=== PATIENT | female | born 1960 | race American Indian/Alaskan Native ===

== ENCOUNTER 2017-01-01 11:15 | Inpatient (IN) | payer MEDICAID ==
--- NOTE | 2017-01-01 12:08 | ED PDOC ---
Arrival/HPI - General Chief Complaint: Weakness/Neurological Deficit Time Seen by Provider: 01/01/17 11:48 Historian: Patient - History of Present Illness Narrative History of Present Illness (Text): 01/01/17 12:05 56 year old female whose past medical history includes anemia, colitis, partial small bowel obstruction, and breast CA presents to the emergency department with shortness of breath for the past few weeks. She states it is worse with exertion. She also reports one episode of black diarrhea and nausea. Denies vaginal bleeding. Patient reports she has had transfusions in the past and was told to come to the ER by her oncologist. Oncologist: Dr. Aceves ([phone]) Time/Duration: > week Symptom Onset: Gradual Symptom Course: Unchanged Modifying Factors (Text): None Past Medical History - Infectious Disease Hx of Infectious Diseases: None - Cardiac Hx Cardiac Disorders: No - Pulmonary Hx Respiratory Disorders: No - Neurological Hx Neurological Disorder: No - HEENT Hx HEENT Disorder: Yes Other/Comment: glasses - Renal Hx Renal Disorder: No - Endocrine/Metabolic Hx Endocrine Disorders: No - Hematological/Oncological Hx Blood Disorders: Yes Hx Anemia: Yes Hx Blood Transfusions: Yes Hx Blood Transfusion Reaction: No Hx Cancer: Yes (breast cancer R side) Other/Comment: low iron count - Integumentary Hx Dermatological Disorder: No - Musculoskeletal/Rheumatological Hx Musculoskeletal Disorders: No Hx Falls: No - Gastrointestinal Hx Gastrointestinal Disorders: No - Genitourinary/Gynecological Hx Genitourinary Disorders: No - Psychiatric Hx Psychophysiologic Disorder: No Hx Substance Use: No - Surgical History Other/Comment: gallstones removed. - Anesthesia Hx Anesthesia: Yes Hx Anesthesia Reactions: No Hx Malignant Hyperthermia: No Family/Social History Family/Social History: No Known Family HX Smoking Status: Never Smoked Hx Alcohol Use: Yes (social) Hx Substance Use: No Allergies/Home Meds Allergies/Adverse Reactions: Allergies No Known Allergies Allergy (Verified 01/01/17 11:36) Home Medications: Home Meds Medication Instructions Recorded Confirmed Calcium Carbonate [Calcium] 600 mg PO BID 01/01/17 01/01/17 Ferrous Sulfate [Feosol] 324 mg PO DAILY 01/01/17 01/01/17 Letrozole [Femara] 2.5 mg PO DAILY 01/01/17 01/01/17 Palbociclib [Ibrance] 125 mg PO DAILY 01/01/17 01/01/17 Review of Systems - Physician Review All systems were reviewed & negative as marked: Yes - Review of Systems Respiratory: SOB Gastrointestinal: Diarrhea, Nausea Genitourinary Female: absent: Vaginal Bleeding Physical Exam Vital Signs Reviewed: Yes Vital Signs Temp Pulse Resp BP Pulse Ox 01/01/17 11:41 97.7 F 104 H 20 104/73 99 Temperature: Afebrile Blood Pressure: Normal Pulse: Tachycardic Respiratory Rate: Normal Appearance: Positive for: Well-Appearing, Non-Toxic, Comfortable Pain Distress: None Mental Status: Positive for: Alert and Oriented X 3 - Systems Exam Head: Present: Atraumatic, Normocephalic Pupils: Present: PERRL Extroacular Muscles: Present: EOMI Conjunctiva: Present: Other (Pale) Mouth: Present: Moist Mucous Membranes Neck: Present: Normal Range of Motion Respiratory/Chest: Present: Clear to Auscultation, Good Air Exchange. No: Respiratory Distress, Accessory Muscle Use Cardiovascular: Present: Regular Rate and Rhythm, Normal S1, S2. No: Murmurs Abdomen: Present: Tenderness (Mild epigastric ), Normal Bowel Sounds. No: Distention, Peritoneal Signs Rectal: Present: Other (Brown stool. Applications Processor: Dimpal, ED Scribe). No: Rectal Tenderness, Hemorrhoids, Fissures Back: Present: Normal Inspection Upper Extremity: Present: Normal Inspection. No: Cyanosis, Edema Lower Extremity: Present: Normal Inspection. No: Edema Neurological: Present: GCS=15, CN II-XII Intact, Speech Normal Skin: Present: Warm, Dry, Normal Color. No: Rashes Psychiatric: Present: Alert, Oriented x 3, Normal Insight, Normal Concentration Medical Decision Making ED Course and Treatment: Impression: 56 year old female whose past medical history includes anemia, colitis, partial small bowel obstruction, and breast CA presents to the emergency department with shortness of breath for the past few weeks. Differential Diagnosis included but are not limited to: Symptomatic anemia vs pneumonia vs pulmonary embolism. Low risk for PE. Plan: -- EKG, Chest X-ray -- Labs -- Reassess and disposition Prior Visits: Notes and results from previous visits were reviewed. Patient last seen in the ED on 12/12/15 for abdominal pain, vomiting, diarrhea, and admitted for colitis , SBO. Progress Notes: Net Software Engineer : Jean-Pierre Denson MD Approver2 : Report Date : 01/01/2017 15:37:40 My Comment : PROCEDURE: CT Chest with contrast (Pulmonary Angiogram) IMPRESSION: Unremarkable CT pulmonary angiogram. No pulmonary embolus. PROCEDURE: CT Abdomen and Pelvis with contrast IMPRESSION: Moderate ascites. The etiology uncertain Case discussed with Dr. Matamoros who will place this patient on observation for shortness of breathe and abdominal pain. - Lab Interpretations Lab Results: 01/01/17 12:49 01/01/17 12:49 Lab Results 01/01/17 12:49: Blood Type O POSITIVE, Antibody Screen Negative, BBK History Checked Patient has bt 01/01/17 12:49: Sodium 136, Chloride 104, Potassium 4.6, Carbon Dioxide 26, Anion Gap 11, BUN 14, Creatinine 1.2, Est GFR ( Amer) 57, Est GFR (Non- Af Amer) 47, Random Glucose 111 H, Calcium 9.1, Total Bilirubin 2.7 H, AST 472 H , ALT 160 H, Alkaline Phosphatase 367 H, Lactate Dehydrogenase 2043 H, Total Creatine Kinase 210, Troponin I < 0.01, NT-Pro-B Natriuret Pep 177, Total Protein 7.5, Albumin 3.2, Globulin 4.3, Albumin/Globulin Ratio 0.8 L, Lipase 220 01/01/17 12:49: pO2 40, VBG pH 7.36, VBG pCO2 46.0, VBG HCO3 26.0, VBG Total CO2 27.4, VBG O2 Sat (Calc) 77.2 H, VBG Base Excess 0.1, VBG Potassium 4.7, Sodium 137.0, Chloride 105.0, Glucose 113 H, Lactate 2.7 H, FiO2 21.0, Venous Blood Potassium 4.7 01/01/17 12:49: PT 15.0 H, INR 1.39 H, APTT 38.4 H, D-Dimer, Quantitative 24.32 H 01/01/17 12:49: WBC 4.8, RBC 2.61 L, Hgb 9.4 L, Hct 28.0 L, MCV 107.3 H, MCH 36.0 H, MCHC 33.6, RDW 18.8 H, Plt Count 104 L, MPV 10.3, Gran % 54.1, Lymph % ( Auto) 39.1 H, [place] % (Auto) 6.0, Eos % (Auto) 0.2 L, Baso % (Auto) 0.6, Gran # 2.60, Lymph # 1.9, [place] # 0.3, Eos # 0.0, Baso # 0.03 - RAD Interpretation Radiology Orders: 01/01/17 12:09 CHEST PORTABLE [RAD] Stat 01/01/17 13:42 ANGIO CHEST PE PROTOCOL [CT] Stat 01/01/17 13:45 ABD & PELVIS IV CONTRAST ONLY [CT] Stat - EKG Interpretation Interpreted by ED Physician: Yes (EKG shows NSR at 93 BPM, otherwise normal) Type: 12 lead EKG - Medication Orders Current Medication Orders: Discontinued Medications Iodixanol (Visipaque 320 Mg/Ml 100 Ml) Confirm Administered Dose 100 ml IV .Zmanda- Dormify ONE Stop: 01/01/17 13:47 - Scribe Statement The provider has reviewed the documentation as recorded by the Armida Hull Provider Scribe Attestation: All medical record entries made by the Carlibshabana were at my direction and personally dictated by me. I have reviewed the chart and agree that the record accurately reflects my personal performance of the history, physical exam, medical decision making, and the department course for this patient. I have also personally directed, reviewed, and agree with the discharge instructions and disposition. Disposition/Present on Arrival - Present on Arrival Any Indicators Present on Arrival: No History of DVT/PE: No History of Uncontrolled Diabetes: No Urinary Catheter: No History of Decub. Ulcer: No History Surgical Site Infection Following: None - Disposition Have Diagnosis and Disposition been Completed?: Yes Diagnosis: Abdominal pain, Ascites, Shortness of breath Disposition Time: 16:03 Patient Plan: Observation Condition: FAIR Referrals: Tong Arias MD [Primary Care Provider] - Follow up with primary
[2017-01-01 13:14] LABS: ADD MANUAL DIFF? NO
[2017-01-01 13:18] LABS: BASO # 0.03 K/mm3 (0.0-2.0); BASO % 0.6 % (0.0-3.0); EOS % 0.2 % (1.5-5.0); GRAN % 54.1 % (50.0-68.0); LYMPH # 1.9 (1.2-3.4); LYMPH % 39.1 % (22.0-35.0); MEAN CELL VOLUME 107.3 fL (80.0-105.0); MEAN CORPUSCULAR HGB CONC 33.6 g/dl (31.0-37.0); MEAN PLATELET VOLUME 10.3 fl (7.0-11.0); MONO # 0.3 (0.1-0.6); PLATELET COUNT 104 10^3/uL (120.0-450.0); RED CELL DISTRIBUTION WIDTH 18.8 % (11.5-14.5); WHITE BLOOD COUNT 4.8 10^3/ul (4.5-11.0)
[2017-01-01 13:20] LABS: VENOUS BLOOD GAS BASE EXCESS 0.1 mmol/L (0.0-2.0); VENOUS BLOOD PH 7.36 (7.32-7.43)
[2017-01-01 13:33] LABS: ALB/GLOB RATIO 0.8 (1.1-1.8); ALKALINE PHOSPHATASE 367 U/L (38-133); ALT/SGPT 160 U/L (7-56); AST/SGOT 472 U/L (15-39); BILIRUBIN,TOTAL 2.7 mg/dL (0.2-1.3); BLOOD UREA NITROGEN 14 mg/dL (7-21); CALCIUM 9.1 mg/dL (8.4-10.5); CARBON DIOXIDE 26 mmol/L (21-33); CHLORIDE 104 mmol/L (95-110); GFR AFRICAN-AMERICAN 57; GLUCOSE,RANDOM 111 mg/dL (70-110); LIPASE 220 U/L (23-300); POTASSIUM 4.6 mmol/L (3.6-5.0); SODIUM 136 mmol/L (132-148); TOTAL PROTEIN 7.5 g/dL (5.8-8.3)
[2017-01-01 13:39] LABS: INR 1.39 (0.93-1.08); PARTIAL THROMBOPLASTIN TIME 38.4 Seconds (23.7-30.8)
[2017-01-01 13:41] LABS: D DIMER 24.32 mg/L FEU (0-0.50)
[2017-01-01] MEDS ORDERED: Iodixanol 320 MG/ML 100 ML BOTTLE IV ONE (13:46)
[2017-01-01 14:07] LABS: TROPONIN I < 0.01 ng/mL
--- NOTE | 2017-01-01 15:39 | CT ---
PROCEDURE: CT Chest with contrast (Pulmonary Angiogram) HISTORY: SOB r/o PE COMPARISON: None available. TECHNIQUE: Axial computed tomography images were obtained of the chest in the pulmonary arterial phase of enhancement. Coronal and sagittal reformatted images were created and reviewed. Intravenous contrast dose: 100 cc of Visipaque Radiation dose: Total exam DLP = 2538 mGy-cm. This CT exam was performed using one or more of the following dose reduction techniques: Automated exposure control, adjustment of the mA and/or kV according to patient size, and/or use of iterative reconstruction technique. FINDINGS: PULMONARY ARTERIES: Unremarkable. No pulmonary embolism. AORTA: No acute findings. No thoracic aortic aneurysm. LUNGS: Unremarkable. No nodule, mass or pulmonary consolidation. PLEURAL SPACES: Unremarkable. No effusion or pneuomothorax. HEART: Unremarkable. No cardiomegaly. No significant pericardial effusion. LYMPH NODES: No lymphadenopathy. BONES, CHEST WALL: Unremarkable. No fracture or destructive lesion OTHER FINDINGS: Unremarkable. IMPRESSION: Unremarkable CT pulmonary angiogram. No pulmonary embolus. PROCEDURE: CT Abdomen and Pelvis with contrast HISTORY: Abdominal pain COMPARISON: None. . The study was performed in combination with the contrast-enhanced chest study FINDINGS: LOWER THORAX: Unremarkable. LIVER: Unremarkable. No gross lesion or ductal dilatation. 3.5 cm simple cyst in the liver GALLBLADDER AND BILE DUCTS: Gallbladder removed PANCREAS: Unremarkable. No gross lesion or ductal dilatation. SPLEEN: Unremarkable. ADRENALS: Unremarkable. No mass. KIDNEYS AND URETERS: Unremarkable. No hydronephrosis. No solid mass. VASCULATURE: Unremarkable. No aortic aneurysm. BOWEL: Unremarkable. No obstruction. No gross mural thickening. APPENDIX: Normal appendix. PERITONEUM: There is moderate ascites. There is some mesenteric and omental stranding without evidence of a discrete mass. LYMPH NODES: Unremarkable. No enlarged lymph nodes. BLADDER: Unremarkable. REPRODUCTIVE: Unremarkable. BONES: No acute fracture. OTHER FINDINGS: None. IMPRESSION: Moderate ascites. The etiology uncertain
--- NOTE | 2017-01-01 15:43 | RAD ---
HISTORY: sob COMPARISON: No prior. FINDINGS: LUNGS: No active pulmonary disease. PLEURA: No significant pleural effusion identified, no pneumothorax apparent. CARDIOVASCULAR: Normal. OSSEOUS STRUCTURES: No significant abnormalities. VISUALIZED UPPER ABDOMEN: Normal. OTHER FINDINGS: None. IMPRESSION: No active disease.
[2017-01-01] MEDS ORDERED: Morphine 2 mg/ml ISec IVP PRN (16:35)
[2017-01-01] MEDS ORDERED: Albuterol-Ipratrop 3 mg / 0.5 (3 ml) UD IH PRN ×2 (16:35→16:40)
--- NOTE | 2017-01-01 16:41 | CP.PCM.HP ---
<Alfonso Taylor - Last Filed: 01/01/17 16:37> History of Present Illness - History of Present Illness History of Present Illness: This is a 56 yo female with past medical hx of breast cancer and anemia presenting with abdominal pain x 1 1/2 weeks. Pt complains of epigastric and RUQ pain for about a week and half. Pain is pressure sensation, not getting better or worse. Says she had similar pain when she was diagnosed with breast cancer in 2016 She did not have surgery for her breast cancer. Last chemo in May 2016. Sees [address] Aceves. Recently had PET scan which suggests osseous mets and liver mets. No fevers, chills, cp, but does report sob. Also several episodes of non bloody diarrhea past few days. PMH: Breast cancer, anemia PSH: cholecystectomy Allergies: nkda FH: Heart dx in family Current meds: ibrance, letrozole, calcium, iron pills Social hx: denies smoking, drinking, drugs. Lives alone but sister is on first floor of building Present on Admission - Present on Admission Any Indicators Present on Admission: No History of DVT/PE: No History of Uncontrolled Diabetes: No Urinary Catheter: No Decubitus Ulcer Present: No Review of Systems - Review of Systems All systems: reviewed and no additional remarkable complaints except Review of Systems: neg except per hpi. Past Patient History - Infectious Disease Hx of Infectious Diseases: None - Tetanus Immunizations Tetanus Immunization: Unknown - Past Medical History & Family History Past Medical History?: Yes - Past Social History Smoking Status: Never Smoked Chewing Tobacco Use: No Cigar Use: No Alcohol: None Drugs: Denies Home Situation {Lives}: Alone Domestic Violence: Negative - CARDIAC Hx Cardiac Disorders: No - PULMONARY Hx Respiratory Disorders: No - NEUROLOGICAL Hx Neurological Disorder: No - HEENT Hx HEENT Problems: Yes Other/Comment: glasses - RENAL Hx Chronic Kidney Disease: No - ENDOCRINE/METABOLIC Hx Endocrine Disorders: No - HEMATOLOGICAL/ONCOLOGICAL Hx Blood Disorders: Yes Hx Anemia: Yes Hx Blood Transfusions: Yes Hx Blood Transfusion Reaction: No Hx Cancer: Yes (breast cancer R side) Other/Comment: low iron count - INTEGUMENTARY Hx Dermatological Problems: No - MUSCULOSKELETAL/RHEUMATOLOGICAL Hx Musculoskeletal Disorders: No Hx Falls: No - GASTROINTESTINAL Hx Gastrointestinal Disorders: No - GENITOURINARY/GYNECOLOGICAL Hx Genitourinary Disorders: No - PSYCHIATRIC Hx Psychophysiologic Disorder: No Hx Substance Use: No - SURGICAL HISTORY Other/Comment: gallstones removed. - ANESTHESIA Hx Anesthesia: Yes Hx Anesthesia Reactions: No Hx Malignant Hyperthermia: No Meds Allergies/Adverse Reactions: Allergies Allergy/AdvReac Type Severity Reaction Status Date / Time No Known Allergies Allergy Verified 01/01/17 11:36 Physical Exam - Constitutional Appears: Non-toxic, No Acute Distress - Head Exam Head Exam: ATRAUMATIC, NORMAL INSPECTION, NORMOCEPHALIC - Eye Exam Eye Exam: EOMI - ENT Exam ENT Exam: Mucous Membranes Moist - Neck Exam Neck exam: Positive for: Full Rom, Normal Inspection - Respiratory Exam Respiratory Exam: NORMAL BREATHING PATTERN. absent: Respiratory Distress - Cardiovascular Exam Cardiovascular Exam: +S1, +S2 - GI/Abdominal Exam GI & Abdominal Exam: Distended, Normal Bowel Sounds, Tenderness Additional comments: Evidence of ascites and mild epigastric tenderness - Extremities Exam Extremities exam: Positive for: full ROM, normal inspection - Neurological Exam Neurological exam: Alert, CN II-XII Intact, Oriented x3 - Psychiatric Exam Psychiatric exam: Normal Affect, Normal Mood - Skin Skin Exam: Dry, Intact, Normal Color, Warm Results - Vital Signs Recent Vital Signs: Last Vital Signs Temp 97.7 F 01/01/17 11:41 Pulse 104 H 01/01/17 11:41 Resp 20 01/01/17 11:41 BP 104/73 01/01/17 11:41 Pulse Ox 99 01/01/17 11:41 - Labs Result Diagrams: 01/01/17 12:49 01/01/17 12:49 Labs: Laboratory Results - last 24 hr 01/01/17 01/01/17 01/01/17 12:49 12:49 12:49 WBC 4.8 RBC 2.61 L Hgb 9.4 L Hct 28.0 L MCV 107.3 H MCH 36.0 H MCHC 33.6 RDW 18.8 H Plt Count 104 L MPV 10.3 Gran % 54.1 Lymph % (Auto) 39.1 H [place] % (Auto) 6.0 Eos % (Auto) 0.2 L Baso % (Auto) 0.6 Gran # 2.60 Lymph # 1.9 [place] # 0.3 Eos # 0.0 Baso # 0.03 PT 15.0 H INR 1.39 H APTT 38.4 H D-Dimer, Quantitative 24.32 H pO2 40 VBG pH 7.36 VBG pCO2 46.0 VBG HCO3 26.0 VBG Total CO2 27.4 VBG O2 Sat (Calc) 77.2 H VBG Base Excess 0.1 VBG Potassium 4.7 Sodium 137.0 Chloride 105.0 Glucose 113 H Lactate 2.7 H FiO2 21.0 Potassium Carbon Dioxide Anion Gap BUN Creatinine Est GFR ( Amer) Est GFR (Non-Af Amer) Random Glucose Calcium Total Bilirubin AST ALT Alkaline Phosphatase Lactate Dehydrogenase Total Creatine Kinase Troponin I NT-Pro-B Natriuret Pep Total Protein Albumin Globulin Albumin/Globulin Ratio Lipase Venous Blood Potassium 4.7 Blood Type Antibody Screen BBK History Checked 01/01/17 01/01/17 12:49 12:49 WBC RBC Hgb Hct MCV MCH MCHC RDW Plt Count MPV Gran % Lymph % (Auto) [place] % (Auto) Eos % (Auto) Baso % (Auto) Gran # Lymph # [place] # Eos # Baso # PT INR APTT D-Dimer, Quantitative pO2 VBG pH VBG pCO2 VBG HCO3 VBG Total CO2 VBG O2 Sat (Calc) VBG Base Excess VBG Potassium Sodium 136 Chloride 104 Glucose Lactate FiO2 Potassium 4.6 Carbon Dioxide 26 Anion Gap 11 BUN 14 Creatinine 1.2 Est GFR ( Amer) 57 Est GFR (Non-Af Amer) 47 Random Glucose 111 H Calcium 9.1 Total Bilirubin 2.7 H AST 472 H ALT 160 H Alkaline Phosphatase 367 H Lactate Dehydrogenase 2043 H Total Creatine Kinase 210 Troponin I < 0.01 NT-Pro-B Natriuret Pep 177 Total Protein 7.5 Albumin 3.2 Globulin 4.3 Albumin/Globulin Ratio 0.8 L Lipase 220 Venous Blood Potassium Blood Type O POSITIVE Antibody Screen Negative BBK History Checked Patient has bt Assessment & Plan - Assessment and Plan (Free Text) Assessment: This is a 56 yo female with pmh of breast cancer and anemia presenting with abdominal pain x 1 1/2 weeks 1. Abdominal pain -likely 2/2 metastatic disease -pet scan shows evidence of osseous mets and liver mets -lfs elevated -morphine for pain -zofran for nausea -duonebs for sob prn -protonix daily -lovenox daily -heme onc consult. Yola. recs appreciated -clear liquid diet 2. hx of breast cancer -hold home meds for now 3. hx of anemia -will discuss poss of blood transfusion with Dr. Aceves 4. GI/DVT ppx -lovenox -protonix dw Dr. Matamoros <Deyanira Matamoros - Last Filed: 01/02/17 13:43> Results - Vital Signs Recent Vital Signs: Last Vital Signs Temp 99 F 01/02/17 09:29 Pulse 70 01/02/17 09:29 Resp 19 01/02/17 09:29 BP 121/71 01/02/17 09:29 Pulse Ox 97 01/02/17 09:29 - Labs Result Diagrams: 01/02/17 08:00 01/02/17 08:00 Labs: Laboratory Results - last 24 hr 01/01/17 01/01/17 01/02/17 18:55 22:38 08:00 WBC 7.7 D RBC 2.88 L Hgb 10.2 L Hct 29.3 L MCV 101.7 MCH 35.4 H MCHC 34.8 RDW 21.6 H Plt Count 87 L MPV 8.3 Gran % 38.5 L Lymph % (Auto) 57.9 H [place] % (Auto) 3.1 Eos % (Auto) 0.1 L Baso % (Auto) 0.4 Gran # 2.97 Lymph # 4.5 H [place] # 0.2 Eos # 0.0 Baso # 0.03 pO2 50 43 VBG pH 7.47 H 7.47 H VBG pCO2 32.0 L 35.0 L VBG HCO3 23.3 25.5 VBG Total CO2 24.3 26.6 VBG O2 Sat (Calc) 90.1 H 83.6 H VBG Base Excess 0.0 1.9 VBG Potassium 4.5 4.3 Sodium 137.0 137.0 Chloride 108.0 H 107.0 Glucose 126 H 111 H Lactate 2.4 H 1.9 FiO2 21.0 21.0 Potassium Carbon Dioxide Anion Gap BUN Creatinine Est GFR ( Amer) Est GFR (Non-Af Amer) Random Glucose Calcium Magnesium Total Bilirubin AST ALT Alkaline Phosphatase Total Protein Albumin Globulin Albumin/Globulin Ratio Venous Blood Potassium 4.5 4.3 01/02/17 08:00 WBC RBC Hgb Hct MCV MCH MCHC RDW Plt Count MPV Gran % Lymph % (Auto) [place] % (Auto) Eos % (Auto) Baso % (Auto) Gran # Lymph # [place] # Eos # Baso # pO2 VBG pH VBG pCO2 VBG HCO3 VBG Total CO2 VBG O2 Sat (Calc) VBG Base Excess VBG Potassium Sodium 138 Chloride 107 Glucose Lactate FiO2 Potassium 4.3 Carbon Dioxide 22 Anion Gap 13 BUN 14 Creatinine 1.2 Est GFR ( Amer) 57 Est GFR (Non-Af Amer) 47 Random Glucose 86 Calcium 8.5 Magnesium 2.4 H Total Bilirubin 3.2 H AST 479 H ALT 160 H Alkaline Phosphatase 364 H Total Protein 7.4 Albumin 3.2 Globulin 4.3 Albumin/Globulin Ratio 0.7 L Venous Blood Potassium Attending/Attestation - Attestation I have personally seen and examined this patient.: Yes I have fully participated in the care of the patient.: Yes I have reviewed all pertinent clinical information: Yes Notes (Text): 01/02/17 13:40 attending note; patient seen and examined with resident in ER. Patient is a 56-year-old female with a history of breast cancer is admitted with exertional shortness of breath and abdominal discomfort. D-dimer was elevated secondary to malignancy. CT angios is negative And venous Doppler is negative for DVT. Anemia; Hb is 9.4. 1 unit PRBC transfusion ordered. Elevated LFT; Ibrance and femara on hold. abdominal ultrasound ordered. breast cancer; recent PET scan showed osseous metastasis and increased liver uptake. Case discussed with oncology in detail. Upon discharge the patient will follow-up with . Follow-up with PMD Dr. Arias.
--- NOTE | 2017-01-01 16:43 | CARD ---
APPROVED REPORT EKG Measurement Heart [id number] <Conclusion> Normal sinus rhythm Normal ECG
[2017-01-01 19:08] LABS: VENOUS BLOOD PH 7.47 (7.32-7.43)
--- NOTE | 2017-01-01 21:00 | US ---
HISTORY: Arm pain and swelling. Evaluate for deep venous thrombosis. PHYSICIAN(S): Sarthak Hernandez MD. FINDINGS: The visualized internal jugular veins are sonographically normal and compressible. No evidence of obstruction or thrombus this is seen. The visualized segments of the subclavian veins are patent with normal waveforms. No sonographic evidence of obstruction or thrombosis is seen. The visualized deep venous systems of both upper extremities proximally are sonographically normal and compressible. IMPRESSION: 1. No sonographic evidence for deep venous thrombosis in the visualized segments of both upper strategies.
[2017-01-01 22:45] LABS: VENOUS BLOOD GAS BASE EXCESS 1.9 mmol/L (0.0-2.0); VENOUS BLOOD PH 7.47 (7.32-7.43)
[2017-01-02 00:56] VITALS: BMI 36.5
[2017-01-02 08:24] LABS: ADD MANUAL DIFF? NO
[2017-01-02 08:26] LABS: BASO # 0.03 K/mm3 (0.0-2.0); BASO % 0.4 % (0.0-3.0); EOS % 0.1 % (1.5-5.0); GRAN # 2.97 (1.4-6.5); GRAN % 38.5 % (50.0-68.0); HEMATOCRIT 29.3 % (36.0-48.0); LYMPH # 4.5 (1.2-3.4); LYMPH % 57.9 % (22.0-35.0); MEAN CELL VOLUME 101.7 fL (80.0-105.0); MEAN CORPUSCULAR HEMOGLOBIN 35.4 pg (25.0-35.0); MEAN CORPUSCULAR HGB CONC 34.8 g/dl (31.0-37.0); MEAN PLATELET VOLUME 8.3 fl (7.0-11.0); MONO # 0.2 (0.1-0.6); MONO % 3.1 % (1.0-6.0); PLATELET COUNT 87 10^3/uL (120.0-450.0); RED CELL DISTRIBUTION WIDTH 21.6 % (11.5-14.5); WHITE BLOOD COUNT 7.7 10^3/ul (4.5-11.0)
[2017-01-02 08:40] LABS: ALB/GLOB RATIO 0.7 (1.1-1.8); BILIRUBIN,TOTAL 3.2 mg/dL (0.2-1.3); CALCIUM 8.5 mg/dL (8.4-10.5); MAGNESIUM 2.4 mg/dL (1.7-2.2); POTASSIUM 4.3 mmol/L (3.6-5.0); TOTAL PROTEIN 7.4 g/dL (5.8-8.3)
--- NOTE | 2017-01-02 09:33 | US ---
HISTORY: liver mass COMPARISON: CT scan of the abdomen and pelvis from 03/23/2016 TECHNIQUE: Sonographic evaluation of the abdomen. FINDINGS: LIVER: Measures 17.5 cm. Normal echogenicity of the liver parenchyma. There is a 3.8 x 2.6 x 3.6 cm hypoechoic mass with internal echoes unchanged since the prior CT examination. No intrahepatic bile duct dilatation. GALLBLADDER: Surgically absent. COMMON BILE DUCT: Measures 3.7 mm. No stones. No dilatation. PANCREAS: Obscured by bowel gas. RIGHT KIDNEY: Measures 9.7cm. Normal echogenicity. No calculus, mass, or hydronephrosis. LEFT KIDNEY: Measures 9.9cm. Normal echogenicity. No calculus, mass, or hydronephrosis. SPLEEN: Normal in size and contour. No mass. AORTA: No aneurysmal dilatation. IVC: Unremarkable. OTHER FINDINGS: There is mild perihepatic and perisplenic ascites. IMPRESSION: 1. 3.8 cm simple cyst in the right hepatic lobe. 2. Mild perihepatic and perisplenic ascites.
[2017-01-02] MEDS: Enoxaparin 40 mg Syringe SC SCH (09:47)
--- NOTE | 2017-01-02 10:25 | CP.PCM.PN ---
<Johanna Judd - Last Filed: 01/02/17 10:38> Subjective - Date & Time of Evaluation Date of Evaluation: 01/02/17 Time of Evaluation: 07:15 - Subjective Subjective: Pt was seen and examined at bedside. Pt tolerated pRBC transfusion overnight. No acute complaints at this time. No acute or adverse events overnight as per nursing staff. Pt has mild complaints of abdominal tenderness. Pt denied fever, chills, sob, chest pains, n/v/d/c or urinary symptoms. Objective - Vital Signs/Intake and Output Vital Signs (last 24 hours): Temp Pulse Resp BP Pulse Ox 99 F 70 19 121/71 97 01/02/17 09:29 01/02/17 09:29 01/02/17 09:29 01/02/17 09:29 01/02/17 09:29 Intake and Output: 01/02/17 01/02/17 06:59 18:59 Intake Total 737 120 Balance 737 120 - Medications Medications: Current Medications Albuterol/Ipratropium (Duoneb 3 Mg/0.5 Mg (3 Ml) Ud) 3 ml IH [id number] PRN PRN Reason: Shortness of Breath Enoxaparin Sodium (Lovenox) 40 mg SC DAILY [facility] PRN Reason: Protocol Last Admin: 01/02/17 09:47 Dose: 40 mg Morphine Sulfate (Morphine) 2 mg IVP Q4 PRN PRN Reason: Pain, moderate (4-7) Ondansetron HCl (Zofran Inj) 4 mg IVP Q6 PRN PRN Reason: Nausea/Vomiting Pantoprazole Sodium (Protonix Inj) 40 mg IVP DAILY [facility] Last Admin: 01/02/17 09:48 Dose: 40 mg - Labs Labs: 01/02/17 08:00 01/02/17 08:00 PT 15.0 Seconds (9.9-11.8) H 01/01/17 12:49 INR 1.39 (0.93-1.08) H 01/01/17 12:49 APTT 38.4 Seconds (23.7-30.8) H 01/01/17 12:49 - Constitutional Appears: No Acute Distress - Head Exam Head Exam: ATRAUMATIC, NORMAL INSPECTION, NORMOCEPHALIC - Eye Exam Eye Exam: EOMI, Normal appearance, PERRL Pupil Exam: NORMAL ACCOMODATION, PERRL - ENT Exam ENT Exam: Mucous Membranes Moist, Normal Exam - Neck Exam Neck Exam: Full ROM, Normal Inspection. absent: Lymphadenopathy - Respiratory Exam Respiratory Exam: Clear to Ausculation Bilateral, NORMAL BREATHING PATTERN - Cardiovascular Exam Cardiovascular Exam: REGULAR RHYTHM, +S1, +S2. absent: Murmur - GI/Abdominal Exam GI & Abdominal Exam: Soft, Tenderness (diffuse), Normal Bowel Sounds - Extremities Exam Extremities Exam: Full ROM, Normal Capillary Refill, Normal Inspection. absent : Joint Swelling, Pedal Edema - Back Exam Back Exam: NORMAL INSPECTION - Neurological Exam Neurological Exam: Alert, Awake, CN II-XII Intact, Normal Gait, Oriented x3 - Psychiatric Exam Psychiatric exam: Normal Affect, Normal Mood - Skin Skin Exam: Dry, Intact, Normal Color, Warm Assessment and Plan - Assessment and Plan (Free Text) Assessment: This is a 56 yo female with pmh of breast cancer and anemia presenting with abdominal pain x 1 1/2 weeks admitted for symptomatic anemia vs PE r/o. Abdominal pain -likely 2/2 metastatic disease -pet scan shows evidence of osseous mets and liver mets - ABD US demonstarted ascites and rt hepatic lobe cyst -lfs elevated will continue to trend -morphine for pain -zofran for nausea -heme onc consult. Yola. recs appreciated SOB - D-dimer elevated - PE workup negative - FU Echo - duonebs prn - 2. Hx breast cancer -hold home meds for now 3. hx of anemia - s/p 1 pRBC transfusion, Hgb: 9.4 -> 10.2 - Heme onc consulted, Dr. Aceves 4. GI/DVT ppx Seen reviewed and discussed with Dr. Matamoros <Deyanira Matamoros - Last Filed: 01/02/17 13:39> Objective - Vital Signs/Intake and Output Vital Signs (last 24 hours): Temp Pulse Resp BP Pulse Ox 99 F 70 19 121/71 97 01/02/17 09:29 01/02/17 09:29 01/02/17 09:29 01/02/17 09:29 01/02/17 09:29 Intake and Output: 01/02/17 01/02/17 06:59 18:59 Intake Total 737 120 Balance 737 120 - Medications Medications: Current Medications Albuterol/Ipratropium (Duoneb 3 Mg/0.5 Mg (3 Ml) Ud) 3 ml IH [id number] PRN PRN Reason: Shortness of Breath Enoxaparin Sodium (Lovenox) 40 mg SC DAILY [facility] PRN Reason: Protocol Last Admin: 01/02/17 09:47 Dose: 40 mg Morphine Sulfate (Morphine) 2 mg IVP Q4 PRN PRN Reason: Pain, moderate (4-7) Ondansetron HCl (Zofran Inj) 4 mg IVP Q6 PRN PRN Reason: Nausea/Vomiting Pantoprazole Sodium (Protonix Inj) 40 mg IVP DAILY [facility] Last Admin: 01/02/17 09:48 Dose: 40 mg - Labs Labs: 01/02/17 08:00 01/02/17 08:00 PT 15.0 Seconds (9.9-11.8) H 01/01/17 12:49 INR 1.39 (0.93-1.08) H 01/01/17 12:49 APTT 38.4 Seconds (23.7-30.8) H 01/01/17 12:49 Attending/Attestation - Attestation I have personally seen and examined this patient.: Yes I have fully participated in the care of the patient.: Yes I have reviewed all pertinent clinical information, including history, physical exam and plan: Yes Notes (Text): 01/02/17 13:35 attending note; patient seen and examined with resident. Patient is a 56-year-old female with a history of breast cancer is admitted with exertional shortness of breath and abdominal discomfort. D-dimer was elevated secondary to malignancy. CT angios is negative And venous Doppler is negative for DVT. Anemia; status post 1 unit PRBC transfusion. Hemoglobin is 10.2. Elevated LFT; ultrasound showed simple cyst. Ibrance and femara on hold. breast cancer; recent PET scan showed osseous metastasis and increased liver uptake. Case discussed with oncology in detail. GI evaluation requested. Upon discharge the patient will follow-up with . Follow-up with PMD Dr. Arias.
--- NOTE | 2017-01-02 13:12 | CP.PCM.CON ---
<Tiffani Lugo - Last Filed: 01/02/17 14:24> History of Present Illness - History of Present Illness History of Present Illness: GI consult note 56 year old female with past medical history of breast cancer diagnosed in 2015 with metastasis to stomach and bone and history of anemia presents to hospital for shortness of breath. GI is consulted for elevated LFTs. 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 Patient is followed by heme/onc Dr. Aceves. She was started on chemotherapy. She received IV chemo infusions from 02/2016-05/2016. After that, she was started on PO chemotherapy with letrozole 2.5 mg po and Ibrance 125 mg po weekly. Recent PET scan on 12/29/2016 showed worsening mets to bones and increased uptake in liver without definite evidence of mass lesions , and increased uptake in lesser curvature of stomach. On hospital admission this time, patient was c/o shortness of breath and abdominal pressure. D dimer was elevated but PE was ruled out with CT chest. She was found to have elevated LFTs. CT of abd/pelvis showed moderate ascites and 3.5 cm simple liver cyst. This was followed up with abd US which also showed ascites and simple liver cyst measuring 3.8 cm. Today, patient continues to c/o of abd pressure intermittently. She denies having any abd pain, n/V/D/C. Her shortness of breath has improved. 12 point ROS are negative except for the above mentioned. PMHx: stated above sx: cholecystectomy NKDA Meds: see SEP. Letrozole 2.5 mg po monthly cycle for three weeks. Ibrance 125 mg po weekly FH: Heart dx in family, no history of colon ca. Social hx: denies smoking, drinking, drugs. Lives alone but sister is on first floor of building Past Patient History - Infectious Disease Hx of Infectious Diseases: None - Tetanus Immunizations Tetanus Immunization: Unknown - Past Medical History & Family History Past Medical History?: Yes - Past Social History Smoking Status: Never Smoked Chewing Tobacco Use: No Cigar Use: No Alcohol: None Drugs: Denies - CARDIAC Hx Cardiac Disorders: No - PULMONARY Hx Respiratory Disorders: No - NEUROLOGICAL Hx Neurological Disorder: No - HEENT Hx HEENT Problems: Yes Other/Comment: wears glasses - RENAL Hx Chronic Kidney Disease: No - ENDOCRINE/METABOLIC Hx Endocrine Disorders: No - HEMATOLOGICAL/ONCOLOGICAL Hx Anemia: Yes Hx Cancer: Yes (Rt Breast cancer) - INTEGUMENTARY Hx Dermatological Problems: No - MUSCULOSKELETAL/RHEUMATOLOGICAL Hx Musculoskeletal Disorders: No Hx Falls: No - GASTROINTESTINAL Hx Gastrointestinal Disorders: No - GENITOURINARY/GYNECOLOGICAL Hx Genitourinary Disorders: No - PSYCHIATRIC Hx Psychophysiologic Disorder: No - SURGICAL HISTORY Hx Cholecystectomy: Yes - ANESTHESIA Hx Anesthesia: Yes Hx Anesthesia Reactions: No Hx Malignant Hyperthermia: No Meds Allergies/Adverse Reactions: Allergies Allergy/AdvReac Type Severity Reaction Status Date / Time No Known Allergies Allergy Verified 01/01/17 11:36 - Medications Medications: Current Medications Albuterol/Ipratropium (Duoneb 3 Mg/0.5 Mg (3 Ml) Ud) 3 ml IH [id number] PRN PRN Reason: Shortness of Breath Enoxaparin Sodium (Lovenox) 40 mg SC DAILY [facility] PRN Reason: Protocol Last Admin: 01/02/17 09:47 Dose: 40 mg Morphine Sulfate (Morphine) 2 mg IVP Q4 PRN PRN Reason: Pain, moderate (4-7) Ondansetron HCl (Zofran Inj) 4 mg IVP Q6 PRN PRN Reason: Nausea/Vomiting Pantoprazole Sodium (Protonix Inj) 40 mg IVP DAILY [facility] Last Admin: 01/02/17 09:48 Dose: 40 mg Physical Exam - Constitutional Appears: Non-toxic, No Acute Distress - Head Exam Head Exam: ATRAUMATIC - Eye Exam Eye Exam: EOMI - ENT Exam ENT Exam: Mucous Membranes Moist - Respiratory Exam Respiratory Exam: Clear to Auscultation Bilateral. absent: Accessory Muscle Use , Rales, Rhonchi, Wheezes, Respiratory Distress - Cardiovascular Exam Cardiovascular Exam: REGULAR RHYTHM, +S1, +S2. absent: Diastolic murmur, Gallop , Rubs, Systolic Murmur - GI/Abdominal Exam GI & Abdominal Exam: Normal Bowel Sounds, Soft. absent: Diminished Bowel Sounds , Distended, Firm, Guarding, Organomegaly, Rigid - Extremities Exam Extremities exam: Negative for: pedal edema, tenderness - Neurological Exam Neurological exam: Alert, Oriented x3 - Psychiatric Exam Psychiatric exam: Normal Affect, Normal Mood - Skin Skin Exam: Dry, Intact, Normal Color, Warm Results - Vital Signs Recent Vital Signs: Last Vital Signs Temp 99 F 01/02/17 09:29 Pulse 70 01/02/17 09:29 Resp 19 01/02/17 09:29 BP 121/71 01/02/17 09:29 Pulse Ox 97 01/02/17 09:29 - Labs Result Diagrams: 01/02/17 08:00 01/02/17 08:00 Labs: Laboratory Results - last 24 hr 01/01/17 01/01/17 01/02/17 18:55 22:38 08:00 WBC 7.7 D RBC 2.88 L Hgb 10.2 L Hct 29.3 L MCV 101.7 MCH 35.4 H MCHC 34.8 RDW 21.6 H Plt Count 87 L MPV 8.3 Gran % 38.5 L Lymph % (Auto) 57.9 H Stanton % (Auto) 3.1 Eos % (Auto) 0.1 L Baso % (Auto) 0.4 Gran # 2.97 Lymph # 4.5 H Stanton # 0.2 Eos # 0.0 Baso # 0.03 pO2 50 43 VBG pH 7.47 H 7.47 H VBG pCO2 32.0 L 35.0 L VBG HCO3 23.3 25.5 VBG Total CO2 24.3 26.6 VBG O2 Sat (Calc) 90.1 H 83.6 H VBG Base Excess 0.0 1.9 VBG Potassium 4.5 4.3 Sodium 137.0 137.0 Chloride 108.0 H 107.0 Glucose 126 H 111 H Lactate 2.4 H 1.9 FiO2 21.0 21.0 Potassium Carbon Dioxide Anion Gap BUN Creatinine Est GFR ( Amer) Est GFR (Non-Af Amer) Random Glucose Calcium Magnesium Total Bilirubin AST ALT Alkaline Phosphatase Total Protein Albumin Globulin Albumin/Globulin Ratio Venous Blood Potassium 4.5 4.3 01/02/17 08:00 WBC RBC Hgb Hct MCV MCH MCHC RDW Plt Count MPV Gran % Lymph % (Auto) Stanton % (Auto) Eos % (Auto) Baso % (Auto) Gran # Lymph # Stanton # Eos # Baso # pO2 VBG pH VBG pCO2 VBG HCO3 VBG Total CO2 VBG O2 Sat (Calc) VBG Base Excess VBG Potassium Sodium 138 Chloride 107 Glucose Lactate FiO2 Potassium 4.3 Carbon Dioxide 22 Anion Gap 13 BUN 14 Creatinine 1.2 Est GFR ( Amer) 57 Est GFR (Non-Af Amer) 47 Random Glucose 86 Calcium 8.5 Magnesium 2.4 H Total Bilirubin 3.2 H AST 479 H ALT 160 H Alkaline Phosphatase 364 H Total Protein 7.4 Albumin 3.2 Globulin 4.3 Albumin/Globulin Ratio 0.7 L Venous Blood Potassium Assessment & Plan - Assessment and Plan (Free Text) Assessment: 56 year old female with past medical history of metastatic breast cancer and anemia is being seen for transaminits. On admission, AST was 472, ALT 160, T bili 3.2, Alk phos 364. CT of abd/pelvis with IV contrasts on admission showed moderate ascites and 3.5 cm simple cysts on liver. Abd US also showed simple cyst and mild ascites. Hepatitis panel is negative. Transaminits - According to Liver Toxicity Database, Letrozole only mildly increases LFTs. Ibrance is noted to cause elevated LFTs - MRCP and abdomen with and without contrast is ordered to rule out obstructive pathology and for the characterization of liver lesion - Will check for autoimmune hepatitis: FLACO, antismooth muscle ab, liver kidney microsome Ab, IgG, IgM, IgA - Will check for primary biliary sclerosis: antimitochondrial ab - Will check hepatitis B core and surface Ab to rule out underlying chornic hep B with risk of reactivation with chemo therapy and immunosuppression. - Alk phos likely elevated due to bone mets, but will check Alk phos isoenzymes - Will check GGT and direct bilirubin - Will consider paracentesis after discussing with radiologist. - Recommend elective colonoscopy breast cancer with mets to bone and stomach - Dr. Aceves is consulted and managing patient Macrocytic anemia - will check iron studies Case discussed with attending, Dr. Lucero - Date & Time Date: 01/02/17 Time: 13:27 <Nehemiah Lucero - Last Filed: 01/02/17 14:57> Meds - Medications Medications: Current Medications Albuterol/Ipratropium (Duoneb 3 Mg/0.5 Mg (3 Ml) Ud) 3 ml IH [id number] PRN PRN Reason: Shortness of Breath Enoxaparin Sodium (Lovenox) 40 mg SC DAILY [facility] PRN Reason: Protocol Last Admin: 01/02/17 09:47 Dose: 40 mg Morphine Sulfate (Morphine) 2 mg IVP Q4 PRN PRN Reason: Pain, moderate (4-7) Ondansetron HCl (Zofran Inj) 4 mg IVP Q6 PRN PRN Reason: Nausea/Vomiting Pantoprazole Sodium (Protonix Inj) 40 mg IVP DAILY [facility] Last Admin: 01/02/17 09:48 Dose: 40 mg Results - Vital Signs Recent Vital Signs: Last Vital Signs Temp 99 F 01/02/17 09:29 Pulse 70 01/02/17 09:29 Resp 19 01/02/17 09:29 BP 121/71 01/02/17 09:29 Pulse Ox 97 01/02/17 09:29 - Labs Result Diagrams: 01/02/17 08:00 01/02/17 08:00 Labs: Laboratory Results - last 24 hr 01/01/17 01/01/17 01/02/17 18:55 22:38 07:00 WBC RBC Hgb Hct MCV MCH MCHC RDW Plt Count MPV Gran % Lymph % (Auto) Stanton % (Auto) Eos % (Auto) Baso % (Auto) Gran # Lymph # Stanton # Eos # Baso # pO2 50 43 VBG pH 7.47 H 7.47 H VBG pCO2 32.0 L 35.0 L VBG HCO3 23.3 25.5 VBG Total CO2 24.3 26.6 VBG O2 Sat (Calc) 90.1 H 83.6 H VBG Base Excess 0.0 1.9 VBG Potassium 4.5 4.3 Sodium 137.0 137.0 Chloride 108.0 H 107.0 Glucose 126 H 111 H Lactate 2.4 H 1.9 FiO2 21.0 21.0 Potassium Carbon Dioxide Anion Gap BUN Creatinine Est GFR ( Amer) Est GFR (Non-Af Amer) Random Glucose Calcium Magnesium Iron TIBC % Saturation Total Bilirubin Direct Bilirubin 1.7 H GGT 299 H AST ALT Alkaline Phosphatase Total Protein Albumin Globulin Albumin/Globulin Ratio Venous Blood Potassium 4.5 4.3 01/02/17 01/02/17 01/02/17 07:00 08:00 08:00 WBC 7.7 D RBC 2.88 L Hgb 10.2 L Hct 29.3 L MCV 101.7 MCH 35.4 H MCHC 34.8 RDW 21.6 H Plt Count 87 L MPV 8.3 Gran % 38.5 L Lymph % (Auto) 57.9 H Stanton % (Auto) 3.1 Eos % (Auto) 0.1 L Baso % (Auto) 0.4 Gran # 2.97 Lymph # 4.5 H Stanton # 0.2 Eos # 0.0 Baso # 0.03 pO2 VBG pH VBG pCO2 VBG HCO3 VBG Total CO2 VBG O2 Sat (Calc) VBG Base Excess VBG Potassium Sodium 138 Chloride 107 Glucose Lactate FiO2 Potassium 4.3 Carbon Dioxide 22 Anion Gap 13 BUN 14 Creatinine 1.2 Est GFR ( Amer) 57 Est GFR (Non-Af Amer) 47 Random Glucose 86 Calcium 8.5 Magnesium 2.4 H Iron 148 TIBC 272 % Saturation 54 Total Bilirubin 3.2 H Direct Bilirubin GGT AST 479 H ALT 160 H Alkaline Phosphatase 364 H Total Protein 7.4 Albumin 3.2 Globulin 4.3 Albumin/Globulin Ratio 0.7 L Venous Blood Potassium Attending/Attestation - Attestation I have personally seen and examined this patient.: Yes I have fully participated in the care of the patient.: Yes I have reviewed all pertinent clinical information: Yes Notes (Text): 01/02/17 14:55 56 year old female with h/o metastatic breast cancer to bone and stomach being evaluated for elevated LFTs and ascites. 1. Elevated LFTs 2. Ascites Plan: -cholestatic pattern of elevated lfts -check MRCP r/o biliary obstruction or stone, eval liver lesion, PSC -check serologies for AIH/PBC as above -check iron studies to screen for hemochromatosis -consider US paracentesis to evaluate for malignant ascites, diagnostic and therapeutic if possible, send fluid for cell count, diff, tp/albumin, cytology -ddx also includes drug induced hepatotoxicity
[2017-01-02 13:40] LABS: BILIRUBIN,DIRECT 1.7 mg/dL (0.0-0.4)
[2017-01-02 14:09] LABS: IRON 148 ug/dL (45-180)
--- NOTE | 2017-01-02 20:35 | CP.PCM.CON ---
History of Present Illness - History of Present Illness History of Present Illness: Oncology Consult Referred by Dr. Campbell for h/o breast cancer. Lea is known to me from outpatient. She is 56 y/o F with h/o cholecystectomy who was initially admitted to [facility] on 11/07/15 with lower abdominal pain, nausea, vomiting and diarrhea for 5-[address] A/P showed colitis, gastric wall enhancement suggestive of gastritis and possible early SBO. She was treated with antibiotics and discharged on 11/08. However, got readmitted on 12/[address] A/P showed non specific gastritis, colitis with focal thickening in small bowel of LLQ and enterocolic fistula. A transvaginal USG on 12/12 showed multiple uterine masses, ranging from 0.8- 2.2 cm, likely uterine fibroids. Abdominal MRI on 12/13 showed diffuse mural thickening of stomach, enhancing irregular soft tissue infiltration of omentum, suspicious for metastases, thickening of small bowel and proximal colon, suspicious for serosal metastatic disease. EGD on 12/14 showed multiple 8-20 mm pedunculated and sessile polyps which were positive for metastatic adenocarcinoma showing ductal and predominantly lobular differentiation consistent with metastatic breast. CK7+, Mammoglobulin +, GCDFP- 15+, ER + (90%), WI focal (1-4%), Her-2 negative (IHC 1+). She also noticed right breast mass around October 2015 that had been slowly increasing in size. US breasts showed suspicious masses in right breast at 11 'o clock and 1 o'clock positions. US guided biopsy of right breast mass on 12/16 showed invasive lobular carcinoma. Staging PET/CT on 01/07/16 showed metastases to stomach, mesentery, omentum, bone mets with expansile lesion involving spinous process of T11. She started on palliative chemotherapy with Abraxane on 01/27/16. Repeat CT after 2 cycles was unchanged, though she had remarkable improvement clinically and decrease in tumor markers. However, at the end of 4 cycles, her tumor markers started to increase and her treatment was switched to Letrozole and Ibrance on 05/18/16. Last PET scan in December however, showed worsening bone mets. She was admitted now with shortness of breath with exertion and epigastric/ RUQ pain. CT angio chest and US doppler were negative for VTE. Ct A/P showed liver cyst with moderate ascites. Her LFT's are elevated though with elevated bilirubin. She was evaluated by GI and planned for MRCP. Review of Systems - Constitutional Constitutional: Fatigue. absent: Chills, Fever, Frequent Falls, Night Sweats, Weight Loss - EENT Eyes: absent: Blind Spots, Blurred Vision, Change in Vision Ears: absent: Decreased Hearing, Ear Discharge, Ear Pain Nose/Mouth/Throat: absent: Epistaxis, Nasal Congestion, Nasal Discharge - Cardiovascular Cardiovascular: Dyspnea on Exertion. absent: Chest Pain, Pedal Edema - Respiratory Respiratory: absent: Cough, Dyspnea, Hemoptysis - Gastrointestinal Gastrointestinal: Abdominal Pain. absent: Bloating, Coffee Ground Emesis, Constipation, Dysphagia - Genitourinary Genitourinary: absent: Change in Urinary Stream, Difficulty Urinating - Neurological Neurological: absent: Abnormal Gait, Abnormal Hearing, Confusion, Memory Loss, Sensory Deficit, Vertigo Past Patient History - Infectious Disease Hx of Infectious Diseases: None - Tetanus Immunizations Tetanus Immunization: Unknown - Past Medical History & Family History Past Medical History?: Yes - Past Social History Smoking Status: Never Smoked Chewing Tobacco Use: No Cigar Use: No Alcohol: None Drugs: Denies - CARDIAC Hx Cardiac Disorders: No - PULMONARY Hx Respiratory Disorders: No - NEUROLOGICAL Hx Neurological Disorder: No - HEENT Hx HEENT Problems: Yes Other/Comment: wears glasses - RENAL Hx Chronic Kidney Disease: No - ENDOCRINE/METABOLIC Hx Endocrine Disorders: No - HEMATOLOGICAL/ONCOLOGICAL Hx Anemia: Yes Hx Cancer: Yes (Rt Breast cancer) - INTEGUMENTARY Hx Dermatological Problems: No - MUSCULOSKELETAL/RHEUMATOLOGICAL Hx Musculoskeletal Disorders: No Hx Falls: No - GASTROINTESTINAL Hx Gastrointestinal Disorders: No - GENITOURINARY/GYNECOLOGICAL Hx Genitourinary Disorders: No - PSYCHIATRIC Hx Psychophysiologic Disorder: No - SURGICAL HISTORY Hx Cholecystectomy: Yes - ANESTHESIA Hx Anesthesia: Yes Hx Anesthesia Reactions: No Hx Malignant Hyperthermia: No Meds Allergies/Adverse Reactions: Allergies Allergy/AdvReac Type Severity Reaction Status Date / Time No Known Allergies Allergy Verified 01/01/17 11:36 - Medications Medications: Current Medications Albuterol/Ipratropium (Duoneb 3 Mg/0.5 Mg (3 Ml) Ud) 3 ml IH [id number] PRN PRN Reason: Shortness of Breath Enoxaparin Sodium (Lovenox) 40 mg SC DAILY [facility] PRN Reason: Protocol Last Admin: 01/02/17 09:47 Dose: 40 mg Morphine Sulfate (Morphine) 2 mg IVP Q4 PRN PRN Reason: Pain, moderate (4-7) Ondansetron HCl (Zofran Inj) 4 mg IVP Q6 PRN PRN Reason: Nausea/Vomiting Pantoprazole Sodium (Protonix Inj) 40 mg IVP DAILY REPLACED BY [facility] Last Admin: 01/02/17 09:48 Dose: 40 mg Physical Exam - Head Exam Head Exam: ATRAUMATIC, NORMAL INSPECTION - Eye Exam Eye Exam: EOMI, PERRL - ENT Exam ENT Exam: Mucous Membranes Moist - Neck Exam Neck exam: Negative for: Lymphadenopathy - Respiratory Exam Respiratory Exam: Clear to Auscultation Bilateral - Cardiovascular Exam Cardiovascular Exam: REGULAR RHYTHM - GI/Abdominal Exam GI & Abdominal Exam: Normal Bowel Sounds, Soft. absent: Organomegaly, Tenderness - Extremities Exam Extremities exam: Negative for: pedal edema - Neurological Exam Neurological exam: Alert, Oriented x3 Results - Vital Signs Recent Vital Signs: Last Vital Signs Temp 99 F 01/02/17 09:29 Pulse 70 01/02/17 09:29 Resp 19 01/02/17 09:29 BP 121/71 01/02/17 09:29 Pulse Ox 97 01/02/17 09:29 - Labs Result Diagrams: 01/02/17 08:00 01/02/17 08:00 Labs: Laboratory Results - last 24 hr 01/01/17 01/02/17 01/02/17 22:38 07:00 07:00 WBC RBC Hgb Hct MCV MCH MCHC RDW Plt Count MPV Gran % Lymph % (Auto) [place] % (Auto) Eos % (Auto) Baso % (Auto) Gran # Lymph # [place] # Eos # Baso # pO2 43 VBG pH 7.47 H VBG pCO2 35.0 L VBG HCO3 25.5 VBG Total CO2 26.6 VBG O2 Sat (Calc) 83.6 H VBG Base Excess 1.9 VBG Potassium 4.3 Sodium 137.0 Chloride 107.0 Glucose 111 H Lactate 1.9 FiO2 21.0 Potassium Carbon Dioxide Anion Gap BUN Creatinine Est GFR ( Amer) Est GFR (Non-Af Amer) Random Glucose Calcium Magnesium Iron 148 TIBC 272 % Saturation 54 Total Bilirubin Direct Bilirubin 1.7 H GGT 299 H AST ALT Alkaline Phosphatase Total Protein Albumin Globulin Albumin/Globulin Ratio Venous Blood Potassium 4.3 01/02/17 01/02/17 08:00 08:00 WBC 7.7 D RBC 2.88 L Hgb 10.2 L Hct 29.3 L MCV 101.7 MCH 35.4 H MCHC 34.8 RDW 21.6 H Plt Count 87 L MPV 8.3 Gran % 38.5 L Lymph % (Auto) 57.9 H [place] % (Auto) 3.1 Eos % (Auto) 0.1 L Baso % (Auto) 0.4 Gran # 2.97 Lymph # 4.5 H [place] # 0.2 Eos # 0.0 Baso # 0.03 pO2 VBG pH VBG pCO2 VBG HCO3 VBG Total CO2 VBG O2 Sat (Calc) VBG Base Excess VBG Potassium Sodium 138 Chloride 107 Glucose Lactate FiO2 Potassium 4.3 Carbon Dioxide 22 Anion Gap 13 BUN 14 Creatinine 1.2 Est GFR ( Amer) 57 Est GFR (Non-Af Amer) 47 Random Glucose 86 Calcium 8.5 Magnesium 2.4 H Iron TIBC % Saturation Total Bilirubin 3.2 H Direct Bilirubin GGT AST 479 H ALT 160 H Alkaline Phosphatase 364 H Total Protein 7.4 Albumin 3.2 Globulin 4.3 Albumin/Globulin Ratio 0.7 L Venous Blood Potassium Assessment & Plan - Assessment and Plan (Free Text) Assessment: h/o stage IV breast cancer, currently on Letrozole with Ibrance Her tumor markers have recently been climbing up and last imaging shows progression. Her liver functions are however markedly elevated with no obvious liver mass or biliary dilatation. Appreciate GI input. Will f/u MRCP and other blood work. Continue to monitor liver functions. No clear cause of LOWERY, though ascites can contribute. Her O2 sats are normal. Can consider therapeutic paracentesis and send ascitic fluid for cytology. Hb better after 1 unit PRBC. Will monitor for now. Hold off on Letrozole or Ibrance for now. Will discuss switching therapy once she is clinically stable. Thank you for the consult Tushar Aceves - Date & Time Date: 01/02/17 Time: 18:34
[2017-01-02 20:58] LABS: IMMUNOGLOBULIN G 1654.4 mg/dL (700.0-1600.0)
[2017-01-02 20:59] LABS: IMMUNOGLOBULIN A 730.7 mg/dL (70.0-400.0); IMMUNOGLOBULIN M 304.9 mg/dL (40.0-230.0)
--- NOTE | 2017-01-03 06:40 | CP.PCM.PN ---
<Tiffani Lugo - Last Filed: 01/03/17 07:43> Subjective - Date & Time of Evaluation Date of Evaluation: 01/03/17 Time of Evaluation: 06:24 - Subjective Subjective: GI progress note Pt is seen and examined at bedside. No acute events overnight. Patient states abdominal pressure has improved from yesterday. Patient denie shaving any abd pain, N/V/D/c. She is having regular bowel movements. 12 point ROS are negative except for the above mentioned. Objective - Vital Signs/Intake and Output Vital Signs (last 24 hours): Temp Pulse Resp BP Pulse Ox 98.7 F 72 18 113/75 100 01/02/17 16:00 01/02/17 16:00 01/02/17 16:00 01/02/17 16:00 01/02/17 16:00 Intake and Output: 01/02/17 01/03/17 18:59 06:59 Intake Total 920 500 Balance 920 500 - Medications Medications: Current Medications Albuterol/Ipratropium (Duoneb 3 Mg/0.5 Mg (3 Ml) Ud) 3 ml IH [id number] PRN PRN Reason: Shortness of Breath Enoxaparin Sodium (Lovenox) 40 mg SC DAILY [facility] PRN Reason: Protocol Last Admin: 01/02/17 09:47 Dose: 40 mg Morphine Sulfate (Morphine) 2 mg IVP Q4 PRN PRN Reason: Pain, moderate (4-7) Ondansetron HCl (Zofran Inj) 4 mg IVP Q6 PRN PRN Reason: Nausea/Vomiting Pantoprazole Sodium (Protonix Inj) 40 mg IVP DAILY [facility] Last Admin: 01/02/17 09:48 Dose: 40 mg - Labs Labs: 01/02/17 08:00 01/02/17 08:00 PT 15.0 Seconds (9.9-11.8) H 01/01/17 12:49 INR 1.39 (0.93-1.08) H 01/01/17 12:49 APTT 38.4 Seconds (23.7-30.8) H 01/01/17 12:49 - Constitutional Appears: Non-toxic, No Acute Distress - Head Exam Head Exam: ATRAUMATIC - Eye Exam Eye Exam: EOMI - ENT Exam ENT Exam: Mucous Membranes Moist - Respiratory Exam Respiratory Exam: Clear to Ausculation Bilateral, NORMAL BREATHING PATTERN. absent: Accessory Muscle Use, Rales, Rhonchi, Wheezes, Respiratory Distress - Cardiovascular Exam Cardiovascular Exam: REGULAR RHYTHM, +S1, +S2. absent: Gallop, Rubs, Murmur - GI/Abdominal Exam GI & Abdominal Exam: Soft, Normal Bowel Sounds. absent: Distended, Firm, Guarding, Rigid, Tenderness, Organomegaly - Extremities Exam Extremities Exam: absent: Pedal Edema, Tenderness - Neurological Exam Neurological Exam: Alert, Awake, Oriented x3 - Psychiatric Exam Psychiatric exam: Normal Affect, Normal Mood - Skin Skin Exam: Dry, Intact, Normal Color, Warm Assessment and Plan - Assessment and Plan (Free Text) Assessment: 56 year old female with past medical history of metastatic breast cancer and anemia is being seen for transaminits. On admission, AST was 472, ALT 160, T bili 3.2, Alk phos 364. CT of abd/pelvis with IV contrasts on admission showed moderate ascites and 3.5 cm simple cysts on liver. Abd US also showed simple cyst and mild ascites. Hepatitis panel is negative. Transaminits - According to Liver Toxicity Database, Letrozole only mildly increases LFTs. Ibrance is noted to cause elevated LFTs - MRCP and abdomen with and without contrast is ordered to rule out obstructive pathology and for the characterization of liver lesion - Pending results for FLACO, antismooth muscle ab, liver kidney microsome Ab, - Polyclonal elevation of IgG, IgA, IgM likely indicates autoimmune etiology. Will await results of other tests - Will check for primary biliary sclerosis: antimitochondrial ab - Will check hepatitis B core and surface Ab to rule out underlying chronic hep B with risk of reactivation with chemo therapy and immunosuppression. - Alk phos likely elevated due to bone mets, but will check Alk phos isoenzymes - Will check GGT and direct bilirubin Ascites -After discussing the radiologist, Dr. Burger, not enough fluid for therapeutic paracentesis - Will consider diagnostic paracentesis to rule out malignant ascitic fluid breast cancer with mets to bone and stomach - Dr. Aceves is consulted and managing patient - Letrozole and Ibrance placed on hold Macrocytic anemia -iron studies pending -Recommend elective colonoscopy Case discussed with attending, Dr. Lucero <Nehemiah Lucero - Last Filed: 01/03/17 07:58> Objective - Vital Signs/Intake and Output Vital Signs (last 24 hours): Temp Pulse Resp BP Pulse Ox 98.7 F 72 18 113/75 100 01/02/17 16:00 01/02/17 16:00 01/02/17 16:00 01/02/17 16:00 01/02/17 16:00 Intake and Output: 01/03/17 01/03/17 06:59 18:59 Intake Total 500 Balance 500 - Medications Medications: Current Medications Albuterol/Ipratropium (Duoneb 3 Mg/0.5 Mg (3 Ml) Ud) 3 ml IH [id number] PRN PRN Reason: Shortness of Breath Enoxaparin Sodium (Lovenox) 40 mg SC DAILY [facility] PRN Reason: Protocol Last Admin: 01/02/17 09:47 Dose: 40 mg Morphine Sulfate (Morphine) 2 mg IVP Q4 PRN PRN Reason: Pain, moderate (4-7) Ondansetron HCl (Zofran Inj) 4 mg IVP Q6 PRN PRN Reason: Nausea/Vomiting Pantoprazole Sodium (Protonix Inj) 40 mg IVP DAILY [facility] Last Admin: 01/02/17 09:48 Dose: 40 mg - Labs Labs: 01/02/17 08:00 01/02/17 08:00 PT 15.0 Seconds (9.9-11.8) H 01/01/17 12:49 INR 1.39 (0.93-1.08) H 01/01/17 12:49 APTT 38.4 Seconds (23.7-30.8) H 01/01/17 12:49 Attending/Attestation - Attestation I have personally seen and examined this patient.: Yes I have fully participated in the care of the patient.: Yes I have reviewed all pertinent clinical information, including history, physical exam and plan: Yes Notes (Text): 01/03/17 07:57 56 year old female with h/o metastatic breast cancer to bone and stomach being evaluated for elevated LFTs and ascites. 1. Elevated LFTs 2. Ascites Plan: -cholestatic pattern of elevated lfts -awaiting MRI -await autoimmune serologies -small amount of ascites, defer paracentesis for now -chemo on hold during workup
[2017-01-03 08:21] LABS: ADD MANUAL DIFF? NO
[2017-01-03 08:25] LABS: BASO # 0.03 K/mm3 (0.0-2.0); BASO % 0.6 % (0.0-3.0); EOS % 0.2 % (1.5-5.0); GRAN % 59.7 % (50.0-68.0); HEMATOCRIT 28.7 % (36.0-48.0); LYMPH # 1.7 (1.2-3.4); LYMPH % 35.4 % (22.0-35.0); MEAN CELL VOLUME 102.5 fL (80.0-105.0); MEAN CORPUSCULAR HEMOGLOBIN 34.3 pg (25.0-35.0); MEAN CORPUSCULAR HGB CONC 33.4 g/dl (31.0-37.0); MEAN PLATELET VOLUME 8.6 fl (7.0-11.0); MONO # 0.2 (0.1-0.6); MONO % 4.1 % (1.0-6.0); PLATELET COUNT 91 10^3/uL (120.0-450.0); RED CELL DISTRIBUTION WIDTH 21.5 % (11.5-14.5); WHITE BLOOD COUNT 4.7 10^3/ul (4.5-11.0)
[2017-01-03 08:33] LABS: INR 1.4 (0.93-1.08); PARTIAL THROMBOPLASTIN TIME 42.5 Seconds (23.7-30.8)
[2017-01-03 08:37] LABS: ALB/GLOB RATIO 0.7 (1.1-1.8); ALKALINE PHOSPHATASE 337 U/L (38-133); ALT/SGPT 163 U/L (7-56); AST/SGOT 514 U/L (15-39); BILIRUBIN,TOTAL 3.7 mg/dL (0.2-1.3); BLOOD UREA NITROGEN 12 mg/dL (7-21); CALCIUM 7.7 mg/dL (8.4-10.5); CARBON DIOXIDE 24 mmol/L (21-33); CHLORIDE 107 mmol/L (98-107); GFR AFRICAN-AMERICAN > 60; GLUCOSE,RANDOM 80 mg/dL (70-110); POTASSIUM 4.5 mmol/L (3.6-5.0); SODIUM 138 mmol/L (132-148); TOTAL PROTEIN 7.1 g/dL (5.8-8.3)
--- NOTE | 2017-01-03 08:51 | CARD ---
APPROVED REPORT EXAM: Two-dimensional and M-mode echocardiogram with Doppler and color Doppler. INDICATION LVFX 2D DIMENSIONS Left Atrium (2D)5.2 (1.6-4.0cm)IVSd1.3 (0.7-1.1cm) LVDd4.9 (3.9-5.9cm)PWd1.3 (0.7-1.1cm) LVDs3.1 (2.5-4.0cm)FS (%) 36.2 % LVEF (%)65.7 (>50%) M-Mode DIMENSIONS Aortic Root3.70 (2.2-3.7cm)Aortic Cusp Exc.1.70 (1.5-2.0cm) Aortic Valve AoV Peak Rtdlfczx981.0cm/Adria Peak GR.9mmHg Mitral Valve MV E Vbnrgbpu06.6cm/sMV A Zzvtyqdo18.4cm/sE/A ratio0.9 TDI Lateral E' Peak V7.21cm/sMedial E' Peak V5.65cm/sE/Lateral E'9.8 E/Medial E'12.5 Pulmonary Valve PV Peak Xmppiqik27.1cm/sPV Peak Grad.2mmHg Tricuspid Valve TR Peak Odcrxqzs520zg/sRAP LVYFICCN18jzZgSG Peak Gr.29mmHg [id number] LEFT VENTRICLE The left ventricle is normal size. There is mild concentric left ventricular hypertrophy. Proximal septal thickening is noted, with IHSS physiology but no significant resting gradient noted. The left ventricular function is normal.EF-65% There is normal LV segmental wall motion. Transmitral Doppler flow pattern is Grade III-reversible restrictive diastolic dysfunction. No left ventricle thrombus noted on this study. There is no ventricular septal defect visualized. There is no left ventricular aneurysm. There is no mass noted in the left ventricle. RIGHT VENTRICLE The right ventricle is mildly dilated. There is normal right ventricular wall thickness. The right ventricular systolic function is normal. ATRIA The left atrium is mildly dilated. The right atrium size is normal. The interatrial septum is intact with no evidence for an atrial septal defect. AORTIC VALVE The aortic valve is thickened but opens well. There is trace aortic regurgitation. There is no aortic valvular stenosis. There is no aortic valvular vegetation. MITRAL VALVE The mitral valve is thickened but opens well. Mitral annular calcification is mild. Mitral regurgitation is mild. There is no mitral valve stenosis. There is no evidence of mitral valve prolapse. TRICUSPID VALVE The tricuspid valve leaflets are thickened , but open well. There is mild tricuspid regurgitation.RVSP-39 mmof Hg. There is no tricuspid valve stenosis. There is no tricuspid valve prolapse or vegetation. PULMONIC VALVE The pulmonary valve is normal in structure. GREAT VESSELS The aortic root is normal in size. The ascending aorta is normal in size. The pulmonary artery is normal. The IVC is normal in size and collapses >50% with inspiration. PERICARDIAL EFFUSION There is no pleural effusion. There is a trace pericardial effusion. <Conclusion> The left ventricle is normal size. There is mild concentric left ventricular hypertrophy. Proximal septal thickening is noted, with IHSS physiology but no significant resting gradient noted. The left ventricular function is normal.EF-65% The right ventricle is mildly dilated. The right ventricular systolic function is normal. There is trace aortic regurgitation. Mitral regurgitation is mild. There is mild tricuspid regurgitation.RVSP-39 mmof Hg. The IVC is normal in size and collapses >50% with inspiration. There is a trace pericardial effusion. No Vegetation or thrombus noted.
[2017-01-03] MEDS: Enoxaparin 40 mg Syringe SC SCH (10:51)
--- NOTE | 2017-01-03 15:31 | CP.PCM.PN ---
<Johanna Judd - Last Filed: 01/03/17 16:13> Subjective - Date & Time of Evaluation Date of Evaluation: 01/03/17 Time of Evaluation: 09:30 - Subjective Subjective: Pt was seen and examined at bedside. Pt tolerated pRBC transfusion overnight. No acute complaints at this time. No acute or adverse events overnight as per nursing staff. Pt has mild complaints of abdominal tenderness however she states it is less in intensity than yesterday. Pt denied fever, chills, sob, chest pains, n/v/d/c or urinary symptoms. Objective - Vital Signs/Intake and Output Vital Signs (last 24 hours): Temp Pulse Resp BP Pulse Ox 97.8 F 86 20 102/63 100 01/03/17 08:35 01/03/17 08:35 01/03/17 08:35 01/03/17 08:35 01/03/17 08:35 Intake and Output: 01/03/17 01/03/17 06:59 18:59 Intake Total 500 Balance 500 - Medications Medications: Current Medications Albuterol/Ipratropium (Duoneb 3 Mg/0.5 Mg (3 Ml) Ud) 3 ml IH [id number] PRN PRN Reason: Shortness of Breath Enoxaparin Sodium (Lovenox) 40 mg SC DAILY [facility] PRN Reason: Protocol Last Admin: 01/02/17 09:47 Dose: 40 mg Morphine Sulfate (Morphine) 2 mg IVP Q4 PRN PRN Reason: Pain, moderate (4-7) Ondansetron HCl (Zofran Inj) 4 mg IVP Q6 PRN PRN Reason: Nausea/Vomiting Pantoprazole Sodium (Protonix Inj) 40 mg IVP DAILY [facility] Last Admin: 01/03/17 11:38 Dose: 40 mg - Labs Labs: 01/03/17 08:00 01/03/17 08:00 PT 15.1 Seconds (9.9-11.8) H 01/03/17 08:00 INR 1.40 (0.93-1.08) H 01/03/17 08:00 APTT 42.5 Seconds (23.7-30.8) H 01/03/17 08:00 - Constitutional Appears: No Acute Distress - Head Exam Head Exam: ATRAUMATIC, NORMAL INSPECTION, NORMOCEPHALIC - Eye Exam Eye Exam: EOMI, Normal appearance, PERRL Pupil Exam: NORMAL ACCOMODATION, PERRL - ENT Exam ENT Exam: Mucous Membranes Moist - Neck Exam Neck Exam: Full ROM, Normal Inspection. absent: Lymphadenopathy - Respiratory Exam Respiratory Exam: Clear to Ausculation Bilateral, NORMAL BREATHING PATTERN - Cardiovascular Exam Cardiovascular Exam: REGULAR RHYTHM, +S1, +S2. absent: Murmur - GI/Abdominal Exam GI & Abdominal Exam: Soft, Normal Bowel Sounds. absent: Tenderness - Extremities Exam Extremities Exam: Full ROM, Normal Capillary Refill, Normal Inspection. absent : Joint Swelling, Pedal Edema - Back Exam Back Exam: NORMAL INSPECTION - Neurological Exam Neurological Exam: Alert, Awake, CN II-XII Intact, Normal Gait, Oriented x3 - Psychiatric Exam Psychiatric exam: Normal Affect, Normal Mood - Skin Skin Exam: Dry, Intact, Normal Color, Warm Assessment and Plan - Assessment and Plan (Free Text) Assessment: This is a 56 yo female with pmh of breast cancer and anemia presenting with abdominal pain x 1 1/2 weeks admitted for symptomatic anemia vs PE r/o. Abdominal pain -likely 2/2 metastatic disease -pet scan shows evidence of osseous mets and liver mets - ABD US demonstarted ascites and rt hepatic lobe cyst, not enough fluid for paracentesis -lfs uptrending , continue to trend -morphine for pain -zofran for nausea -heme onc consult. Yola, Marcel MRCP for today SOB - Resolved - D-dimer elevated - PE workup negative - Echo 65% - duonebs prn - 2. Hx breast cancer -hold home meds for now 3. hx of anemia - s/p 1 pRBC transfusion, Hgb stable - Heme onc consulted, Dr. Aceves, recommend to have letrozole and ibrance on hold 4. GI/DVT ppx Seen reviewed and discussed with Dr. Matamoros <Herb Woodall - Last Filed: 01/03/17 16:57> Objective - Vital Signs/Intake and Output Vital Signs (last 24 hours): Temp Pulse Resp BP Pulse Ox 98 F 85 20 130/84 98 01/03/17 16:00 01/03/17 16:00 01/03/17 16:00 01/03/17 16:00 01/03/17 16:00 Intake and Output: 01/03/17 01/03/17 06:59 18:59 Intake Total 500 Balance 500 - Medications Medications: Current Medications Albuterol/Ipratropium (Duoneb 3 Mg/0.5 Mg (3 Ml) Ud) 3 ml IH [id number] PRN PRN Reason: Shortness of Breath Enoxaparin Sodium (Lovenox) 40 mg SC DAILY [facility] PRN Reason: Protocol Last Admin: 01/02/17 09:47 Dose: 40 mg Morphine Sulfate (Morphine) 2 mg IVP Q4 PRN PRN Reason: Pain, moderate (4-7) Ondansetron HCl (Zofran Inj) 4 mg IVP Q6 PRN PRN Reason: Nausea/Vomiting Pantoprazole Sodium (Protonix Inj) 40 mg IVP DAILY [facility] Last Admin: 01/03/17 11:38 Dose: 40 mg - Labs Labs: 01/03/17 08:00 01/03/17 08:00 PT 15.1 Seconds (9.9-11.8) H 01/03/17 08:00 INR 1.40 (0.93-1.08) H 01/03/17 08:00 APTT 42.5 Seconds (23.7-30.8) H 01/03/17 08:00 Attending/Attestation - Attestation I have personally seen and examined this patient.: Yes I have fully participated in the care of the patient.: Yes I have reviewed all pertinent clinical information, including history, physical exam and plan: Yes Notes (Text): 01/03/17 16:53 56 year old female with past medical history of breast cancer who presented with complaint of abdominal pain and shortness of breath. D-dimer was elevated however CT angio was negative for PE and LE doppler was negative for DVT. She was found to have elevated LFTs for which GI is following. MRCP was ordered and pending. US abdomen was reviewed which shows some ascites, however not significant enough for paracentesis as per radiology. Recent PET scan showed osseous metastasis and increased liver uptake. Hematology / oncology is also following. Her Ibrance and femara are on hold. Herb Woodall MD Hospitalist.
[2017-01-03] MEDS ORDERED: Gadodiamide 287 MG/ML VIAL (20ML) IV ONE (16:20)
--- NOTE | 2017-01-04 07:52 | CP.PCM.PN ---
<Tiffani Lugo - Last Filed: 01/04/17 09:22> Subjective - Date & Time of Evaluation Date of Evaluation: 01/04/17 Time of Evaluation: 07:47 - Subjective Subjective: GI progress note Pt is seen and examined at bedside. No acute events overnight. Yesterday afternoon, patient had MRI for abdomen. Results pending. Patient states abdominal pressure has improved and shortness of breath has also improved. Patient is ambulating without difficulty. She denies having any N/V/D/C. She is having regular BMs. Patient is tolerating low fat diet. 12 point ROS are negative except for the above mentioned. Objective - Vital Signs/Intake and Output Vital Signs (last 24 hours): Temp Pulse Resp BP Pulse Ox 98 F 85 20 130/84 98 01/03/17 16:00 01/03/17 16:00 01/03/17 16:00 01/03/17 16:00 01/03/17 16:00 Intake and Output: 01/04/17 01/04/17 06:59 18:59 Intake Total 1080 Output Total 0 Balance 1080 - Medications Medications: Current Medications Albuterol/Ipratropium (Duoneb 3 Mg/0.5 Mg (3 Ml) Ud) 3 ml IH [id number] PRN PRN Reason: Shortness of Breath Enoxaparin Sodium (Lovenox) 40 mg SC DAILY [facility] PRN Reason: Protocol Last Admin: 01/03/17 10:51 Dose: Not Given Morphine Sulfate (Morphine) 2 mg IVP Q4 PRN PRN Reason: Pain, moderate (4-7) Ondansetron HCl (Zofran Inj) 4 mg IVP Q6 PRN PRN Reason: Nausea/Vomiting Pantoprazole Sodium (Protonix Inj) 40 mg IVP DAILY [facility] Last Admin: 01/03/17 11:38 Dose: 40 mg - Labs Labs: PT 15.1 Seconds (9.9-11.8) H 01/03/17 08:00 INR 1.40 (0.93-1.08) H 01/03/17 08:00 APTT 42.5 Seconds (23.7-30.8) H 01/03/17 08:00 - Constitutional Appears: Non-toxic, No Acute Distress - Head Exam Head Exam: ATRAUMATIC - Eye Exam Eye Exam: EOMI - ENT Exam ENT Exam: Mucous Membranes Moist - Respiratory Exam Respiratory Exam: Clear to Ausculation Bilateral. absent: Accessory Muscle Use , Rales, Rhonchi, Wheezes, Respiratory Distress - Cardiovascular Exam Cardiovascular Exam: REGULAR RHYTHM, +S1, +S2. absent: Diastolic murmur, Gallop , Rubs, Murmur - GI/Abdominal Exam GI & Abdominal Exam: Soft, Normal Bowel Sounds. absent: Distended, Firm, Guarding, Rigid, Tenderness, Organomegaly, Rebound - Extremities Exam Extremities Exam: absent: Pedal Edema, Tenderness - Neurological Exam Neurological Exam: Alert, Awake, Oriented x3 - Psychiatric Exam Psychiatric exam: Normal Affect, Normal Mood - Skin Skin Exam: Dry, Intact, Normal Color, Warm Assessment and Plan - Assessment and Plan (Free Text) Assessment: 56 year old female with past medical history of metastatic breast cancer and anemia is being seen for transaminits. On admission, AST was 472, ALT 160, T bili 3.2, Alk phos 364. CT of abd/pelvis with IV contrasts on admission showed moderate ascites and 3.5 cm simple cysts on liver. Abd US also showed simple cyst and mild ascites. Hepatitis panel is negative. Transaminits - MRI of abdomen done for better analysis of liver. Results pending. - Pending results for FLACO, antismooth muscle ab, liver kidney microsome Ab, - Polyclonal elevation of IgG, IgA, IgM likely indicates autoimmune etiology. Will await results of other tests - Will check for primary biliary sclerosis: antimitochondrial ab - Will check hepatitis B core and surface Ab to rule out underlying chronic hep B with risk of reactivation with chemo therapy and immunosuppression. - Alk phos likely elevated due to bone mets, but will check Alk phos isoenzymes - Will check GGT and direct bilirubin Ascites - Not enough fluid for therapeutic paracentesis breast cancer with mets to bone and stomach - Dr. Aceves is consulted and managing patient - Letrozole and Ibrance placed on hold Macrocytic anemia -Recommend elective colonoscopy Case discussed with attending, Dr. Lucero <Nehemiah Lucero - Last Filed: 01/04/17 16:38> Objective - Vital Signs/Intake and Output Vital Signs (last 24 hours): Temp Pulse Resp BP Pulse Ox 99.1 F 80 19 98/63 L 100 01/04/17 08:16 01/04/17 08:16 01/04/17 08:16 01/04/17 08:16 01/04/17 08:16 Intake and Output: 01/04/17 01/04/17 06:59 18:59 Intake Total 1080 300 Output Total 0 1 Balance 1080 299 - Medications Medications: Current Medications Albuterol/Ipratropium (Duoneb 3 Mg/0.5 Mg (3 Ml) Ud) 3 ml IH [id number] PRN PRN Reason: Shortness of Breath Enoxaparin Sodium (Lovenox) 40 mg SC DAILY [facility] PRN Reason: Protocol Last Admin: 01/04/17 09:36 Dose: 40 mg Morphine Sulfate (Morphine) 2 mg IVP Q4 PRN PRN Reason: Pain, moderate (4-7) Ondansetron HCl (Zofran Inj) 4 mg IVP Q6 PRN PRN Reason: Nausea/Vomiting Pantoprazole Sodium (Protonix Inj) 40 mg IVP DAILY [facility] Last Admin: 01/04/17 09:36 Dose: 40 mg - Labs Labs: 01/04/17 08:00 01/04/17 08:00 PT 15.1 Seconds (9.9-11.8) H 01/03/17 08:00 INR 1.40 (0.93-1.08) H 01/03/17 08:00 APTT 42.5 Seconds (23.7-30.8) H 01/03/17 08:00 Attending/Attestation - Attestation I have personally seen and examined this patient.: Yes I have fully participated in the care of the patient.: Yes I have reviewed all pertinent clinical information, including history, physical exam and plan: Yes Notes (Text): 01/04/17 16:37 56 year old female with h/o metastatic breast cancer to bone and stomach being evaluated for elevated LFTs and ascites. 1. Elevated LFTs 2. Ascites 3. Peritoneal carcinomatosis Plan: -cholestatic pattern of elevated lfts -MRI reviewed, evidence of parenchymal liver disease, no metastatic lesions identified, no biliary obstruction -ascites is presumably 2/2 peritoneal carcinomatosis and malignant -consider liver biopsy to assess etiology of elevated LFTs -avoid hepatotoxic medications
[2017-01-04 08:07] LABS: ADD MANUAL DIFF? NO
[2017-01-04 08:10] LABS: BASO # 0.03 K/mm3 (0.0-2.0); BASO % 0.5 % (0.0-3.0); EOS % 0.2 % (1.5-5.0); GRAN # 3.32 (1.4-6.5); GRAN % 51.7 % (50.0-68.0); HEMATOCRIT 29.1 % (36.0-48.0); LYMPH # 2.8 (1.2-3.4); LYMPH % 44.2 % (22.0-35.0); MEAN CELL VOLUME 102.8 fL (80.0-105.0); MEAN CORPUSCULAR HEMOGLOBIN 35.3 pg (25.0-35.0); MEAN CORPUSCULAR HGB CONC 34.4 g/dl (31.0-37.0); MEAN PLATELET VOLUME 8.4 fl (7.0-11.0); MONO # 0.2 (0.1-0.6); MONO % 3.4 % (1.0-6.0); PLATELET COUNT 83 10^3/uL (120.0-450.0); RED CELL DISTRIBUTION WIDTH 21.2 % (11.5-14.5); WHITE BLOOD COUNT 6.4 10^3/ul (4.5-11.0)
[2017-01-04 08:17] VITALS: BP 98/63; PULSE 80; RESP 19; TEMP 99.1; O2SAT 100
[2017-01-04 08:19] LABS: ALB/GLOB RATIO 0.7 (1.1-1.8); ALKALINE PHOSPHATASE 358 U/L (38-133); ALT/SGPT 180 U/L (7-56); AST/SGOT 561 U/L (15-39); BILIRUBIN,TOTAL 3.9 mg/dL (0.2-1.3); BLOOD UREA NITROGEN 11 mg/dL (7-21); CALCIUM 7.5 mg/dL (8.4-10.5); CARBON DIOXIDE 23 mmol/L (21-33); CHLORIDE 108 mmol/L (98-107); GFR AFRICAN-AMERICAN > 60; GLUCOSE,RANDOM 89 mg/dL (70-110); POTASSIUM 4.6 mmol/L (3.6-5.0); SODIUM 137 mmol/L (132-148); TOTAL PROTEIN 7.4 g/dL (5.8-8.3)
[2017-01-04] MEDS: Enoxaparin 40 mg Syringe SC SCH (09:36)
[2017-01-04 10:47] LABS: ALKALINE PHOSPHATASE 304 U/L (33-130)
--- NOTE | 2017-01-04 11:27 | MRI ---
PROCEDURE: MRI Abdomen with and without contrast HISTORY: Elevated liver function studies COMPARISON: 12/14/2015 TECHNIQUE: Multisequence, multiplanar MR images of the abdomen with and without gadolinium contrast enhancement. FINDINGS: LIVER: There is a stable cyst in the right hepatic lobe measuring roughly 3.2 centimeters. There is minimal heterogeneity of the enhancement pattern throughout the hepatic parenchyma which could indicate underlying hepatocellular disease,, no luis enhancing soft tissue mass is identified to suggest metastatic disease.. GALLBLADDER: Unremarkable. SPLEEN: Unremarkable. PANCREAS: Unremarkable. ADRENALS: Unremarkable. KIDNEYS: Unremarkable. AORTA: No aneurysm. ASCITES: Re-demonstration of diffuse abdominal ascites with greater omental thickening compatible with peritoneal carcinomatosis.. PERITONEUM: Unremarkable. LYMPH NODES: Unremarkable. OTHER FINDINGS: None. IMPRESSION: Re-demonstration of diffuse abdominal ascites with greater omental thickening compatible with peritoneal carcinomatosis. Heterogeneous enhancement pattern of the hepatic parenchyma suspicious for underlying hepatocellular disease but without luis evidence of discrete hepatic metastases..
--- NOTE | 2017-01-04 13:50 | CP.PCM.DIS ---
<Johanna Judd - Last Filed: 01/21/17 12:12> Provider - Provider Date of Admission: 01/03/17 15:29 Attending physician: Deyanira Matamoros MD Primary care physician: Tong Arias MD Consults: Heme/onc- Dr. Yola BARBOUR - Dr. Lucero Time Spent in preparation of Discharge (in minutes): 45 Hospital Course - Lab Results Lab Results: Most Recent Lab Values WBC 6.4 10^3/ul (4.5-11.0) D 01/04/17 08:00 RBC 2.83 10^6/uL (3.5-6.1) L 01/04/17 08:00 Hgb 10.0 gm/dL (12.0-16.0) L 01/04/17 08:00 Hct 29.1 % (36.0-48.0) L 01/04/17 08:00 MCV 102.8 fL (80.0-105.0) 01/04/17 08:00 MCH 35.3 pg (25.0-35.0) H 01/04/17 08:00 MCHC 34.4 g/dl (31.0-37.0) 01/04/17 08:00 RDW 21.2 % (11.5-14.5) H 01/04/17 08:00 Plt Count 83 10^3/uL (120.0-450.0) L 01/04/17 08:00 MPV 8.4 fl (7.0-11.0) 01/04/17 08:00 Gran % 51.7 % (50.0-68.0) 01/04/17 08:00 Lymph % (Auto) 44.2 % (22.0-35.0) H 01/04/17 08:00 [place] % (Auto) 3.4 % (1.0-6.0) 01/04/17 08:00 Eos % (Auto) 0.2 % (1.5-5.0) L 01/04/17 08:00 Baso % (Auto) 0.5 % (0.0-3.0) 01/04/17 08:00 Gran # 3.32 (1.4-6.5) 01/04/17 08:00 Lymph # 2.8 (1.2-3.4) 01/04/17 08:00 [place] # 0.2 (0.1-0.6) 01/04/17 08:00 Eos # 0.0 (0.0-0.7) 01/04/17 08:00 Baso # 0.03 K/mm3 (0.0-2.0) 01/04/17 08:00 PT 15.1 Seconds (9.9-11.8) H 01/03/17 08:00 INR 1.40 (0.93-1.08) H 01/03/17 08:00 APTT 42.5 Seconds (23.7-30.8) H 01/03/17 08:00 D-Dimer, Quantitative 24.32 mg/L FEU (0-0.50) H 01/01/17 12:49 pO2 43 mm/Hg (30-55) 01/01/17 22:38 VBG pH 7.47 (7.32-7.43) H 01/01/17 22:38 VBG pCO2 35.0 (40-60) L 01/01/17 22:38 VBG HCO3 25.5 mmol/l (21-28) 01/01/17 22:38 VBG Total CO2 26.6 mmol.L (22-28) 01/01/17 22:38 VBG O2 Sat (Calc) 83.6 % (40-65) H 01/01/17 22:38 VBG Base Excess 1.9 mmol/L (0.0-2.0) 01/01/17 22:38 VBG Potassium 4.3 mmol/L (3.6-5.2) 01/01/17 22:38 Sodium 137.0 mmol/L (132-148) 01/01/17 22:38 Chloride 107.0 mmol/L (98-107) 01/01/17 22:38 Glucose 111 mg/dl (65-105) H 01/01/17 22:38 Lactate 1.9 mmol/L (0.7-2.1) 01/01/17 22:38 FiO2 21.0 % 01/01/17 22:38 Sodium 137 mmol/L (132-148) 01/04/17 08:00 Potassium 4.6 mmol/L (3.6-5.0) 01/04/17 08:00 Chloride 108 mmol/L (98-107) H 01/04/17 08:00 Carbon Dioxide 23 mmol/L (21-33) 01/04/17 08:00 Anion Gap 11 (10-20) 01/04/17 08:00 BUN 11 mg/dL (7-21) 01/04/17 08:00 Creatinine 1.1 mg/dL (0.5-1.4) 01/04/17 08:00 Est GFR ( Amer) > 60 01/04/17 08:00 Est GFR (Non-Af Amer) 52 01/04/17 08:00 Random Glucose 89 mg/dL (70-110) 01/04/17 08:00 Calcium 7.5 mg/dL (8.4-10.5) L 01/04/17 08:00 Phosphorus 2.6 mg/dL (2.5-4.5) 01/01/17 12:49 Magnesium 2.4 mg/dL (1.7-2.2) H 01/02/17 08:00 Iron 148 ug/dL (45-180) 01/02/17 07:00 TIBC 272 ug/dL (265-497) 01/02/17 07:00 % Saturation 54 % (20-55) 01/02/17 07:00 Ferritin 501.0 ng/mL 01/02/17 07:00 Total Bilirubin 3.9 mg/dL (0.2-1.3) H 01/04/17 08:00 Direct Bilirubin 1.7 mg/dL (0.0-0.4) H 01/02/17 07:00 GGT 299 U/L (8-78) H 01/02/17 07:00 AST 561 U/L (15-39) H 01/04/17 08:00 ALT 180 U/L (7-56) H 01/04/17 08:00 Alkaline Phosphatase 358 U/L (38-133) H 01/04/17 08:00 Lactate Dehydrogenase 2043 U/L (333-699) H 01/01/17 12:49 Total Creatine Kinase 210 U/L (35-230) 01/01/17 12:49 Troponin I < 0.01 ng/mL 01/01/17 12:49 NT-Pro-B Natriuret Pep 177 pg/mL (0-450) 01/01/17 12:49 Total Protein 7.4 g/dL (5.8-8.3) 01/04/17 08:00 Albumin 3.0 g/dL (3.0-4.8) 01/04/17 08:00 Globulin 4.4 gm/dL 01/04/17 08:00 Albumin/Globulin Ratio 0.7 (1.1-1.8) L 01/04/17 08:00 Lipase 220 U/L (23-300) 01/01/17 12:49 Mitochondrial AB Titer 1:80 Titer (< 1:20) H 01/02/17 14:00 Vitamin B12 978 pg/mL (239-931) H 01/03/17 08:00 Folate 16.0 ng/mL 01/03/17 08:00 Venous Blood Potassium 4.3 mmol/L (3.6-5.2) 01/01/17 22:38 IgG 1654.4 mg/dL (700.0-1600.0) H 01/02/17 14:00 IgA 730.7 mg/dL (70.0-400.0) H 01/02/17 14:00 IgM 304.9 mg/dL (40.0-230.0) H 01/02/17 14:00 FLACO Screen Negative (Negative) 01/02/17 14:00 Anti-Mitochondrial Ab Positive (Negative) H 01/02/17 14:00 Smooth Muscle Ab Titer TEST NOT PERFORMED 01/02/17 14:00 Anti-Smooth Muscle Ab Negative (Negative) 01/02/17 14:00 Hepatitis A IgM Ab Negative (NEGATIVE) 01/01/17 12:49 Hep Bs Antigen Negative (NEGATIVE) 01/01/17 12:49 Hep Bs Antibody Negative (NEGATIVE) 01/02/17 14:00 Hep B Core Total Ab Non reactive (Non Reactive) 01/03/17 08:00 Hep B Core IgM Ab Negative (NEGATIVE) 01/02/17 07:00 Hepatitis C Antibody Negative (NEGATIVE) 01/01/17 12:49 Blood Type O POSITIVE 01/01/17 12:49 Antibody Screen Negative 01/01/17 12:49 Crossmatch See Detail 01/01/17 12:49 BBK History Checked Patient has bt 01/01/17 12:49 - Hospital Course Hospital Course: 56 yo female with past medical hx of breast cancer and anemia presenting with abdominal pain x 1 1/2 weeks. Pt complains of epigastric and RUQ pain for about a week and half. Pain is pressure sensation, not getting better or worse. Says she had similar pain when she was diagnosed with breast cancer in 2016 She did not have surgery for her breast cancer. Last chemo in May 2016. Sees Dr[address] Aceves. Recently had PET scan which suggests osseous mets and liver mets. Pt was admitted with symptomatic anemia exertional shortness of breath, r/o PE and abdominal discomfort. D-dimer was elevated secondary to malignancy. CT angio resulted negative And venous Doppler is negative for DVT. Pt was anemic and was transfused 1 unit PRBC transfusion. Hemoglobin appropriately responded and bumped to 10.2. GI was consulted, Dr. Lucero and Heme onc Dr. Aceves was consulted. Pt had Elevated LFT; ultrasound showed simple cyst. Ibrance and femara on hold as per Heme oncs recommendation. MRCP was recommended by GI which resulted peritoneal carcinomatosis Upon DC pt is to fu with PMD Dr. Arias and heme onc Dr. Aceves and GI Dr. Lucero Discharge Exam - Head Exam Head Exam: ATRAUMATIC - Eye Exam Eye Exam: EOMI, Normal appearance, PERRL Pupil Exam: NORMAL ACCOMODATION, PERRL - ENT Exam ENT Exam: Mucous Membranes Moist - Respiratory Exam Respiratory Exam: Clear to PA & Lateral, NORMAL BREATHING PATTERN, UNREMARKABLE - Cardiovascular Exam Cardiovascular Exam: RRR, +S1, +S2 - GI/Abdominal Exam GI & Abdominal Exam: Normal Bowel Sounds, Soft, Tenderness - Extremities Exam Extremities exam: normal inspection - Back Exam Back exam: NORMAL INSPECTION - Neurological Exam Neurological exam: Alert, CN II-XII Intact, Normal Gait, Oriented x3, Reflexes Normal - Psychiatric Exam Psychiatric exam: Normal Affect, Normal Mood - Skin Skin Exam: Dry, Intact, Normal Color, Warm Discharge Plan - Follow Up Plan Condition: FAIR Disposition: HOME/ ROUTINE Instructions: Acute Abdominal Pain (DC), Acute Abdominal Pain (GEN) Additional Instructions: 1. Pt is to FU with PMD Dr. Arias within 3-5 days 2. Pt is to FU with Heme/onc Dr. Aceves within 3-5 days 3. Pt is to FU with GI Dr. Lucero within 3-5 days 4. Pt is to keep holding her Letrozole and Ibrance until evaluated by Dr. Aceves 5. Pt is welcomed to return [place] [facility] if symptoms change or worsen Referrals: Tong Arias MD [Primary Care Provider] - Nehemiah Lucero MD [Staff Provider] - Yola COLLINS,MD Tushar [Staff Provider] - <Deyanira Matamoros - Last Filed: 01/22/17 12:46> Provider - Provider Date of Admission: 01/03/17 15:29 Attending physician: Deyanira Matamoros MD Primary care physician: Tong Arias MD Hospital Course - Lab Results Lab Results: Most Recent Lab Values WBC 6.4 10^3/ul (4.5-11.0) D 01/04/17 08:00 RBC 2.83 10^6/uL (3.5-6.1) L 01/04/17 08:00 Hgb 10.0 gm/dL (12.0-16.0) L 01/04/17 08:00 Hct 29.1 % (36.0-48.0) L 01/04/17 08:00 MCV 102.8 fL (80.0-105.0) 01/04/17 08:00 MCH 35.3 pg (25.0-35.0) H 01/04/17 08:00 MCHC 34.4 g/dl (31.0-37.0) 01/04/17 08:00 RDW 21.2 % (11.5-14.5) H 01/04/17 08:00 Plt Count 83 10^3/uL (120.0-450.0) L 01/04/17 08:00 MPV 8.4 fl (7.0-11.0) 01/04/17 08:00 Gran % 51.7 % (50.0-68.0) 01/04/17 08:00 Lymph % (Auto) 44.2 % (22.0-35.0) H 01/04/17 08:00 [place] % (Auto) 3.4 % (1.0-6.0) 01/04/17 08:00 Eos % (Auto) 0.2 % (1.5-5.0) L 01/04/17 08:00 Baso % (Auto) 0.5 % (0.0-3.0) 01/04/17 08:00 Gran # 3.32 (1.4-6.5) 01/04/17 08:00 Lymph # 2.8 (1.2-3.4) 01/04/17 08:00 [place] # 0.2 (0.1-0.6) 01/04/17 08:00 Eos # 0.0 (0.0-0.7) 01/04/17 08:00 Baso # 0.03 K/mm3 (0.0-2.0) 01/04/17 08:00 PT 15.1 Seconds (9.9-11.8) H 01/03/17 08:00 INR 1.40 (0.93-1.08) H 01/03/17 08:00 APTT 42.5 Seconds (23.7-30.8) H 01/03/17 08:00 D-Dimer, Quantitative 24.32 mg/L FEU (0-0.50) H 01/01/17 12:49 pO2 43 mm/Hg (30-55) 01/01/17 22:38 VBG pH 7.47 (7.32-7.43) H 01/01/17 22:38 VBG pCO2 35.0 (40-60) L 01/01/17 22:38 VBG HCO3 25.5 mmol/l (21-28) 01/01/17 22:38 VBG Total CO2 26.6 mmol.L (22-28) 01/01/17 22:38 VBG O2 Sat (Calc) 83.6 % (40-65) H 01/01/17 22:38 VBG Base Excess 1.9 mmol/L (0.0-2.0) 01/01/17 22:38 VBG Potassium 4.3 mmol/L (3.6-5.2) 01/01/17 22:38 Sodium 137.0 mmol/L (132-148) 01/01/17 22:38 Chloride 107.0 mmol/L (98-107) 01/01/17 22:38 Glucose 111 mg/dl (65-105) H 01/01/17 22:38 Lactate 1.9 mmol/L (0.7-2.1) 01/01/17 22:38 FiO2 21.0 % 01/01/17 22:38 Sodium 137 mmol/L (132-148) 01/04/17 08:00 Potassium 4.6 mmol/L (3.6-5.0) 01/04/17 08:00 Chloride 108 mmol/L (98-107) H 01/04/17 08:00 Carbon Dioxide 23 mmol/L (21-33) 01/04/17 08:00 Anion Gap 11 (10-20) 01/04/17 08:00 BUN 11 mg/dL (7-21) 01/04/17 08:00 Creatinine 1.1 mg/dL (0.5-1.4) 01/04/17 08:00 Est GFR ( Amer) > 60 01/04/17 08:00 Est GFR (Non-Af Amer) 52 01/04/17 08:00 Random Glucose 89 mg/dL (70-110) 01/04/17 08:00 Calcium 7.5 mg/dL (8.4-10.5) L 01/04/17 08:00 Phosphorus 2.6 mg/dL (2.5-4.5) 01/01/17 12:49 Magnesium 2.4 mg/dL (1.7-2.2) H 01/02/17 08:00 Iron 148 ug/dL (45-180) 01/02/17 07:00 TIBC 272 ug/dL (265-497) 01/02/17 07:00 % Saturation 54 % (20-55) 01/02/17 07:00 Ferritin 501.0 ng/mL 01/02/17 07:00 Total Bilirubin 3.9 mg/dL (0.2-1.3) H 01/04/17 08:00 Direct Bilirubin 1.7 mg/dL (0.0-0.4) H 01/02/17 07:00 GGT 299 U/L (8-78) H 01/02/17 07:00 AST 561 U/L (15-39) H 01/04/17 08:00 ALT 180 U/L (7-56) H 01/04/17 08:00 Alkaline Phosphatase 358 U/L (38-133) H 01/04/17 08:00 Alk Phos Iso-Intestine 7 % (1-24) 01/02/17 14:00 Alk Phos Iso-Bone 45 % (28-66) 01/02/17 14:00 Alk Phos Iso-Liver 48 % (25-69) 01/02/17 14:00 Alk Phos Iso-Placenta 0 % (<=0) 01/02/17 14:00 Alk Phos Iso-Renal 0 % (<=0) 01/02/17 14:00 Lactate Dehydrogenase 2043 U/L (333-699) H 01/01/17 12:49 Total Creatine Kinase 210 U/L (35-230) 01/01/17 12:49 Troponin I < 0.01 ng/mL 01/01/17 12:49 NT-Pro-B Natriuret Pep 177 pg/mL (0-450) 01/01/17 12:49 Total Protein 7.4 g/dL (5.8-8.3) 01/04/17 08:00 Albumin 3.0 g/dL (3.0-4.8) 01/04/17 08:00 Globulin 4.4 gm/dL 01/04/17 08:00 Albumin/Globulin Ratio 0.7 (1.1-1.8) L 01/04/17 08:00 Lipase 220 U/L (23-300) 01/01/17 12:49 Mitochondrial AB Titer 1:80 Titer (< 1:20) H 01/02/17 14:00 Vitamin B12 978 pg/mL (239-931) H 01/03/17 08:00 Folate 16.0 ng/mL 01/03/17 08:00 Venous Blood Potassium 4.3 mmol/L (3.6-5.2) 01/01/17 22:38 IgG 1654.4 mg/dL (700.0-1600.0) H 01/02/17 14:00 IgA 730.7 mg/dL (70.0-400.0) H 01/02/17 14:00 IgM 304.9 mg/dL (40.0-230.0) H 01/02/17 14:00 FLACO Screen Negative (Negative) 01/02/17 14:00 Anti-Mitochondrial Ab Positive (Negative) H 01/02/17 14:00 Smooth Muscle Ab Titer TEST NOT PERFORMED 01/02/17 14:00 Anti-Smooth Muscle Ab Negative (Negative) 01/02/17 14:00 Liver/Kid Microsomes Ab <=20.0 U (<=20.0) 01/02/17 14:00 Hepatitis A IgM Ab Negative (NEGATIVE) 01/01/17 12:49 Hep Bs Antigen Negative (NEGATIVE) 01/01/17 12:49 Hep Bs Antibody Negative (NEGATIVE) 01/02/17 14:00 Hep B Core Total Ab Non reactive (Non Reactive) 01/03/17 08:00 Hep B Core IgM Ab Negative (NEGATIVE) 01/02/17 07:00 Hepatitis C Antibody Negative (NEGATIVE) 01/01/17 12:49 Blood Type O POSITIVE 01/01/17 12:49 Antibody Screen Negative 01/01/17 12:49 Crossmatch See Detail 01/01/17 12:49 BBK History Checked Patient has bt 01/01/17 12:49 Attending/Attestation - Attestation I have personally seen and examined this patient.: Yes I have fully participated in the care of the patient.: Yes I have reviewed all pertinent clinical information, including history, physical exam and plan: Yes Notes (Text): 01/22/17 12:45 attending note; patient seen and examined with resident. Patient is a 56-year-old female with a history of breast cancer is admitted with exertional shortness of breath and abdominal discomfort. D-dimer was elevated secondary to malignancy. CT angios is negative And venous Doppler is negative for DVT. Anemia; status post 1 unit PRBC transfusion. Hemoglobin is 10.2. Elevated LFT; ultrasound showed simple cyst. Ibrance and femara on hold. breast cancer; recent PET scan showed osseous metastasis and increased liver uptake. Case discussed with oncology in detail. GI evaluation appreciated. Follow up LFT closely. Upon discharge the patient will follow-up with . Follow-up with PMD Dr. Arias. diagnosis; Breast cancer Elevated LFTs Bone metastasis Anemia
[2017-01-04 23:17] LABS: BONE ISOENZYME 45 % (28-66); INTESTINAL ISOENZYME 7 % (1-24); LIVER ISOENZYME 48 % (25-69); MACROHEPATIC ISOENZYME 0 % (<=0); PLACENTAL ISOENZYME 0 % (<=0)
[2017-01-05 21:52] LABS: LKM-1 Ab (IgG) <=20.0 U (<=20.0)
== END 2017-01-04 18:20 | disposition home or self-care (01) | DRG 172 ==
LOC: ED 11:15 → ERH 15:59 → 3RNO 18:08 → OBSVTOIN 01-03 15:29
PROVIDERS: ADMIT Internal Medicine; ATTEND Internal Medicine
PROC: 30233N1 Transfusion of Nonautologous Red Blood Cells into Peripheral Vein, Percutaneous Approach (ICD-10-PCS; principal; 2017-01-01)
DX: C78.6 Secondary malignant neoplasm of retroperitoneum and peritoneum (principal); C79.51 Secondary malignant neoplasm of bone; C50.919 Malignant neoplasm of unspecified site of unspecified female breast; R18.8 Other ascites; D53.9 Nutritional anemia, unspecified; K29.70 Gastritis, unspecified, without bleeding; C78.89 Secondary malignant neoplasm of other digestive organs

== ENCOUNTER 2017-01-11 11:14 | Inpatient (IN) | payer MEDICAID ==
[2017-01-11 11:15] VITALS: BMI 36.5
--- NOTE | 2017-01-11 11:49 | ED PDOC ---
Arrival/HPI - General Chief Complaint: Shortness Of Breath Time Seen by Provider: 01/11/17 11:16 Historian: Patient - History of Present Illness Narrative History of Present Illness (Text): 01/11/17 11:49 A 56 year old female, whose past medical history includes anemia, colitis, partial small bowel obstruction, and breast cancer, presents to the emergency department complaining of worsening shortness of breath over the past 3-4 weeks. Patient recently hospitalized for similar symptoms but states symptoms currently more severe than previous. She has history of metastatic CA reportedly although reports oncologist recently decreased chemo as her liver function tests were elevated. She reports RUQ abdominal pain but states this has been chronic. Denies calf pain. Denies fever. Denies pleuritic pain. Denies headache. Denies dark or bloody urine or stool. PMD: Non-[facility] provider Time/Duration: Other (3-4 weeks) Symptom Course: Worsening Quality: Other Context: Other Past Medical History - Provider Review Nursing Documentation Reviewed: Yes - Infectious Disease Hx of Infectious Diseases: None - Tetanus Immunization Tetanus Immunization: Unknown - Cardiac Hx Cardiac Disorders: No - Pulmonary Hx Respiratory Disorders: No - Neurological Hx Neurological Disorder: No - HEENT Hx HEENT Disorder: Yes Other/Comment: wears glasses - Renal Hx Renal Disorder: No Other/Comment: Fluid on liver - Endocrine/Metabolic Hx Endocrine Disorders: No - Hematological/Oncological Hx Anemia: Yes Hx Cancer: Yes (Rt Breast cancer) - Integumentary Hx Dermatological Disorder: No - Musculoskeletal/Rheumatological Hx Musculoskeletal Disorders: No Hx Falls: No - Gastrointestinal Hx Gastrointestinal Disorders: No - Genitourinary/Gynecological Hx Genitourinary Disorders: No - Psychiatric Hx Psychophysiologic Disorder: No Hx Substance Use: No - Surgical History Hx Cholecystectomy: Yes - Anesthesia Hx Anesthesia: Yes Hx Anesthesia Reactions: No Hx Malignant Hyperthermia: No Family/Social History - Physician Review Nursing Documentation Reviewed: Yes Family/Social History: No Known Family HX Smoking Status: Never Smoked Hx Alcohol Use: Yes (social) Hx Substance Use: No Allergies/Home Meds Allergies/Adverse Reactions: Allergies No Known Allergies Allergy (Verified 01/11/17 11:35) Home Medications: Home Meds Medication Instructions Recorded Confirmed Calcium Carbonate [Calcium] 600 mg PO BID 01/01/17 01/11/17 Letrozole 2.5 mg PO DAILY 01/11/17 01/11/17 Loperamide HCl [Imodium A-D] 2 mg PO QID PRN 01/11/17 01/11/17 Palbociclib [Ibrance] 125 mg PO DAILY 01/11/17 01/11/17 Review of Systems - Review of Systems Constitutional: Fatigue, Weight Change. absent: Fevers, Night Sweats Respiratory: SOB, Cough, Sputum Cardiovascular: LOWERY. absent: Chest Pain, Palpitations, Calf Pain, Syncope Gastrointestinal: Abdominal Pain. absent: Constipation, Diarrhea, Nausea, Vomiting Genitourinary Female: absent: Urine Output Changes Musculoskeletal: absent: Back Pain Skin: absent: Rash Neurological: absent: Headache, Dizziness Endocrine: absent: Polyuria Hemo/Lymphatic: absent: Easy Bleeding Psychiatric: absent: Depression Physical Exam - Physical Exam Narrative Physical Exam (Text): Head: Atraumatic. Normocephalic. Eyes: PERRL. EOMI. Conjunctivae are not pale. ENT: Mucous membranes are moist and intact. Oropharynx is clear and symmetric. Sclera icteric. Neck: Supple. Full ROM. No JVD. No lymphadenopathy. Cardiovascular: Tachycardic. Systolic murmur. Pulmonary/Chest: Tachypneic. No evidence of respiratory distress. Clear to auscultation bilaterally. No accessory muscle use. No wheezing, rales or rhonchi. Abdominal: Soft. Mild distension. Mild RUQ tenderness. No rebound, guarding , or rigidity. No organomegaly. Good bowel sounds. Back: No CVA tenderness. Rectal: no gross bleeding Extremities: No edema. No cyanosis. No clubbing. Full range of motion in all extremities. No calf tenderness. Skin: Skin is warm and dry. No petechiae. No purpura. Neurological: Alert, awake, and oriented to person, place, time, and situation. Normal speech. No meningeal signs. Motor and sensory exam intact. Psychiatric: Good eye contact. Normal interaction, affect, and behavior. 01/11/17 19:26 01/11/17 19:32 Vital Signs Reviewed: Yes Vital Signs Temp Pulse Pulse Resp BP Pulse Ox 01/11/17 16:24 87 16 106/71 100 01/11/17 16:00 98.3 F 86 20 114/78 95 01/11/17 15:27 98.2 F 90 90 17 126/79 01/11/17 14:08 98.2 F 90 17 126/79 98 01/11/17 11:31 97.4 F L 95 H 18 135/90 100 Temperature: Afebrile Blood Pressure: Normal Pulse: Tachycardic Respiratory Rate: Tachypneic Appearance: Positive for: Well-Appearing, Non-Toxic, Uncomfortable Pain Distress: Mild Mental Status: Positive for: Alert and Oriented X 3 Medical Decision Making ED Course and Treatment: 01/11/17 11:49 Impression: A 56 year old female with worsening shortness of breath Differential Diagnosis included but are not limited to: CAD vs. Anemia vs. Pulmonary fibrosis vs. Heart failsure vs. PNA vs ascites Plan: -- Chest xray -- EKG -- Labs -- Urinalysis -- Reassess and disposition Prior Visits: Notes and results from previous visits were reviewed. Patient last seen in the ED on 01/01/17 for similar complaints. Patient was placed on observation under Dr. Amador for Abdominal pain, Ascites and Shortness of breath. Patient had an Abdominal/Pelvis and Chest CT on 01/01/17, which both showed: IMPRESSION: Moderate ascites. The etiology uncertain. Patient had an Upper extremity duplex ultrasound on 01/01/17, which was negative for DVT. Patient had an echocardiogram on 01/02/17, which showed normal left ventricular function and an ejection fraction of 65%. Progress Notes: Patient is tachypneic on exam, although oxygen saturations 100% and lungs are clear. Patient with unremarkable chest xray. She has had RECENT ct angio of chest which was negative for PE. She denies chest pain or calf pain. Report Date : 01/11/2017 13:23:25 Procedure: Chest xray Dictator : Jean-Pierre Denson MD IMPRESSION: No active disease. At rest, respiratory rate is 14, she is breathing comfortably. Abdomen is distended and tender to RUQ, although patient reports this is not noticeably worse from her chronic states "maybe a little more swollen". No active bleeding noted. Anemia noted to be chronic. Not hypotensive. Recent echo from previous admission reviewed. I communicated with GI Dr. Lucero, based on acutely elevated bilirubin, ct ordered to reassess ascites. Suspect possible progression of underlying disease, mets. CT reviewed by GI, patient will be admitted to hospitalist service for further treatment. I suspect etiology of sob possibly from worsening ascites. Will admit for monitoring, serial exams. 01/11/17 19:28 - Lab Interpretations Lab Results: 01/11/17 12:00 01/11/17 12:00 Lab Results 01/11/17 12:30: Direct Bilirubin 5.7 H 01/11/17 12:00: Sodium 132, Potassium 4.7, Chloride 101, Carbon Dioxide 21, Anion Gap 15, BUN 19, Creatinine 1.4, Est GFR ( Amer) 47, Est GFR (Non- Af Amer) 39, Random Glucose 121 H, Calcium 7.9 L, Total Bilirubin 8.4 H, AST 569 H, ALT 152 H, Alkaline Phosphatase 495 H, Lactate Dehydrogenase 2427 H, Total Creatine Kinase 328 H, CK-MB (CK-2) 0.7, CK-MB (CK-2) % Cancelled, Troponin I < 0.01, NT-Pro-B Natriuret Pep 294, Total Protein 7.5, Albumin 2.7 L , Globulin 4.8, Albumin/Globulin Ratio 0.6 L 01/11/17 12:00: PT 19.9 H, INR 1.84 H, APTT 65.2 H 01/11/17 12:00: WBC 8.4 D, RBC 2.84 L, Hgb 10.1 L, Hct 29.7 L, MCV 104.6, MCH 35.6 H, MCHC 34.0, RDW 22.1 H, Plt Count 53 L, MPV 8.8, Gran % 50.1, Lymph % ( Auto) 36.2 H, [place] % (Auto) 12.8 H, Eos % (Auto) 0.1 L, Baso % (Auto) 0.8, Gran # 4.21, Lymph # 3.1, [place] # 1.1 H, Eos # 0.0, Baso # 0.07 I have reviewed the lab results: Yes - RAD Interpretation Radiology Orders: 01/11/17 11:49 CHEST PORTABLE [RAD] Stat - EKG Interpretation EKG Interpretation (Text): EKG at 11:30 normal sinus rhythm with premature atrial complexes and prolonged qt Interpreted by ED Physician: Yes Type: 12 lead EKG - Medication Orders Current Medication Orders: Famotidine (Pepcid) 20 mg PO HS JEREMIE Morphine Sulfate (Morphine) 1 mg IVP Q6H PRN PRN Reason: Pain, moderate (4-7) Ondansetron HCl (Zofran Inj) 4 mg IVP Q6H PRN PRN Reason: Nausea/Vomiting Discontinued Medications Iohexol (Omnipaque 350 100 Ml) Confirm Administered Dose 350 mg .ROUTE .STK-MED ONE Stop: 01/11/17 13:55 Pneumococcal Polyvalent Vaccine (Pneumovax 23 Vaccine) 0.5 ml IM .ONCE ONE Stop: 01/11/17 15:58 - Scribe Statement The provider has reviewed the documentation as recorded by the Carlibshabana Tracey Provider Scribe Attestation: All medical record entries made by the Scribe were at my direction and personally dictated by me. I have reviewed the chart and agree that the record accurately reflects my personal performance of the history, physical exam, medical decision making, and the department course for this patient. I have also personally directed, reviewed, and agree with the discharge instructions and disposition. Disposition/Present on Arrival - Present on Arrival Any Indicators Present on Arrival: No History of DVT/PE: No History of Uncontrolled Diabetes: No Urinary Catheter: No History of Decub. Ulcer: No History Surgical Site Infection Following: None - Disposition Have Diagnosis and Disposition been Completed?: Yes Diagnosis: Abdominal pain, Ascites, Shortness of breath, Jaundice, Metastatic cancer Disposition: HOSPITALIZED Disposition Time: 12:50 Patient Plan: Admission, Telemetry Condition: SERIOUS
[2017-01-11 12:10] LABS: BASO # 0.07 K/mm3 (0.0-2.0); BASO % 0.8 % (0.0-3.0); EOS % 0.1 % (1.5-5.0); GRAN # 4.21 (1.4-6.5); GRAN % 50.1 % (50.0-68.0); HEMOGLOBIN 10.1 gm/dL (12.0-16.0); LYMPH # 3.1 (1.2-3.4); LYMPH % 36.2 % (22.0-35.0); MEAN CELL VOLUME 104.6 fL (80.0-105.0); MEAN CORPUSCULAR HEMOGLOBIN 35.6 pg (25.0-35.0); MEAN PLATELET VOLUME 8.8 fl (7.0-11.0); MONO # 1.1 (0.1-0.6); MONO % 12.8 % (1.0-6.0); PLATELET COUNT 53 10^3/uL (120.0-450.0); RBC 2.84 10^6/uL (3.5-6.1); RED CELL DISTRIBUTION WIDTH 22.1 % (11.5-14.5); WHITE BLOOD COUNT 8.4 10^3/ul (4.5-11.0)
[2017-01-11 12:22] LABS: INR 1.84 (0.93-1.08); PARTIAL THROMBOPLASTIN TIME 65.2 Seconds (23.7-30.8); PROTHROMBIN TIME 19.9 Seconds (9.9-11.8)
[2017-01-11 12:24] LABS: ALB/GLOB RATIO 0.6 (1.1-1.8); ALBUMIN 2.7 g/dL (3.0-4.8); ALT/SGPT 152 U/L (7-56); AST/SGOT 569 U/L (15-39); BLOOD UREA NITROGEN 19 mg/dL (7-21); CALCIUM 7.9 mg/dL (8.4-10.5); GFR AFRICAN-AMERICAN 47; GFR NON-AFRICAN AMERICAN 39
[2017-01-11 12:35] LABS: B-TYPE NATRIURETIC PEPTIDE 294 pg/mL (0-450)
[2017-01-11 12:42] LABS: TROPONIN I < 0.01 ng/mL
[2017-01-11 12:58] LABS: CK-MB 0.7 ng/mL (0.0-3.6)
--- NOTE | 2017-01-11 13:25 | RAD ---
HISTORY: sob COMPARISON: 01/01/2017 FINDINGS: LUNGS: No active pulmonary disease. PLEURA: No significant pleural effusion identified, no pneumothorax apparent. CARDIOVASCULAR: Normal. OSSEOUS STRUCTURES: No significant abnormalities. VISUALIZED UPPER ABDOMEN: Normal. OTHER FINDINGS: None. IMPRESSION: No active disease.
[2017-01-11] MEDS ORDERED: Iohexol 350 MG/100 ML VIAL ONE (13:54)
[2017-01-11 15:26] LABS: URINE BILIRUBIN MODERATE (NEGATIVE); URINE BLOOD NEGATIVE (NEGATIVE); URINE GLUCOSE (UA) NEGATIVE (NEGATIVE); URINE LEUKOCYTE ESTERASE SMALL Leu/uL (NEGATIVE); URINE NITRATE NEGATIVE (NEGATIVE); URINE PROTEIN 30 mg/dL (<30 mg/dL)
[2017-01-11 15:27] LABS: URINE APPEARANCE SL CLOUDY (CLEAR); URINE COLOR DARK YELLOW (YELLOW)
[2017-01-11 15:54] LABS: URINE RBC 0 - 2 /hpf (0-2)
[2017-01-11 15:55] LABS: URINE BACTERIA FEW (NEG)
[2017-01-11] MEDS ORDERED: Pneumococcal 23-Valent Vaccine IM ONE (15:57)
--- NOTE | 2017-01-11 16:20 | CT ---
PROCEDURE: CT Abdomen and Pelvis with contrast HISTORY: assess for progressive ascites COMPARISON: PET-CT dated 12/29/2016 TECHNIQUE: Contrast dose: 100 cc of Omni 350 Radiation dose: Total exam DLP = 1257 mGy-cm. This CT exam was performed using one or more of the following dose reduction techniques: Automated exposure control, adjustment of the mA and/or kV according to patient size, and/or use of iterative reconstruction technique. FINDINGS: LOWER THORAX: Unremarkable. LIVER: Poorly defined areas of hypodensity are seen in the liver which could represent metastatic disease. The previous PET-CT showed some increased activity in this region. GALLBLADDER AND BILE DUCTS: Gallbladder removed PANCREAS: Unremarkable. No gross lesion or ductal dilatation. SPLEEN: Unremarkable. ADRENALS: Unremarkable. No mass. KIDNEYS AND URETERS: Unremarkable. No hydronephrosis. No solid mass. VASCULATURE: Unremarkable. No aortic aneurysm. BOWEL: Unremarkable. No obstruction. No gross mural thickening. APPENDIX: Normal appendix. PERITONEUM: There is now a moderate amount of ascites which is a new finding. There is also some increased density in the omental fat. Findings could represent peritoneal metastases. LYMPH NODES: Unremarkable. No enlarged lymph nodes. BLADDER: Unremarkable. REPRODUCTIVE: Unremarkable. BONES: Sclerotic lesions are seen throughout the spine. OTHER FINDINGS: None. IMPRESSION: Moderate ascites which is a new finding. There is also increased density in the omental fat suspicious for peritoneal metastases. Sclerotic bony metastatic disease. Probable liver metastases
--- NOTE | 2017-01-11 20:15 | CP.PCM.CON ---
History of Present Illness - History of Present Illness History of Present Illness: CC: SOB HPI: 56 year old female with h/o metastatic breast cancer diagnosed in 12/2015 with metastasis to stomach, peritoneum and bone and history of anemia presents to hospital for shortness of breath. She presented to our office today for follow up regarindg her jaundice. She reports SOB which has been progressively worse since discharge. She says since she got home it has been getting worse. She reports some increased abdominal girth as well. She denies fever. She does note darker urine and increasingly yellow eyes. Denies pruritis. She is out of breath at rest and gets worse with exertion. Denies chest pain. Was in hospital a week ago with jaundice and SOB. Had CT chest which was unremarkable. PMHx: Metastatic breast cancer Pshx: cholecystectomy FHx: Heart dx in family, no history of colon ca. Social hx: denies smoking, drinking, drugs. Past Patient History - Infectious Disease Hx of Infectious Diseases: None - Tetanus Immunizations Tetanus Immunization: Unknown - Past Medical History & Family History Past Medical History?: Yes - Past Social History Smoking Status: Never Smoked - CARDIAC Hx Cardiac Disorders: No - PULMONARY Hx Respiratory Disorders: No - NEUROLOGICAL Hx Neurological Disorder: No - HEENT Hx HEENT Problems: Yes Other/Comment: wears glasses - RENAL Hx Chronic Kidney Disease: No Other/Comment: Fluid on liver - ENDOCRINE/METABOLIC Hx Endocrine Disorders: No - HEMATOLOGICAL/ONCOLOGICAL Hx Anemia: Yes Hx Cancer: Yes (Rt Breast cancer) - INTEGUMENTARY Hx Dermatological Problems: No - MUSCULOSKELETAL/RHEUMATOLOGICAL Hx Musculoskeletal Disorders: No Hx Falls: No - GASTROINTESTINAL Hx Gastrointestinal Disorders: No - GENITOURINARY/GYNECOLOGICAL Hx Genitourinary Disorders: No - PSYCHIATRIC Hx Psychophysiologic Disorder: No Hx Substance Use: No - SURGICAL HISTORY Hx Cholecystectomy: Yes - ANESTHESIA Hx Anesthesia: Yes Hx Anesthesia Reactions: No Hx Malignant Hyperthermia: No Meds Allergies/Adverse Reactions: Allergies Allergy/AdvReac Type Severity Reaction Status Date / Time No Known Allergies Allergy Verified 01/11/17 11:35 - Medications Medications: Current Medications Famotidine (Pepcid) 20 mg PO HS JEREMIE Morphine Sulfate (Morphine) 1 mg IVP Q6H PRN PRN Reason: Pain, moderate (4-7) Ondansetron HCl (Zofran Inj) 4 mg IVP Q6H PRN PRN Reason: Nausea/Vomiting Physical Exam - Constitutional Appears: No Acute Distress, Chronically Ill - Head Exam Head Exam: ATRAUMATIC, NORMOCEPHALIC - Eye Exam Eye Exam: Scleral icterus Pupil Exam: PERRL - ENT Exam ENT Exam: Mucous Membranes Moist, Normal Oropharynx - Respiratory Exam Respiratory Exam: Clear to Auscultation Bilateral, Respiratory Distress - Cardiovascular Exam Cardiovascular Exam: Tachycardia, +S1, +S2 - GI/Abdominal Exam GI & Abdominal Exam: Distended, Soft - Extremities Exam Extremities exam: Positive for: normal capillary refill - Neurological Exam Neurological exam: Alert, Oriented x3 - Psychiatric Exam Psychiatric exam: Normal Affect, Normal Mood - Skin Skin Exam: Dry, Normal Color, Warm Results - Vital Signs Recent Vital Signs: Last Vital Signs Temp 98.3 F 01/11/17 16:00 Pulse 87 01/11/17 16:24 Resp 16 01/11/17 16:24 BP 106/71 01/11/17 16:24 Pulse Ox 100 01/11/17 16:24 - Labs Result Diagrams: 01/11/17 12:00 01/11/17 12:00 Labs: Laboratory Results - last 24 hr 01/11/17 15:00 Urine Color Dark yellow Urine Appearance Sl cloudy Urine pH 6.0 Ur Specific [place] 1.015 Urine Protein 30 H Urine Glucose (UA) Negative Urine Ketones Trace H Urine Blood Negative Urine Nitrate Negative Urine Bilirubin Moderate H Urine Urobilinogen 1.0 H Ur Leukocyte Esterase Small H Urine RBC 0 - 2 Urine WBC 1 - 3 Ur Epithelial Cells 4 - 5 Urine Bacteria Few Assessment & Plan - Assessment and Plan (Free Text) Assessment: 56 year old female with h/o metastatic breast cancer with gastric, peritoneal, and bone metastases admitted with progressively worsening sob, also worsening jaundice and ascites. 1. Jaundice 2. Liver metastases 3. Ascites Plan: -CT performed in ER. reviewed. Demonstrates worsening ascites and hepatic metastases -jaundice likely related to malignancy -positive AMA noted, but unlikely to be PBC considering the context -overall prognosis is poor -palliative care should be considered -consult Dr. Aceves -if aggressive care is being pursued, could consider ursodiol, though unlikely to yield any benefit -recommend therapeutic paracentesis, as etiology of SOB is unclear, and progressively worsening ascites may be contributing to her symptoms -send fluid for cell count, albumin, tp, cytology, and culture - Date & Time Date: 01/11/17 Time: 20:15
--- NOTE | 2017-01-11 20:33 | CP.PCM.HP ---
Addendum entered and electronically signed by Lawrence Thomas DO 01/11/17 23:26: Patient seen, reviewed, and discussed with Dr. Wilburn. Agree and concur with exam and plan. Briefly, this is a 56 yo AA F with PMH of anemia, colitis, prior SBO, and breast cancer discovered 1 yr prior recently on HER2 chemo regimen presenting with recurrence of worsening exertional dyspnea. As per patient, symptoms initially improved after discharge 1 week prior, but have recurred and worsened in the last 4-[address] findings and acutely elevated LFTs/Bilirubin, concern for possible hepatic/pancreatic mets, worsening ascites. GI consulted ( Dr. Lucero), this patient known to them, appreciate all recs. CT abd pending, will consult IR for possible paracentesis based on results. Original Note: <GISEL WILBURN - Last Filed: 01/11/17 20:28> History of Present Illness - History of Present Illness History of Present Illness: 56 yo F, PMH anemai, colitis, partial SBO, breast cancer presented today with complaints of 4 week hx of exertional dyspnea. The pt was seen 1 week ago for the same complaint. She had a workup significant only for mild ascites and elevated LFTs at that time. Today she states that dyspnea has worsened with activity, but denies dyspnea/SOB at rest. Pt follwed up with gastroenterology and primary care, in which both of her doctors noted marked scleral icterus. She complains of some associated abdominal pressure, which is worse when she urinates and described as being similar to in quality. She also notes dark urine today that she has not noticed in the past. She does appreciate a mild increase in her abdominal girth, but feels that it has not changed significantly in the last 2 weeks. She denies any fever, chills, nausea, abdominal pain, diarrhea, or headaches. She has no hx of periodic jaundice, blood clots, or miscarriage. She currently only takes calcium supplements. She was DC from her chemotherapeutic regimen (palbociclib 125 mg, letrozole 2.5 mg) on 01/03 at last hospital admission secondary to concerns about her rising LFTs. She only takes calcium carbonate currently and denies use of other OTC meds or supplements. PMHx: anemia, colitis, partial SBO, breast cancer FHx: mother cardiac. Father unknown/natural causes. Surgical hx: cholecystectomy Social: never smoker, no illicit drug use, used to drink alcohol but not anymore All: NKDA Present on Admission - Present on Admission Any Indicators Present on Admission: No Review of Systems - Constitutional Constitutional: absent: Anorexia, Chills, Fatigue, Fever, Sleep Apnea - EENT Eyes: absent: Blurred Vision, Change in Vision, Itchy Eyes, Photophobia Ears: absent: Decreased Hearing, Ear Discharge, Ear Pain Nose/Mouth/Throat: absent: Nasal Congestion, Nasal Discharge, Nasal Obstruction - Breasts Breasts: As Per HPI - Cardiovascular Cardiovascular: absent: Chest Pain, Diaphoresis, Edema, Irregular Heart Rhythm, Lightheadedness, Orthopnea - Respiratory Respiratory: Cough, Dyspnea, Dyspnea on Exertion. absent: Hemoptysis, Wheezing , Snoring, Stridor - Gastrointestinal Gastrointestinal: Abdominal Pain, Bloating. absent: Constipation, Diarrhea, Vomiting - Genitourinary Genitourinary: absent: Difficulty Urinating, Dysuria, Flank Pain, Hematuria - Musculoskeletal Musculoskeletal: absent: Back Pain, Limited Range of Motion, Neck Pain - Integumentary Integumentary: absent: Pruritus, Rash, Skin Pain - Neurological Neurological: absent: Abnormal Gait, Abnormal Hearing, Abnormal Movements, Dizziness, Numbness, Tingling, Tremor - Endocrine Endocrine: absent: Cold Intolorance, Heat Intolorance, Polydipsia, Polyphagia, Polyuria Past Patient History - Infectious Disease Hx of Infectious Diseases: None - Tetanus Immunizations Tetanus Immunization: Unknown - Past Medical History & Family History Past Medical History?: Yes - Past Social History Smoking Status: Never Smoked - CARDIAC Hx Cardiac Disorders: No - PULMONARY Hx Respiratory Disorders: No - NEUROLOGICAL Hx Neurological Disorder: No - HEENT Hx HEENT Problems: Yes Other/Comment: wears glasses - RENAL Hx Chronic Kidney Disease: No Other/Comment: Fluid on liver - ENDOCRINE/METABOLIC Hx Endocrine Disorders: No - HEMATOLOGICAL/ONCOLOGICAL Hx Anemia: Yes Hx Cancer: Yes (Rt Breast cancer) - INTEGUMENTARY Hx Dermatological Problems: No - MUSCULOSKELETAL/RHEUMATOLOGICAL Hx Musculoskeletal Disorders: No Hx Falls: No - GASTROINTESTINAL Hx Gastrointestinal Disorders: No - GENITOURINARY/GYNECOLOGICAL Hx Genitourinary Disorders: No - PSYCHIATRIC Hx Psychophysiologic Disorder: No Hx Substance Use: No - SURGICAL HISTORY Hx Cholecystectomy: Yes - ANESTHESIA Hx Anesthesia: Yes Hx Anesthesia Reactions: No Hx Malignant Hyperthermia: No Meds Allergies/Adverse Reactions: Allergies Allergy/AdvReac Type Severity Reaction Status Date / Time No Known Allergies Allergy Verified 01/11/17 11:35 Physical Exam - Head Exam Head Exam: ATRAUMATIC, NORMOCEPHALIC - Eye Exam Eye Exam: EOMI, PERRL, Scleral icterus - ENT Exam ENT Exam: Mucous Membranes Moist - Neck Exam Neck exam: Positive for: Full Rom - Respiratory Exam Respiratory Exam: Clear to Auscultation Bilateral. absent: Rales, Rhonchi, Wheezes - Cardiovascular Exam Cardiovascular Exam: RRR, +S1, +S2. absent: Gallop, Rubs, Systolic Murmur - GI/Abdominal Exam GI & Abdominal Exam: Hypoactive Bowel Sounds, Soft, Tenderness (RUQ). absent: Guarding, Rebound - Extremities Exam Extremities exam: Positive for: full ROM - Skin Skin Exam: Dry, Intact, Warm Additional comments: Jaundice Results - Vital Signs Recent Vital Signs: Last Vital Signs Temp 98.3 F 01/11/17 16:00 Pulse 87 01/11/17 16:24 Resp 16 01/11/17 16:24 BP 106/71 01/11/17 16:24 Pulse Ox 100 01/11/17 16:24 - Labs Result Diagrams: 01/11/17 12:00 01/11/17 12:00 Labs: Laboratory Results - last 24 hr 01/11/17 15:00 Urine Color Dark yellow Urine Appearance Sl cloudy Urine pH 6.0 Ur Specific Brandon 1.015 Urine Protein 30 H Urine Glucose (UA) Negative Urine Ketones Trace H Urine Blood Negative Urine Nitrate Negative Urine Bilirubin Moderate H Urine Urobilinogen 1.0 H Ur Leukocyte Esterase Small H Urine RBC 0 - 2 Urine WBC 1 - 3 Ur Epithelial Cells 4 - 5 Urine Bacteria Few Assessment & Plan - Assessment and Plan (Free Text) Assessment: 56 year old female with h/o metastatic breast cancer with gastric, peritoneal, and bone metastases admitted with progressively worsening sob, also worsening jaundice and ascites. 1. Ascites/Jaundice -GI consulted: jaundice likely due to malignancy -Possible IR consult for paracentesis -CT showed worsening ascites and hepatic metastases -Trend LFT's -Lipase ordered -Morphine 1mg q6h prn for pain 2. Breast Cancer -Was on HER2 chemo regimen, stopped during most recent admission -Will continue to hold for now, pending assessment by GI -If regimen needs to be restarted will consult heme-onc 3. Anemia -Hemoglobin 10.1, baseline as per prior charting -Continue to monitor 4. GI/DVT PPx -Pepcid <Herb Woodall - Last Filed: 01/12/17 06:57> Results - Vital Signs Recent Vital Signs: Last Vital Signs Temp 98.3 F 01/11/17 16:00 Pulse 81 01/12/17 04:56 Resp 16 01/11/17 16:24 BP 106/71 01/11/17 16:24 Pulse Ox 100 01/11/17 16:24 - Labs Result Diagrams: 01/11/17 12:00 01/11/17 12:00 Labs: Laboratory Results - last 24 hr 01/11/17 15:00 Urine Color Dark yellow Urine Appearance Sl cloudy Urine pH 6.0 Ur Specific Brandon 1.015 Urine Protein 30 H Urine Glucose (UA) Negative Urine Ketones Trace H Urine Blood Negative Urine Nitrate Negative Urine Bilirubin Moderate H Urine Urobilinogen 1.0 H Ur Leukocyte Esterase Small H Urine RBC 0 - 2 Urine WBC 1 - 3 Ur Epithelial Cells 4 - 5 Urine Bacteria Few Attending/Attestation - Attestation I have personally seen and examined this patient.: Yes I have fully participated in the care of the patient.: Yes I have reviewed all pertinent clinical information: Yes Notes (Text): 01/11/17 56 year old female with past medical history of metastatic breast cancer who presents with complaint of shortness of breath, abdominal discomfort and increased jaundice. CT abd/pelvis showed worsening ascites and metastatic disease. GI evaluation was appreciated. Will request IR evaluation as well for diagnostic/therapeutic paracentesis. LFTs are elevated, stable from prior recent admission. Will continue to monitor. She follows up with Dr. Aceves for metastatic breast cancer whom we will request to follow up. Her recent chemo regimen is on hold. Anemia/thrombocytopenia noted; likely secondary to above. Will monitor. Herb Woodall MD Hospitalist.
[2017-01-12 08:14] LABS: HEMOGLOBIN 9.8 gm/dL (12.0-16.0); MEAN CELL VOLUME 104.3 fL (80.0-105.0); MEAN CORPUSCULAR HEMOGLOBIN 35.5 pg (25.0-35.0); MEAN PLATELET VOLUME 8.5 fl (7.0-11.0); RBC 2.76 10^6/uL (3.5-6.1); RED CELL DISTRIBUTION WIDTH 22.3 % (11.5-14.5)
[2017-01-12 08:19] LABS: INR 1.87 (0.93-1.08); PROTHROMBIN TIME 20.2 Seconds (9.9-11.8)
[2017-01-12 08:28] LABS: ALB/GLOB RATIO 0.6 (1.1-1.8); ALBUMIN 2.6 g/dL (3.0-4.8); CALCIUM 7.4 mg/dL (8.4-10.5)
--- NOTE | 2017-01-12 09:15 | CP.PCM.PN ---
<Craroll Herman - Last Filed: 01/12/17 09:22> Subjective - Date & Time of Evaluation Date of Evaluation: 01/12/17 Time of Evaluation: 09:00 - Subjective Subjective: PGY-4 GI Follow-up Pt seen and examined bedside. Pt states that her SOB has improved. but she's still has some scant sputum production. Pt states that she is able to do only minimal exertion without become SOB. She is able to lay flat without difficulty. Able to tolerate clears. Has not has a BM since admission. Denies any fever, chills or diaphoresis. No other complaints. Has some abd discomfort in the RUQ, but not sig. Only exacerbated upon palpation. ROS: 12-point ROS was conducted, neg other than what was stated above. Objective - Vital Signs/Intake and Output Vital Signs (last 24 hours): Temp Pulse Resp BP Pulse Ox 98.4 F 83 18 116/71 100 01/12/17 08:22 01/12/17 08:22 01/12/17 08:22 01/12/17 08:22 01/12/17 08:22 Intake and Output: 01/12/17 01/12/17 06:59 18:59 Intake Total 240 Balance 240 - Medications Medications: Current Medications Famotidine (Pepcid) 20 mg PO HS JEREMIE Last Admin: 01/11/17 21:16 Dose: 20 mg Morphine Sulfate (Morphine) 1 mg IVP Q6H PRN PRN Reason: Pain, moderate (4-7) Ondansetron HCl (Zofran Inj) 4 mg IVP Q6H PRN PRN Reason: Nausea/Vomiting Last Admin: 01/11/17 23:45 Dose: 4 mg - Labs Labs: 01/12/17 07:30 01/12/17 07:30 PT 20.2 Seconds (9.9-11.8) H 01/12/17 07:30 INR 1.87 (0.93-1.08) H 01/12/17 07:30 APTT 65.2 Seconds (23.7-30.8) H 01/11/17 12:00 - Constitutional Appears: Well, No Acute Distress - Head Exam Head Exam: ATRAUMATIC, NORMAL INSPECTION - Eye Exam Eye Exam: EOMI, Normal appearance, Scleral icterus - ENT Exam ENT Exam: Mucous Membranes Moist, Normal Exam - Neck Exam Neck Exam: Full ROM, Normal Inspection - Respiratory Exam Respiratory Exam: NORMAL BREATHING PATTERN. absent: Wheezes, Respiratory Distress Additional comments: slight crackles at the lung bases - Cardiovascular Exam Cardiovascular Exam: REGULAR RHYTHM - GI/Abdominal Exam Additional comments: Distended though not tense, slight shifting, neg fluid wave, could not assess organomegaly. Hypoactive BS - Extremities Exam Extremities Exam: Full ROM, Normal Capillary Refill, Normal Inspection - Back Exam Back Exam: NORMAL INSPECTION - Neurological Exam Neurological Exam: Alert, Awake, Oriented x3 - Psychiatric Exam Psychiatric exam: Normal Affect, Normal Mood - Skin Skin Exam: Dry, Intact, Warm Assessment and Plan - Assessment and Plan (Free Text) Assessment: Lea Arreaga is a 56F with hx of metastatic breast ca to the stomach, bones and now the Liver who presented to the ER with complaints of SOB. Pt has presnted with increasing LFTs with a cholestatic pattern. CT of the abd/pelv revealed new hypodensities in the liver likley metastatic in etiology. There was moderate ascites present on CT Scan of the Abd/Pelvis this admission, though she does not have a tense abdomen. Her etiology of SOB is likley 2/2 primary pulmonary vs cardiac vs deconditioning Liver metastases likely 2/2 breast ca -CT reviewed. + ascites and hepatic metastases -positive AMA noted, likely 2/2 met burden but cannot r/o PBC -recommended therapeutic paracentesis, as etiology of SOB is unclear, and progressively worsening ascites may be contributing to her symptoms -Please send fluid for cell count, albumin, tp, cytology, and culture -Recommend U/S Liver with doppler for f/u imaging -Spoke to Hem/onc, plan is to restart chemo next week if pt is stable Ascites likley 2/2 to mets see above Transaminemia -likley cholestatic pattern and 2/2 to met burden, if worsens may need to consider obstruction -continue to monitor LFTs SOB - etiology seems unlikely that it is 2/2 ascities or abdominal pressure - recommend additional pulm and cardiac w/u including r/o PE, infection, cardiac Case d/w Dr. Archibald - <Joey Archibald - Last Filed: 01/12/17 13:52> Objective - Vital Signs/Intake and Output Vital Signs (last 24 hours): Temp Pulse Resp BP Pulse Ox 98.4 F 83 18 116/71 100 01/12/17 08:22 01/12/17 08:22 01/12/17 08:22 01/12/17 08:22 01/12/17 08:22 Intake and Output: 01/12/17 01/12/17 06:59 18:59 Intake Total 240 Balance 240 - Medications Medications: Current Medications Famotidine (Pepcid) 20 mg PO HS JEREMIE Last Admin: 01/11/17 21:16 Dose: 20 mg Morphine Sulfate (Morphine) 1 mg IVP Q6H PRN PRN Reason: Pain, moderate (4-7) Ondansetron HCl (Zofran Inj) 4 mg IVP Q6H PRN PRN Reason: Nausea/Vomiting Last Admin: 01/11/17 23:45 Dose: 4 mg - Labs Labs: 01/12/17 07:30 01/12/17 07:30 PT 20.2 Seconds (9.9-11.8) H 01/12/17 07:30 INR 1.87 (0.93-1.08) H 01/12/17 07:30 APTT 65.2 Seconds (23.7-30.8) H 01/11/17 12:00 Attending/Attestation - Attestation I have personally seen and examined this patient.: Yes I have fully participated in the care of the patient.: Yes I have reviewed all pertinent clinical information, including history, physical exam and plan: Yes Notes (Text): 01/12/17 13:45 I have seen and examined patient with GI fellow. No acute events overnight, her breathing has improved with the use of supplemental oxygen. She also continues to endorse generalized abdominal discomfort but denies nausea, vomiting, diarrhea, fever/chills. Tolerating PO liquids without difficulty. Review of vitals from today are normal. Breast cancer, metastatic Liver lesions, elevated LFTs, +AMA Hyperbilirubinemia, mainly direct component Ascites Dyspnea on exertion - Liquid diet as tolerated - Continue to monitor LFTs, there is likely no additional benefit to beginning therapy with ursodiol for suspected PBC given current metastatic tumor burden - Obtain abdominal US/doppler for further characterization of hepatic vasculature and biliary tree - Obtain diagnostic/therapeutic paracentesis - Would suggest investigation for alternate causes of dyspnea including pulmonary infectious vs cardiac - Case discussed with Dr. Aceves, plan for outpatient chemotherapy pending patient clinical progress
--- NOTE | 2017-01-12 10:12 | CARD ---
APPROVED REPORT EKG Measurement Heart [id number] <Conclusion> Sinus rhythm with premature atrial complexes PRWPV 1 - 5 Q in 3 Prolonged QT
--- NOTE | 2017-01-12 11:19 | CP.PCM.CON ---
History of Present Illness - History of Present Illness History of Present Illness: Palliative consult requested by Dr Yesenia Woodall Reason: Goals of care/ advance care planning 56 year old female with history of metastatic breast cancer who presented with shortness of breath and abdominal pain. She has been receiving chemotherapy under Dr. Aceves's services. CT of abdomen showed moderate ascites, density in omental fat suspicious for peritoneal metastases, sclerotic bony metastases, probable liver metastases. Admitted last week with shortness of breath, jaundice , ascites noted but not enough to drain at that time PMHx: right breast cancer metastasized to bone, liver, omentum, malignant ascites,jaundice, cholesytectomy. Social History: Non smoker, occasional alcohol, no illicit drug use.Single, lives with sister Kenzie Sutherland, who is very supportive. Family History: Non contributory. Advance Care Planning: The patient does not have an Advanced Directive. Review of Systems - Constitutional Constitutional: Fatigue - EENT Additional comments: negative - Cardiovascular Additional comments: negative - Respiratory Respiratory: Cough, Dyspnea - Gastrointestinal Additional comments: RUQ tenderness, mild distention - Genitourinary Additional comments: negative - Reproductive: Female Additional comments: negative - Musculoskeletal Additional comments: negative - Neurological Additional comments: negative Past Patient History - Infectious Disease Hx of Infectious Diseases: None - Tetanus Immunizations Tetanus Immunization: Unknown - Past Medical History & Family History Past Medical History?: Yes - Past Social History Smoking Status: Never Smoked - CARDIAC Hx Cardiac Disorders: No - PULMONARY Hx Respiratory Disorders: No - NEUROLOGICAL Hx Neurological Disorder: No - HEENT Hx HEENT Problems: Yes Other/Comment: wears glasses - RENAL Hx Chronic Kidney Disease: No Other/Comment: Fluid on liver - ENDOCRINE/METABOLIC Hx Endocrine Disorders: No - HEMATOLOGICAL/ONCOLOGICAL Hx Anemia: Yes Hx Cancer: Yes (Rt Breast cancer) - INTEGUMENTARY Hx Dermatological Problems: No - MUSCULOSKELETAL/RHEUMATOLOGICAL Hx Musculoskeletal Disorders: No Hx Falls: No - GASTROINTESTINAL Hx Gastrointestinal Disorders: No - GENITOURINARY/GYNECOLOGICAL Hx Genitourinary Disorders: No - PSYCHIATRIC Hx Psychophysiologic Disorder: No Hx Substance Use: No - SURGICAL HISTORY Hx Cholecystectomy: Yes - ANESTHESIA Hx Anesthesia: Yes Hx Anesthesia Reactions: No Hx Malignant Hyperthermia: No Meds Allergies/Adverse Reactions: Allergies Allergy/AdvReac Type Severity Reaction Status Date / Time No Known Allergies Allergy Verified 01/11/17 11:35 - Medications Medications: Current Medications Famotidine (Pepcid) 20 mg PO HS JEREMIE Last Admin: 01/11/17 21:16 Dose: 20 mg Morphine Sulfate (Morphine) 1 mg IVP Q6H PRN PRN Reason: Pain, moderate (4-7) Ondansetron HCl (Zofran Inj) 4 mg IVP Q6H PRN PRN Reason: Nausea/Vomiting Last Admin: 01/11/17 23:45 Dose: 4 mg Physical Exam - Constitutional Appears: Chronically Ill Additional comments: obese - Head Exam Head Exam: NORMAL INSPECTION - Eye Exam Eye Exam: PERRL, Scleral icterus - ENT Exam ENT Exam: Mucous Membranes Moist, Normal Oropharynx - Neck Exam Neck exam: Positive for: Normal Inspection - Respiratory Exam Respiratory Exam: Clear to Auscultation Bilateral, NORMAL BREATHING PATTERN - Cardiovascular Exam Cardiovascular Exam: REGULAR RHYTHM, +S1, +S2 - GI/Abdominal Exam GI & Abdominal Exam: Normal Bowel Sounds, Soft Additional comments: RUQ tenderness - Extremities Exam Extremities exam: Positive for: pedal edema, pedal pulses present - Back Exam Back exam: NORMAL INSPECTION - Neurological Exam Neurological exam: Alert, Oriented x3 - Skin Skin Exam: Dry Results - Vital Signs Recent Vital Signs: Last Vital Signs Temp 98.4 F 01/12/17 08:22 Pulse 83 01/12/17 08:22 Resp 18 01/12/17 08:22 BP 116/71 01/12/17 08:22 Pulse Ox 100 01/12/17 08:22 - Labs Result Diagrams: 01/12/17 07:30 01/12/17 07:30 Labs: Laboratory Results - last 24 hr 01/11/17 01/12/17 01/12/17 15:00 07:30 07:30 WBC 9.0 RBC 2.76 L Hgb 9.8 L Hct 28.8 L MCV 104.3 MCH 35.5 H MCHC 34.0 RDW 22.3 H Plt Count 51 L MPV 8.5 PT INR Sodium 133 Potassium 5.2 H Chloride 103 Carbon Dioxide 22 Anion Gap 13 BUN 20 Creatinine 1.3 Est GFR ( Amer) 52 Est GFR (Non-Af Amer) 43 Random Glucose 76 Calcium 7.4 L Total Bilirubin 8.9 H AST 562 H ALT 135 H Alkaline Phosphatase 479 H Total Protein 6.9 Albumin 2.6 L Globulin 4.3 Albumin/Globulin Ratio 0.6 L Lipase 151 Urine Color Dark yellow Urine Appearance Sl cloudy Urine pH 6.0 Ur Specific Doyle 1.015 Urine Protein 30 H Urine Glucose (UA) Negative Urine Ketones Trace H Urine Blood Negative Urine Nitrate Negative Urine Bilirubin Moderate H Urine Urobilinogen 1.0 H Ur Leukocyte Esterase Small H Urine RBC 0 - 2 Urine WBC 1 - 3 Ur Epithelial Cells 4 - 5 Urine Bacteria Few 01/12/17 07:30 WBC RBC Hgb Hct MCV MCH MCHC RDW Plt Count MPV PT 20.2 H INR 1.87 H Sodium Potassium Chloride Carbon Dioxide Anion Gap BUN Creatinine Est GFR ( Amer) Est GFR (Non-Af Amer) Random Glucose Calcium Total Bilirubin AST ALT Alkaline Phosphatase Total Protein Albumin Globulin Albumin/Globulin Ratio Lipase Urine Color Urine Appearance Urine pH Ur Specific Doyle Urine Protein Urine Glucose (UA) Urine Ketones Urine Blood Urine Nitrate Urine Bilirubin Urine Urobilinogen Ur Leukocyte Esterase Urine RBC Urine WBC Ur Epithelial Cells Urine Bacteria Assessment & Plan - Assessment and Plan (Free Text) Assessment: 56 year old female with history of metastatic breast cancer who is admitted with shortness of breath, abdominal tenderness RUQ, ascites and jaundice. Patient is alert, pleasant. Her sister Kenzie is at bedside. Palliative services explained. Patient is very concerned, states that she was asked if she wanted to be "just kept comfortable". I explained that her disease has progressed and that it is not curable. The patient understands, as does her sister who is a nurse at [employer] [facility] [employer]. Patient willing/wants to continue treatment until she is unable to do so. Patient understands that as her disease progresses she will become more symptomatic and will likely have frequent hospitalizations. It is at that point that she will consider comfort care. She states her quality of life is fairly good. She is waiting to speak with her oncologist for further recommendations regarding her cancer. We also spoke about resuscitation status. Benefits and burdens of resuscitation with CPR/ intubation explained. The patient is considering DNR/DNI. POLST explained, questions answered. patient and sister will consider initiating POLST. Time spent with patient and sister discussing goals of care and advance care planning, 30 minutes Plan: Will assist with advance care planning. Continue current medical management - Date & Time Date: 01/12/17 Time: 10:00
--- NOTE | 2017-01-12 13:23 | CP.PCM.PN ---
<Grayson Barakat - Last Filed: 01/12/17 13:12> Subjective - Date & Time of Evaluation Date of Evaluation: 01/12/17 Time of Evaluation: 07:10 - Subjective Subjective: Medicine progress note: Pt seen and examined at bedside. No acute events overnight. Pt still c/o shortness of breath. Denies any chest pain. Denies gamez, dizziness, f/c, abd pain , n/v/d. Objective - Vital Signs/Intake and Output Vital Signs (last 24 hours): Temp Pulse Resp BP Pulse Ox 98.4 F 83 18 116/71 100 01/12/17 08:22 01/12/17 08:22 01/12/17 08:22 01/12/17 08:22 01/12/17 08:22 Intake and Output: 01/12/17 01/12/17 06:59 18:59 Intake Total 240 Balance 240 - Medications Medications: Current Medications Famotidine (Pepcid) 20 mg PO HS [facility] Last Admin: 01/11/17 21:16 Dose: 20 mg Morphine Sulfate (Morphine) 1 mg IVP Q6H PRN PRN Reason: Pain, moderate (4-7) Ondansetron HCl (Zofran Inj) 4 mg IVP Q6H PRN PRN Reason: Nausea/Vomiting Last Admin: 01/11/17 23:45 Dose: 4 mg - Labs Labs: 01/12/17 07:30 01/12/17 07:30 PT 20.2 Seconds (9.9-11.8) H 01/12/17 07:30 INR 1.87 (0.93-1.08) H 01/12/17 07:30 APTT 65.2 Seconds (23.7-30.8) H 01/11/17 12:00 - Constitutional Appears: No Acute Distress - Head Exam Head Exam: ATRAUMATIC, NORMAL INSPECTION, NORMOCEPHALIC - Eye Exam Eye Exam: EOMI, Normal appearance, PERRL Pupil Exam: NORMAL ACCOMODATION, PERRL - ENT Exam ENT Exam: Mucous Membranes Moist, Normal Exam - Neck Exam Neck Exam: Full ROM, Normal Inspection. absent: Lymphadenopathy - Respiratory Exam Respiratory Exam: Clear to Ausculation Bilateral, NORMAL BREATHING PATTERN. absent: Wheezes - Cardiovascular Exam Cardiovascular Exam: REGULAR RHYTHM, RRR, +S1, +S2. absent: Murmur - GI/Abdominal Exam GI & Abdominal Exam: Soft, Normal Bowel Sounds. absent: Distended, Tenderness - Extremities Exam Extremities Exam: Full ROM, Normal Capillary Refill, Normal Inspection. absent : Joint Swelling, Pedal Edema - Back Exam Back Exam: NORMAL INSPECTION - Neurological Exam Neurological Exam: Alert, Awake, CN II-XII Intact, Oriented x3 - Psychiatric Exam Psychiatric exam: Normal Affect, Normal Mood - Skin Skin Exam: Dry, Intact, Normal Color, Warm Assessment and Plan - Assessment and Plan (Free Text) Assessment: 56 year old female with h/o metastatic breast cancer with gastric, peritoneal, and bone metastases admitted with progressively worsening sob, jaundice, and ascites. 1. SOB - etiology unclear - pulm vs, cardiac vs ascities vs abdominal pressure - O2 supplementation as needed 2. Ascites/Jaundice -GI consulted: jaundice likely due to malignancy - recommended therapeutic paracentesis, - IR consult for therapeutic paracentesis -CT showed Moderate ascites, increase density in the omental fat suspicious of peritonal mets, Schlerotic bony mets, probable liver mets. - LFT's elevated - INR 1.87, T bili 8.9 -Morphine 1mg q6h prn for pain 3. Breast Cancer - Palliative consulted for recs - Onc consulted for recs -Was on HER2 chemo regimen, stopped during most recent admission -Will continue to hold for now, pending assessment by GI -If regimen needs to be restarted will consult heme-onc 4. Anemia - stable -Hemoglobin 9.8 -Continue to monitor 5. GI/DVT PPx -Pepcid Case and plan was seen, reviewed and discussed in detail with Dr Woodall. <Hreb Woodall - Last Filed: 01/12/17 14:57> Objective - Vital Signs/Intake and Output Vital Signs (last 24 hours): Temp Pulse Resp BP Pulse Ox 98.4 F 83 18 116/71 100 01/12/17 08:22 01/12/17 08:22 01/12/17 08:22 01/12/17 08:22 01/12/17 08:22 Intake and Output: 01/12/17 01/12/17 06:59 18:59 Intake Total 240 Balance 240 - Medications Medications: Current Medications Famotidine (Pepcid) 20 mg PO HS [facility] Last Admin: 01/11/17 21:16 Dose: 20 mg Morphine Sulfate (Morphine) 1 mg IVP Q6H PRN PRN Reason: Pain, moderate (4-7) Ondansetron HCl (Zofran Inj) 4 mg IVP Q6H PRN PRN Reason: Nausea/Vomiting Last Admin: 01/11/17 23:45 Dose: 4 mg - Labs Labs: 01/12/17 07:30 01/12/17 07:30 PT 20.2 Seconds (9.9-11.8) H 01/12/17 07:30 INR 1.87 (0.93-1.08) H 01/12/17 07:30 APTT 65.2 Seconds (23.7-30.8) H 01/11/17 12:00 Attending/Attestation - Attestation I have personally seen and examined this patient.: Yes I have fully participated in the care of the patient.: Yes I have reviewed all pertinent clinical information, including history, physical exam and plan: Yes Notes (Text): 01/12/17 14:45 56 year old female with past medical history of metastatic breast cancer who presented with complaint of shortness of breath, abdominal discomfort and increased jaundice. CT abd/pelvis showed worsening ascites and metastatic disease. GI evaluation was appreciated. Plan is for possible diagnostic/ therapeutic paracentesis today. LFTs are elevated and anemia/thrombocytopenia is noted; likely secondary to above. Will continue to monitor. Her recent chemo regimen is on hold. Palliative and oncology consults were requested. Sister is also at bedside and questions were answered. Herb Woodall MD Hospitalist.
[2017-01-12 16:23] LABS: BODY FLUID TYPE PERITONEAL
--- NOTE | 2017-01-12 17:13 | US ---
PROCEDURE: Ultrasound guided paracentesis. HISTORY: Metastatic breast CA. Hepatic metastasis. Increasing ascites with shortness of breath PHYSICIAN(S): Sarthak Hernandez MD. TECHNIQUE: The relative risks and indications for the procedure were explained to the patient and informed written consent obtained. Sonography of the abdomen was performed in a supine position. This revealed a small to moderate amount of non-loculated ascites, greatest in the right lower quadrant. A puncture site was selected and the area was prepped and draped in the usual sterile fashion. 1% Xylocaine was used to anesthetize the skin and soft tissues. A 7 Telugu paracentesis catheter was trocared into the right lower quadrantand 2000 cc of eh fluid aspirated. The appropriate labs were sent. IMPRESSION: Ultrasound-guided paracentesis in the right lower quadrant. 2000 cc of fluid were aspirated. Labs were sent
[2017-01-12] MEDS: Morphine 2 mg/ml ISec IVP PRN (17:25)
--- NOTE | 2017-01-12 18:22 | CP.PCM.CON ---
History of Present Illness - History of Present Illness History of Present Illness: Oncology Consult Referred by Dr. Woodall for h/o breast cancer. Lea is 56 y/o F with h/o metastatic breast cancer who follows with me in office. She was initially diagnosed around November 2015 with metastatic right breast cancer with mets to stomach, omentum and bones. She started on palliative chemotherapy with Abraxane on 01/27/16. Repeat CT after 2 cycles was unchanged, though she had remarkable improvement clinically and decrease in tumor markers. However, at the end of 4 cycles, her tumor markers started to increase and her treatment was switched to Letrozole and Ibrance on 05/18/16. Last PET scan in December however, showed worsening bone mets and tumor markers trended up again. She was admitted now with shortness of breath. In her last admission, she was found to have abnormal liver functions. CT A/P showed poorly defined hypodensities in liver, likely mets, no evidence of biliary dilatation. Her bilirubin has increased now to 8.9. She underwent paracentesis today with 2 L of ascitic fluid. Review of Systems - Constitutional Constitutional: Fatigue, Weight Loss. absent: Chills, Fever - EENT Eyes: absent: Blind Spots, Blurred Vision, Change in Vision Ears: absent: Decreased Hearing, Ear Discharge, Ear Pain Nose/Mouth/Throat: absent: Epistaxis, Nasal Congestion, Nasal Discharge - Cardiovascular Cardiovascular: Dyspnea on Exertion. absent: Chest Pain, Edema - Respiratory Respiratory: absent: Cough, Hemoptysis - Gastrointestinal Gastrointestinal: absent: Abdominal Pain, Bloating, Change in Bowel Habits, Nausea, Vomiting - Genitourinary Genitourinary: absent: Change in Urinary Stream, Difficulty Urinating Past Patient History - Infectious Disease Hx of Infectious Diseases: None - Tetanus Immunizations Tetanus Immunization: Unknown - Past Medical History & Family History Past Medical History?: Yes - Past Social History Smoking Status: Never Smoked - CARDIAC Hx Cardiac Disorders: No - PULMONARY Hx Respiratory Disorders: No - NEUROLOGICAL Hx Neurological Disorder: No - HEENT Hx HEENT Problems: Yes Other/Comment: wears glasses - RENAL Hx Chronic Kidney Disease: No Other/Comment: Fluid on liver - ENDOCRINE/METABOLIC Hx Endocrine Disorders: No - HEMATOLOGICAL/ONCOLOGICAL Hx Anemia: Yes Hx Cancer: Yes (Rt Breast cancer) - INTEGUMENTARY Hx Dermatological Problems: No - MUSCULOSKELETAL/RHEUMATOLOGICAL Hx Musculoskeletal Disorders: No Hx Falls: No - GASTROINTESTINAL Hx Gastrointestinal Disorders: No - GENITOURINARY/GYNECOLOGICAL Hx Genitourinary Disorders: No - PSYCHIATRIC Hx Psychophysiologic Disorder: No Hx Substance Use: No - SURGICAL HISTORY Hx Cholecystectomy: Yes - ANESTHESIA Hx Anesthesia: Yes Hx Anesthesia Reactions: No Hx Malignant Hyperthermia: No Meds Allergies/Adverse Reactions: Allergies Allergy/AdvReac Type Severity Reaction Status Date / Time No Known Allergies Allergy Verified 01/11/17 11:35 - Medications Medications: Current Medications Famotidine (Pepcid) 20 mg PO HS [facility] Last Admin: 01/11/17 21:16 Dose: 20 mg Morphine Sulfate (Morphine) 1 mg IVP Q6H PRN PRN Reason: Pain, moderate (4-7) Last Admin: 01/12/17 17:25 Dose: 1 mg Ondansetron HCl (Zofran Inj) 4 mg IVP Q6H PRN PRN Reason: Nausea/Vomiting Last Admin: 01/11/17 23:45 Dose: 4 mg Physical Exam - Head Exam Head Exam: ATRAUMATIC, NORMAL INSPECTION - Eye Exam Eye Exam: EOMI, PERRL, Scleral icterus - Neck Exam Neck exam: Negative for: Lymphadenopathy - Respiratory Exam Respiratory Exam: Clear to Auscultation Bilateral - Cardiovascular Exam Cardiovascular Exam: REGULAR RHYTHM - GI/Abdominal Exam GI & Abdominal Exam: Distended, Normal Bowel Sounds, Soft. absent: Tenderness - Extremities Exam Extremities exam: Negative for: pedal edema - Neurological Exam Neurological exam: Alert, Oriented x3 Results - Vital Signs Recent Vital Signs: Last Vital Signs Temp 98.4 F 01/12/17 08:22 Pulse 83 01/12/17 08:22 Resp 18 01/12/17 08:22 BP 116/71 01/12/17 08:22 Pulse Ox 100 01/12/17 08:22 - Labs Result Diagrams: 01/12/17 07:30 01/12/17 07:30 Labs: Laboratory Results - last 24 hr 01/12/17 01/12/17 01/12/17 07:30 07:30 07:30 WBC 9.0 RBC 2.76 L Hgb 9.8 L Hct 28.8 L MCV 104.3 MCH 35.5 H MCHC 34.0 RDW 22.3 H Plt Count 51 L MPV 8.5 PT 20.2 H INR 1.87 H Sodium 133 Potassium 5.2 H Chloride 103 Carbon Dioxide 22 Anion Gap 13 BUN 20 Creatinine 1.3 Est GFR ( Amer) 52 Est GFR (Non-Af Amer) 43 Random Glucose 76 Calcium 7.4 L Total Bilirubin 8.9 H AST 562 H ALT 135 H Alkaline Phosphatase 479 H Total Protein 6.9 Albumin 2.6 L Globulin 4.3 Albumin/Globulin Ratio 0.6 L Lipase 151 Fluid Source 01/12/17 16:00 WBC RBC Hgb Hct MCV MCH MCHC RDW Plt Count MPV PT INR Sodium Potassium Chloride Carbon Dioxide Anion Gap BUN Creatinine Est GFR ( Amer) Est GFR (Non-Af Amer) Random Glucose Calcium Total Bilirubin AST ALT Alkaline Phosphatase Total Protein Albumin Globulin Albumin/Globulin Ratio Lipase Fluid Source Peritoneal Assessment & Plan - Assessment and Plan (Free Text) Assessment: Metastatic breast cancer Progressing now on second line treatment. We discussed the current imaging findings. Will need to switch treatment. I recommended a course of chemotherapy, though with her current liver functions, the options are very limited. Discussed the case with Dr. Archibald. Will f/u US abdomen and if there is an option for percutaneous biliary drainage. Last Echo on 01/02/17 showed normal EF of 65%. F/u ascitic fluid studies including cytology. Continue supportive care. Chemotherapy will be planned as outpatient when clinically stable. Thank you for the consult Tushar Aceves - Date & Time Date: 01/12/17 Time: 18:22
--- NOTE | 2017-01-12 18:33 | US ---
HISTORY: elevated LFTs COMPARISON: None. TECHNIQUE: Sonographic evaluation of the abdomen. FINDINGS: LIVER: Measures 16.0 cm. Heterogeneous diffusely increased echogenicity of the liver parenchyma. Consistent with fatty infiltration. This may also be seen in association with hepatic cellular disease. Simple cyst in right lobe of liver, 6.0 x 3.6 x 5.6 cm. No other hepatic mass identified. Hepatofugal portal venous flow is demonstrated. This is reversal of the normal flow and is indicative of portal hypertension. GALLBLADDER: Status post cholecystectomy COMMON BILE DUCT: Measures 4 mm. No stones. No dilatation. PANCREAS: Unremarkable as visualized. No mass. No ductal dilatation. RIGHT KIDNEY: Measures 10.7cm. Normal echogenicity. No calculus, mass, or hydronephrosis. LEFT KIDNEY: Measures 10.0cm. Normal echogenicity. No calculus, mass, or hydronephrosis. SPLEEN: Normal in size and contour. No mass. AORTA: Could not be visualized IVC: Could not be visualized OTHER FINDINGS: None. IMPRESSION: Hepatic fatty infiltration versus hepatocellular disease. . Simple cyst in inferior right hepatic lobe, 6.0 cm. This corresponds to a low-density mass identified on CT examination of 01/11/2017. Status post cholecystectomy. Reversal of normal portal venous flow consistent with portal hypertension.
[2017-01-12 19:38] LABS: BF GROSS APPEARANCE SL CLOUDY (CLEAR)
[2017-01-12 19:39] LABS: BODY FLUID TOTAL COUNT 100 (0-0)
[2017-01-13] MEDS: Morphine 2 mg/ml ISec IVP PRN (00:05)
[2017-01-13 07:38] LABS: MEAN CELL VOLUME 104.3 fL (80.0-105.0); MEAN CORPUSCULAR HEMOGLOBIN 34.9 pg (25.0-35.0); MEAN CORPUSCULAR HGB CONC 33.5 g/dl (31.0-37.0); MEAN PLATELET VOLUME 9.1 fl (7.0-11.0); RBC 2.58 10^6/uL (3.5-6.1); RED CELL DISTRIBUTION WIDTH 22.6 % (11.5-14.5)
[2017-01-13 07:58] LABS: ALB/GLOB RATIO 0.6 (1.1-1.8); ALBUMIN 2.4 g/dL (3.0-4.8)
[2017-01-13 08:10] LABS: CALCIUM 6.9 mg/dL (8.4-10.5)
--- NOTE | 2017-01-13 11:12 | CP.PCM.PN ---
Subjective - Date & Time of Evaluation Date of Evaluation: 01/13/17 Time of Evaluation: 11:08 - Subjective Subjective: RFV: Jaundice/Ascites S: No acute events. 2 liters of ascitic fluid removed. She feels a bit better. No fever. Tolerating diet. Objective - Vital Signs/Intake and Output Vital Signs (last 24 hours): Temp Pulse Resp BP Pulse Ox 98.0 F 85 19 116/76 98 01/13/17 06:00 01/13/17 06:00 01/13/17 06:00 01/13/17 06:00 01/13/17 06:00 Intake and Output: 01/13/17 01/13/17 06:59 18:59 Intake Total 240 240 Output Total 0 Balance 240 240 - Medications Medications: Current Medications Famotidine (Pepcid) 20 mg PO HS [facility] Last Admin: 01/12/17 21:26 Dose: 20 mg Morphine Sulfate (Morphine) 1 mg IVP Q6H PRN PRN Reason: Pain, moderate (4-7) Last Admin: 01/13/17 00:05 Dose: 1 mg Ondansetron HCl (Zofran Inj) 4 mg IVP Q6H PRN PRN Reason: Nausea/Vomiting Last Admin: 01/13/17 08:14 Dose: 4 mg - Labs Labs: 01/13/17 07:00 01/13/17 07:00 PT 20.2 Seconds (9.9-11.8) H 01/12/17 07:30 INR 1.87 (0.93-1.08) H 01/12/17 07:30 APTT 65.2 Seconds (23.7-30.8) H 01/11/17 12:00 - Constitutional Appears: No Acute Distress, Chronically Ill - Head Exam Head Exam: ATRAUMATIC, NORMOCEPHALIC - Eye Exam Eye Exam: Scleral icterus Pupil Exam: PERRL - Respiratory Exam Respiratory Exam: NORMAL BREATHING PATTERN - Cardiovascular Exam Cardiovascular Exam: +S1, +S2 - GI/Abdominal Exam GI & Abdominal Exam: Distended, Soft - Extremities Exam Extremities Exam: Normal Capillary Refill - Neurological Exam Neurological Exam: Alert, Oriented x3 - Psychiatric Exam Psychiatric exam: Normal Affect - Skin Skin Exam: Dry, Normal Color, Warm Assessment and Plan - Assessment and Plan (Free Text) Assessment: 56 year old female with h/o metastatic breast cancer with gastric, peritoneal, and bone metastases admitted with progressively worsening sob, also worsening jaundice and ascites. 1. Jaundice 2. Liver metastases 3. Ascites Plan: -CT performed in ER. reviewed. Demonstrates worsening ascites and hepatic metastases -jaundice likely related to malignancy -positive AMA noted, but unlikely to be PBC considering the context -overall prognosis is poor -palliative care consulted, Dr. Aceves following -s/p paracentesis, no SBP, likely malignant, some symptomatic relief -bilirubin is 9 today, will likely worsen over time -diet as tolerated -supportive care -will sign off at this time, no further GI eval/rx needed, further management per oncology
[2017-01-13] MEDS ORDERED: Sod Polystyrene Sulf 15 gm/60 ml Oral Susp PO ONE (11:27)
[2017-01-13] MEDS: Furosemide 40 mg/5 mL Oral Soln UD PO SCH (11:50)
--- NOTE | 2017-01-13 13:36 | CP.PCM.PN ---
<Grayson Barakat - Last Filed: 01/13/17 13:28> Subjective - Date & Time of Evaluation Date of Evaluation: 01/13/17 Time of Evaluation: 08:45 - Subjective Subjective: Medicine progress note: Pt seen and examined at bedside. No acute events overnight. Pt c/o of intermittent shortness of breath. Sitting oob to chair. Denies any chest pain. Denies gamez, dizziness, f/c, abd pain, n/v/d. Objective - Vital Signs/Intake and Output Vital Signs (last 24 hours): Temp Pulse Resp BP Pulse Ox 98.0 F 85 19 116/76 98 01/13/17 06:00 01/13/17 06:00 01/13/17 06:00 01/13/17 11:50 01/13/17 06:00 Intake and Output: 01/13/17 01/13/17 06:59 18:59 Intake Total 240 600 Output Total 0 Balance 240 600 - Medications Medications: Current Medications Famotidine (Pepcid) 20 mg PO HS [facility] Last Admin: 01/12/17 21:26 Dose: 20 mg Furosemide (Lasix) 20 mg PO DAILY [facility] Last Admin: 01/13/17 11:50 Dose: 20 mg Morphine Sulfate (Morphine) 1 mg IVP Q6H PRN PRN Reason: Pain, moderate (4-7) Last Admin: 01/13/17 00:05 Dose: 1 mg Ondansetron HCl (Zofran Inj) 4 mg IVP Q6H PRN PRN Reason: Nausea/Vomiting Last Admin: 01/13/17 08:14 Dose: 4 mg - Labs Labs: 01/13/17 07:00 01/13/17 07:00 PT 20.2 Seconds (9.9-11.8) H 01/12/17 07:30 INR 1.87 (0.93-1.08) H 01/12/17 07:30 APTT 65.2 Seconds (23.7-30.8) H 01/11/17 12:00 - Constitutional Appears: No Acute Distress - Head Exam Head Exam: ATRAUMATIC, NORMAL INSPECTION, NORMOCEPHALIC - Eye Exam Eye Exam: EOMI, Normal appearance, PERRL Pupil Exam: NORMAL ACCOMODATION, PERRL - ENT Exam ENT Exam: Mucous Membranes Moist, Normal Exam - Neck Exam Neck Exam: Full ROM, Normal Inspection. absent: Lymphadenopathy - Respiratory Exam Respiratory Exam: Clear to Ausculation Bilateral, NORMAL BREATHING PATTERN. absent: Wheezes - Cardiovascular Exam Cardiovascular Exam: REGULAR RHYTHM, RRR, +S1, +S2. absent: Murmur - GI/Abdominal Exam GI & Abdominal Exam: Soft, Normal Bowel Sounds. absent: Distended, Tenderness - Extremities Exam Extremities Exam: Full ROM, Normal Capillary Refill, Normal Inspection. absent : Joint Swelling, Pedal Edema - Back Exam Back Exam: NORMAL INSPECTION - Neurological Exam Neurological Exam: Alert, Awake, CN II-XII Intact, Oriented x3 - Psychiatric Exam Psychiatric exam: Normal Affect, Normal Mood - Skin Skin Exam: Dry, Intact, Normal Color, Warm Assessment and Plan - Assessment and Plan (Free Text) Assessment: 56 year old female with h/o metastatic breast cancer with gastric, peritoneal, and bone metastases admitted with progressively worsening sob, jaundice, and ascites. 1. SOB - etiology unclear - pulm vs, cardiac vs ascities vs abdominal pressure - O2 supplementation as needed - Lasix 40mg IVP x 1 - IR consult for therapeutic paracentesis - removed 2 L - with some relief 2. Ascites/Jaundice - Abd US: hepatic fatty infiltration vs hepatocellular dx, simple cyst in inf R hepatic lobe 6cm, portal hyperTN - GI consulted appreciate recs - IR consult for therapeutic paracentesis -CT showed Moderate ascites, increase density in the omental fat suspicious of peritonal mets, Schlerotic bony mets, probable liver mets. - LFT's elevated - INR 1.87, T bili 8.9 -Morphine 1mg q6h prn for pain 3. Breast Cancer - Palliative consult recs appreciated - Onc consulted for recs - out pt chemotherapy -Was on HER2 chemo regimen, stopped during most recent admission -Will continue to hold for now, pending assessment by GI -If regimen needs to be restarted will consult heme-onc 4. Hyperkalemia - K of 5.5 - Kayex 30mg x 1 - lasix 20mg PO daily 5. Anemia - stable -Hemoglobin 9.0 -Continue to monitor 6. GI/DVT PPx -Pepcid & SCDs Case and plan was seen, reviewed and discussed in detail with Dr Woodall. <Herb Woodall - Last Filed: 01/13/17 14:39> Objective - Vital Signs/Intake and Output Vital Signs (last 24 hours): Temp Pulse Resp BP Pulse Ox 98.0 F 93 H 19 116/76 98 01/13/17 06:00 01/13/17 14:00 01/13/17 06:00 01/13/17 11:50 01/13/17 06:00 Intake and Output: 01/13/17 01/13/17 06:59 18:59 Intake Total 240 600 Output Total 0 Balance 240 600 - Medications Medications: Current Medications Famotidine (Pepcid) 20 mg PO HS [facility] Last Admin: 01/12/17 21:26 Dose: 20 mg Furosemide (Lasix) 20 mg PO DAILY [facility] Last Admin: 01/13/17 11:50 Dose: 20 mg Furosemide (Lasix) 20 mg IVP ONCE ONE Stop: 01/13/17 16:01 Morphine Sulfate (Morphine) 1 mg IVP Q6H PRN PRN Reason: Pain, moderate (4-7) Last Admin: 01/13/17 00:05 Dose: 1 mg Ondansetron HCl (Zofran Inj) 4 mg IVP Q6H PRN PRN Reason: Nausea/Vomiting Last Admin: 01/13/17 13:43 Dose: 4 mg - Labs Labs: 01/13/17 07:00 01/13/17 07:00 PT 20.2 Seconds (9.9-11.8) H 01/12/17 07:30 INR 1.87 (0.93-1.08) H 01/12/17 07:30 APTT 65.2 Seconds (23.7-30.8) H 01/11/17 12:00 Attending/Attestation - Attestation I have personally seen and examined this patient.: Yes I have fully participated in the care of the patient.: Yes I have reviewed all pertinent clinical information, including history, physical exam and plan: Yes Notes (Text): 01/13/17 14:35 56 year old female with past medical history of metastatic breast cancer who presented with complaint of shortness of breath, abdominal discomfort and increased jaundice. CT abd/pelvis showed worsening ascites and metastatic disease. She is s/p paracentesis with 2 L removed. Will follow up on studies. She reports some improvement of symptoms but still short of breath at times. CXR was negative. Recent CT angio was negative for PE and echocardiogram showed preserved EF with diastolic dysfunction. Can start trial of iv lasix. Out of bed to chair is ordered. GI, Oncology and Palliative are following. Continue to monitor anemia, thrombocytopenia and elevated LFTs. Will give kayexalate for hyperkalemia. Herb Woodall MD Hospitalist.
[2017-01-14 07:53] LABS: ALB/GLOB RATIO 0.6 (1.1-1.8); ALBUMIN 2.4 g/dL (3.0-4.8)
[2017-01-14 07:59] LABS: CALCIUM 6.6 mg/dL (8.4-10.5)
[2017-01-14 08:02] LABS: HEMOGLOBIN 8.9 gm/dL (12.0-16.0); MEAN CELL VOLUME 103.5 fL (80.0-105.0); MEAN CORPUSCULAR HEMOGLOBIN 34.5 pg (25.0-35.0); MEAN CORPUSCULAR HGB CONC 33.3 g/dl (31.0-37.0); MEAN PLATELET VOLUME 9.6 fl (7.0-11.0); RBC 2.58 10^6/uL (3.5-6.1); RED CELL DISTRIBUTION WIDTH 22.7 % (11.5-14.5)
[2017-01-14] MEDS: Furosemide 40 mg/5 mL Oral Soln UD PO SCH (09:05)
--- NOTE | 2017-01-14 11:52 | RAD ---
HISTORY: SOB COMPARISON: 01/11/2017 FINDINGS: LUNGS: No active pulmonary disease. PLEURA: No significant pleural effusion identified, no pneumothorax apparent. CARDIOVASCULAR: Normal. OSSEOUS STRUCTURES: No significant abnormalities. VISUALIZED UPPER ABDOMEN: Normal. OTHER FINDINGS: None. IMPRESSION: No active disease.
--- NOTE | 2017-01-14 12:16 | CP.PCM.PN ---
<Patricio Herman - Last Filed: 01/14/17 12:12> Subjective - Date & Time of Evaluation Date of Evaluation: 01/14/17 Time of Evaluation: 10:15 - Subjective Subjective: Patient seen and examined. Resting comfortably in bed. States that she experienced one bout of nonbloody emesis yesterday. Continues to experience SOB on exertion. Admits that SOB minimally improved after receiving lasix yesterday. Denies fever, chills, dizziness, chest pain, abdominal pain. Objective - Vital Signs/Intake and Output Vital Signs (last 24 hours): Temp Pulse Resp BP Pulse Ox 98.2 F 86 20 103/61 99 01/14/17 06:00 01/14/17 06:00 01/14/17 06:00 01/14/17 09:05 01/14/17 06:00 Intake and Output: 01/14/17 01/14/17 06:59 18:59 Intake Total 300 Output Total 3 Balance 297 - Medications Medications: Current Medications Famotidine (Pepcid) 20 mg PO HS [facility] Last Admin: 01/13/17 21:32 Dose: 20 mg Furosemide (Lasix) 20 mg PO DAILY [facility] Last Admin: 01/14/17 09:05 Dose: 20 mg Morphine Sulfate (Morphine) 1 mg IVP Q6H PRN PRN Reason: Pain, moderate (4-7) Last Admin: 01/13/17 00:05 Dose: 1 mg Ondansetron HCl (Zofran Inj) 4 mg IVP Q6H PRN PRN Reason: Nausea/Vomiting Last Admin: 01/13/17 13:43 Dose: 4 mg - Labs Labs: 01/14/17 07:00 01/14/17 07:00 PT 20.2 Seconds (9.9-11.8) H 01/12/17 07:30 INR 1.87 (0.93-1.08) H 01/12/17 07:30 APTT 65.2 Seconds (23.7-30.8) H 01/11/17 12:00 - Additional Findings Additional findings: - Constitutional Appears: No Acute Distress - Head Exam Head Exam: ATRAUMATIC, NORMAL INSPECTION, NORMOCEPHALIC - Eye Exam Eye Exam: EOMI, Normal appearance, PERRL Pupil Exam: NORMAL ACCOMODATION, PERRL - ENT Exam ENT Exam: Mucous Membranes Moist, Normal Exam - Neck Exam Neck Exam: Full ROM, Normal Inspection. absent: Lymphadenopathy - Respiratory Exam Respiratory Exam: Crackles basilar lobes - Cardiovascular Exam Cardiovascular Exam: REGULAR RHYTHM, RRR, +S1, +S2. absent: Murmur - GI/Abdominal Exam GI & Abdominal Exam: Soft, Normal Bowel Sounds. absent: Distended, Tenderness - Extremities Exam Extremities Exam: Full ROM, Normal Capillary Refill, Normal Inspection. absent : Joint Swelling, Pedal Edema - Back Exam Back Exam: NORMAL INSPECTION - Neurological Exam Neurological Exam: Alert, Awake, CN II-XII Intact, Oriented x3, responds to verbal stimuli, and follows commands - Psychiatric Exam Psychiatric exam: Normal Affect, Normal Mood - Skin Skin Exam: Dry, Intact, Normal Color, Warm Assessment and Plan - Assessment and Plan (Free Text) Assessment: Mina is a 56 year old female with h/o metastatic breast cancer with gastric, peritoneal, and bone metastases was admitted for evaluation and treatment of progressively worsening sob, jaundice, and ascites. Plan: 1. SOB - etiology unclear - pulm vs, cardiac vs ascities vs abdominal pressure - CXR today, lasix depending on results - O2 supplementation as needed - IR consult for therapeutic paracentesis - removed 2 L - with some relief 2. Ascites/Jaundice - Abd US: hepatic fatty infiltration vs hepatocellular dx, simple cyst in inf R hepatic lobe 6cm, portal hyperTN - GI consulted appreciate recs - IR consult for therapeutic paracentesis -CT showed Moderate ascites, increase density in the omental fat suspicious of peritonal mets, Schlerotic bony mets, probable liver mets. - LFT's elevated today 554 and 126 -Morphine 1mg q6h prn for pain 3. Breast Cancer - Palliative consult recs appreciated - Onc consulted for recs - out pt chemotherapy -Was on HER2 chemo regimen, stopped during most recent admission -Will continue to hold for now, pending assessment by GI -If regiment needs to be restarted will consult heme-onc 4. Hyperkalemia, details- resolved - corrected K 3.8 after being given kayexylate yesterday 5. Anemia - stable -Hemoglobin 8.9 -Continue to monitor 6. GI/DVT PPx -Pepcid & SCDs 7. Hypocalcemia - reported calcium is 6.6 - corrected calcium with regards to albumin is 7.88 mg/dL - replete and recheck Case and plan was seen, reviewed and discussed in detail with Dr Woodall. <Herb Woodall - Last Filed: 01/14/17 13:42> Objective - Vital Signs/Intake and Output Vital Signs (last 24 hours): Temp Pulse Resp BP Pulse Ox 98.2 F 86 20 103/61 99 01/14/17 06:00 01/14/17 06:00 01/14/17 06:00 01/14/17 09:05 01/14/17 06:00 Intake and Output: 01/14/17 01/14/17 06:59 18:59 Intake Total 300 Output Total 3 Balance 297 - Medications Medications: Current Medications Calcium Carbonate (Caltrate) 600 mg PO ONCE ONE Stop: 01/15/17 13:22 Famotidine (Pepcid) 20 mg PO HS [facility] Last Admin: 01/13/17 21:32 Dose: 20 mg Furosemide (Lasix) 20 mg IVP DAILY [facility] Morphine Sulfate (Morphine) 1 mg IVP Q6H PRN PRN Reason: Pain, moderate (4-7) Last Admin: 01/13/17 00:05 Dose: 1 mg Ondansetron HCl (Zofran Inj) 4 mg IVP Q6H PRN PRN Reason: Nausea/Vomiting Last Admin: 01/13/17 13:43 Dose: 4 mg - Labs Labs: 01/14/17 07:00 01/14/17 07:00 PT 20.2 Seconds (9.9-11.8) H 01/12/17 07:30 INR 1.87 (0.93-1.08) H 01/12/17 07:30 APTT 65.2 Seconds (23.7-30.8) H 01/11/17 12:00 Attending/Attestation - Attestation I have personally seen and examined this patient.: Yes I have fully participated in the care of the patient.: Yes I have reviewed all pertinent clinical information, including history, physical exam and plan: Yes Notes (Text): 01/14/17 13:35 56 year old female with past medical history of metastatic breast cancer who presented with complaint of shortness of breath, abdominal discomfort and increased jaundice. CT abd/pelvis showed worsening ascites and metastatic disease. She is s/p paracentesis with 2 L removed. Etiology of her dyspnea is still unclear; consider multifactorial secondary to ascites and diastolic CHF. Her CXR was negative. She had a recent CT angio which was negative for PE and echocardiogram which showed preserved EF with diastolic dysfunction. She was started on lasix. Still reports dyspnea on slight exertion. Will switch lasix to iv and repeat CXR today. Continue with out of bed to chair. Continue to monitor anemia, thrombocytopenia and elevated LFTs. GI, hematology/oncology and palliative evaluations were appreciated. Herb Woodall MD Hospitalist.
[2017-01-14] MEDS ORDERED: Alum-Mag Hydrox-Simethicone Susp (30 mL) PO ONE (23:49)
[2017-01-15 00:19] VITALS: RESP 20
[2017-01-15 07:23] LABS: HEMOGLOBIN 9.1 gm/dL (12.0-16.0); MEAN CELL VOLUME 103.1 fL (80.0-105.0); MEAN CORPUSCULAR HEMOGLOBIN 34.9 pg (25.0-35.0); MEAN CORPUSCULAR HGB CONC 33.8 g/dl (31.0-37.0); PLATELET COUNT 48 10^3/uL (120.0-450.0); RBC 2.61 10^6/uL (3.5-6.1); RED CELL DISTRIBUTION WIDTH 22.7 % (11.5-14.5); WHITE BLOOD COUNT 10.4 10^3/ul (4.5-11.0)
[2017-01-15 07:51] LABS: ALB/GLOB RATIO 0.6 (1.1-1.8); ALBUMIN 2.3 g/dL (3.0-4.8)
[2017-01-15 07:59] LABS: CALCIUM 6.7 mg/dL (8.4-10.5)
[2017-01-15 08:14] VITALS: O2SAT 98
[2017-01-15] MEDS: Morphine 2 mg/ml ISec IVP PRN (08:32)
--- NOTE | 2017-01-15 15:01 | CP.PCM.PN ---
Subjective - Date & Time of Evaluation Date of Evaluation: 01/15/17 Time of Evaluation: 13:00 - Subjective Subjective: Alert. Complaining of mild nausea, early satiety. Objective - Vital Signs/Intake and Output Vital Signs (last 24 hours): Temp Pulse Resp BP Pulse Ox 98.3 F 102 H 20 110/64 98 01/15/17 08:14 01/15/17 08:14 01/15/17 08:14 01/15/17 09:02 01/15/17 08:14 Intake and Output: 01/15/17 01/15/17 06:59 18:59 Intake Total 420 360 Balance 420 360 - Medications Medications: Current Medications Famotidine (Pepcid) 40 mg PO HS [facility] Furosemide (Lasix) 20 mg IVP DAILY [facility] Last Admin: 01/15/17 09:02 Dose: 20 mg Morphine Sulfate (Morphine) 1 mg IVP Q6H PRN PRN Reason: Pain, moderate (4-7) Last Admin: 01/15/17 08:32 Dose: 1 mg Ondansetron HCl (Zofran Inj) 4 mg IVP Q6H PRN PRN Reason: Nausea/Vomiting Last Admin: 01/13/17 13:43 Dose: 4 mg - Labs Labs: 01/15/17 06:40 01/15/17 06:40 PT 20.2 Seconds (9.9-11.8) H 01/12/17 07:30 INR 1.87 (0.93-1.08) H 01/12/17 07:30 APTT 65.2 Seconds (23.7-30.8) H 01/11/17 12:00 - Constitutional Appears: No Acute Distress, Chronically Ill - Head Exam Head Exam: NORMAL INSPECTION - Eye Exam Eye Exam: Normal appearance, Scleral icterus - ENT Exam ENT Exam: Mucous Membranes Moist - Respiratory Exam Respiratory Exam: Clear to Ausculation Bilateral, NORMAL BREATHING PATTERN - Cardiovascular Exam Cardiovascular Exam: REGULAR RHYTHM, +S1, +S2 - GI/Abdominal Exam GI & Abdominal Exam: Soft, Normal Bowel Sounds - Extremities Exam Extremities Exam: Pedal Edema - Skin Skin Exam: Dry, Warm Assessment and Plan - Assessment and Plan (Free Text) Assessment: 56 year old female with history of metastatic breast cancer admitted with ascites, jaundice,hyperkalemia, hypocalccemia. Patient had episode of nausea and vomiting yesterday. Feeling somewhat better today. Mild nausea, early satiety. Ambulating without assistance, mild dyspnea on exertion. Denies pain. Patient prefers to discuss advance care planning/ [facility] when her sister Kenzie is present. Plan: Advance care planning
--- NOTE | 2017-01-15 16:56 | CP.PCM.DIS ---
<GISEL WILBURN - Last Filed: 01/15/17 16:43> Provider - Provider Date of Admission: 01/11/17 13:23 Attending physician: Herb Woodall MD Consults: Gastroenterology, IR, Palliative, Oncology Time Spent in preparation of Discharge (in minutes): 45 Hospital Course - Lab Results Lab Results: Micro Results 01/12/17 16:00 Ascitic Fluid Gram Stain - Final 01/12/17 16:00 Ascitic Fluid Anaerobic Culture - Final NO ANAEROBES ISOLATED. 01/12/17 16:00 Ascitic Fluid Body Fluid Culture - Preliminary NO GROWTH AFTER 3 DAYS 01/12/17 16:00 Ascitic Fluid Fungal Culture - Preliminary 01/11/17 15:00 Urine,Clean Catch Urine Culture - Final 10-50,000 CFU/ML. MULTIPLE SPECIES. PROBABLE CONTAMINATION. Most Recent Lab Values WBC 10.4 10^3/ul (4.5-11.0) 01/15/17 06:40 RBC 2.61 10^6/uL (3.5-6.1) L 01/15/17 06:40 Hgb 9.1 gm/dL (12.0-16.0) L 01/15/17 06:40 Hct 26.9 % (36.0-48.0) L 01/15/17 06:40 MCV 103.1 fL (80.0-105.0) 01/15/17 06:40 MCH 34.9 pg (25.0-35.0) 01/15/17 06:40 MCHC 33.8 g/dl (31.0-37.0) 01/15/17 06:40 RDW 22.7 % (11.5-14.5) H 01/15/17 06:40 Plt Count 48 10^3/uL (120.0-450.0) L* 01/15/17 06:40 MPV 9.6 fl (7.0-11.0) 01/14/17 07:00 Gran % 50.1 % (50.0-68.0) 01/11/17 12:00 Lymph % (Auto) 36.2 % (22.0-35.0) H 01/11/17 12:00 [place] % (Auto) 12.8 % (1.0-6.0) H 01/11/17 12:00 Eos % (Auto) 0.1 % (1.5-5.0) L 01/11/17 12:00 Baso % (Auto) 0.8 % (0.0-3.0) 01/11/17 12:00 Gran # 4.21 (1.4-6.5) 01/11/17 12:00 Lymph # 3.1 (1.2-3.4) 01/11/17 12:00 [place] # 1.1 (0.1-0.6) H 01/11/17 12:00 Eos # 0.0 (0.0-0.7) 01/11/17 12:00 Baso # 0.07 K/mm3 (0.0-2.0) 01/11/17 12:00 PT 20.2 Seconds (9.9-11.8) H 01/12/17 07:30 INR 1.87 (0.93-1.08) H 01/12/17 07:30 APTT 65.2 Seconds (23.7-30.8) H 01/11/17 12:00 Sodium 132 mmol/L (132-148) 01/15/17 06:40 Potassium 4.4 mmol/L (3.6-5.0) 01/15/17 06:40 Chloride 99 mmol/L (98-107) 01/15/17 06:40 Carbon Dioxide 25 mmol/L (21-33) 01/15/17 06:40 Anion Gap 12 (10-20) 01/15/17 06:40 BUN 22 mg/dL (7-21) H 01/15/17 06:40 Creatinine 1.3 mg/dL (0.5-1.4) 01/15/17 06:40 Est GFR ( Amer) 52 01/15/17 06:40 Est GFR (Non-Af Amer) 43 01/15/17 06:40 Random Glucose 101 mg/dL (70-110) 01/15/17 06:40 Calcium 6.7 mg/dL (8.4-10.5) L* 01/15/17 06:40 Total Bilirubin 10.8 mg/dL (0.2-1.3) H 01/15/17 06:40 Direct Bilirubin 5.7 mg/dL (0.0-0.4) H 01/11/17 12:30 AST 564 U/L (15-39) H 01/15/17 06:40 ALT 122 U/L (7-56) H 01/15/17 06:40 Alkaline Phosphatase 462 U/L (38-133) H 01/15/17 06:40 Lactate Dehydrogenase 2427 U/L (333-699) H 01/11/17 12:00 Total Creatine Kinase 328 U/L (35-230) H 01/11/17 12:00 CK-MB (CK-2) 0.7 ng/mL (0.0-3.6) 01/11/17 12:00 CK-MB (CK-2) % Cancelled 01/11/17 12:00 Troponin I < 0.01 ng/mL 01/11/17 12:00 NT-Pro-B Natriuret Pep 294 pg/mL (0-450) 01/11/17 12:00 Total Protein 6.3 g/dL (5.8-8.3) 01/15/17 06:40 Albumin 2.3 g/dL (3.0-4.8) L 01/15/17 06:40 Globulin 4.1 gm/dL 01/15/17 06:40 Albumin/Globulin Ratio 0.6 (1.1-1.8) L 01/15/17 06:40 Lipase 151 U/L (23-300) 01/12/17 07:30 Urine Color Dark yellow (YELLOW) 01/11/17 15:00 Urine Appearance Sl cloudy (CLEAR) 01/11/17 15:00 Urine pH 6.0 (4.7-8.0) 01/11/17 15:00 Ur Specific [place] 1.015 (1.005-1.035) 01/11/17 15:00 Urine Protein 30 mg/dL (<30 mg/dL) H 01/11/17 15:00 Urine Glucose (UA) Negative mg/dL (NEGATIVE) 01/11/17 15:00 Urine Ketones Trace mg/dL (NEGATIVE) H 01/11/17 15:00 Urine Blood Negative (NEGATIVE) 01/11/17 15:00 Urine Nitrate Negative (NEGATIVE) 01/11/17 15:00 Urine Bilirubin Moderate (NEGATIVE) H 01/11/17 15:00 Urine Urobilinogen 1.0 E.U./dL (<1 E.U./dL) H 01/11/17 15:00 Ur Leukocyte Esterase Small [place]/uL (NEGATIVE) H 01/11/17 15:00 Urine RBC 0 - 2 /hpf (0-2) 01/11/17 15:00 Urine WBC 1 - 3 /hpf (0-6) 01/11/17 15:00 Ur Epithelial Cells 4 - 5 /hpf (0-5) 01/11/17 15:00 Urine Bacteria Few (NEG) 01/11/17 15:00 Fluid Source Peritoneal 01/12/17 16:00 Fluid Appearance Sl cloudy (CLEAR) 01/12/17 16:00 Fluid WBC 937.0 /uL (0.0-300.0) H 01/12/17 16:00 Fluid RBC 2341.0 /uL (0.0-0.0) H 01/12/17 16:00 Fluid Tot Cell Count 100 (0-0) H 01/12/17 16:00 Fluid Neutrophils 11.0 % (0-0) H 01/12/17 16:00 Fluid Lymphocytes 89.0 % (0-0) H 01/12/17 16:00 Fld Monocyte/Macrophag TEST NOT PERFORMED 01/12/17 16:00 Fluid Comment Yellow 01/12/17 16:00 Peritoneal Lipase 42.0 U/L (<10) H 01/12/17 16:00 - Hospital Course Hospital Course: 56 yo F, PMH anemia, colitis, partial SBO, breast cancer presented today with complaints of 4 week hx of exertional dyspnea. The pt was seen 1 week ago for the same complaint. She had a workup significant only for mild ascites and elevated LFTs at that time. Today she states that dyspnea has worsened with activity, but denies dyspnea/SOB at rest. Pt follwed up with gastroenterology and primary care, in which both of her doctors noted marked scleral icterus. She complains of some associated abdominal pressure, which is worse when she urinates and described as being similar to in quality. She also notes dark urine today that she has not noticed in the past. She does appreciate a mild increase in her abdominal girth, but feels that it has not changed significantly in the last 2 weeks. She denies any fever, chills, nausea, abdominal pain, diarrhea, or headaches on admission. She has no hx of periodic jaundice, blood clots, or miscarriage. She currently only takes calcium supplements. She was DC from her chemotherapeutic regimen (palbociclib 125 mg, letrozole 2.5 mg) on 01/03 at last hospital admission secondary to concerns about her rising LFTs. She only takes calcium carbonate currently and denies use of other OTC meds or supplements. In the ED, basic labs, CT abdomen/pelvis, and ekg were ordered. Labs showed elevated LFT's, bilirubin, low platelet count. Pt was also found to have a low hemoglobin in the 10's, but is likely to be her baseline. EKG was unremarkable. CT showed moderate ascites, increased density in omental fat suspicious for peritoneal disease, sclerotic bony metastatic disease, and probably liver metastases. GI was consulted and recommended abdominal US/doppler and therapeutic paracenteses and fluid analysis , in which 2L of ascitic fluid was drained. GI determined that jaundice is likely reated to malignancy. Positive AMA, but unlikely to be PBC. Oncology was consulted and recommended outpatient chemotherapy. Palliative care was consulted and recommendations appreciated. Today, the pt was seen and examined at bedside. Pt denied any acute overnight events. Pt reports improving dyspnea, especially after receiving lasix. Pt did c/o some abdominal pain and described it as "gassy". Pt ele diet well and is ambulating. Pt denies CP, SOB, n/v/f, and abdominal pain. Discharge Exam - Head Exam Head Exam: NORMAL INSPECTION - Eye Exam Eye Exam: EOMI, Normal appearance, PERRL - ENT Exam ENT Exam: Mucous Membranes Dry - Neck Exam Neck exam: Full Rom - Respiratory Exam Respiratory Exam: Clear to PA & Lateral. absent: Rales, Rhonchi, Wheezes - Cardiovascular Exam Cardiovascular Exam: REGULAR RHYTHM, RRR. absent: Diastolic murmur, Gallop, Rubs, Systolic Murmur - GI/Abdominal Exam GI & Abdominal Exam: Distended, Normal Bowel Sounds, Soft. absent: Guarding, Tenderness - Extremities Exam Extremities exam: full ROM - Neurological Exam Neurological exam: Alert, Oriented x3 - Skin Skin Exam: Dry, Intact, Warm Additional comments: Jaundice Discharge Plan - Discharge Medications Prescriptions: Furosemide [Lasix] 40 mg PO DAILY #30 tablet - Follow Up Plan Condition: SERIOUS Disposition: HOME/ ROUTINE Patient education suggested?: Yes Additional Instructions: Take medications as prescribed. If symptoms reoccur please return. F/u with PMD (2-3 days) and oncology (7-10 days) for out-patient treatment. F/u with GI as needed. <Herb Woodall - Last Filed: 01/15/17 17:27> Provider - Provider Date of Admission: 01/11/17 13:23 Attending physician: Herb Woodall MD Hospital Course - Lab Results Lab Results: Micro Results 01/12/17 16:00 Ascitic Fluid Gram Stain - Final 01/12/17 16:00 Ascitic Fluid Anaerobic Culture - Final NO ANAEROBES ISOLATED. 01/12/17 16:00 Ascitic Fluid Body Fluid Culture - Preliminary NO GROWTH AFTER 3 DAYS 01/12/17 16:00 Ascitic Fluid Fungal Culture - Preliminary 01/11/17 15:00 Urine,Clean Catch Urine Culture - Final 10-50,000 CFU/ML. MULTIPLE SPECIES. PROBABLE CONTAMINATION. Most Recent Lab Values WBC 10.4 10^3/ul (4.5-11.0) 01/15/17 06:40 RBC 2.61 10^6/uL (3.5-6.1) L 01/15/17 06:40 Hgb 9.1 gm/dL (12.0-16.0) L 01/15/17 06:40 Hct 26.9 % (36.0-48.0) L 01/15/17 06:40 MCV 103.1 fL (80.0-105.0) 01/15/17 06:40 MCH 34.9 pg (25.0-35.0) 01/15/17 06:40 MCHC 33.8 g/dl (31.0-37.0) 01/15/17 06:40 RDW 22.7 % (11.5-14.5) H 01/15/17 06:40 Plt Count 48 10^3/uL (120.0-450.0) L* 01/15/17 06:40 MPV 9.6 fl (7.0-11.0) 01/14/17 07:00 Gran % 50.1 % (50.0-68.0) 01/11/17 12:00 Lymph % (Auto) 36.2 % (22.0-35.0) H 01/11/17 12:00 [place] % (Auto) 12.8 % (1.0-6.0) H 01/11/17 12:00 Eos % (Auto) 0.1 % (1.5-5.0) L 01/11/17 12:00 Baso % (Auto) 0.8 % (0.0-3.0) 01/11/17 12:00 Gran # 4.21 (1.4-6.5) 01/11/17 12:00 Lymph # 3.1 (1.2-3.4) 01/11/17 12:00 [place] # 1.1 (0.1-0.6) H 01/11/17 12:00 Eos # 0.0 (0.0-0.7) 01/11/17 12:00 Baso # 0.07 K/mm3 (0.0-2.0) 01/11/17 12:00 PT 20.2 Seconds (9.9-11.8) H 01/12/17 07:30 INR 1.87 (0.93-1.08) H 01/12/17 07:30 APTT 65.2 Seconds (23.7-30.8) H 01/11/17 12:00 Sodium 132 mmol/L (132-148) 01/15/17 06:40 Potassium 4.4 mmol/L (3.6-5.0) 01/15/17 06:40 Chloride 99 mmol/L (98-107) 01/15/17 06:40 Carbon Dioxide 25 mmol/L (21-33) 01/15/17 06:40 Anion Gap 12 (10-20) 01/15/17 06:40 BUN 22 mg/dL (7-21) H 01/15/17 06:40 Creatinine 1.3 mg/dL (0.5-1.4) 01/15/17 06:40 Est GFR ( Amer) 52 01/15/17 06:40 Est GFR (Non-Af Amer) 43 01/15/17 06:40 Random Glucose 101 mg/dL (70-110) 01/15/17 06:40 Calcium 6.7 mg/dL (8.4-10.5) L* 01/15/17 06:40 Total Bilirubin 10.8 mg/dL (0.2-1.3) H 01/15/17 06:40 Direct Bilirubin 5.7 mg/dL (0.0-0.4) H 01/11/17 12:30 AST 564 U/L (15-39) H 01/15/17 06:40 ALT 122 U/L (7-56) H 01/15/17 06:40 Alkaline Phosphatase 462 U/L (38-133) H 01/15/17 06:40 Lactate Dehydrogenase 2427 U/L (333-699) H 01/11/17 12:00 Total Creatine Kinase 328 U/L (35-230) H 01/11/17 12:00 CK-MB (CK-2) 0.7 ng/mL (0.0-3.6) 01/11/17 12:00 CK-MB (CK-2) % Cancelled 01/11/17 12:00 Troponin I < 0.01 ng/mL 01/11/17 12:00 NT-Pro-B Natriuret Pep 294 pg/mL (0-450) 01/11/17 12:00 Total Protein 6.3 g/dL (5.8-8.3) 01/15/17 06:40 Albumin 2.3 g/dL (3.0-4.8) L 01/15/17 06:40 Globulin 4.1 gm/dL 01/15/17 06:40 Albumin/Globulin Ratio 0.6 (1.1-1.8) L 01/15/17 06:40 Lipase 151 U/L (23-300) 01/12/17 07:30 Urine Color Dark yellow (YELLOW) 01/11/17 15:00 Urine Appearance Sl cloudy (CLEAR) 01/11/17 15:00 Urine pH 6.0 (4.7-8.0) 01/11/17 15:00 Ur Specific [place] 1.015 (1.005-1.035) 01/11/17 15:00 Urine Protein 30 mg/dL (<30 mg/dL) H 01/11/17 15:00 Urine Glucose (UA) Negative mg/dL (NEGATIVE) 01/11/17 15:00 Urine Ketones Trace mg/dL (NEGATIVE) H 01/11/17 15:00 Urine Blood Negative (NEGATIVE) 01/11/17 15:00 Urine Nitrate Negative (NEGATIVE) 01/11/17 15:00 Urine Bilirubin Moderate (NEGATIVE) H 01/11/17 15:00 Urine Urobilinogen 1.0 E.U./dL (<1 E.U./dL) H 01/11/17 15:00 Ur Leukocyte Esterase Small [place]/uL (NEGATIVE) H 01/11/17 15:00 Urine RBC 0 - 2 /hpf (0-2) 01/11/17 15:00 Urine WBC 1 - 3 /hpf (0-6) 01/11/17 15:00 Ur Epithelial Cells 4 - 5 /hpf (0-5) 01/11/17 15:00 Urine Bacteria Few (NEG) 01/11/17 15:00 Fluid Source Peritoneal 01/12/17 16:00 Fluid Appearance Sl cloudy (CLEAR) 01/12/17 16:00 Fluid WBC 937.0 /uL (0.0-300.0) H 01/12/17 16:00 Fluid RBC 2341.0 /uL (0.0-0.0) H 01/12/17 16:00 Fluid Tot Cell Count 100 (0-0) H 01/12/17 16:00 Fluid Neutrophils 11.0 % (0-0) H 01/12/17 16:00 Fluid Lymphocytes 89.0 % (0-0) H 01/12/17 16:00 Fld Monocyte/Macrophag TEST NOT PERFORMED 01/12/17 16:00 Fluid Comment Yellow 01/12/17 16:00 Peritoneal Lipase 42.0 U/L (<10) H 01/12/17 16:00 Attending/Attestation - Attestation I have personally seen and examined this patient.: Yes I have fully participated in the care of the patient.: Yes I have reviewed all pertinent clinical information, including history, physical exam and plan: Yes Notes (Text): 01/15/17 17:21 56 year old female with past medical history of metastatic breast cancer who presented with complaint of shortness of breath, abdominal discomfort and increased jaundice. CT abd/pelvis showed worsening ascites and metastatic disease. She had paracentesis with 2 L removed and was started on lasix. Her CXR was negative. She had a recent CT angio which was negative for PE and echocardiogram which showed preserved EF with diastolic dysfunction. She has chronic anemia, thrombocytopenia and elevated LFTs likely secondary to above. She was seen by GI, oncology and palliative. Overall her symptoms improved. She is ambulating without complaints. She is tolerating diet. She will be discharged home today to follow up with pmd. Follow up with GI and oncologist. Herb Woodall MD Hospitalist.
[2017-01-15 18:02] VITALS: BP 152/88; PULSE 102; TEMP 97.8
--- NOTE | 2017-01-15 21:43 | CP.PCM.PN ---
Subjective - Date & Time of Evaluation Date of Evaluation: 01/15/17 Time of Evaluation: 16:41 - Subjective Subjective: She was seen earlier today. She feels better after paracentesis. Her SOB is better. Denies pain. Objective - Vital Signs/Intake and Output Vital Signs (last 24 hours): Temp Pulse Resp BP Pulse Ox 97.8 F 102 H 20 152/88 H 98 01/15/17 16:00 01/15/17 16:00 01/15/17 16:00 01/15/17 16:00 01/15/17 16:00 Intake and Output: 01/15/17 01/16/17 18:59 06:59 Intake Total 360 Balance 360 - Labs Labs: 01/15/17 06:40 01/15/17 06:40 PT 20.2 Seconds (9.9-11.8) H 01/12/17 07:30 INR 1.87 (0.93-1.08) H 01/12/17 07:30 APTT 65.2 Seconds (23.7-30.8) H 01/11/17 12:00 - Head Exam Head Exam: ATRAUMATIC, NORMAL INSPECTION - Eye Exam Eye Exam: EOMI, Scleral icterus - ENT Exam ENT Exam: Mucous Membranes Moist - Respiratory Exam Respiratory Exam: Clear to Ausculation Bilateral - Cardiovascular Exam Cardiovascular Exam: REGULAR RHYTHM - GI/Abdominal Exam GI & Abdominal Exam: Distended, Soft, Normal Bowel Sounds. absent: Organomegaly - Extremities Exam Extremities Exam: Pedal Edema - Neurological Exam Neurological Exam: Alert, Oriented x3 Assessment and Plan - Assessment and Plan (Free Text) Assessment: Metastatic breast cancer, ER/MA + Clinically better after paracentesis. Her liver functions are still elevated. US abdomen reviewed Will discuss with IR regarding percutaneous biliary drainage. Continue to monitor liver functions and monitor for bleeding. We discussed poor prognosis in view of liver dysfunction with very limited options in terms of treatment. Will follow up outpatient. Tushar Aceves
== END 2017-01-15 19:51 | disposition home or self-care (01) | DRG 172 ==
LOC: ED 11:14 → ERH 13:23 → 3RNO 17:00
PROVIDERS: ADMIT Internal Medicine; ATTEND Internal Medicine
PROC: 0W9G3ZZ Drainage of Peritoneal Cavity, Percutaneous Approach (ICD-10-PCS; principal; 2017-01-12 15:00)
DX: C78.6 Secondary malignant neoplasm of retroperitoneum and peritoneum (principal); R18.0 Malignant ascites; C79.51 Secondary malignant neoplasm of bone; D69.6 Thrombocytopenia, unspecified; C78.7 Secondary malignant neoplasm of liver and intrahepatic bile duct; C78.89 Secondary malignant neoplasm of other digestive organs; C50.911 Malignant neoplasm of unspecified site of right female breast; E83.51 Hypocalcemia; E87.5 Hyperkalemia; D64.9 Anemia, unspecified; Z17.0 Estrogen receptor positive status [ER+]

== ENCOUNTER 2017-01-16 08:45 | Inpatient (IN) | payer MEDICAID ==
--- NOTE | 2017-01-16 09:19 | ED PDOC ---
Arrival/HPI - General Chief Complaint: Shortness Of Breath Time Seen by Provider: 01/16/17 09:06 Historian: Patient - History of Present Illness Narrative History of Present Illness (Text): 01/16/17 09:11 56 y/o female, pmh including breast cancer with metastatic/ascites/small bowel obstruction/colitis/ascites/jaundice/enamia, post menopausal, nkda, paracentesis on 01/12/[address] Hernandez under ultrasound guided and drained about 2000cc, last echo 01/02/2017 with EF 65%, biba c/o shortness of breath started last night. Pt. recently discharge from the hospital for ascites, currently on the lasix 40mg. Pt. stated that she started to have shortness of breath last night, difficulty catching the breath when going up the stair, no fever or chills, no coughing, no palpitation, no numbness or tingling, no other medical or psychological complaints. Past Medical History - Provider Review Nursing Documentation Reviewed: Yes - Infectious Disease Hx of Infectious Diseases: None - Tetanus Immunization Tetanus Immunization: Unknown - Reproductive Menopause: Yes - Cardiac Hx Cardiac Disorders: No - Pulmonary Hx Respiratory Disorders: No - Neurological Hx Neurological Disorder: No - HEENT Hx HEENT Disorder: Yes Other/Comment: wears glasses - Renal Hx Renal Disorder: No Other/Comment: Fluid on liver - Endocrine/Metabolic Hx Endocrine Disorders: No - Hematological/Oncological Hx Anemia: Yes Hx Cancer: Yes (Rt Breast cancer) - Integumentary Hx Dermatological Disorder: No - Musculoskeletal/Rheumatological Hx Musculoskeletal Disorders: No Hx Falls: No - Gastrointestinal Hx Gastrointestinal Disorders: No - Genitourinary/Gynecological Hx Genitourinary Disorders: No - Psychiatric Hx Psychophysiologic Disorder: No Hx Substance Use: No - Surgical History Hx Cholecystectomy: Yes - Anesthesia Hx Anesthesia: Yes Hx Anesthesia Reactions: No Hx Malignant Hyperthermia: No Family/Social History - Physician Review Nursing Documentation Reviewed: Yes Family/Social History: Unknown Family HX Smoking Status: Never Smoked Hx Alcohol Use: Yes (social) Hx Substance Use: No Allergies/Home Meds Allergies/Adverse Reactions: Allergies No Known Allergies Allergy (Verified 01/11/17 11:35) Home Medications: Home Meds Medication Instructions Recorded Confirmed No Known Home Med 01/16/17 01/16/17 Review of Systems - Review of Systems Constitutional: Fatigue, Weight Change. absent: Fevers Eyes: absent: Vision Changes ENT: absent: Hearing Changes, Sore Throat Respiratory: SOB. absent: Cough, Sputum, Wheezing Cardiovascular: absent: Chest Pain, Palpitations, Orthopnea, Syncope Gastrointestinal: absent: Abdominal Pain, Diarrhea, Nausea, Vomiting Skin: absent: Pruritis Neurological: absent: Headache, Dizziness Physical Exam Vital Signs Reviewed: Yes Vital Signs Temp Pulse Resp BP Pulse Ox 01/16/17 15:46 117 H 19 97/64 L 100 01/16/17 14:43 98.2 F 110 H 21 109/76 100 01/16/17 12:44 103 H 20 92/60 L 100 01/16/17 11:04 24 01/16/17 10:31 98.2 F 105 H 20 106/57 L 100 01/16/17 09:06 97.7 F 111 H 22 127/68 99 Temperature: Afebrile Blood Pressure: Normal Pulse: Tachycardic Respiratory Rate: Tachypneic Appearance: Positive for: Well-Appearing, Non-Toxic, Ill-Appearing, Uncomfortable Pain Distress: None Mental Status: Positive for: Alert and Oriented X 3 - Systems Exam Head: Present: Atraumatic, Normocephalic Pupils: Present: PERRL Extroacular Muscles: Present: EOMI Conjunctiva: Present: Normal Mouth: Present: Moist Mucous Membranes Neck: Present: Normal Range of Motion Respiratory/Chest: Present: Clear to Auscultation, Good Air Exchange, Tachypneic. No: Respiratory Distress, Accessory Muscle Use, Wheezes, Decreased Breath Sounds, Rales, Retracting, Rhonchi Cardiovascular: Present: Normal S1, S2, Tachycardic, Other (no pedal edema). No : Murmurs Abdomen: Present: Normal Bowel Sounds. No: Tenderness, Distention, Peritoneal Signs, Rebound, Guarding Back: Present: Normal Inspection. No: CVA Tenderness Upper Extremity: Present: Normal Inspection. No: Cyanosis, Edema Lower Extremity: Present: Normal Inspection. No: Edema Neurological: Present: GCS=15, Speech Normal, Motor Func Grossly Intact, Gait Normal, Memory Normal Skin: Present: Warm, Dry, Rashes (jaunice noted), Normal Color Psychiatric: Present: Alert, Oriented x 3, Normal Insight, Normal Concentration Medical Decision Making ED Course and Treatment: 01/16/17 09:26 PE vs. pneumonia vs. CAD vs. chf vs. 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 -Chest xray officially stated: no active disease -Labs are non-significant except: wbc 13.3, hgb 9.8 from 9.1, platete 50 from 48 , d-dimer 35 from 24, bun 30 from 22, creatine 1.9 from 1.3, BNP 945 from 294, Urinalysis show +leukocyte, LFT relatively the same; IV rocephine/vq scan ordered, hold lasix since the bun/creatine is elevated. 01/16/17 14:03 -V/Q scan show low probability for the PE. -Pt. is hypocalcemia, acute renal injury vs. failure, +UTI, tachycardia, will need to be admitted for at least telemetry which the source of tachycardic and shortness of breath is unclear at this time. -Aspirin/IVF @ 100cc/hr with rocephine ordered. -Pt. feels anxious, IV ativan 1mg ordered. -I discussed the case with Dr. Calle and agreed that the patient should be observed overnight. -I spoke to Dr. Matamoros discussed in details about the labs/radiology result, agreed to observe the patient over night. -Dr. Calle will put in the order for observation. -I discussed all labs and radiology results with the patient and sisters/ daughter (with the patient's consent) on the bed side, all agreed to keep the patient over night observation. - Lab Interpretations Lab Results: 01/16/17 10:22 01/16/17 10:22 Lab Results 01/16/17 10:22: Sodium 131 L, Potassium 5.0, Chloride 95 L, Carbon Dioxide 14 L , Anion Gap 27 H, BUN 30 H, Creatinine 1.9 H, Est GFR ( Amer) 33, Est GFR (Non-Af Amer) 28, Random Glucose 75, Calcium 6.7 L*, Total Bilirubin 12.4 H , AST 580 H, ALT 112 H, Alkaline Phosphatase 479 H, Lactate Dehydrogenase 3654 H , Total Creatine Kinase 556 H, CK-MB (CK-2) 1.0, CK-MB (CK-2) % Cancelled, Troponin I 0.02 D, NT-Pro-B Natriuret Pep 945 H, Total Protein 6.8, Albumin 2.5 L, Globulin 4.3, Albumin/Globulin Ratio 0.6 L 01/16/17 10:22: D-Dimer, Quantitative 35.20 H 01/16/17 10:22: WBC 13.3 H D, RBC 2.83 L, Hgb 9.8 L, Hct 29.5 L, MCV 104.2, MCH 34.6, MCHC 33.2, RDW 23.3 H, Plt Count 50 L, Corrected WBC (Man) 10.1, Neutrophils % (Manual) 59, Band Neutrophils % 7 H, Lymphocytes % (Manual) 27, Monocytes % (Manual) 7 H, Nucleated RBC % 32, Platelet Evaluation Low 01/16/17 10:11: PT 29.3 H, INR 2.71 H, APTT 80.8 H* 01/16/17 10:00: Urine Color Yellow, Urine Appearance Sl cloudy, Urine pH 6.0, Ur Specific [place] >= 1.030, Urine Protein 100 H, Urine Glucose (UA) 100 H, Urine Ketones Trace H, Urine Blood Small H, Urine Nitrate Negative, Urine Bilirubin Large H, Urine Urobilinogen 2.0 H, Ur Leukocyte Esterase Small H, Urine RBC 0 - 2, Urine WBC 0 - 2, Ur Epithelial Cells 1 - 3, Urine Bacteria Small Interpretation: Abnormal lab values (wbc 13.3, hgb 9.8 from 9.1, platete 50 from 48, d-dimer 35 from 24, bun 30 from 22, creatine 1.9 from 1.3, BNP 945 from 294, Urinalysis show +leukocyte, LFT relatively the same,) - RAD Interpretation Radiology Orders: 01/16/17 09:19 CHEST PORTABLE [RAD] Stat 01/16/17 11:00 LUNG PERF & VENT SCAN [NM] Stat HISTORY: Shortness of breath COMPARISON: 01/14/2017. FINDINGS: LUNGS: The lungs are well inflated and clear. PLEURA: No significant pleural effusion identified, no pneumothorax apparent. CARDIOVASCULAR: Normal. OSSEOUS STRUCTURES: No significant abnormalities. VISUALIZED UPPER ABDOMEN: Normal. OTHER FINDINGS: None. IMPRESSION: No active pulmonary disease. 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 Type: 12 lead EKG Comparison: Com.w/previous EKG - Medication Orders Current Medication Orders: Famotidine (Pepcid) 40 mg PO HS JEREMIE Sodium Chloride (Sodium Chloride 0.9%) 1,000 mls @ 100 mls/hr IV .Q10H JEREMIE Last Admin: 01/16/17 13:51 Dose: 100 mls/hr Ceftriaxone Sodium (Rocephin 1 Gram Ivpb) 1 gm in 100 mls @ 100 mls/hr IVPB DAILY JEREMIE PRN Reason: Protocol Discontinued Medications Albumin Human (Albumin Human 25% (12.5 Gm/50 Ml)) 12.5 gm IV ONCE ONE Stop: 01/16/17 14:04 Last Admin: 01/16/17 14:25 Dose: 12.5 gm Aspirin (Aspirin) 325 mg PO STAT STA Stop: 01/16/17 13:45 Last Admin: 01/16/17 13:56 Dose: 325 mg Ceftriaxone Sodium (Rocephin 1 Gram Ivpb) 1 gm in 100 mls @ 200 mls/hr IVPB STAT STA PRN Reason: Protocol Stop: 01/16/17 14:32 Last Admin: 01/16/17 15:46 Dose: 200 mls/hr Lorazepam (Ativan) 1 mg IVP ONCE ONE PRN Reason: Protocol Stop: 01/16/17 13:45 Last Admin: 01/16/17 13:56 Dose: 1 mg Phytonadione (Vitamin K Tab) 10 mg PO ONCE ONE Stop: 01/16/17 15:48 - PA / GLUE SPREADER / Resident Statement /DO has reviewed & agrees with the documentation as recorded. Disposition/Present on Arrival - Present on Arrival Any Indicators Present on Arrival: No History of DVT/PE: No History of Uncontrolled Diabetes: No Urinary Catheter: No History of Decub. Ulcer: No History Surgical Site Infection Following: None - Disposition Have Diagnosis and Disposition been Completed?: Yes Diagnosis: Acute renal failure (ARF), Elevated brain natriuretic peptide (BNP) level, Shortness of breath, Hypocalcemia, UTI (urinary tract infection) Disposition: HOSPITALIZED Disposition Time: 11:22 Patient Plan: Observation, Telemetry Patient Problems: Current Active Problems Problem Status Onset Acute renal failure (ARF) Acute Elevated brain natriuretic peptide (BNP) level Acute Shortness of breath Acute Hypocalcemia Acute UTI (urinary tract infection) Acute Condition: STABLE
--- NOTE | 2017-01-16 10:06 | RAD ---
HISTORY: Shortness of breath COMPARISON: 01/14/2017. FINDINGS: LUNGS: The lungs are well inflated and clear. PLEURA: No significant pleural effusion identified, no pneumothorax apparent. CARDIOVASCULAR: Normal. OSSEOUS STRUCTURES: No significant abnormalities. VISUALIZED UPPER ABDOMEN: Normal. OTHER FINDINGS: None. IMPRESSION: No active pulmonary disease.
[2017-01-16 10:24] LABS: URINE BILIRUBIN LARGE (NEGATIVE); URINE BLOOD SMALL (NEGATIVE); URINE GLUCOSE (UA) 100 mg/dL (NEGATIVE); URINE LEUKOCYTE ESTERASE SMALL Leu/uL (NEGATIVE); URINE NITRATE NEGATIVE (NEGATIVE); URINE PROTEIN 100 mg/dL (<30 mg/dL)
[2017-01-16 10:25] LABS: URINE APPEARANCE SL CLOUDY (CLEAR); URINE COLOR YELLOW (YELLOW)
[2017-01-16 10:35] LABS: HEMOGLOBIN 9.8 gm/dL (12.0-16.0); MEAN CELL VOLUME 104.2 fL (80.0-105.0); MEAN CORPUSCULAR HEMOGLOBIN 34.6 pg (25.0-35.0); MEAN CORPUSCULAR HGB CONC 33.2 g/dl (31.0-37.0); PLATELET COUNT 50 10^3/uL (120.0-450.0); RBC 2.83 10^6/uL (3.5-6.1); RED CELL DISTRIBUTION WIDTH 23.3 % (11.5-14.5); WHITE BLOOD COUNT 13.3 10^3/ul (4.5-11.0)
[2017-01-16 10:36] LABS: URINE RBC 0 - 2 /hpf (0-2); URINE WBC 0 - 2 /hpf (0-6)
[2017-01-16 10:37] LABS: URINE BACTERIA SMALL (NEG)
[2017-01-16 10:41] LABS: ALB/GLOB RATIO 0.6 (1.1-1.8); ALBUMIN 2.5 g/dL (3.0-4.8)
[2017-01-16 10:52] LABS: CALCIUM 6.7 mg/dL (8.4-10.5)
[2017-01-16 10:53] LABS: TROPONIN I 0.02 ng/mL
[2017-01-16 11:01] LABS: BAND 7 % (0-2); CORRECTED WBC 10.1 K/mm3 (4.5-11.0); LYMPHOCYTE 27 % (22.0-35.0); MONOCYTE 7 % (1.0-6.0); NEUTROPHIL 59 % (50.0-70.0); NUCLEATED RED BLOOD CELL 32 %; PLATELET ESTIMATE LOW (NORMAL)
--- NOTE | 2017-01-16 12:29 | CARD ---
APPROVED REPORT EKG Measurement Heart [id number] <Conclusion> Sinus tachycardia Otherwise normal ECG
--- NOTE | 2017-01-16 13:32 | NM ---
COMPARISON: January 16, 2017. Single-view chest. TECHNIQUE: 30.0 mCi technetium 99-m DTPA aerosol. 3.4 mCI technetium 99-m MAA administered intravenously. FINDINGS: VENTILATION COMPONENT: Normal. PERFUSION COMPONENT: Heterogeneous distribution of radionuclide. No geographic, segmental, lobar abnormalities apparent on the present examination. IMPRESSION: Low probability ventilation perfusion scan for pulmonary embolism.
[2017-01-16] MEDS ORDERED: Sodium Chloride 0.9% 1,000 ML IV SCH (13:45)
[2017-01-16 13:49] LABS: INR 2.71 (0.93-1.08); PROTHROMBIN TIME 29.3 Seconds (9.9-11.8)
[2017-01-16 13:51] LABS: PARTIAL THROMBOPLASTIN TIME 80.8 Seconds (23.7-30.8)
[2017-01-16] MEDS ORDERED: Albumin Human 25% (12.5 gm/50 ml) IV ONE (14:03)
[2017-01-16] MEDS ORDERED: cefTRIAXone 1 gm 1 GM/100 ML BAG IVPB STA (14:03)
--- NOTE | 2017-01-16 15:33 | CP.PCM.HP ---
<GISEL WILBURN - Last Filed: 01/16/17 15:49> History of Present Illness - History of Present Illness History of Present Illness: 56 yo F with PMH of anemia, colitis, partial SBO, breast cancer presented today with complaints of SOB with exertion. She was discharged yesterday after being admitted for dyspnea, ascites and jaundice. On her last admission, GI, cardiology, oncology and palliative care were consulted and their recommendations were appreciated. Recent CT angio which was negative for PE and echocardiogram which showed preserved EF with diastolic dysfunction. She has chronic anemia, thrombocytopenia and elevated LFTs likely secondary to metastatic disease. She ahd a CT showing worsening ascites and metastatic disease. She received a therapeutic paracentesis of the ascitic fluid, which yielded 2L of fluid. She had improved dyspnea on discharge without abdominal pain or distension. She was given an Rx for Lasix 40 mg PO daily. But soon after arriving home, she had SOB when walking up the stairs to her home around 4pm. Pt states that she needed help ambulating as her SOB worsened with ambulation. Pt also states that she vomited once yesterday and has not had an appetite since. Pt states that her SOB has worsened over the last day and decided to come to the ED she has had SOB on exertion. PMHx: anemia, colitis, partial SBO, breast cancer FHx: mother cardiac. Father unknown/natural causes. Surgical hx: cholecystectomy Social: never smoker, no illicit drug use, used to drink alcohol but not anymore All: NKDA Medications: Lasix 40 mg PO daily Present on Admission - Present on Admission Any Indicators Present on Admission: No Review of Systems - Constitutional Constitutional: Fatigue. absent: Chills, Headache, Night Sweats - EENT Eyes: absent: Change in Vision, Pain Ears: absent: Tinnitus, Abnormal Hearing Nose/Mouth/Throat: absent: Nasal Congestion, Nasal Discharge - Cardiovascular Cardiovascular: Dyspnea. absent: Edema, Leg Edema, Palpitations - Respiratory Respiratory: Dyspnea, Dyspnea on Exertion. absent: Hemoptysis - Gastrointestinal Gastrointestinal: Bloating. absent: Abdominal Pain, Change in Bowel Habits, Constipation, Diarrhea - Genitourinary Genitourinary: absent: Dysuria, Flank Pain, Hematuria, Pyuria - Musculoskeletal Musculoskeletal: absent: Muscle Cramps, Muscle Weakness, Myalgias - Integumentary Integumentary: Jaundice - Neurological Neurological: absent: Abnormal Hearing, Abnormal Movements, Paresthesias, Syncope - Psychiatric Psychiatric: As Per HPI - Endocrine Endocrine: absent: Heat Intolorance, Polydipsia, Polyphagia, Polyuria Past Patient History - Infectious Disease Hx of Infectious Diseases: None - Tetanus Immunizations Tetanus Immunization: Unknown - Past Medical History & Family History Past Medical History?: Yes - Past Social History Smoking Status: Never Smoked - CARDIAC Hx Cardiac Disorders: No - PULMONARY Hx Respiratory Disorders: No - NEUROLOGICAL Hx Neurological Disorder: No - HEENT Hx HEENT Problems: Yes Other/Comment: wears glasses - RENAL Hx Chronic Kidney Disease: No Other/Comment: Fluid on liver - ENDOCRINE/METABOLIC Hx Endocrine Disorders: No - HEMATOLOGICAL/ONCOLOGICAL Hx Anemia: Yes Hx Cancer: Yes (Rt Breast cancer) - INTEGUMENTARY Hx Dermatological Problems: No - MUSCULOSKELETAL/RHEUMATOLOGICAL Hx Musculoskeletal Disorders: No Hx Falls: No - GASTROINTESTINAL Hx Gastrointestinal Disorders: No - GENITOURINARY/GYNECOLOGICAL Hx Genitourinary Disorders: No - PSYCHIATRIC Hx Psychophysiologic Disorder: No Hx Substance Use: No - SURGICAL HISTORY Hx Cholecystectomy: Yes - ANESTHESIA Hx Anesthesia: Yes Hx Anesthesia Reactions: No Hx Malignant Hyperthermia: No Meds Allergies/Adverse Reactions: Allergies Allergy/AdvReac Type Severity Reaction Status Date / Time No Known Allergies Allergy Verified 01/11/17 11:35 Physical Exam - Head Exam Head Exam: ATRAUMATIC, NORMOCEPHALIC - Eye Exam Eye Exam: EOMI, Normal appearance, PERRL - Neck Exam Neck exam: Positive for: Full Rom - Respiratory Exam Respiratory Exam: Clear to Auscultation Bilateral. absent: Rales, Rhonchi, Wheezes - Cardiovascular Exam Cardiovascular Exam: RRR, +S1, +S2. absent: Diastolic murmur, Gallop, Rubs, Systolic Murmur - GI/Abdominal Exam GI & Abdominal Exam: Soft. absent: Distended, Guarding, Tenderness - Neurological Exam Neurological exam: Alert, Oriented x3 - Skin Skin Exam: Dry, Intact, Warm (Jaundice) Results - Vital Signs Recent Vital Signs: Last Vital Signs Temp 98.2 F 01/16/17 14:43 Pulse 110 H 01/16/17 14:43 Resp 21 01/16/17 14:43 BP 109/76 01/16/17 14:43 Pulse Ox 100 01/16/17 14:43 - Labs Result Diagrams: 01/16/17 10:22 01/16/17 10:22 Assessment & Plan - Assessment and Plan (Free Text) Assessment: Patient is a 56 year old female with h/o metastatic breast cancer with gastric, peritoneal, and bone metastases was admitted for evaluation and treatment of progressively worsening sob, jaundice, and ascites. 1. SOB - etiology unclear - pulm vs, cardiac vs ascities vs abdominal pressure -CXR showed no active pulmonary disease -Lung perfusion and ventilation scan showed low probability ventiliation perfusion scan for PE -Ceftriaxone 1gm IVPB -F/u with VBG 2. Ascites/Jaundice - GI consulted -Past admission: Therapeutic Paracentesis 2L removed, Abd US: hepatic fatty infiltration vs hepatocellular dx, simple cyst in inf R hepatic lobe 6cm, portal HTN, CT showed Moderate ascites, increase density in the omental fat suspicious of peritonal mets, Schlerotic bony mets, probable liver mets. - LFT's elevated today 580 and 112 3. Acute Renal Failure -Creatinine 1.3 --> 1.9 -IVF NS@100 -Nephrology consulted 4. Breast Cancer -Onc recommended out pt chemotherapy -Was on HER2 chemo regimen, stopped during most recent admission -Will continue to hold for now, pending assessment by GI -If regiment needs to be restarted will consult heme-onc 5. Anemia - stable -Hemoglobin 9.8 -Continue to monitor 6. GI/DVT PPx -Pepcid & SCDs Case and plan was seen, reviewed and discussed in detail with Dr Matamoros. <Deyanira Matamoros - Last Filed: 01/17/17 16:31> Results - Vital Signs Recent Vital Signs: Last Vital Signs Temp 98.5 F 01/17/17 15:50 Pulse 97 H 01/17/17 15:50 Resp 20 01/17/17 15:50 BP 126/59 L 01/17/17 15:50 Pulse Ox 96 01/17/17 14:36 - Labs Result Diagrams: 01/17/17 05:30 01/17/17 05:30 Labs: Laboratory Results - last 24 hr 01/16/17 01/16/17 01/16/17 19:55 22:25 22:25 WBC RBC Hgb Hct MCV MCH MCHC RDW Plt Count PT INR pCO2 17 L* pO2 146.0 H HCO3 9.8 L* ABG pH 7.37 ABG Total CO2 10.3 L ABG O2 Saturation 100.7 H ABG O2 Content 11.6 L ABG Base Excess -13.8 L ABG Hemoglobin 8.2 L ABG Carboxyhemoglobin 1.7 H POC ABG HHb (Measured) -0.7 L ABG Methemoglobin 1.3 ABG O2 Capacity 11.5 L VBG pH VBG pCO2 VBG HCO3 VBG Total CO2 VBG O2 Sat (Calc) VBG Base Excess VBG Potassium Hgb O2 Saturation 97.7 Sodium 130 L Chloride 93 L Glucose Lactate FiO2 32.0 Potassium 5.1 H Carbon Dioxide 14 L Anion Gap 28 H BUN 36 H Creatinine 2.2 H Est GFR ( Amer) 28 Est GFR (Non-Af Amer) 23 Random Glucose 84 Lactic Acid 13.5 H* Uric Acid 12.5 H Calcium 6.1 L* Phosphorus 4.3 Total Bilirubin AST ALT Alkaline Phosphatase Ammonia Total Protein Albumin Globulin Albumin/Globulin Ratio Procalcitonin Venous Blood Potassium Blood Type Antibody Screen Crossmatch BBK History Checked 01/16/17 01/16/17 01/17/17 22:25 22:25 01:40 WBC RBC Hgb Hct MCV MCH MCHC RDW Plt Count PT INR pCO2 pO2 89 H 68 H HCO3 ABG pH ABG Total CO2 ABG O2 Saturation ABG O2 Content ABG Base Excess ABG Hemoglobin ABG Carboxyhemoglobin POC ABG HHb (Measured) ABG Methemoglobin ABG O2 Capacity VBG pH 7.34 7.38 VBG pCO2 23.0 L 24.0 L VBG HCO3 12.4 L 14.2 L VBG Total CO2 13.1 L 14.9 L VBG O2 Sat (Calc) 100.4 H 98.1 H VBG Base Excess -12.0 L -9.0 L VBG Potassium 5.3 H 5.2 Hgb O2 Saturation Sodium 129.0 L 128.0 L Chloride 97.0 L 98.0 Glucose 87 50 L Lactate 14.4 H* 11.8 H* FiO2 21.0 21.0 Potassium Carbon Dioxide Anion Gap BUN Creatinine Est GFR ( Amer) Est GFR (Non-Af Amer) Random Glucose Lactic Acid Uric Acid Calcium Phosphorus Total Bilirubin AST ALT Alkaline Phosphatase Ammonia Total Protein Albumin Globulin Albumin/Globulin Ratio Procalcitonin 6.22 H Venous Blood Potassium 5.3 H 5.2 Blood Type Antibody Screen Crossmatch BBK History Checked 01/17/17 01/17/17 01/17/17 05:30 05:30 06:00 WBC 15.9 H RBC 2.12 L Hgb 7.4 L D Hct 22.0 L MCV 103.8 MCH 34.9 MCHC 33.6 RDW 24.9 H Plt Count 62 L PT INR pCO2 pO2 HCO3 ABG pH ABG Total CO2 ABG O2 Saturation ABG O2 Content ABG Base Excess ABG Hemoglobin ABG Carboxyhemoglobin POC ABG HHb (Measured) ABG Methemoglobin ABG O2 Capacity VBG pH VBG pCO2 VBG HCO3 VBG Total CO2 VBG O2 Sat (Calc) VBG Base Excess VBG Potassium Hgb O2 Saturation Sodium 130 L Chloride 95 L Glucose Lactate FiO2 Potassium 5.1 H Carbon Dioxide 16 L Anion Gap 24 H BUN 41 H Creatinine 2.2 H Est GFR ( Amer) 28 Est GFR (Non-Af Amer) 23 Random Glucose 35 L* D Lactic Acid Uric Acid 13.3 H Calcium 6.1 L* Phosphorus Total Bilirubin 11.4 H AST 523 H ALT 113 H Alkaline Phosphatase 328 H Ammonia Total Protein 6.2 Albumin 2.9 L Globulin 3.2 Albumin/Globulin Ratio 0.9 L Procalcitonin Venous Blood Potassium Blood Type Antibody Screen Crossmatch BBK History Checked 01/17/17 01/17/17 01/17/17 10:01 13:07 13:07 WBC RBC Hgb Hct MCV MCH MCHC RDW Plt Count PT 42.5 H* INR 3.94 H* pCO2 pO2 HCO3 ABG pH ABG Total CO2 ABG O2 Saturation ABG O2 Content ABG Base Excess ABG Hemoglobin ABG Carboxyhemoglobin POC ABG HHb (Measured) ABG Methemoglobin ABG O2 Capacity VBG pH VBG pCO2 VBG HCO3 VBG Total CO2 VBG O2 Sat (Calc) VBG Base Excess VBG Potassium Hgb O2 Saturation Sodium Chloride Glucose Lactate FiO2 Potassium Carbon Dioxide Anion Gap BUN Creatinine Est GFR ( Amer) Est GFR (Non-Af Amer) Random Glucose Lactic Acid Uric Acid Calcium Phosphorus Total Bilirubin AST ALT Alkaline Phosphatase Ammonia 61 H Total Protein Albumin Globulin Albumin/Globulin Ratio Procalcitonin Venous Blood Potassium Blood Type O POSITIVE Antibody Screen Negative Crossmatch See Detail BBK History Checked Patient has bt Attending/Attestation - Attestation I have personally seen and examined this patient.: Yes I have fully participated in the care of the patient.: Yes I have reviewed all pertinent clinical information: Yes Notes (Text): 01/17/17 16:27 attending note; Patient seen and examined with resident. Patient is a 56-year-old female with a history of metastatic breast cancer to the liver and bones is admitted with abdominal discomfort And shortness of breath. Patient was discharged From the hospital after paracentesis yesterday. D-dimer is elevated secondary to malignancy. VQ scan is negative for PE. Lactic acidosis with acute renal failure; pre renal vs hepatorenal. Lasix stopped. started on IV fluid. Tachycardia; improving after IV hydration. Tachypnea; compensated secondary to severe acidosis.started on IV bicarbonate therapy. Case discussed with oncology Dr. Aceves in detail. case discussed with Dr. Sarthak Hernandez for possible biliary stent versus liver biopsy evaluate the cause of elevated LFTs. Case discussed with patient, patient's sister Kenzie and patient's daughter in detail. Poor prognosis explained. patient is full code.
[2017-01-16 15:59] LABS: VENOUS BLOOD GAS PO2 72 mm/Hg (30-55); VENOUS BLOOD PH 7.29 (7.32-7.43)
[2017-01-16 16:05] LABS: URINE BILIRUBIN LARGE (NEGATIVE); URINE BLOOD LARGE (NEGATIVE); URINE GLUCOSE (UA) NEGATIVE (NEGATIVE); URINE LEUKOCYTE ESTERASE SMALL Leu/uL (NEGATIVE); URINE NITRATE NEGATIVE (NEGATIVE); URINE PROTEIN 100 mg/dL (<30 mg/dL)
[2017-01-16 16:06] LABS: URINE APPEARANCE CLOUDY (CLEAR); URINE COLOR YELLOW (YELLOW)
[2017-01-16 16:17] LABS: URINE BACTERIA MANY (NEG)
[2017-01-16] MEDS ORDERED: oxyCODONE 5 mg Immediate Release Tab PO PRN (16:20)
[2017-01-16] MEDS ORDERED: Sodium Chloride 0.9% 500 ML IV STA (16:26)
--- NOTE | 2017-01-16 16:53 | CP.PCM.CON ---
<Carroll Herman - Last Filed: 01/16/17 17:43> History of Present Illness - History of Present Illness History of Present Illness: Lea Montanez is a 56F w/ hx of metastatic breast ca who present to the ER with complaints of SOB. Pt was recently discharged from [facility] for SOB due to unclear etiology. Pt was s/p 2L paracentesis. Her symptoms improved throughout her hospital course. Prior to discharge, she was no longer SOB at rest and only after prolonged exertion. Pt states she became increasing SOB with exertion upon reaching home and climbing her stairs. Prior to that, she started getting nausous and had a bout if emesis. She states that she did not notice any blood or mucus in her vomitus, but did not some partially digested food. Pt states she felt slight better after rest. Later that night, she became increasing SOB, which prompted her to come to the ED. Pt denies any abd pain, chest pain. Pt denies any hematachezia or hematemsis. Pt states that she is having normal BMs. Pt was seen by hem/onc on her last visit. She has a grave prognosis with decline in function. CT ango of chest ruled out PE during last admission. V/Q was performed this ER visit and was neg. ECHO which was also performed last visit showed normal EF w/ some diastolic dysfuntion. PMHx: anemia, colitis, partial SBO, breast cancer FHx: mother cardiac. Father unknown/natural causes. Surgical hx: cholecystectomy Social: never smoker, no illicit drug use, used to drink alcohol but not anymore All: NKDA Medications: Lasix 40 mg PO daily Past Patient History - Infectious Disease Hx of Infectious Diseases: None - Tetanus Immunizations Tetanus Immunization: Unknown - Past Medical History & Family History Past Medical History?: Yes - Past Social History Smoking Status: Never Smoked - CARDIAC Hx Cardiac Disorders: No - PULMONARY Hx Respiratory Disorders: No - NEUROLOGICAL Hx Neurological Disorder: No - HEENT Hx HEENT Problems: Yes Other/Comment: wears glasses - RENAL Hx Chronic Kidney Disease: No Other/Comment: Fluid on liver - ENDOCRINE/METABOLIC Hx Endocrine Disorders: No - HEMATOLOGICAL/ONCOLOGICAL Hx Anemia: Yes Hx Cancer: Yes (Rt Breast cancer) - INTEGUMENTARY Hx Dermatological Problems: No - MUSCULOSKELETAL/RHEUMATOLOGICAL Hx Musculoskeletal Disorders: No Hx Falls: No - GASTROINTESTINAL Hx Gastrointestinal Disorders: No - GENITOURINARY/GYNECOLOGICAL Hx Genitourinary Disorders: No - PSYCHIATRIC Hx Psychophysiologic Disorder: No Hx Substance Use: No - SURGICAL HISTORY Hx Cholecystectomy: Yes - ANESTHESIA Hx Anesthesia: Yes Hx Anesthesia Reactions: No Hx Malignant Hyperthermia: No Meds Allergies/Adverse Reactions: Allergies Allergy/AdvReac Type Severity Reaction Status Date / Time No Known Allergies Allergy Verified 01/11/17 11:35 - Medications Medications: Current Medications Famotidine (Pepcid) 40 mg PO HS [facility] Sodium Chloride (Sodium Chloride 0.9%) 1,000 mls @ 100 mls/hr IV .Q10H [facility] Last Admin: 01/16/17 13:51 Dose: 100 mls/hr Ceftriaxone Sodium (Rocephin 1 Gram Ivpb) 1 gm in 100 mls @ 100 mls/hr IVPB DAILY J[facility]EMIE PRN Reason: Protocol Sodium Chloride (Sodium Chloride 0.9%) 500 mls @ 999 mls/hr IV .Q31M STA Stop: 01/16/17 16:56 Albumin Human (Albumin Human 25%) 100 mls @ 1 mls/min IVPB Q8 [facility]IE Morphine Sulfate (Morphine) 1 mg IVP Q4H PRN PRN Reason: Pain, severe (8-10) Oxycodone HCl (Oxycodone Immediate Release Tab) 5 mg PO Q6H PRN PRN Reason: Pain, Mild (1-3) Physical Exam - Head Exam Head Exam: ATRAUMATIC, NORMAL INSPECTION, NORMOCEPHALIC - Eye Exam Eye Exam: EOMI, Scleral icterus Pupil Exam: NORMAL ACCOMODATION - ENT Exam ENT Exam: Mucous Membranes Dry - Neck Exam Neck exam: Positive for: Normal Inspection - Respiratory Exam Respiratory Exam: Clear to Auscultation Bilateral - Cardiovascular Exam Cardiovascular Exam: REGULAR RHYTHM - GI/Abdominal Exam GI & Abdominal Exam: Distended, Normal Bowel Sounds. absent: Firm, Guarding, Mass, Rigid, Tenderness - Rectal Exam Rectal Exam: Hemorrhoids. absent: Black Stool, Bloody Stool, Fecal Impaction - Extremities Exam Extremities exam: Positive for: pedal edema Additional comments: +asterixis - Neurological Exam Neurological exam: Alert, Oriented x3 - Skin Skin Exam: Dry, Intact, Warm Results - Vital Signs Recent Vital Signs: Last Vital Signs Temp 98.2 F 01/16/17 16:42 Pulse 110 H 01/16/17 16:42 Resp 22 01/16/17 16:42 BP 135/81 01/16/17 16:42 Pulse Ox 100 01/16/17 16:42 - Labs Result Diagrams: 01/16/17 10:22 01/16/17 10:22 Labs: Laboratory Results - last 24 hr 01/16/17 01/16/17 15:33 15:55 pO2 72 H VBG pH 7.29 L VBG pCO2 27.0 L VBG HCO3 13.0 L VBG Total CO2 13.8 L VBG O2 Sat (Calc) 96.8 H VBG Base Excess -12.0 L VBG Potassium 5.7 H Sodium 134.0 Chloride 93.0 L Glucose 60 L Lactate 14.1 H* FiO2 21.0 Venous Blood Potassium 5.7 H Urine Color Yellow Urine Appearance Cloudy Urine pH 7.0 Ur Specific [place] 1.020 Urine Protein 100 H Urine Glucose (UA) Negative Urine Ketones Negative Urine Blood Large H Urine Nitrate Negative Urine Bilirubin Large H Urine Urobilinogen 1.0 H Ur Leukocyte Esterase Small H Urine RBC 10 - 15 Urine WBC 5 - 10 Ur Epithelial Cells 4 - 5 Urine Bacteria Many Assessment & Plan - Assessment and Plan (Free Text) Assessment: Lea Arreaga is a 56F with hx of metastatic breast ca to the stomach, bones and Liver who presented to the ER with complaints of SOB. Pt has presented with increasing LFTs with a cholestatic pattern. She also has an increase in Cr, etiology prerenal versus ATN vs hepatorenal. Last admission (1 week prior), CT of the abd/pelv revealed new hypodensities in the liver likley metastatic in etiology. There was moderate ascites present on CT Scan of the Abd/Pelvis for which she had s.p 2L paracentesis. Her etiology of SOB may be multifactorial including deconditioning and tumor burden. LITO DDx: Prerenal (volume depletion vs ATN vs hepatorenal) - agree with albumin - pt is hemodynamically stable - agree with albumin, and fluid resusitation - hold diuretics - if Cr worsens despite these interventions, consider hepatorenal Liver metastases likely 2/2 breast ca -CT reviewed. + ascites and hepatic metastases -positive AMA noted, likely 2/2 met burden but cannot r/o PBC -grave prognosis -no acute tx from GI standpoint Ascites likely 2/2 to mets, abdominal wall carcinomatosis see above Transaminemia -likely cholestatic pattern and 2/2 to met burden -continue to monitor LFTs SOB - etiology seems unlikely that it is 2/2 ascities or abdominal pressure - recommend additional pulm and cardiac w/u including r/o PE, infection, cardiac D/W Dr. Lucero <Nehemiah Lucero - Last Filed: 01/17/17 09:14> Meds - Medications Medications: Current Medications Albumin Human (Albumin Human 25% (25 Gm/100 Ml)) 25 gm IV Q4H [facility] Last Admin: 01/17/17 05:56 Dose: 25 gm Alprazolam (Xanax) 0.25 mg PO Q6 PRN; Protocol PRN Reason: Anxiety Stop: 01/23/17 18:01 Famotidine (Pepcid) 40 mg PO HS [facility] Last Admin: 01/16/17 22:22 Dose: 40 mg Piperacillin Sod/Tazobactam Sod (Zosyn 2.25 Gm In 0.9% 100 Ml) 2.25 gm in 100 mls @ 100 mls/hr IVPB Q6 [facility] PRN Reason: Protocol Stop: 01/23/17 18:01 Last Admin: 01/17/17 05:58 Dose: 100 mls/hr Sodium Bicarbonate 150 meq/ (Dextrose) 1,150 mls @ 100 mls/hr IV .[id number] [facility] Last Admin: 01/17/17 08:21 Dose: 100 mls/hr Morphine Sulfate (Morphine) 1 mg IVP Q4H PRN PRN Reason: Pain, severe (8-10) Oxycodone HCl (Oxycodone Immediate Release Tab) 5 mg PO Q6H PRN PRN Reason: Pain, Mild (1-3) Results - Vital Signs Recent Vital Signs: Last Vital Signs Temp 98.1 F 01/17/17 08:00 Pulse 109 H 01/17/17 08:00 Resp 30 H 01/17/17 07:00 BP 109/70 01/17/17 08:00 Pulse Ox 98 01/17/17 08:00 - Labs Result Diagrams: 01/17/17 05:30 01/17/17 05:30 Labs: Laboratory Results - last 24 hr 01/16/17 01/16/17 01/16/17 19:55 22:25 22:25 WBC RBC Hgb Hct MCV MCH MCHC RDW Plt Count pCO2 17 L* pO2 146.0 H HCO3 9.8 L* ABG pH 7.37 ABG Total CO2 10.3 L ABG O2 Saturation 100.7 H ABG O2 Content 11.6 L ABG Base Excess -13.8 L ABG Hemoglobin 8.2 L ABG Carboxyhemoglobin 1.7 H POC ABG HHb (Measured) -0.7 L ABG Methemoglobin 1.3 ABG O2 Capacity 11.5 L VBG pH VBG pCO2 VBG HCO3 VBG Total CO2 VBG O2 Sat (Calc) VBG Base Excess VBG Potassium Hgb O2 Saturation 97.7 Sodium 130 L Chloride 93 L Glucose Lactate FiO2 32.0 Potassium 5.1 H Carbon Dioxide 14 L Anion Gap 28 H BUN 36 H Creatinine 2.2 H Est GFR ( Amer) 28 Est GFR (Non-Af Amer) 23 Random Glucose 84 Lactic Acid 13.5 H* Uric Acid 12.5 H Calcium 6.1 L* Phosphorus 4.3 Total Bilirubin AST ALT Alkaline Phosphatase Total Protein Albumin Globulin Albumin/Globulin Ratio Venous Blood Potassium 01/16/17 01/17/17 01/17/17 22:25 01:40 05:30 WBC 15.9 H RBC 2.12 L Hgb 7.4 L D Hct 22.0 L MCV 103.8 MCH 34.9 MCHC 33.6 RDW 24.9 H Plt Count 62 L pCO2 pO2 89 H 68 H HCO3 ABG pH ABG Total CO2 ABG O2 Saturation ABG O2 Content ABG Base Excess ABG Hemoglobin ABG Carboxyhemoglobin POC ABG HHb (Measured) ABG Methemoglobin ABG O2 Capacity VBG pH 7.34 7.38 VBG pCO2 23.0 L 24.0 L VBG HCO3 12.4 L 14.2 L VBG Total CO2 13.1 L 14.9 L VBG O2 Sat (Calc) 100.4 H 98.1 H VBG Base Excess -12.0 L -9.0 L VBG Potassium 5.3 H 5.2 Hgb O2 Saturation Sodium 129.0 L 128.0 L Chloride 97.0 L 98.0 Glucose 87 50 L Lactate 14.4 H* 11.8 H* FiO2 21.0 21.0 Potassium Carbon Dioxide Anion Gap BUN Creatinine Est GFR ( Amer) Est GFR (Non-Af Amer) Random Glucose Lactic Acid Uric Acid Calcium Phosphorus Total Bilirubin AST ALT Alkaline Phosphatase Total Protein Albumin Globulin Albumin/Globulin Ratio Venous Blood Potassium 5.3 H 5.2 01/17/17 05:30 WBC RBC Hgb Hct MCV MCH MCHC RDW Plt Count pCO2 pO2 HCO3 ABG pH ABG Total CO2 ABG O2 Saturation ABG O2 Content ABG Base Excess ABG Hemoglobin ABG Carboxyhemoglobin POC ABG HHb (Measured) ABG Methemoglobin ABG O2 Capacity VBG pH VBG pCO2 VBG HCO3 VBG Total CO2 VBG O2 Sat (Calc) VBG Base Excess VBG Potassium Hgb O2 Saturation Sodium 130 L Chloride 95 L Glucose Lactate FiO2 Potassium 5.1 H Carbon Dioxide 16 L Anion Gap 24 H BUN 41 H Creatinine 2.2 H Est GFR ( Amer) 28 Est GFR (Non-Af Amer) 23 Random Glucose 35 L* D Lactic Acid Uric Acid Calcium 6.1 L* Phosphorus Total Bilirubin 11.4 H AST 523 H ALT 113 H Alkaline Phosphatase 328 H Total Protein 6.2 Albumin 2.9 L Globulin 3.2 Albumin/Globulin Ratio 0.9 L Venous Blood Potassium Attending/Attestation - Attestation I have personally seen and examined this patient.: Yes I have fully participated in the care of the patient.: Yes I have reviewed all pertinent clinical information: Yes Notes (Text): 01/16/17 18:01 56 year old female with h/o metastatic breast ca to the stomach, bones and Liver readmitted with SOB and continued deterioration overall. She has had some intermittent vomiting, progressive jaundice, worsening renal function. 1. Liver metastases 2. Peritoneal carcinomatosis 3. Ascites Plan: -patient is now readmitted with progression of metastatic breast cancer -her liver function / jaundice is worsening -she has acute renal failure -she also had transient hypotension and tachycardia with some concern for sepsis -her jaundice is likely related to intrahepatic cholestasis from metastatic disease the liver -CT/MRI imaging reviewed, no evidence of biliary dilation to suggest there would be any rationale or benefit to biliary intervention (PTC/ERCP) -her jaundice is likely to get progressively worse and I'm not sure that she will be a candidate for chemotherapy -she has SAAG > 1.1 which is consistent with malignant ascites, although cytology was not sent which could have confirmed the diagnosis -would recommend palliative care / hospice consideration -supportive care per ICU -abnormal INR ddx includes vitamin k deficiency due to chronic cholestasis, DIC , hepatic failure
[2017-01-16 16:57] LABS: CREATININE,RANDOM URINE 162 mg/dL
[2017-01-16 17:03] LABS: OSMOLALITY,URINE 293 mosm/kg (50-645)
[2017-01-16] MEDS ORDERED: Albumin Human 25% (12.5 gm/50 ml) IV SCH ×2 (17:30→18:00)
[2017-01-16] MEDS ORDERED: Albumin Human 25% (25 gm/100 ml) IV SCH (17:30)
--- NOTE | 2017-01-16 17:47 | CP.PCM.CON ---
History of Present Illness - History of Present Illness History of Present Illness: 56 yo female with stage 4 metastatic breast cancer with mets to the bone and liver, who presented with 1 day duration of LOWERY and abdominal pain. Both symptoms progressed over 24 hour period which propmpted her to seek medical attention in [facility]. Abdo pain is diffuse but more in R. mesogastrium. Pain is achy in nature, not radiating, constant and without modifying factors. Had 1 BM , No N/V/D. No fever chills sweats. Review of Systems - Constitutional Constitutional: As Per HPI - EENT Eyes: As Per HPI - Breasts Breasts: As Per HPI - Cardiovascular Cardiovascular: As Per HPI - Respiratory Respiratory: As Per HPI - Gastrointestinal Gastrointestinal: As Per HPI - Genitourinary Genitourinary: As Per HPI - Reproductive: Female Reproductive:Female: As Per HPI - Musculoskeletal Musculoskeletal: As Per HPI - Neurological Neurological: As Per HPI - Psychiatric Psychiatric: As Per HPI Past Patient History - Infectious Disease Hx of Infectious Diseases: None - Tetanus Immunizations Tetanus Immunization: Unknown - Past Medical History & Family History Past Medical History?: Yes - Past Social History Smoking Status: Never Smoked - CARDIAC Hx Cardiac Disorders: No - PULMONARY Hx Respiratory Disorders: No - NEUROLOGICAL Hx Neurological Disorder: No - HEENT Hx HEENT Problems: Yes Other/Comment: wears glasses - RENAL Hx Chronic Kidney Disease: No Other/Comment: Fluid on liver - ENDOCRINE/METABOLIC Hx Endocrine Disorders: No - HEMATOLOGICAL/ONCOLOGICAL Hx Anemia: Yes Hx Cancer: Yes (Rt Breast cancer) - INTEGUMENTARY Hx Dermatological Problems: No - MUSCULOSKELETAL/RHEUMATOLOGICAL Hx Musculoskeletal Disorders: No Hx Falls: No - GASTROINTESTINAL Hx Gastrointestinal Disorders: Yes (metastatic vs hepatocellular disease) Hx Colitis: Yes - GENITOURINARY/GYNECOLOGICAL Hx Genitourinary Disorders: No - PSYCHIATRIC Hx Psychophysiologic Disorder: No Hx Substance Use: No - SURGICAL HISTORY Hx Cholecystectomy: Yes - ANESTHESIA Hx Anesthesia: Yes Hx Anesthesia Reactions: No Hx Malignant Hyperthermia: No Meds Allergies/Adverse Reactions: Allergies Allergy/AdvReac Type Severity Reaction Status Date / Time No Known Allergies Allergy Verified 01/11/17 11:35 - Medications Medications: Current Medications Albumin Human (Albumin Human 25% (25 Gm/100 Ml)) 25 gm IV Q4H [facility] Famotidine (Pepcid) 40 mg PO HS [facility] Piperacillin Sod/Tazobactam Sod (Zosyn 2.25 Gm In 0.9% 100 Ml) 2.25 gm in 100 mls @ 100 mls/hr IVPB Q6 [facility] PRN Reason: Protocol Stop: 01/17/17 00:59 Sodium Bicarbonate 150 meq/ (Dextrose) 1,150 mls @ 100 mls/hr IV .[id number] [facility] Morphine Sulfate (Morphine) 1 mg IVP Q4H PRN PRN Reason: Pain, severe (8-10) Oxycodone HCl (Oxycodone Immediate Release Tab) 5 mg PO Q6H PRN PRN Reason: Pain, Mild (1-3) Physical Exam - Constitutional Additional comments: in mild to moderate distress due to pain - Head Exam Head Exam: ATRAUMATIC, NORMAL INSPECTION, NORMOCEPHALIC - Respiratory Exam Respiratory Exam: Clear to Auscultation Bilateral, NORMAL BREATHING PATTERN - Cardiovascular Exam Cardiovascular Exam: Tachycardia, REGULAR RHYTHM, +S1, +S2 - GI/Abdominal Exam Additional comments: diffuse abdominal tenderness, R.mesogastrium appears more tender. No rebound tenderness, No voluntary or involuntary guarding - Neurological Exam Additional comments: moves all extremities spontaneously - Psychiatric Exam Additional comments: anxious - Skin Skin Exam: Warm Results - Vital Signs Recent Vital Signs: Last Vital Signs Temp 98.2 F 01/16/17 16:42 Pulse 110 H 01/16/17 16:42 Resp 22 01/16/17 16:42 BP 135/81 01/16/17 16:42 Pulse Ox 100 01/16/17 16:42 - Labs Result Diagrams: 01/16/17 10:22 01/16/17 10:22 Labs: Laboratory Results - last 24 hr 01/16/17 01/16/17 01/16/17 15:33 15:33 15:55 pO2 72 H VBG pH 7.29 L VBG pCO2 27.0 L VBG HCO3 13.0 L VBG Total CO2 13.8 L VBG O2 Sat (Calc) 96.8 H VBG Base Excess -12.0 L VBG Potassium 5.7 H Sodium 134.0 Chloride 93.0 L Glucose 60 L Lactate 14.1 H* FiO2 21.0 Venous Blood Potassium 5.7 H Urine Color Yellow Urine Appearance Cloudy Urine pH 7.0 Ur Specific [place] 1.020 Urine Protein 100 H Urine Glucose (UA) Negative Urine Ketones Negative Urine Blood Large H Urine Nitrate Negative Urine Bilirubin Large H Urine Urobilinogen 1.0 H Ur Leukocyte Esterase Small H Urine RBC 10 - 15 Urine WBC 5 - 10 Ur Epithelial Cells 4 - 5 Urine Bacteria Many Urine Osmolality 293 Ur Random Creatinine 162 Ur Random Sodium < 5 Ur Random Potassium 78.8 Assessment & Plan - Assessment and Plan (Free Text) Assessment: 56 yo lady with h/o metastatic liver disease vs hepatocellular disease, SBO and colitis, who presented with diffuse abdominal pain, metabolic/lactic acidosis ( likely combination of type A and type B). Possibility of distributive shock due to intra-abdominal sepsis, complicated by LITO cannot be ruled out. Will proceed with IVF resuscitation, septic workup, renally adjusted abx, CT abdo/pelvis, albumin supplementation, ID and GI consult. Will get lipase. Discussed recent MRCP with GI service (Dr. Cerna)--> no intrahepatic billiary dilatation, that would be amenable to the palliative instrumentation. LITO is due to sepsis related ATN vs hepatorenal syndrome. If persists despite albumin/IVF resuscitation, renal consult will be requested. I doubt utility of ROOF FITTER in this sad situation of extensive metastatic disease, but will defer this decision to nephrology service. NPO for now. coaguilopathy likely due to liver failure. ccm time 40 min
[2017-01-16] MEDS ORDERED: Sodium Chloride 0.9% 1,000 ML IV STA (17:50)
[2017-01-16] MEDS: Sodium Bicarbonate 8.4% 150 MEQ in Dextrose 5% In Water 1,000 ML IV SCH (18:27)
--- NOTE | 2017-01-16 19:58 | CT ---
EXAM: CT Abdomen and Pelvis Without Intravenous Contrast CLINICAL HISTORY: 56 years old, female; Pain; Abdominal pain; Acute; Additional info: Breast cancer TECHNIQUE: Axial computed tomography images of the abdomen and pelvis without intravenous contrast. This CT exam was performed using one or more of the following dose reduction techniques: automated exposure control, adjustment of the mA and/or kV according to patient size, and/or use of iterative reconstruction technique. Coronal and sagittal reformatted images were created and reviewed. EXAM DATE/TIME: 01/16/2017 5:25 PM COMPARISON: CT - ABD PELVIS IV CONTRAST ONLY 01/11/2017 3:48:40 PM FINDINGS: Artifacts: Motion artifact degrades image quality. Limitations: Evaluation of the abdomen and pelvis is limited by lack of oral and intravenous contrast. Lower thorax: Heart size is normal. There is a small pericardial effusion. There is atelectasis and scarring at the lung bases. ABDOMEN: Liver: There is a cyst in the liver. Gallbladder and bile ducts: Gallbladder is surgically absent. Common duct is not well visualized. Pancreas: unremarkable Spleen: unremarkable Adrenals: Right adrenal is unremarkable. There is left adrenal thickening. Kidneys and ureters: unremarkable Stomach and bowel: Stomach is incompletely distended which accentuates the gastric wall. Bowel rotation is normal. Small bowel is incompletely distended which limits evaluation. There is mild terminal ileal wall thickening. Appendix is unremarkable. There is colonic wall thickening. Appendix: See above. PELVIS: Bladder: Bladder is almost completely empty. Reproductive: Uterus and adnexal structures are unremarkable. ABDOMEN and PELVIS: Intraperitoneal space: There is ascites in the abdomen and pelvis. Bones/joints: There are sclerotic lesions throughout the entire skeleton. There are degenerative changes in the osseus structures. Soft tissues: There is a small fat containing umbilical hernia Vasculature: Aorta and inferior vena cava are normal in caliber. Lymph nodes: There are no pathologically enlarged retroperitoneal nodes. IMPRESSION: Persistent ascites; enterocolitis; gastric wall thickening, gastritis versus underdistention; hepatic cyst, unchanged but limited evaluation of hepatic parenchyma; bony metastatic disease Additional findings as described above.
[2017-01-16 20:00] LABS: ARTERIAL BLOOD GAS HEMOGLOBIN 8.2 g/dL (11.7-17.4); ARTERIAL BLOOD GAS O2 CAPACITY 11.5 mL/dl (16-24); ARTERIAL BLOOD GAS O2 CONTENT 11.6 ML/dl (15-23); ARTERIAL BLOOD GAS O2 SAT 100.7 % (95-98); ARTERIAL BLOOD GAS PCO2 17 mm/Hg (35-45); ARTERIAL BLOOD GAS TCO2 10.3 mmol.L (22-28)
[2017-01-16 20:01] LABS: ARTERIAL BLOOD GAS HCO3 9.8 mmol/L (21-28); ARTERIAL BLOOD GAS PH 7.37 (7.35-7.45)
--- NOTE | 2017-01-16 21:19 | CP.PCM.CON ---
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 and ascites, underwent paracentesis on 01/12 with 2L fluid drained; Current history taken from patient and her family at bedside; patient was reportedly breathing well yesterday evening; did not eat any meal last night or take any meds; this morning she again started having intermittent dyspnea; denies any cough but has been having persistent mucous production; denies any chills or subjective fever; Patient was able to walk with assistance in the ED today; denies any decreased urination but does mention it being darker in color; denies any dysuria; Review of Systems - Constitutional Constitutional: absent: Chills, Fever, Frequent Falls - EENT Eyes: absent: Change in Vision Nose/Mouth/Throat: absent: Sore Throat - Cardiovascular Cardiovascular: absent: Chest Pain, Palpitations - Respiratory Respiratory: Dyspnea, Dyspnea on Exertion. absent: Cough - Gastrointestinal Gastrointestinal: Abdominal Pain Additional comments: One episode of vomiting last night; - Genitourinary Genitourinary: absent: Difficulty Urinating, Dysuria - Musculoskeletal Musculoskeletal: absent: Back Pain - Integumentary Integumentary: absent: Pruritus, Rash - Neurological Neurological: Confusion. absent: Dizziness - Psychiatric Psychiatric: Anxiety - Hematologic/Lymphatic Hematologic: absent: Easy Bleeding Past Patient History - Infectious Disease Hx of Infectious Diseases: None - Tetanus Immunizations Tetanus Immunization: Unknown - Past Medical History & Family History Past Medical History?: Yes Pertinent Family History: Mother - heart disease; - Past Social History Smoking Status: Never Smoked - CARDIAC Hx Cardiac Disorders: No - PULMONARY Hx Respiratory Disorders: No - NEUROLOGICAL Hx Neurological Disorder: No - HEENT Hx HEENT Problems: Yes Other/Comment: wears glasses - RENAL Hx Chronic Kidney Disease: No Other/Comment: Fluid on liver - ENDOCRINE/METABOLIC Hx Endocrine Disorders: No - HEMATOLOGICAL/ONCOLOGICAL Hx Anemia: Yes Hx Cancer: Yes (Rt Breast cancer) - INTEGUMENTARY Hx Dermatological Problems: No - MUSCULOSKELETAL/RHEUMATOLOGICAL Hx Musculoskeletal Disorders: No Hx Falls: No - GASTROINTESTINAL Hx Gastrointestinal Disorders: No - GENITOURINARY/GYNECOLOGICAL Hx Genitourinary Disorders: No - PSYCHIATRIC Hx Psychophysiologic Disorder: No Hx Substance Use: No - SURGICAL HISTORY Hx Cholecystectomy: Yes - ANESTHESIA Hx Anesthesia: Yes Hx Anesthesia Reactions: No Hx Malignant Hyperthermia: No Meds Allergies/Adverse Reactions: Allergies Allergy/AdvReac Type Severity Reaction Status Date / Time No Known Allergies Allergy Verified 01/11/17 11:35 - Medications Medications: Current Medications Albumin Human (Albumin Human 25% (25 Gm/100 Ml)) 25 gm IV Q4H [facility] Alprazolam (Xanax) 0.25 mg PO Q6 PRN; Protocol PRN Reason: Anxiety Stop: 01/23/17 18:01 Famotidine (Pepcid) 40 mg PO HS J[facility]IE Piperacillin Sod/Tazobactam Sod (Zosyn 2.25 Gm In 0.9% 100 Ml) 2.25 gm in 100 mls @ 100 mls/hr IVPB Q6 [facility] PRN Reason: Protocol Stop: 01/23/17 18:01 Sodium Bicarbonate 150 meq/ (Dextrose) 1,150 mls @ 100 mls/hr IV .[id number] [facility] Last Admin: 01/16/17 18:27 Dose: 100 mls/hr Morphine Sulfate (Morphine) 1 mg IVP Q4H PRN PRN Reason: Pain, severe (8-10) Oxycodone HCl (Oxycodone Immediate Release Tab) 5 mg PO Q6H PRN PRN Reason: Pain, Mild (1-3) Physical Exam - Constitutional Appears: Non-toxic Additional comments: Mild resp distress on movement; - Head Exam Head Exam: NORMAL INSPECTION - Eye Exam Eye Exam: Scleral icterus - ENT Exam ENT Exam: Mucous Membranes Moist - Neck Exam Neck exam: Negative for: Lymphadenopathy, Thyromegaly - Respiratory Exam Respiratory Exam: Clear to Auscultation Bilateral. absent: Rales, Rhonchi, Wheezes - Cardiovascular Exam Cardiovascular Exam: Tachycardia, REGULAR RHYTHM. absent: Systolic Murmur Additional comments: soft S2; - GI/Abdominal Exam GI & Abdominal Exam: Soft Additional comments: Tenderness to soft palpation; - Exam Exam: absent: Bladder Distension - Extremities Exam Extremities exam: Positive for: normal capillary refill, pedal pulses present Additional comments: Mild lower leg edema; - Neurological Exam Neurological exam: Alert Additional comments: Asterixis present; - Psychiatric Exam Psychiatric exam: Normal Mood - Skin Skin Exam: Normal Color, Warm Results - Vital Signs Recent Vital Signs: Last Vital Signs Temp 98.8 F 01/16/17 20:25 Pulse 119 H 01/16/17 21:01 Resp 31 H 01/16/17 21:01 BP 117/80 01/16/17 21:01 Pulse Ox 100 01/16/17 21:01 - Labs Result Diagrams: 01/16/17 10:22 01/16/17 10:22 Labs: Laboratory Results - last 24 hr 01/16/17 19:55 pCO2 17 L* pO2 146.0 H HCO3 9.8 L* ABG pH 7.37 ABG Total CO2 10.3 L ABG O2 Saturation 100.7 H ABG O2 Content 11.6 L ABG Base Excess -13.8 L ABG Hemoglobin 8.2 L ABG Carboxyhemoglobin 1.7 H POC ABG HHb (Measured) -0.7 L ABG Methemoglobin 1.3 ABG O2 Capacity 11.5 L Hgb O2 Saturation 97.7 FiO2 32.0 - Imaging and Cardiology Chest x-ray Status: Image reviewed by me Additional comment: No pulm edema; Assessment & Plan (1) Acute renal failure (ARF) Assessment and Plan: LITO in in the setting of sepsis parameters (mild hypotension, tachycardia/ tachypnea, lactic acidosis), intravascular volume depletion needs to be ruled out with volume resuscitation (low FENA is highly suggestive); possibility of having progressed to ATN as well; however, patient already had mild degree increase in serum creatinine on previous admission in the setting of worsening liver dysfunction and may have underlying hepatorenal syndrome as well (in which case low Ur Na will persist despite volume resuscitation); Mild hyperkalemia, should improve somewhat with bicarb drip; giving kayexalate is also questionable given findings of enterocolitis on imaging; If renal function continues to worsen, initiation of LIGHTER is likely futile considering patient's overall poor prognosis; placing HD catheter will also be a challenge due to coagulopathy; will discuss further with family; -agree with IV albumin q4h (for total of 100g over 24hr) -if no response to volume resuscitation, start octreotide and midodrine for HRS; -agree with checking uric acid level (acute hyperuricemia induced LITO can rarely be seen with solid tumors); -if hyperkalemia worsens, would use lactulose to induce diarrhea; -avoid any nephrotoxic agents; Status: Acute (2) Lactic acidosis Assessment and Plan: Acute onset evidenced by normal anion gap on labs yesterday; etiology is likely due to underlying tumor with sepsis also being differential; as patient has worsening liver dysfunction, lactate will be difficult to clear unless underlying etiology is addressed (oncology has already mentioned that options are limited with regard to CA); -Agree with bicarb drip as a temporizing measure; -Monitor ionized Ca and replenish accordingly as Ca will drop further with bicarb drip; Status: Acute (3) Dyspnea Assessment and Plan: Now worsened by severe lactic acidosis and need for resp compensation; etiology of underlying dyspnea that has plagued patient on multiple admissions not completely clear (imaging unremarkable, no PE) but elevated A-a gradient is suggestive of hepatopulmonary syndrome; -if patient stabilizes, can do echo with bubble study to confirm (for diagnostic purposes as only treatment for this would be liver transplant for which patient is not a candidate); Status: Acute (4) SIRS (systemic inflammatory response syndrome) Assessment and Plan: Possible UTI sepsis; started on zosyn, may need to be dose adjusted further for worsening renal function; agree with volume resuscitation; Status: Acute (5) Hypocalcemia Assessment and Plan: In the setting of metastatic breast CA, worsening hypocalcemia (corrected for hypoalbuminemia) possibly due to osteoblastic metastasis; tumor lysis also in differential; -check PTH, phos and uric acid levels -supplement Ca as mentioned previously Status: Acute (6) Metastatic cancer Assessment and Plan: Metastatic breast CA with patient currently off chemo; per last oncology note, treatment options are limited; overall complications are increasing; will await patient decision on goals of care; Status: Acute
[2017-01-16] MEDS: Albumin Human 25% (25 gm/100 ml) IV SCH (22:23)
[2017-01-16 22:37] LABS: VENOUS BLOOD GAS PO2 89 mm/Hg (30-55); VENOUS BLOOD PH 7.34 (7.32-7.43)
[2017-01-16 22:43] VITALS: BMI 37.6
[2017-01-16] MEDS ORDERED: Pneumococcal 23-Valent Vaccine IM ONE (22:43)
[2017-01-16 22:51] LABS: URIC ACID 12.5 mg/dL (2.5-6.2)
[2017-01-16 22:58] LABS: CALCIUM 6.1 mg/dL (8.4-10.5)
[2017-01-17] MEDS: Piperacillin/Tazobact 2.25gm 2.25 GM/100 ML BAG IVPB SCH ×4 (01:20→18:31)
[2017-01-17 01:55] LABS: VENOUS BLOOD GAS PO2 68 mm/Hg (30-55); VENOUS BLOOD PH 7.38 (7.32-7.43)
[2017-01-17] MEDS: Albumin Human 25% (25 gm/100 ml) IV SCH ×6 (02:25→22:43)
[2017-01-17 06:33] LABS: MEAN CELL VOLUME 103.8 fL (80.0-105.0); MEAN CORPUSCULAR HEMOGLOBIN 34.9 pg (25.0-35.0); MEAN CORPUSCULAR HGB CONC 33.6 g/dl (31.0-37.0); PLATELET COUNT 62 10^3/uL (120.0-450.0); RBC 2.12 10^6/uL (3.5-6.1); RED CELL DISTRIBUTION WIDTH 24.9 % (11.5-14.5); WHITE BLOOD COUNT 15.9 10^3/ul (4.5-11.0)
[2017-01-17 06:47] LABS: ALB/GLOB RATIO 0.9 (1.1-1.8); ALBUMIN 2.9 g/dL (3.0-4.8)
[2017-01-17 06:48] LABS: HEMOGLOBIN 7.4 gm/dL (12.0-16.0)
[2017-01-17 06:59] LABS: CALCIUM 6.1 mg/dL (8.4-10.5)
[2017-01-17] MEDS ORDERED: Dextrose 50% SYRINGE Inj (50 ml) ONE (06:59)
[2017-01-17] MEDS: Sodium Bicarbonate 8.4% 150 MEQ in Dextrose 5% In Water 1,000 ML IV SCH (08:21)
--- NOTE | 2017-01-17 09:59 | CP.PCM.CON ---
History of Present Illness - History of Present Illness History of Present Illness: 56 year old female with PMH of breast cancer, history of partial small bowel obstruction, chronic anemia, obesity with BMI 38 was recently in [facility] because of abdominal distention and the patient was noted to have ascites. She underwent paracentesis and the patient got better (she initially presented with SOB and her dyspnea improved after paracentesis). This happened last week and the patient was discharged home. About 2-3 days ago, the patient started having dyspnea on exertion which slowly worsened over the next few days. She is also having anorexia and occasional agitation. There is no note of fever, no dysuria or hematuria, no diarrhea, no vomiting, no loss of consciousness, no convulsions. Patient is not as cooperative and therefore full review of systems is difficult to obtain. In the ED, she was noted to have leukocytosis as well. Infectious diseases consult is requested to further evaluate and manage. Review of Systems - Review of Systems All systems: reviewed and no additional remarkable complaints except (as per HPI ) Past Patient History - Infectious Disease Hx of Infectious Diseases: None - Tetanus Immunizations Tetanus Immunization: Unknown - Past Medical History & Family History Past Medical History?: Yes - Past Social History Smoking Status: Never Smoked - CARDIAC Hx Cardiac Disorders: No - PULMONARY Hx Respiratory Disorders: No - NEUROLOGICAL Hx Neurological Disorder: No - HEENT Hx HEENT Problems: Yes Other/Comment: wears glasses - RENAL Hx Chronic Kidney Disease: No Other/Comment: Fluid on liver - ENDOCRINE/METABOLIC Hx Endocrine Disorders: No - HEMATOLOGICAL/ONCOLOGICAL Hx Anemia: Yes Hx Cancer: Yes (Rt Breast cancer) - INTEGUMENTARY Hx Dermatological Problems: No - MUSCULOSKELETAL/RHEUMATOLOGICAL Hx Musculoskeletal Disorders: No Hx Falls: No - GASTROINTESTINAL Hx Gastrointestinal Disorders: No - GENITOURINARY/GYNECOLOGICAL Hx Genitourinary Disorders: No - PSYCHIATRIC Hx Psychophysiologic Disorder: No Hx Substance Use: No - SURGICAL HISTORY Hx Cholecystectomy: Yes - ANESTHESIA Hx Anesthesia: Yes Hx Anesthesia Reactions: No Hx Malignant Hyperthermia: No Meds Allergies/Adverse Reactions: Allergies Allergy/AdvReac Type Severity Reaction Status Date / Time No Known Allergies Allergy Verified 01/11/17 11:35 - Medications Medications: Current Medications Albumin Human (Albumin Human 25% (25 Gm/100 Ml)) 25 gm IV Q4H JEREMIE Alprazolam (Xanax) 0.25 mg PO Q6 PRN; Protocol PRN Reason: Anxiety Stop: 01/23/17 18:01 Famotidine (Pepcid) 40 mg PO HS JEREMIE Piperacillin Sod/Tazobactam Sod (Zosyn 2.25 Gm In 0.9% 100 Ml) 2.25 gm in 100 mls @ 100 mls/hr IVPB Q6 J[facility]IE PRN Reason: Protocol Stop: 01/23/17 18:01 Sodium Bicarbonate 150 meq/ (Dextrose) 1,150 mls @ 100 mls/hr IV .[id number] [facility] Last Admin: 01/16/17 18:27 Dose: 100 mls/hr Morphine Sulfate (Morphine) 1 mg IVP Q4H PRN PRN Reason: Pain, severe (8-10) Oxycodone HCl (Oxycodone Immediate Release Tab) 5 mg PO Q6H PRN PRN Reason: Pain, Mild (1-3) Physical Exam - Constitutional Appears: Chronically Ill - Head Exam Head Exam: NORMAL INSPECTION - Neck Exam Neck exam: Negative for: Meningismus - Respiratory Exam Respiratory Exam: Decreased Breath Sounds - Cardiovascular Exam Cardiovascular Exam: +S1, +S2 - GI/Abdominal Exam GI & Abdominal Exam: Distended, Soft. absent: Guarding, Rebound, Rigid, Tenderness Results - Vital Signs Recent Vital Signs: Last Vital Signs Temp 98.0 F 01/16/17 19:21 Pulse 112 H 01/16/17 19:21 Resp 22 01/16/17 19:21 BP 130/72 01/16/17 19:21 Pulse Ox 100 01/16/17 19:21 - Labs Result Diagrams: 01/17/17 05:30 01/17/17 05:30 Assessment & Plan - Assessment and Plan (Free Text) Plan: Assessment Systemic Inflammatory Response Syndrome, R/O severe sepsis with acute on chronic renal failure from spontaneous bacterial peritonitis in a patient with probable hepatic metastases from breast cancer and ascites breast cancer history of partial small bowel obstruction chronic anemia obesity with BMI 38 Plan Started patient on a dose of IV Vancomycin and Zosyn pending blood cx; awaiting plan for possible repeat paracentesis will monitor clinically overall prognosis is poor
[2017-01-17] MEDS ORDERED: cefTRIAXone 1 gm 1 GM/100 ML BAG IVPB SCH (10:00)
[2017-01-17] MEDS ORDERED: Vancomycin 1gm in NS 250ml 1 GM/250 ML BAG IVPB STA (10:00)
[2017-01-17 10:29] LABS: PROTHROMBIN TIME 42.5 Seconds (9.9-11.8)
[2017-01-17 10:31] LABS: INR 3.94 (0.93-1.08)
--- NOTE | 2017-01-17 11:08 | CP.PCM.PN ---
<GISEL WILBURN - Last Filed: 01/17/17 11:05> Subjective - Date & Time of Evaluation Date of Evaluation: 01/17/17 Time of Evaluation: 09:00 - Subjective Subjective: Medicine Progress Note: Pt seen and examined at bedside. Pt states that SOB was worse overnight and was unable to speak in full sentences. Daughter was at bedside and stated pt was restless overnight due to dyspnea. Pt denies n/v/f, chills, CP, and abdominal pain. Objective - Vital Signs/Intake and Output Vital Signs (last 24 hours): Temp Pulse Resp BP Pulse Ox 98.1 F 111 H 30 H 109/70 98 01/17/17 08:00 01/17/17 08:37 01/17/17 07:00 01/17/17 08:00 01/17/17 08:00 Intake and Output: 01/17/17 01/17/17 06:59 18:59 Intake Total 2200 Output Total 400 Balance 1800 - Medications Medications: Current Medications Albumin Human (Albumin Human 25% (25 Gm/100 Ml)) 25 gm IV Q4H [facility] Last Admin: 01/17/17 05:56 Dose: 25 gm Alprazolam (Xanax) 0.25 mg PO Q6 PRN; Protocol PRN Reason: Anxiety Stop: 01/23/17 18:01 Famotidine (Pepcid) 40 mg PO HS [facility] Last Admin: 01/16/17 22:22 Dose: 40 mg Piperacillin Sod/Tazobactam Sod (Zosyn 2.25 Gm In 0.9% 100 Ml) 2.25 gm in 100 mls @ 100 mls/hr IVPB Q6 JEREMIE PRN Reason: Protocol Stop: 01/23/17 18:01 Last Admin: 01/17/17 05:58 Dose: 100 mls/hr Sodium Bicarbonate 150 meq/ (Dextrose) 1,150 mls @ 100 mls/hr IV .[id number] JEREM[facility] Last Admin: 01/17/17 08:21 Dose: 100 mls/hr Vancomycin HCl (Vancomycin 1gm) 1 gm in 250 mls @ 167 mls/hr IVPB STAT STA PRN Reason: Protocol Stop: 01/17/17 11:29 Last Admin: 01/17/17 10:16 Dose: 167 mls/hr Morphine Sulfate (Morphine) 1 mg IVP Q4H PRN PRN Reason: Pain, severe (8-10) Oxycodone HCl (Oxycodone Immediate Release Tab) 5 mg PO Q6H PRN PRN Reason: Pain, Mild (1-3) - Labs Labs: 01/17/17 05:30 01/17/17 05:30 PT 42.5 Seconds (9.9-11.8) H* 01/17/17 10:01 INR 3.94 (0.93-1.08) H* 01/17/17 10:01 APTT 80.8 Seconds (23.7-30.8) H* 01/16/17 10:11 - Head Exam Head Exam: ATRAUMATIC, NORMOCEPHALIC - Eye Exam Eye Exam: EOMI - Neck Exam Neck Exam: Full ROM - Respiratory Exam Respiratory Exam: Accessory Muscle Use, Clear to Ausculation Bilateral. absent : Rales, Rhonchi, Wheezes - Cardiovascular Exam Cardiovascular Exam: RRR, +S1, +S2. absent: Gallop, Rubs, Murmur - GI/Abdominal Exam GI & Abdominal Exam: Distended, Soft. absent: Guarding, Tenderness - Extremities Exam Extremities Exam: Full ROM. absent: Calf Tenderness, Joint Swelling - Neurological Exam Neurological Exam: Awake. absent: Alert, Oriented x3 (Oriented person and place , but not time.) - Skin Skin Exam: Dry, Intact, Normal Color, Warm Assessment and Plan - Assessment and Plan (Free Text) Assessment: 56 yo F with h/o metastatic breast cancer with gastric, peritoneal, and bone metastases was admitted for evaluation and treatment of progressively worsening sob, jaundice, and ascites. 1. Dyspnea - etiology unclear - pulm vs, cardiac vs ascities vs abdominal pressure -Lactic acidosis with respiratory compensation -CXR showed no active pulmonary disease -Lung perfusion and ventilation scan showed low probability ventiliation perfusion scan for PE -Ativan for acute anxiety 2. Liver metastasis -Platelet count low likely due to liver etiology, monitor INR -GI consulted, likely 2/2 to abdominal wall carcinomatosis, SAAG > 1.1, recommends palliative care/hospice consideration -CT abdomen and pelvis shows persistent ascites, enterocolitis, gastric wall thickening and bone metastasis -LFT's remain consistently elevated -Morphine and oxycodone for pain control -Past admission: Therapeutic Paracentesis 2L removed, Abd US: hepatic fatty infiltration vs hepatocellular dx, simple cyst in inf R hepatic lobe 6cm, portal HTN, CT showed Moderate ascites, increase density in the omental fat suspicious of peritonal mets, Schlerotic bony mets, probable liver mets. 3. Acute Renal Failure -Fluid resuscitation -Albumin 2.9, currently on Albumin drip -Nephrology consulted -Mild hyperkalemia should correct with bicarb, kayexalate questionable due to enterocolitis on imaging, use lactulose to induce diarrhea -Hold diuretics -Creatinine 1.9 --> 2.2, if Cr continues to worsen consider hepatorenal syndrome -[employer] not likely an option due to poor prognosis 4. Lactic Acidosis -Lactic acidosis with respiratory compensation -Per nephrology, likely due to tumor and sepsis -Lactate 14 --> 11.8 -Anion gap 19 -Bicarb drip 5. SIRS -Possible UTI etiology -ID consulted, IV vancomycin and zosyn -Blood cultures pending 6. Breast Cancer/Metastatic -Onc recommended out pt chemotherapy -Was on HER2 chemo regimen, stopped during most recent admission -Will continue to hold for now, pending assessment by GI -If regiment needs to be restarted will consult heme-onc 7. Anemia -Hemoglobin 7.4 -Continue to monitor 8. GI/DVT PPx -Pepcid & SCDs Case and plan was seen, reviewed and discussed in detail with Dr Matamoros. <Deyanira Matamoros - Last Filed: 01/17/17 16:38> Objective - Vital Signs/Intake and Output Vital Signs (last 24 hours): Temp Pulse Resp BP Pulse Ox 98.5 F 97 H 20 126/59 L 96 01/17/17 15:50 01/17/17 15:50 01/17/17 15:50 01/17/17 15:50 01/17/17 14:36 Intake and Output: 01/17/17 01/17/17 06:59 18:59 Intake Total 2200 5 Output Total 400 Balance 1800 5 - Medications Medications: Current Medications Albumin Human (Albumin Human 25% (25 Gm/100 Ml)) 25 gm IV Q4H [facility] Last Admin: 01/17/17 15:06 Dose: 25 gm Alprazolam (Xanax) 0.25 mg PO Q6 PRN; Protocol PRN Reason: Anxiety Stop: 01/23/17 18:01 Famotidine (Pepcid) 40 mg PO HS [facility] Last Admin: 01/16/17 22:22 Dose: 40 mg Piperacillin Sod/Tazobactam Sod (Zosyn 2.25 Gm In 0.9% 100 Ml) 2.25 gm in 100 mls @ 100 mls/hr IVPB Q6 [facility] PRN Reason: Protocol Stop: 01/23/17 18:01 Last Admin: 01/17/17 13:12 Dose: 100 mls/hr Sodium Bicarbonate 150 meq/ (Dextrose) 1,150 mls @ 100 mls/hr IV .[id number] [facility] Last Admin: 01/17/17 08:21 Dose: 100 mls/hr Morphine Sulfate (Morphine) 1 mg IVP Q4H PRN PRN Reason: Pain, severe (8-10) Oxycodone HCl (Oxycodone Immediate Release Tab) 5 mg PO Q6H PRN PRN Reason: Pain, Mild (1-3) Phytonadione (Vitamin K Tab) 10 mg PO DAILY [facility] Stop: 01/19/17 22:00 Last Admin: 01/17/17 13:12 Dose: 10 mg - Labs Labs: 01/17/17 05:30 01/17/17 05:30 PT 42.5 Seconds (9.9-11.8) H* 01/17/17 10:01 INR 3.94 (0.93-1.08) H* 01/17/17 10:01 APTT 80.8 Seconds (23.7-30.8) H* 01/16/17 10:11 Attending/Attestation - Attestation I have personally seen and examined this patient.: Yes I have fully participated in the care of the patient.: Yes I have reviewed all pertinent clinical information, including history, physical exam and plan: Yes Notes (Text): 01/17/17 16:33 attending note; Patient seen and examined with resident. Patient is a 56-year-old female with a history of metastatic breast cancer to the liver and bones is admitted with abdominal discomfort And shortness of breath. Patient was discharged From the hospital after paracentesis. D-dimer is elevated secondary to malignancy. VQ scan is negative for PE. Lactic acidosis is improving slowly. acute renal failure; pre renal vs hepatorenal. still with Elevated creatinine of 2.2. Nephrology evaluation appreciated. Tachycardia; improving after IV hydration. Tachypnea; improved.compensated secondary to severe acidosis. on IV bicarbonate therapy. anemia; no active bleeding. 1 unit PRBC transfusion ordered. Coagulopathy; monitor for bleeding. Started on vitamin K. GI evaluation appreciated. CT abdomen and Pelvis showed ascites and enterocolitis. Plan for PICC line today. Leukocytosis; rule out sepsis. Cleaning culture ordered. Currently on IV Zosyn dose adjusted. ID evaluation appreciated. case discussed with Dr. Sarthak Hernandez for liver biopsy on Sunday. We will transfuse 1 unit of platelet and 2 FFP's on Sunday morning before biopsy. Case discussed with patient, patient's sister Kenzie and patient's daughter in detail. Poor prognosis explained. patient with multiorgan failure. patient is full code for now. 01/17/17 16:37 01/17/17 16:37
[2017-01-17] MEDS ORDERED: Lidocaine 2% Inj (20ml) ONE (11:51)
--- NOTE | 2017-01-17 12:11 | CP.PCM.PN ---
<Carroll Herman - Last Filed: 01/17/17 12:14> Subjective - Date & Time of Evaluation Date of Evaluation: 01/17/17 Time of Evaluation: 12:00 - Subjective Subjective: Pt seen and examined bedside c/o of abd pain location RLQ and RUQ pt states that the pain is consistent with yesterday More lethargic today + BM, liquid with no formed stool Pt remains critically ill She states that her SOb has improved ROS: 12 point ROS was conducted by myself and other than what was previously stated above is neg Objective - Vital Signs/Intake and Output Vital Signs (last 24 hours): Temp Pulse Resp BP Pulse Ox 98.1 F 111 H 30 H 109/70 98 01/17/17 08:00 01/17/17 08:37 01/17/17 07:00 01/17/17 08:00 01/17/17 08:00 Intake and Output: 01/17/17 01/17/17 06:59 18:59 Intake Total 2200 Output Total 400 Balance 1800 - Medications Medications: Current Medications Albumin Human (Albumin Human 25% (25 Gm/100 Ml)) 25 gm IV Q4H [facility] Last Admin: 01/17/17 05:56 Dose: 25 gm Alprazolam (Xanax) 0.25 mg PO Q6 PRN; Protocol PRN Reason: Anxiety Stop: 01/23/17 18:01 Famotidine (Pepcid) 40 mg PO HS [facility] Last Admin: 01/16/17 22:22 Dose: 40 mg Piperacillin Sod/Tazobactam Sod (Zosyn 2.25 Gm In 0.9% 100 Ml) 2.25 gm in 100 mls @ 100 mls/hr IVPB Q6 JEREMIE PRN Reason: Protocol Stop: 01/23/17 18:01 Last Admin: 01/17/17 05:58 Dose: 100 mls/hr Sodium Bicarbonate 150 meq/ (Dextrose) 1,150 mls @ 100 mls/hr IV .[id number] [facility] Last Admin: 01/17/17 08:21 Dose: 100 mls/hr Morphine Sulfate (Morphine) 1 mg IVP Q4H PRN PRN Reason: Pain, severe (8-10) Oxycodone HCl (Oxycodone Immediate Release Tab) 5 mg PO Q6H PRN PRN Reason: Pain, Mild (1-3) - Labs Labs: 01/17/17 05:30 01/17/17 05:30 PT 42.5 Seconds (9.9-11.8) H* 01/17/17 10:01 INR 3.94 (0.93-1.08) H* 01/17/17 10:01 APTT 80.8 Seconds (23.7-30.8) H* 01/16/17 10:11 - Constitutional Appears: Toxic, Confused, Chronically Ill - Head Exam Head Exam: ATRAUMATIC, NORMOCEPHALIC - Eye Exam Eye Exam: EOMI, Scleral icterus - ENT Exam ENT Exam: Mucous Membranes Dry - Neck Exam Neck Exam: Full ROM - Respiratory Exam Respiratory Exam: Clear to Ausculation Bilateral, NORMAL BREATHING PATTERN - Cardiovascular Exam Cardiovascular Exam: REGULAR RHYTHM - GI/Abdominal Exam GI & Abdominal Exam: Soft, Hyperactive Bowel Sounds. absent: Guarding, Rigid, Tenderness, Organomegaly - Extremities Exam Extremities Exam: Pedal Edema. absent: Calf Tenderness, Tenderness - Psychiatric Exam Psychiatric exam: Depressed - Skin Skin Exam: Dry, Intact Additional comments: julee annice Assessment and Plan - Assessment and Plan (Free Text) Assessment: Lea Arreaga is a 56F with hx of metastatic breast ca to the stomach, bones and Liver who presented to the ER with complaints of SOB. Pt has presented with increasing LFTs with a cholestatic pattern. She also has an increase in Cr, etiology prerenal versus ATN vs hepatorenal. Last admission (1 week prior), CT of the abd/pelv revealed new hypodensities in the liver likley metastatic in etiology. There was moderate ascites present on CT Scan of the Abd/Pelvis for which she had s.p 2L paracentesis. Her etiology of SOB may be multifactorial including deconditioning and tumor burden. Liver metastases likely 2/2 breast ca -CT reviewed. + ascites and hepatic metastases -positive AMA noted, likely 2/2 met burden but cannot r/o PBC -spoke with Hem/onc, okay with liver biopsy to rule out PBC -no acute tx from GI standpoint -her liver function / jaundice is worsening -she has acute renal failure Peritoneal carcinomatosis Ascites -likely 2/2 to mets, abdominal wall carcinomatosis -SAAG > 1.1 likely malignant ascites, though no cytology was sent Abnormal INR Ddx includes vitamin k deficiency due to chronic cholestasis, DIC, hepatic failure -can consider Vitamin K replacement LITO DDx: Prerenal (volume depletion vs ATN vs hepatorenal) - agree with albumin - pt is hemodynamically stable - agree with albumin, and fluid resusitation - nephrology on board - can consider continuing albumin and starting midodrine and octreotide. D/W Dr. Sow <Herve Sow MD - Last Filed: 01/17/17 12:39> Objective - Vital Signs/Intake and Output Vital Signs (last 24 hours): Temp Pulse Resp BP Pulse Ox 98.1 F 111 H 30 H 109/70 98 01/17/17 08:00 01/17/17 08:37 01/17/17 07:00 01/17/17 08:00 01/17/17 08:00 Intake and Output: 01/17/17 01/17/17 06:59 18:59 Intake Total 2200 Output Total 400 Balance 1800 - Medications Medications: Current Medications Albumin Human (Albumin Human 25% (25 Gm/100 Ml)) 25 gm IV Q4H [facility] Last Admin: 01/17/17 05:56 Dose: 25 gm Alprazolam (Xanax) 0.25 mg PO Q6 PRN; Protocol PRN Reason: Anxiety Stop: 01/23/17 18:01 Famotidine (Pepcid) 40 mg PO [facility] Last Admin: 01/16/17 22:22 Dose: 40 mg Piperacillin Sod/Tazobactam Sod (Zosyn 2.25 Gm In 0.9% 100 Ml) 2.25 gm in 100 mls @ 100 mls/hr IVPB Q6 JEREMIE PRN Reason: Protocol Stop: 01/23/17 18:01 Last Admin: 01/17/17 05:58 Dose: 100 mls/hr Sodium Bicarbonate 150 meq/ (Dextrose) 1,150 mls @ 100 mls/hr IV .[id number] [facility] Last Admin: 01/17/17 08:21 Dose: 100 mls/hr Morphine Sulfate (Morphine) 1 mg IVP Q4H PRN PRN Reason: Pain, severe (8-10) Oxycodone HCl (Oxycodone Immediate Release Tab) 5 mg PO Q6H PRN PRN Reason: Pain, Mild (1-3) - Labs Labs: 01/17/17 05:30 01/17/17 05:30 PT 42.5 Seconds (9.9-11.8) H* 01/17/17 10:01 INR 3.94 (0.93-1.08) H* 01/17/17 10:01 APTT 80.8 Seconds (23.7-30.8) H* 01/16/17 10:11 Attending/Attestation - Attestation I have personally seen and examined this patient.: Yes I have fully participated in the care of the patient.: Yes I have reviewed all pertinent clinical information, including history, physical exam and plan: Yes Notes (Text): 01/17/17 12:37 56 year old female with h/o metastatic breast ca to the stomach, bones and Liver readmitted with SOB and continued deterioration overall. She has had some intermittent vomiting, progressive jaundice, worsening renal function. Progressive multi organ deterioration with concern of sepsis. Malignant ascites. Needs palliative/ hospice discussion with family and patient.
--- NOTE | 2017-01-17 15:56 | CP.PCM.PN ---
<WaleKian - Last Filed: 01/17/17 16:59> Subjective - Date & Time of Evaluation Date of Evaluation: 01/17/17 Time of Evaluation: 15:50 - Subjective Subjective: Patient in stupor. Objective - Vital Signs/Intake and Output Vital Signs (last 24 hours): Temp Pulse Resp BP Pulse Ox 98.6 F 95 H 20 104/65 96 01/17/17 15:05 01/17/17 15:05 01/17/17 15:05 01/17/17 15:05 01/17/17 14:36 Intake and Output: 01/17/17 01/17/17 06:59 18:59 Intake Total 2200 5 Output Total 400 Balance 1800 5 - Medications Medications: Current Medications Albumin Human (Albumin Human 25% (25 Gm/100 Ml)) 25 gm IV Q4H [facility] Last Admin: 01/17/17 15:06 Dose: 25 gm Alprazolam (Xanax) 0.25 mg PO Q6 PRN; Protocol PRN Reason: Anxiety Stop: 01/23/17 18:01 Famotidine (Pepcid) 40 mg PO HS [facility] Last Admin: 01/16/17 22:22 Dose: 40 mg Piperacillin Sod/Tazobactam Sod (Zosyn 2.25 Gm In 0.9% 100 Ml) 2.25 gm in 100 mls @ 100 mls/hr IVPB Q6 JEREMIE PRN Reason: Protocol Stop: 01/23/17 18:01 Last Admin: 01/17/17 13:12 Dose: 100 mls/hr Sodium Bicarbonate 150 meq/ (Dextrose) 1,150 mls @ 100 mls/hr IV .[id number] [facility] Last Admin: 01/17/17 08:21 Dose: 100 mls/hr Morphine Sulfate (Morphine) 1 mg IVP Q4H PRN PRN Reason: Pain, severe (8-10) Oxycodone HCl (Oxycodone Immediate Release Tab) 5 mg PO Q6H PRN PRN Reason: Pain, Mild (1-3) Phytonadione (Vitamin K Tab) 10 mg PO DAILY [facility] Stop: 01/19/17 22:00 Last Admin: 01/17/17 13:12 Dose: 10 mg - Labs Labs: 01/17/17 05:30 01/17/17 05:30 PT 42.5 Seconds (9.9-11.8) H* 01/17/17 10:01 INR 3.94 (0.93-1.08) H* 01/17/17 10:01 APTT 80.8 Seconds (23.7-30.8) H* 01/16/17 10:11 - Constitutional Appears: In Acute Distress, Confused - Head Exam Head Exam: ATRAUMATIC, NORMOCEPHALIC - Eye Exam Eye Exam: Scleral icterus Assessment and Plan - Assessment and Plan (Free Text) Assessment: 56 yo female with metastatic breast cancer, with MODS secondary to septic shock , requiring PRBC, albumin, levophed, decreasing liver and renal failure, multiorgan dysfunction, worsening overall prognosis Plan: Neuro: Hepatic encephalopathy. Respiratory: Dyspnea, improved, patient is on GI: enterocolitis, decreasing hepatic function. Ideally, discuss case with GI. NPO Nephrology: Urine, electrolytes, monitor urine output, Heme: PRBCs, albumin, Endo: hypoglycemia treated with D5 and bicarbonate. <Percy COLLINS,Giancarlo H - Last Filed: 01/17/17 17:45> Objective - Vital Signs/Intake and Output Vital Signs (last 24 hours): Temp Pulse Resp BP Pulse Ox 98.8 F 93 H 20 114/58 L 96 01/17/17 17:08 01/17/17 17:08 01/17/17 17:08 01/17/17 17:08 01/17/17 16:00 Intake and Output: 01/17/17 01/17/17 06:59 18:59 Intake Total 2200 285 Output Total 400 Balance 1800 285 - Medications Medications: Current Medications Albumin Human (Albumin Human 25% (25 Gm/100 Ml)) 25 gm IV Q4H [facility] Last Admin: 01/17/17 15:06 Dose: 25 gm Alprazolam (Xanax) 0.25 mg PO Q6 PRN; Protocol PRN Reason: Anxiety Stop: 01/23/17 18:01 Famotidine (Pepcid) 40 mg PO HS [facility] Last Admin: 01/16/17 22:22 Dose: 40 mg Piperacillin Sod/Tazobactam Sod (Zosyn 2.25 Gm In 0.9% 100 Ml) 2.25 gm in 100 mls @ 100 mls/hr IVPB Q6 JEREMIE PRN Reason: Protocol Stop: 01/23/17 18:01 Last Admin: 01/17/17 13:12 Dose: 100 mls/hr Sodium Bicarbonate 150 meq/ (Dextrose) 1,150 mls @ 100 mls/hr IV .[id number] [facility] Last Admin: 01/17/17 08:21 Dose: 100 mls/hr Morphine Sulfate (Morphine) 1 mg IVP Q4H PRN PRN Reason: Pain, severe (8-10) Oxycodone HCl (Oxycodone Immediate Release Tab) 5 mg PO Q6H PRN PRN Reason: Pain, Mild (1-3) Phytonadione (Vitamin K Tab) 10 mg PO DAILY [facility] Stop: 01/19/17 22:00 Last Admin: 01/17/17 13:12 Dose: 10 mg - Labs Labs: 01/17/17 05:30 01/17/17 05:30 PT 42.5 Seconds (9.9-11.8) H* 01/17/17 10:01 INR 3.94 (0.93-1.08) H* 01/17/17 10:01 APTT 80.8 Seconds (23.7-30.8) H* 01/16/17 10:11 Attending/Attestation - Attestation I have personally seen and examined this patient.: Yes I have fully participated in the care of the patient.: Yes I have reviewed all pertinent clinical information, including history, physical exam and plan: Yes Notes (Text): 01/17/17 17:41 56 y/o F w/ Metastatic Breast ca Admitted for MODS Worsening hepatic failure with transaminitis, Elevated T. Bili and AMS with concern with encephalopathy LITO w/ worsening urine output and creatinine. Urine electrolytes to be sent, Nephrology consult. Possible HRS. Would give Albumin / NS appropriately. New Liver lesions, unclear if malignancy related, would need biopsy of the liver to determine cause. IR consulted. INR elevated. FFp if bleeding occurs. Enterocolitis on abx , w cx pending. Improvement of BP and remains afebrile. Heme-ONC following the patient ID and Nephrology reccs pending. poor prognosis dvt p scd. INR elevated. AMS, could possibly start Lactulose. GI consulted as well. cc time 72 min
--- NOTE | 2017-01-17 16:35 | CARD ---
APPROVED REPORT EKG Measurement Heart [id number] ID [id number] <Conclusion> Normal sinus rhythm Prolonged QT Abnormal ECG
[2017-01-17] MEDS ORDERED: Dextrose 50% SYRINGE Inj (50 ml) IVP ONE (17:29)
[2017-01-17] MEDS ORDERED: Sodium Bicarbonate 8.4% 150 MEQ in Dextrose 5% In Water 1,000 ML IV SCH (18:27)
[2017-01-17 19:00] LABS: MEAN CELL VOLUME 99.6 fL (80.0-105.0); MEAN CORPUSCULAR HEMOGLOBIN 33.5 pg (25.0-35.0); MEAN CORPUSCULAR HGB CONC 33.6 g/dl (31.0-37.0); PLATELET COUNT 51 10^3/uL (120.0-450.0); RBC 2.24 10^6/uL (3.5-6.1); RED CELL DISTRIBUTION WIDTH 24.5 % (11.5-14.5); WHITE BLOOD COUNT 14.2 10^3/ul (4.5-11.0)
--- NOTE | 2017-01-17 19:02 | CP.PCM.PN ---
Subjective - Date & Time of Evaluation Date of Evaluation: 01/17/17 Time of Evaluation: 11:30 - Subjective Subjective: Patient reportedly more confused today per family; Objective - Vital Signs/Intake and Output Vital Signs (last 24 hours): Temp Pulse Resp BP Pulse Ox 98.8 F 93 H 20 115/67 94 L 01/17/17 17:08 01/17/17 17:08 01/17/17 17:08 01/17/17 18:00 01/17/17 18:00 Intake and Output: 01/17/17 01/17/17 06:59 18:59 Intake Total 2200 2420 Output Total 400 475 Balance 1800 1945 - Medications Medications: Current Medications Albumin Human (Albumin Human 25% (25 Gm/100 Ml)) 25 gm IV Q4H [facility] Last Admin: 01/17/17 15:06 Dose: 25 gm Alprazolam (Xanax) 0.25 mg PO Q6 PRN; Protocol PRN Reason: Anxiety Stop: 01/23/17 18:01 Famotidine (Pepcid) 40 mg PO HS [facility] Last Admin: 01/16/17 22:22 Dose: 40 mg Piperacillin Sod/Tazobactam Sod (Zosyn 2.25 Gm In 0.9% 100 Ml) 2.25 gm in 100 mls @ 100 mls/hr IVPB Q6 JEREMIE PRN Reason: Protocol Stop: 01/23/17 18:01 Last Admin: 01/17/17 13:12 Dose: 100 mls/hr Sodium Bicarbonate 150 meq/ (Dextrose) 1,150 mls @ 125 mls/hr IV .[id number] [facility] Morphine Sulfate (Morphine) 1 mg IVP Q4H PRN PRN Reason: Pain, severe (8-10) Oxycodone HCl (Oxycodone Immediate Release Tab) 5 mg PO Q6H PRN PRN Reason: Pain, Mild (1-3) Phytonadione (Vitamin K Tab) 10 mg PO DAILY [facility] Stop: 01/19/17 22:00 Last Admin: 01/17/17 13:12 Dose: 10 mg - Labs Labs: 01/17/17 05:30 01/17/17 05:30 PT 42.5 Seconds (9.9-11.8) H* 01/17/17 10:01 INR 3.94 (0.93-1.08) H* 01/17/17 10:01 APTT 80.8 Seconds (23.7-30.8) H* 01/16/17 10:11 - Constitutional Appears: Non-toxic, No Acute Distress - Head Exam Head Exam: NORMAL INSPECTION - Eye Exam Eye Exam: Scleral icterus - ENT Exam ENT Exam: Mucous Membranes Moist - Respiratory Exam Respiratory Exam: Clear to Ausculation Bilateral. absent: Rales, Rhonchi, Wheezes, Respiratory Distress - Cardiovascular Exam Cardiovascular Exam: REGULAR RHYTHM, +S1, +S2 - GI/Abdominal Exam GI & Abdominal Exam: Soft, Tenderness - Extremities Exam Additional comments: No/minimal leg edema; - Neurological Exam Neurological Exam: Alert, Awake Additional comments: drowsy; - Psychiatric Exam Psychiatric exam: absent: Agitated - Skin Skin Exam: Normal Color, Warm. absent: Cyanosis Assessment and Plan (1) Acute renal failure (ARF) Assessment & Plan: LITO in the setting of acute lactic acidosis, possible sepsis and worsening liver dysfunction; non-oliguric renal failure; serum creatinine at relative plateau since last night, may be responding to intravascular volume expansion with IVF and albumin; Urine micro directly visualized not showing evidence of overt tubular damage; numerous RBC's (too many to count), none classically dysmorphic, may simply reflect coagulopathy and worsened by martin placement); ~10 WBC/hpf with bacteria also; Question of whether LITO also due to some element of tumor lysis syndrome; while spontaneous TLS would be unlikely for solid tumor (no recent chemo), uric acid very high and continues to increase; hypocalcemia is also suggestive; lack of hyperphosphatemia doesnt' rule it out; should treat conservatively with IVF to achieve UO of 100 cc/hr if possible; may benefit from rasburicase but not available here; Otherwise, K relatively stable on bicarb drip; doesn't appear to be volume overloaded; no definite indication for SET BUILDER at this time; -Increase IVF, will obtain CXR to ensure no volume overload; Status: Acute (2) Lactic acidosis Assessment & Plan: Likely secondary to high tumor burden, sepsis also in differential; lactate level mildly improved; -continue bicarb drip Status: Acute (3) Dyspnea Assessment & Plan: Intermittent and was cause for previous admission; possible hepatopulmonary syndrome, see initial consult; Status: Acute (4) SIRS (systemic inflammatory response syndrome) Assessment & Plan: Sepsis secondary to UTI; elevated procalcitonin level; on zosyn, received dose of vanco today; -monitor renal function and adjust abx appropriately; will check random vanco level with am labs; Status: Acute (5) Hypocalcemia Assessment & Plan: In setting of metastatic breast CA, multiple possibilities for etiology; osteoblastic metastasis v parathyroid mets and possibly tumor lysis syndrome component (although unlikely); will worsen with bicarb drip; -continue to replenish with IV calcium gluconate Status: Acute (6) Metastatic cancer Assessment & Plan: Per oncology, patient was relatively stable several weeks ago and overall doesn' t have high tumor burden; also saying mets to liver is also not apparent on imaging; family is also wanting all supportive options pursued at this point, including SET BUILDER if it becomes necessary; will continue to discuss with care teams; Status: Acute
--- NOTE | 2017-01-17 19:03 | VASCULAR ---
PROCEDURE: Ultrasound and fluoroscopically placed right upper extremity PICC line. HISTORY: Metastatic breast CA. Multi organ failure. Needs IV access. PHYSICIAN(S): Sarthak Hernandez MD. TECHNIQUE: The relative risks and indications of the procedure were explained to the patient's sister and consent obtained. The patient was placed supine on the arteriogram table and the right arm prepped and draped in the usual sterile fashion. A tourniquet was applied to the right axilla. 1% Xylocaine was used to anesthetize the skin and soft tissues at the puncture site above the elbow. The right brachial vein was punctured under direct ultrasound guidance with a micropuncture set. A 0.018 guidewire was advanced centrally and used to measure the length to the SVC/RA junction. A 5 Ghanaian dual lumen PICC line 40 cm long was advanced to the SVC/RA junction. The catheter was flushed and secured. The patient tolerated the procedure well. IMPRESSION: 1. Ultrasound and fluoroscopically placed right upper extremity PICC line. A 5 Ghanaian dual lumen PICC line 40 cm long was advanced to the SVC/RA junction.
[2017-01-17 19:09] LABS: HEMOGLOBIN 7.5 gm/dL (12.0-16.0)
[2017-01-17 19:58] LABS: ATYPICAL LYMPHOCYTE 0 % (0.0-0.0); BAND 1 % (0-2); LYMPHOCYTE 22 % (22.0-35.0); MONOCYTE 13 % (1.0-6.0); NEUTROPHIL 64 % (50.0-70.0)
[2017-01-17 20:00] LABS: NUCLEATED RED BLOOD CELL 18 %
[2017-01-17 20:01] LABS: ANISOCYTOSIS 1+; PLATELET ESTIMATE LOW (NORMAL)
[2017-01-17 21:22] LABS: HEMOGLOBIN 6.9 gm/dL (12.0-16.0)
--- NOTE | 2017-01-17 21:36 | CP.PCM.CON ---
History of Present Illness - History of Present Illness History of Present Illness: Oncology Consult Referred by Dr. Campbell for h/o breast cancer. Lea is 56 y/o F with h/o metastatic breast cancer who was initially diagnosed around November 2015 with metastatic right breast cancer with mets to stomach, omentum and bones. She started on palliative chemotherapy with Abraxane on 01/27/16. Repeat CT after 2 cycles was unchanged, though she had remarkable improvement clinically and decrease in tumor markers. However, at the end of 4 cycles, her tumor markers started to increase and her treatment was switched to Letrozole and Ibrance on 05/18/16. Last PET scan in December however , showed worsening bone mets and tumor markers trended up again. She was admitted with shortness of breath, altered mental status. Her liver functions continue to derange and she was in acute renal failure on admission with acidosis. Seen by GI and nephrology. She recently underwent 2 L therapeutic paracentesis. On exam today, she seems tired. She is awake but sleepy. Her sister present at bedside. She appears little confused, though answers appropriately. Review of Systems - Review of Systems All systems: reviewed and no additional remarkable complaints except Review of Systems: as in HPI Past Patient History - Infectious Disease Hx of Infectious Diseases: None - Tetanus Immunizations Tetanus Immunization: Unknown - Past Medical History & Family History Past Medical History?: Yes - Past Social History Smoking Status: Never Smoked - CARDIAC Hx Cardiac Disorders: No - PULMONARY Hx Respiratory Disorders: No - NEUROLOGICAL Hx Neurological Disorder: No - HEENT Hx HEENT Problems: Yes Other/Comment: wears glasses - RENAL Hx Chronic Kidney Disease: No Other/Comment: Fluid on liver - ENDOCRINE/METABOLIC Hx Endocrine Disorders: No - HEMATOLOGICAL/ONCOLOGICAL Hx Anemia: Yes Hx Cancer: Yes (Rt Breast cancer) - INTEGUMENTARY Hx Dermatological Problems: No - MUSCULOSKELETAL/RHEUMATOLOGICAL Hx Musculoskeletal Disorders: No Hx Falls: No - GASTROINTESTINAL Hx Gastrointestinal Disorders: No - GENITOURINARY/GYNECOLOGICAL Hx Genitourinary Disorders: No - PSYCHIATRIC Hx Psychophysiologic Disorder: No Hx Substance Use: No - SURGICAL HISTORY Hx Cholecystectomy: Yes - ANESTHESIA Hx Anesthesia: Yes Hx Anesthesia Reactions: No Hx Malignant Hyperthermia: No Meds Allergies/Adverse Reactions: Allergies Allergy/AdvReac Type Severity Reaction Status Date / Time No Known Allergies Allergy Verified 01/11/17 11:35 - Medications Medications: Current Medications Albumin Human (Albumin Human 25% (25 Gm/100 Ml)) 25 gm IV Q4H [facility] Last Admin: 01/17/17 18:31 Dose: 25 gm Alprazolam (Xanax) 0.25 mg PO Q6 PRN; Protocol PRN Reason: Anxiety Stop: 01/23/17 18:01 Famotidine (Pepcid) 40 mg PO HS [facility] Last Admin: 01/16/17 22:22 Dose: 40 mg Piperacillin Sod/Tazobactam Sod (Zosyn 2.25 Gm In 0.9% 100 Ml) 2.25 gm in 100 mls @ 100 mls/hr IVPB Q6 [facility] PRN Reason: Protocol Stop: 01/23/17 18:01 Last Admin: 01/17/17 18:31 Dose: 100 mls/hr Sodium Bicarbonate 150 meq/ (Dextrose) 1,150 mls @ 125 mls/hr IV .Q9H12M [facility] Last Admin: 01/17/17 18:54 Dose: 125 mls/hr Morphine Sulfate (Morphine) 1 mg IVP Q4H PRN PRN Reason: Pain, severe (8-10) Oxycodone HCl (Oxycodone Immediate Release Tab) 5 mg PO Q6H PRN PRN Reason: Pain, Mild (1-3) Phytonadione (Vitamin K Tab) 10 mg PO DAILY [facility] Stop: 01/19/17 22:00 Last Admin: 01/17/17 13:12 Dose: 10 mg Physical Exam - Head Exam Head Exam: ATRAUMATIC, NORMAL INSPECTION - Eye Exam Eye Exam: PERRL - Neck Exam Neck exam: Negative for: Lymphadenopathy - Respiratory Exam Respiratory Exam: Clear to Auscultation Bilateral - Cardiovascular Exam Cardiovascular Exam: REGULAR RHYTHM - GI/Abdominal Exam GI & Abdominal Exam: Distended, Normal Bowel Sounds, Soft. absent: Tenderness - Extremities Exam Extremities exam: Negative for: pedal edema - Neurological Exam Neurological exam: Alert Additional comments: not able to assess Results - Vital Signs Recent Vital Signs: Last Vital Signs Temp 98.8 F 01/17/17 17:08 Pulse 102 H 01/17/17 21:00 Resp 37 H 01/17/17 21:00 BP 111/59 L 01/17/17 21:00 Pulse Ox 95 01/17/17 21:00 - Labs Result Diagrams: 01/17/17 21:05 01/17/17 05:30 Labs: Laboratory Results - last 24 hr 01/16/17 01/16/17 01/16/17 22:25 22:25 22:25 WBC RBC Hgb Hct MCV MCH MCHC RDW Plt Count Gran % Lymph % (Auto) Ford % (Auto) Eos % (Auto) Baso % (Auto) Gran # Lymph # Ford # Eos # Baso # Corrected WBC (Man) Neutrophils % (Manual) Band Neutrophils % Lymphocytes % (Manual) Atypical Lymphs % Monocytes % (Manual) Nucleated RBC % Platelet Evaluation Anisocytosis (manual) PT INR pO2 VBG pH VBG pCO2 VBG HCO3 VBG Total CO2 VBG O2 Sat (Calc) VBG Base Excess VBG Potassium Sodium 130 L Chloride 93 L Glucose Lactate FiO2 Potassium 5.1 H Carbon Dioxide 14 L Anion Gap 28 H BUN 36 H Creatinine 2.2 H Est GFR ( Amer) 28 Est GFR (Non-Af Amer) 23 Random Glucose 84 Lactic Acid 13.5 H* Uric Acid 12.5 H Calcium 6.1 L* Phosphorus 4.3 Total Bilirubin AST ALT Alkaline Phosphatase Ammonia Total Protein Albumin Globulin Albumin/Globulin Ratio Procalcitonin 6.22 H Venous Blood Potassium Blood Type Antibody Screen Crossmatch BBK History Checked 01/16/17 01/17/17 01/17/17 22:25 01:40 05:30 WBC 15.9 H RBC 2.12 L Hgb 7.4 L D Hct 22.0 L MCV 103.8 MCH 34.9 MCHC 33.6 RDW 24.9 H Plt Count 62 L Gran % Lymph % (Auto) Ford % (Auto) Eos % (Auto) Baso % (Auto) Gran # Lymph # Ford # Eos # Baso # Corrected WBC (Man) Neutrophils % (Manual) Band Neutrophils % Lymphocytes % (Manual) Atypical Lymphs % Monocytes % (Manual) Nucleated RBC % Platelet Evaluation Anisocytosis (manual) PT INR pO2 89 H 68 H VBG pH 7.34 7.38 VBG pCO2 23.0 L 24.0 L VBG HCO3 12.4 L 14.2 L VBG Total CO2 13.1 L 14.9 L VBG O2 Sat (Calc) 100.4 H 98.1 H VBG Base Excess -12.0 L -9.0 L VBG Potassium 5.3 H 5.2 Sodium 129.0 L 128.0 L Chloride 97.0 L 98.0 Glucose 87 50 L Lactate 14.4 H* 11.8 H* FiO2 21.0 21.0 Potassium Carbon Dioxide Anion Gap BUN Creatinine Est GFR ( Amer) Est GFR (Non-Af Amer) Random Glucose Lactic Acid Uric Acid Calcium Phosphorus Total Bilirubin AST ALT Alkaline Phosphatase Ammonia Total Protein Albumin Globulin Albumin/Globulin Ratio Procalcitonin Venous Blood Potassium 5.3 H 5.2 Blood Type Antibody Screen Crossmatch BBK History Checked 01/17/17 01/17/17 01/17/17 05:30 06:00 10:01 WBC RBC Hgb Hct MCV MCH MCHC RDW Plt Count Gran % Lymph % (Auto) Ford % (Auto) Eos % (Auto) Baso % (Auto) Gran # Lymph # Ford # Eos # Baso # Corrected WBC (Man) Neutrophils % (Manual) Band Neutrophils % Lymphocytes % (Manual) Atypical Lymphs % Monocytes % (Manual) Nucleated RBC % Platelet Evaluation Anisocytosis (manual) PT 42.5 H* INR 3.94 H* pO2 VBG pH VBG pCO2 VBG HCO3 VBG Total CO2 VBG O2 Sat (Calc) VBG Base Excess VBG Potassium Sodium 130 L Chloride 95 L Glucose Lactate FiO2 Potassium 5.1 H Carbon Dioxide 16 L Anion Gap 24 H BUN 41 H Creatinine 2.2 H Est GFR ( Amer) 28 Est GFR (Non-Af Amer) 23 Random Glucose 35 L* D Lactic Acid Uric Acid 13.3 H Calcium 6.1 L* Phosphorus Total Bilirubin 11.4 H AST 523 H ALT 113 H Alkaline Phosphatase 328 H Ammonia Total Protein 6.2 Albumin 2.9 L Globulin 3.2 Albumin/Globulin Ratio 0.9 L Procalcitonin Venous Blood Potassium Blood Type Antibody Screen Crossmatch BBK History Checked 01/17/17 01/17/17 01/17/17 13:07 13:07 18:56 WBC 14.2 H RBC 2.24 L Hgb 7.5 L Hct 22.3 L MCV 99.6 MCH 33.5 MCHC 33.6 RDW 24.5 H Plt Count 51 L Gran % [employer] Lymph % (Auto) [employer] Supervisor Ford % (Auto) [employer] Supervisor Eos % (Auto) [employer] Supervisor Baso % (Auto) [employer] Supervisor Gran # [employer] Crew Supervisor Lymph # [employer] Supervisor Ford # Ground Crew Supervisor Eos # Ground Crew Supervisor Baso # [employer] Supervisor Corrected WBC (Man) 12.0 H Neutrophils % (Manual) 64 Band Neutrophils % 1 Lymphocytes % (Manual) 22 Atypical Lymphs % 0 Monocytes % (Manual) 13 H Nucleated RBC % 18 Platelet Evaluation Low Anisocytosis (manual) 1+ PT INR pO2 VBG pH VBG pCO2 VBG HCO3 VBG Total CO2 VBG O2 Sat (Calc) VBG Base Excess VBG Potassium Sodium Chloride Glucose Lactate FiO2 Potassium Carbon Dioxide Anion Gap BUN Creatinine Est GFR ( Amer) Est GFR (Non-Af Amer) Random Glucose Lactic Acid Uric Acid Calcium Phosphorus Total Bilirubin AST ALT Alkaline Phosphatase Ammonia 61 H Total Protein Albumin Globulin Albumin/Globulin Ratio Procalcitonin Venous Blood Potassium Blood Type O POSITIVE Antibody Screen Negative Crossmatch See Detail BBK History Checked Patient has bt 01/17/17 21:05 WBC RBC Hgb 6.9 L* Hct 20.6 L* MCV MCH MCHC RDW Plt Count Gran % Lymph % (Auto) Ford % (Auto) Eos % (Auto) Baso % (Auto) Gran # Lymph # Ford # Eos # Baso # Corrected WBC (Man) Neutrophils % (Manual) Band Neutrophils % Lymphocytes % (Manual) Atypical Lymphs % Monocytes % (Manual) Nucleated RBC % Platelet Evaluation Anisocytosis (manual) PT INR pO2 VBG pH VBG pCO2 VBG HCO3 VBG Total CO2 VBG O2 Sat (Calc) VBG Base Excess VBG Potassium Sodium Chloride Glucose Lactate FiO2 Potassium Carbon Dioxide Anion Gap BUN Creatinine Est GFR ( Amer) Est GFR (Non-Af Amer) Random Glucose Lactic Acid Uric Acid Calcium Phosphorus Total Bilirubin AST ALT Alkaline Phosphatase Ammonia Total Protein Albumin Globulin Albumin/Globulin Ratio Procalcitonin Venous Blood Potassium Blood Type Antibody Screen Crossmatch BBK History Checked Assessment & Plan - Assessment and Plan (Free Text) Assessment: Metastatic Breast cancer, ER/SD +, Her-2 negative Recently treated with Letrozole and Ibrance, though last imaging shows progression. Her liver dysfunction seems to be out of proportion to her disease progression. We should consider other etiologies affecting liver as well. Prior work up shows negative for Hepatitis B/C but anti-mitochondrial antibody was positive. I discussed the case with Dr. Hernandez and she will be scheduled for liver biopsy on Sunday. Continue to follow up with GI for further recommendations. Her renal functions deteriorated during this admission and there is a concern for sepsis (?urine source). Continue empiric antibiotics. Appreciate renal recs. Low likelihood for tumor lysis in breast cancer and mathew because not on treatment currently. She did receive Xgeva recently that could contribute to hypocalcemia. However, she has been on Xgeva for a while. Continue supportive care. Transfuse PRBC and platelets. Start Vit K 10 mg PO daily for 3-5 days. MOnitor for bleeding. She will need platelet +/- FFP transfusion prior to liver biopsy. Thank you for the consult Tushar Aceves - Date & Time Date: 01/17/17 Time: 17:35
[2017-01-17 21:38] LABS: PROTHROMBIN TIME 47.7 Seconds (9.9-11.8)
[2017-01-17 21:41] LABS: INR 4.42 (0.93-1.08); PARTIAL THROMBOPLASTIN TIME 119.2 Seconds (23.7-30.8)
[2017-01-17] MEDS: Morphine 2 mg/ml ISec IVP PRN (22:40)
[2017-01-18] MEDS: Piperacillin/Tazobact 2.25gm 2.25 GM/100 ML BAG IVPB SCH ×4 (00:12→19:16)
[2017-01-18 00:32] LABS: BASO # 0.11 K/mm3 (0.0-2.0); BASO % 0.8 % (0.0-3.0); GRAN # 7.54 (1.4-6.5); GRAN % 54.3 % (50.0-68.0); LYMPH # 4.3 (1.2-3.4); LYMPH % 31.2 % (22.0-35.0); MEAN CELL VOLUME 99.5 fL (80.0-105.0); MEAN CORPUSCULAR HEMOGLOBIN 33.7 pg (25.0-35.0); MEAN CORPUSCULAR HGB CONC 33.8 g/dl (31.0-37.0); MONO # 1.9 (0.1-0.6); MONO % 13.7 % (1.0-6.0); PLATELET COUNT 56 10^3/uL (120.0-450.0); RBC 2.05 10^6/uL (3.5-6.1); RED CELL DISTRIBUTION WIDTH 25.1 % (11.5-14.5); WHITE BLOOD COUNT 13.9 10^3/ul (4.5-11.0)
[2017-01-18 00:41] LABS: HEMOGLOBIN 6.9 gm/dL (12.0-16.0)
[2017-01-18] MEDS: Albumin Human 25% (25 gm/100 ml) IV SCH ×2 (02:30→06:30)
[2017-01-18 07:51] LABS: HEMOGLOBIN 8.8 gm/dL (12.0-16.0); MEAN CELL VOLUME 95.3 fL (80.0-105.0); MEAN CORPUSCULAR HEMOGLOBIN 31.9 pg (25.0-35.0); MEAN CORPUSCULAR HGB CONC 33.5 g/dl (31.0-37.0); PLATELET COUNT 47 10^3/uL (120.0-450.0); RBC 2.76 10^6/uL (3.5-6.1); RED CELL DISTRIBUTION WIDTH 24.8 % (11.5-14.5); WHITE BLOOD COUNT 13.2 10^3/ul (4.5-11.0)
[2017-01-18 08:12] LABS: ARTERIAL BLOOD GAS HEMOGLOBIN 9.1 g/dL (11.7-17.4); ARTERIAL BLOOD GAS O2 CAPACITY 12.4 mL/dl (16-24); ARTERIAL BLOOD GAS O2 CONTENT 11.8 ML/dl (15-23); ARTERIAL BLOOD GAS O2 SAT 95.3 % (95-98); ARTERIAL BLOOD GAS PCO2 38 mm/Hg (35-45); ARTERIAL BLOOD GAS PH 7.46 (7.35-7.45); ARTERIAL BLOOD GAS TCO2 28.2 mmol.L (22-28)
[2017-01-18 08:12] LABS: ALB/GLOB RATIO 1.1 (1.1-1.8); ALBUMIN 3.1 g/dL (3.0-4.8)
[2017-01-18 08:18] LABS: INR 3.98 (0.93-1.08)
[2017-01-18 08:20] LABS: CALCIUM 5.7 mg/dL (8.4-10.5)
--- NOTE | 2017-01-18 08:21 | RAD ---
HISTORY: Vascular congestion, volume overload? COMPARISON: 01/16/2017 FINDINGS: LUNGS: No active pulmonary disease. PLEURA: No significant pleural effusion identified, no pneumothorax apparent. CARDIOVASCULAR: Normal heart size. Right PICC catheter terminating in the right atrium. OSSEOUS STRUCTURES: No significant abnormalities. VISUALIZED UPPER ABDOMEN: Normal. OTHER FINDINGS: None. IMPRESSION: No active disease.
--- NOTE | 2017-01-18 09:08 | CP.PCM.PN ---
<Carroll Herman - Last Filed: 01/18/17 09:22> Subjective - Date & Time of Evaluation Date of Evaluation: 01/18/17 Time of Evaluation: 09:00 - Subjective Subjective: Pt seen and examined bedside +obtunded change in mental status overnight Vitals stable Daughter at bedside Staff unsure of BM Unable to take PO ROS: could not conduct due to mental status Objective - Vital Signs/Intake and Output Vital Signs (last 24 hours): Temp Pulse Resp BP Pulse Ox 97.8 F 85 16 115/73 96 01/18/17 08:00 01/18/17 08:00 01/18/17 07:00 01/18/17 08:00 01/18/17 08:26 Intake and Output: 01/18/17 01/18/17 06:59 18:59 Intake Total 1320 Output Total 425 Balance 895 - Medications Medications: Current Medications Albumin Human (Albumin Human 25% (25 Gm/100 Ml)) 25 gm IV Q4H [facility] Last Admin: 01/18/17 06:30 Dose: Not Given Alprazolam (Xanax) 0.25 mg PO Q6 PRN; Protocol PRN Reason: Anxiety Stop: 01/23/17 18:01 Famotidine (Pepcid) 40 mg PO HS [facility] Last Admin: 01/16/17 22:22 Dose: 40 mg Piperacillin Sod/Tazobactam Sod (Zosyn 2.25 Gm In 0.9% 100 Ml) 2.25 gm in 100 mls @ 100 mls/hr IVPB Q6 [facility] PRN Reason: Protocol Stop: 01/23/17 18:01 Last Admin: 01/18/17 06:24 Dose: 100 mls/hr Sodium Bicarbonate 150 meq/ (Dextrose) 1,150 mls @ 125 mls/hr IV .Q9H12M [facility] Last Admin: 01/17/17 18:54 Dose: 125 mls/hr Lactulose (Generlac) 200 gm ND ONCE [facility] Morphine Sulfate (Morphine) 1 mg IVP Q4H PRN PRN Reason: Pain, severe (8-10) Last Admin: 01/17/17 22:40 Dose: 1 mg Oxycodone HCl (Oxycodone Immediate Release Tab) 5 mg PO Q6H PRN PRN Reason: Pain, Mild (1-3) Phytonadione (Vitamin K Tab) 10 mg PO DAILY [facility] Stop: 01/19/17 22:00 Last Admin: 01/17/17 13:12 Dose: 10 mg - Labs Labs: 01/18/17 07:00 01/18/17 07:00 PT 43.0 Seconds (9.9-11.8) H* 01/18/17 07:00 INR 3.98 (0.93-1.08) H* 01/18/17 07:00 APTT 119.2 Seconds (23.7-30.8) H* 01/17/17 21:05 - Head Exam Head Exam: ATRAUMATIC, NORMOCEPHALIC - Eye Exam Eye Exam: Scleral icterus - ENT Exam ENT Exam: Mucous Membranes Moist, Normal Exam - Respiratory Exam Respiratory Exam: Clear to Ausculation Bilateral, NORMAL BREATHING PATTERN - Cardiovascular Exam Cardiovascular Exam: REGULAR RHYTHM, +S1, +S2 - GI/Abdominal Exam GI & Abdominal Exam: Soft, Tenderness, Normal Bowel Sounds. absent: Firm, Guarding, Rigid, Organomegaly Additional comments: slight shifting dullness, neg fluid wave - Extremities Exam Extremities Exam: Normal Inspection. absent: Joint Swelling Additional comments: 2+ LE edema - Neurological Exam Neurological Exam: absent: Alert (obtunded, but grossly moving all ext) - Psychiatric Exam Additional comments: could not assess due to mental status - Skin Skin Exam: Dry, Intact, Warm Assessment and Plan - Assessment and Plan (Free Text) Assessment: Lea Arreaga is a 56F with hx of metastatic breast ca to the stomach, bones and Liver who presented to the ER with complaints of SOB. Pt has presented with increasing LFTs with a cholestatic pattern. She also has an increase in Cr, etiology prerenal versus ATN vs hepatorenal. Pt is clinically worsening with LFTs trending up. Etiology of liver failure is likely Mets, but liver biopsy is scheduled on Sunday to rule out PBC Acute liver failure, likely 2/2 mets vs PBC -CT reviewed. + ascites and hepatic metastases -positive AMA noted, likely 2/2 met burden but cannot r/o PBC -Liver biopsy scheduled for Sunday -would recommend starting ursodiol is considering PBC, recommend 15mg/kg divided into three doses -will need an NG tube Toxic metabolic enceph -likely multifactorial, including hepatic enceph vs sepsis vs r/o brain mets -If placing NG can start lactulose 30g 3-4 times a day or 2-3 BM, can also start rifaximin 550mg BID - If unable to get NG tube: start rectal lactulose 200g q 4-6hrs until 2-3 BM Peritoneal carcinomatosis Ascites -likely 2/2 to mets, abdominal wall carcinomatosis -SAAG > 1.1 likely malignant ascites, though no cytology was sent -does not clinically seem sig to tap at this time Abnormal INR Ddx includes vitamin k deficiency due to chronic cholestasis, DIC, hepatic failure -s/p vit k LITO - Cr is stable, but still elevated - likely responded to albumin and fluids - nephrology on board D/W Dr. Lucero <Nehemiah Lucero - Last Filed: 01/18/17 09:38> Objective - Vital Signs/Intake and Output Vital Signs (last 24 hours): Temp Pulse Resp BP Pulse Ox 97.8 F 85 16 115/73 96 01/18/17 08:00 01/18/17 08:00 01/18/17 07:00 01/18/17 08:00 01/18/17 08:26 Intake and Output: 01/18/17 01/18/17 06:59 18:59 Intake Total 1320 Output Total 425 Balance 895 - Medications Medications: Current Medications Albumin Human (Albumin Human 25% (25 Gm/100 Ml)) 25 gm IV Q4H [facility] Last Admin: 01/18/17 06:30 Dose: Not Given Alprazolam (Xanax) 0.25 mg PO Q6 PRN; Protocol PRN Reason: Anxiety Stop: 01/23/17 18:01 Famotidine (Pepcid) 40 mg PO HS [facility] Last Admin: 01/16/17 22:22 Dose: 40 mg Piperacillin Sod/Tazobactam Sod (Zosyn 2.25 Gm In 0.9% 100 Ml) 2.25 gm in 100 mls @ 100 mls/hr IVPB Q6 [facility] PRN Reason: Protocol Stop: 01/23/17 18:01 Last Admin: 01/18/17 06:24 Dose: 100 mls/hr Sodium Bicarbonate 150 meq/ (Dextrose) 1,150 mls @ 125 mls/hr IV .Q9H12M [facility] Last Admin: 01/17/17 18:54 Dose: 125 mls/hr Lactulose (Generlac) 200 gm ND ONCE [facility] Morphine Sulfate (Morphine) 1 mg IVP Q4H PRN PRN Reason: Pain, severe (8-10) Last Admin: 01/17/17 22:40 Dose: 1 mg Oxycodone HCl (Oxycodone Immediate Release Tab) 5 mg PO Q6H PRN PRN Reason: Pain, Mild (1-3) Phytonadione (Vitamin K Tab) 10 mg PO DAILY [facility] Stop: 01/19/17 22:00 Last Admin: 01/17/17 13:12 Dose: 10 mg - Labs Labs: 01/18/17 07:00 01/18/17 07:00 PT 43.0 Seconds (9.9-11.8) H* 01/18/17 07:00 INR 3.98 (0.93-1.08) H* 01/18/17 07:00 APTT 119.2 Seconds (23.7-30.8) H* 01/17/17 21:05 Attending/Attestation - Attestation I have personally seen and examined this patient.: Yes I have fully participated in the care of the patient.: Yes I have reviewed all pertinent clinical information, including history, physical exam and plan: Yes Notes (Text): 01/18/17 09:32 56 year old female with h/o metastatic breast ca to the stomach, bones and Liver readmitted with SOB and continued deterioration overall. She has had some intermittent vomiting, progressive jaundice, worsening renal function, now with altered mental status. 1. Liver metastases 2. Peritoneal carcinomatosis 3. Ascites 4. Altered mental status Plan: -aggressive care still being pursued -ddx for altered mental status includes hepatic encephalopathy vs neurological disorder or brain metastases, recommend neuro evaluation -recommend empiric treatment for HE with lactulose and rifaxamin -recommend starting ursodiol 600 mg bid for empiric treatment for PBC considering positive AMA -supportive care per ICU -overall prognosis remains poor -patient is not a candidate for liver transplant due to metastatic breast cancer even if she does have PBC -may consider repeat paracentesis if significant ascites present to r/o SBP as source of infection, although last week it was negative
--- NOTE | 2017-01-18 10:16 | CP.PCM.PN ---
<WaleCatarinoangelika - Last Filed: 01/18/17 14:29> Subjective - Date & Time of Evaluation Date of Evaluation: 01/18/17 Time of Evaluation: 10:13 - Subjective Subjective: Nurse reports overnight 2 units of PRBCs were administered given a drop in hemoglobin from 7.5 to 6.9. Nurse also reports patient was restless last night and when turned onto right side patient had an intermitted bout of V-tach that last for about 3 minutes (record in patient chart) Nurse and family report patient was restless, talking less, and more appear more comatose/obtunded essentially. Objective - Vital Signs/Intake and Output Vital Signs (last 24 hours): Temp Pulse Resp BP Pulse Ox 97.8 F 85 16 115/73 96 01/18/17 08:00 01/18/17 08:00 01/18/17 07:00 01/18/17 08:00 01/18/17 08:26 Intake and Output: 01/18/17 01/18/17 06:59 18:59 Intake Total 1320 Output Total 425 Balance 895 - Medications Medications: Current Medications Albumin Human (Albumin Human 25% (25 Gm/100 Ml)) 25 gm IV Q4H JEREMIE Last Admin: 01/18/17 06:30 Dose: Not Given Alprazolam (Xanax) 0.25 mg PO Q6 PRN; Protocol PRN Reason: Anxiety Stop: 01/23/17 18:01 Famotidine (Pepcid) 40 mg PO HS JEREMIE Last Admin: 01/16/17 22:22 Dose: 40 mg Piperacillin Sod/Tazobactam Sod (Zosyn 2.25 Gm In 0.9% 100 Ml) 2.25 gm in 100 mls @ 100 mls/hr IVPB Q6 JEREMIE PRN Reason: Protocol Stop: 01/23/17 18:01 Last Admin: 01/18/17 06:24 Dose: 100 mls/hr Sodium Bicarbonate 150 meq/ (Dextrose) 1,150 mls @ 125 mls/hr IV .Q9H12M JEREMIE Last Admin: 01/17/17 18:54 Dose: 125 mls/hr Lactulose (Generlac) 200 gm PA ONCE JEREMIE Morphine Sulfate (Morphine) 1 mg IVP Q4H PRN PRN Reason: Pain, severe (8-10) Last Admin: 01/17/17 22:40 Dose: 1 mg Oxycodone HCl (Oxycodone Immediate Release Tab) 5 mg PO Q6H PRN PRN Reason: Pain, Mild (1-3) Phytonadione (Vitamin K Tab) 10 mg PO DAILY JEREMIE Stop: 01/19/17 22:00 Last Admin: 01/17/17 13:12 Dose: 10 mg Ursodiol (Actigall) 600 mg PO BID JEREMIE - Labs Labs: 01/18/17 07:00 01/18/17 07:00 PT 43.0 Seconds (9.9-11.8) H* 01/18/17 07:00 INR 3.98 (0.93-1.08) H* 01/18/17 07:00 APTT 119.2 Seconds (23.7-30.8) H* 01/17/17 21:05 - Constitutional Appears: No Acute Distress, Other - Head Exam Head Exam: ATRAUMATIC, NORMOCEPHALIC - Eye Exam Eye Exam: Scleral icterus Pupil Exam: Fixed (both pupils are fixed, ), Miosis - Respiratory Exam Respiratory Exam: Clear to Ausculation Bilateral, NORMAL BREATHING PATTERN. absent: Respiratory Distress Additional comments: RR of 12 - Cardiovascular Exam Cardiovascular Exam: REGULAR RHYTHM, +S1, +S2 - GI/Abdominal Exam GI & Abdominal Exam: Soft, Hyperactive Bowel Sounds - Neurological Exam Neurological Exam: Altered Additional comments: Pupils fixed and pinpoint. Comatose, obtunded. Patient can move all extremities. Assessment and Plan - Assessment and Plan (Free Text) Assessment: 56 yo female with metastatic breast cancer admitted to the ICU for SOB and AMS in the setting of decompensated liver failure and hepatic encephalopathy. Plan: Neurologic: Hepatic encephalopathy with ammonia trending up (elevated 61--> 81 in the past 18 hours). Heptic encephalopathy is a reversible cause of the patient's altered mental status. Lactulose enema given and Rifaximin to be given PO. Furthermore, to rule out an organic cause of AMS, an MRI of the brain was ordered. Respiratory: Patient breathing normally on R.A. PaO2 of 47 Cardiovascular: Patient is hemodynamically stable; however, when patient was placed on her right side, there was an unsustained bout of V-tach for a 3 minutes that resolved once patient was taken out of this position. This is multifactorial in nature, but compression of the IVC (decreased Venous Return), is a likely contributor. We will continue to monitor her hemodynamically. Oncology: Biopsy scheduled from Sunday afternoon to determine the etiology/ extent of liver failure. 1) If biopsy shows PBC, without severe cirrhosis then ursodiol treatment could preserve liver failure.metastatic lesion, the patient's liver biopsy shows PBC without significant cirrhosis, then ursodiol could be administered and potentially reverse her life-threatening LF. This is an unlikely scenario, but patient's family is adamant to at least identify treatable causes to her current condition. Liver biopsy planned for Sunday, see other providers notes for d details in regards to this discussion. GI: Lactulose enema fotr HEncephalopathy, also will enable Vitamin K absorption in the gut, and other Vitamin K dependent clotting factors. Heme: platelet, clotting factors, and RBCs replaced. Calcium gluconate for hypocalcemia. Endocrine: Hypoglycemia, treating with D5 1/2 NS@ 125ml/hr. will monitor sugars. Renal: Please see Dr. Carbone's note. CaGluconate being administered DVT prophylaxis: SCD Full code, at this time. Kian Echevarria PGY-1 <Son Spears - Last Filed: 01/18/17 17:18> Objective - Vital Signs/Intake and Output Vital Signs (last 24 hours): Temp Pulse Resp BP Pulse Ox 98.6 F 95 H 20 136/82 94 L 01/18/17 17:05 01/18/17 17:05 01/18/17 17:05 01/18/17 17:05 01/18/17 16:00 Intake and Output: 01/18/17 01/18/17 06:59 18:59 Intake Total 1320 5 Output Total 425 Balance 895 5 - Medications Medications: Current Medications Albumin Human (Albumin Human 25% (25 Gm/100 Ml)) 25 gm IV Q4H JEREMIE Last Admin: 01/18/17 06:30 Dose: Not Given Alprazolam (Xanax) 0.25 mg PO Q6 PRN; Protocol PRN Reason: Anxiety Stop: 01/23/17 18:01 Famotidine (Pepcid) 40 mg PO HS JEREMIE Last Admin: 01/16/17 22:22 Dose: 40 mg Piperacillin Sod/Tazobactam Sod (Zosyn 2.25 Gm In 0.9% 100 Ml) 2.25 gm in 100 mls @ 100 mls/hr IVPB Q6 JEREMIE PRN Reason: Protocol Stop: 01/23/17 18:01 Last Admin: 01/18/17 12:35 Dose: 100 mls/hr Dextrose/Sodium Chloride (Dextrose 5%/0.9% Ns 1000 Ml) 1,000 mls @ 125 mls/hr IV .Q8H JEREMIE Last Admin: 01/18/17 11:58 Dose: 125 mls/hr Lactulose (Generlac) 200 gm PA ONCE JEREMIE Last Admin: 01/18/17 11:42 Dose: 200 gm Lactulose (Generlac) 200 gm PA ONCE ONE Stop: 01/18/17 16:47 Morphine Sulfate (Morphine) 1 mg IVP Q4H PRN PRN Reason: Pain, severe (8-10) Last Admin: 01/17/17 22:40 Dose: 1 mg Oxycodone HCl (Oxycodone Immediate Release Tab) 5 mg PO Q6H PRN PRN Reason: Pain, Mild (1-3) Phytonadione (Vitamin K Tab) 10 mg PO DAILY JEREMIE Stop: 01/19/17 22:00 Last Admin: 01/18/17 12:25 Dose: Not Given Rifaximin (Xifaxan) 550 mg PO BID JEREMIE PRN Reason: Protocol Last Admin: 01/18/17 12:25 Dose: Not Given Ursodiol (Actigall) 600 mg PO BID [facility] Last Admin: 01/18/17 12:25 Dose: Not Given - Labs Labs: 01/18/17 07:00 01/18/17 07:00 PT 43.0 Seconds (9.9-11.8) H* 01/18/17 07:00 INR 3.98 (0.93-1.08) H* 01/18/17 07:00 APTT 119.2 Seconds (23.7-30.8) H* 01/17/17 21:05 Attending/Attestation - Attestation I have personally seen and examined this patient.: Yes I have fully participated in the care of the patient.: Yes I have reviewed all pertinent clinical information, including history, physical exam and plan: Yes Notes (Text): 01/18/17 17:09 56 yo female with acute decompensation of chronic liver disease, secondary to liver metastatic disease vs PBC, complicated by hepatic encephalopathy, HRS. Patient hemodynamically stable, however somnolent and even though not in respiratory distress and borderline low normoxemic, will have low threshold for intubation if concern for ability to protect airways worsen. Attempt to proceed with dubhoff tube was unsuccessful due to patient uncooperation and nasal bleeding and was temporary aborted. 2 bags of platelets and 3 FFP were ordered to correct coagulopathy. Once dubhoff tube in place will resume lactulose, rifaximine and empiric actigall. Discussed case with GI service (Dr. Nehemiah Lucero): metastatic liver disease vs PBC (positive AMA abs). For biopsy tomorrow (will correct coagulopathy overnight)--if confirmed metastatic disease (which is likely due to many atypical cells in ascites--as per Dr. Ochoa) or liver cirrhosis (irreversable end stage liver disease), patient's family will consider DNR/DNI and comfort care (as per our discussion with family at bedside) . ccm time 40 min
--- NOTE | 2017-01-18 11:11 | CP.PCM.CON ---
History of Present Illness - History of Present Illness History of Present Illness: Palliative consult requested by Dr Yesenia Matamoros Reason: Goals of care 56 year old female with history of metastatic breast cancer admitted who presented diffuse abdominal pain, shortness of breath. She denied nausea, vomiting,fever. CT of abdomen persistent ascites, enterocolitis, gastrric wall thickening, gastritis vs. underdistention, hepatic cyst. Labs showed increasing bilirubin, elevated LFT's, BUN and creatinine, leukocytosis, anemia, thrombocytopenia. PMHx: breast cancer metastatic to bone, liver,omentum, malignant ascites, jaundice, CKD. Family History:Non contributory Social History: Non smoker, no alcohol or drug use. Lives with her children, her sister Kenzie Sutherland lives in the same building. Advance Care Planning: The patient did not have a Advanced Directive. She wants full aggressive measures. Her sister Kenzie has been designated as health care surrogate. Review of Systems, As per HPI, patient has altered mental status and is non verbal, unable to obtain additional review Past Patient History - Infectious Disease Hx of Infectious Diseases: None - Tetanus Immunizations Tetanus Immunization: Unknown - Past Medical History & Family History Past Medical History?: Yes - Past Social History Smoking Status: Never Smoked - CARDIAC Hx Cardiac Disorders: No - PULMONARY Hx Respiratory Disorders: No - NEUROLOGICAL Hx Neurological Disorder: No - HEENT Hx HEENT Problems: Yes Other/Comment: wears glasses - RENAL Hx Chronic Kidney Disease: No Other/Comment: Fluid on liver - ENDOCRINE/METABOLIC Hx Endocrine Disorders: No - HEMATOLOGICAL/ONCOLOGICAL Hx Anemia: Yes Hx Cancer: Yes (Rt Breast cancer) - INTEGUMENTARY Hx Dermatological Problems: No - MUSCULOSKELETAL/RHEUMATOLOGICAL Hx Musculoskeletal Disorders: No Hx Falls: No - GASTROINTESTINAL Hx Gastrointestinal Disorders: No - GENITOURINARY/GYNECOLOGICAL Hx Genitourinary Disorders: No - PSYCHIATRIC Hx Psychophysiologic Disorder: No Hx Substance Use: No - SURGICAL HISTORY Hx Cholecystectomy: Yes - ANESTHESIA Hx Anesthesia: Yes Hx Anesthesia Reactions: No Hx Malignant Hyperthermia: No Meds Allergies/Adverse Reactions: Allergies Allergy/AdvReac Type Severity Reaction Status Date / Time No Known Allergies Allergy Verified 01/11/17 11:35 - Medications Medications: Current Medications Albumin Human (Albumin Human 25% (25 Gm/100 Ml)) 25 gm IV Q4H JEREMIE Last Admin: 01/18/17 06:30 Dose: Not Given Alprazolam (Xanax) 0.25 mg PO Q6 PRN; Protocol PRN Reason: Anxiety Stop: 01/23/17 18:01 Famotidine (Pepcid) 40 mg PO HS [facility] Last Admin: 01/16/17 22:22 Dose: 40 mg Piperacillin Sod/Tazobactam Sod (Zosyn 2.25 Gm In 0.9% 100 Ml) 2.25 gm in 100 mls @ 100 mls/hr IVPB Q6 JEREMIE PRN Reason: Protocol Stop: 01/23/17 18:01 Last Admin: 01/18/17 06:24 Dose: 100 mls/hr Sodium Bicarbonate 150 meq/ (Dextrose) 1,150 mls @ 125 mls/hr IV .Q9H12M [facility] Last Admin: 01/17/17 18:54 Dose: 125 mls/hr Lactulose (Generlac) 200 gm [place] ONCE [place]EM[place] Morphine Sulfate (Morphine) 1 mg IVP Q4H PRN PRN Reason: Pain, severe (8-10) Last Admin: 01/17/17 22:40 Dose: 1 mg Oxycodone HCl (Oxycodone Immediate Release Tab) 5 mg PO Q6H PRN PRN Reason: Pain, Mild (1-3) Phytonadione (Vitamin K Tab) 10 mg PO DAILY [facility] Stop: 01/19/17 22:00 Last Admin: 01/17/17 13:12 Dose: 10 mg Rifaximin (Xifaxan) 550 mg PO BID [facility] PRN Reason: Protocol Ursodiol (Actigall) 600 mg PO BID [facility] Physical Exam - Constitutional Appears: Agitated, Chronically Ill - Eye Exam Eye Exam: PERRL, Scleral icterus - ENT Exam ENT Exam: Mucous Membranes Moist, Normal Oropharynx - Neck Exam Neck exam: Positive for: Normal Inspection - Respiratory Exam Respiratory Exam: Decreased Breath Sounds, NORMAL BREATHING PATTERN - Cardiovascular Exam Cardiovascular Exam: REGULAR RHYTHM, +S1 - GI/Abdominal Exam GI & Abdominal Exam: Normal Bowel Sounds, Soft Additional comments: RUQ tenderness on palpation - Extremities Exam Additional comments: 1 + lower extremity edema - Back Exam Back exam: NORMAL INSPECTION - Neurological Exam Neurological exam: Altered - Psychiatric Exam Psychiatric exam: Agitated - Skin Skin Exam: Dry - Additional Findings Additional findings: Palliative performance scale rating 30 % Results - Vital Signs Recent Vital Signs: Last Vital Signs Temp 97.8 F 01/18/17 08:00 Pulse 85 01/18/17 08:00 Resp 16 01/18/17 07:00 BP 115/73 01/18/17 08:00 Pulse Ox 96 01/18/17 08:26 - Labs Result Diagrams: 01/18/17 07:00 01/18/17 07:00 Labs: Laboratory Results - last 24 hr 01/16/17 01/17/17 01/17/17 22:25 06:00 08:05 WBC RBC Hgb Hct MCV MCH MCHC RDW Plt Count Gran % Lymph % (Auto) Sharp % (Auto) Eos % (Auto) Baso % (Auto) Gran # Lymph # Sharp # Eos # Baso # Corrected WBC (Man) Neutrophils % (Manual) Band Neutrophils % Lymphocytes % (Manual) Atypical Lymphs % Monocytes % (Manual) Nucleated RBC % Platelet Evaluation Anisocytosis (manual) PT INR APTT pCO2 pO2 HCO3 ABG pH ABG Total CO2 ABG O2 Saturation ABG O2 Content ABG Base Excess ABG Hemoglobin ABG Carboxyhemoglobin POC ABG HHb (Measured) ABG Methemoglobin ABG O2 Capacity Hgb O2 Saturation FiO2 Sodium Potassium Chloride Carbon Dioxide Anion Gap BUN Creatinine Est GFR ( Amer) Est GFR (Non-Af Amer) POC Glucose (mg/dL) 87 Random Glucose Uric Acid 13.3 H Calcium Total Bilirubin AST ALT Alkaline Phosphatase Ammonia Total Protein Albumin Globulin Albumin/Globulin Ratio Procalcitonin 6.22 H Blood Type Antibody Screen Crossmatch BBK History Checked 01/17/17 01/17/17 01/17/17 10:12 13:07 13:07 WBC RBC Hgb Hct MCV MCH MCHC RDW Plt Count Gran % Lymph % (Auto) Sharp % (Auto) Eos % (Auto) Baso % (Auto) Gran # Lymph # Sharp # Eos # Baso # Corrected WBC (Man) Neutrophils % (Manual) Band Neutrophils % Lymphocytes % (Manual) Atypical Lymphs % Monocytes % (Manual) Nucleated RBC % Platelet Evaluation Anisocytosis (manual) PT INR APTT pCO2 pO2 HCO3 ABG pH ABG Total CO2 ABG O2 Saturation ABG O2 Content ABG Base Excess ABG Hemoglobin ABG Carboxyhemoglobin POC ABG HHb (Measured) ABG Methemoglobin ABG O2 Capacity Hgb O2 Saturation FiO2 Sodium Potassium Chloride Carbon Dioxide Anion Gap BUN Creatinine Est GFR ( Amer) Est GFR (Non-Af Amer) POC Glucose (mg/dL) 85 Random Glucose Uric Acid Calcium Total Bilirubin AST ALT Alkaline Phosphatase Ammonia 61 H Total Protein Albumin Globulin Albumin/Globulin Ratio Procalcitonin Blood Type O POSITIVE Antibody Screen Negative Crossmatch See Detail BBK History Checked Patient has bt 01/17/17 01/17/17 01/17/17 17:26 18:39 18:56 WBC 14.2 H RBC 2.24 L Hgb 7.5 L Hct 22.3 L MCV 99.6 MCH 33.5 MCHC 33.6 RDW 24.5 H Plt Count 51 L Gran % [employer] Lymph % (Auto) [employer] Sharp % (Auto) [employer] Eos % (Auto) [employer] Baso % (Auto) [employer] Gran # [employer] Lymph # [employer] Sharp # [employer] Eos # [employer] Baso # [employer] Corrected WBC (Man) 12.0 H Neutrophils % (Manual) 64 Band Neutrophils % 1 Lymphocytes % (Manual) 22 Atypical Lymphs % 0 Monocytes % (Manual) 13 H Nucleated RBC % 18 Platelet Evaluation Low Anisocytosis (manual) 1+ PT INR APTT pCO2 pO2 HCO3 ABG pH ABG Total CO2 ABG O2 Saturation ABG O2 Content ABG Base Excess ABG Hemoglobin ABG Carboxyhemoglobin POC ABG HHb (Measured) ABG Methemoglobin ABG O2 Capacity Hgb O2 Saturation FiO2 Sodium Potassium Chloride Carbon Dioxide Anion Gap BUN Creatinine Est GFR ( Amer) Est GFR (Non-Af Amer) POC Glucose (mg/dL) 60 L 66 Random Glucose Uric Acid Calcium Total Bilirubin AST ALT Alkaline Phosphatase Ammonia Total Protein Albumin Globulin Albumin/Globulin Ratio Procalcitonin Blood Type Antibody Screen Crossmatch BBK History Checked 01/17/17 01/17/17 01/17/17 19:18 21:02 21:05 WBC RBC Hgb 6.9 L* Hct 20.6 L* MCV MCH MCHC RDW Plt Count Gran % Lymph % (Auto) Sharp % (Auto) Eos % (Auto) Baso % (Auto) Gran # Lymph # Sharp # Eos # Baso # Corrected WBC (Man) Neutrophils % (Manual) Band Neutrophils % Lymphocytes % (Manual) Atypical Lymphs % Monocytes % (Manual) Nucleated RBC % Platelet Evaluation Anisocytosis (manual) PT INR APTT pCO2 pO2 HCO3 ABG pH ABG Total CO2 ABG O2 Saturation ABG O2 Content ABG Base Excess ABG Hemoglobin ABG Carboxyhemoglobin POC ABG HHb (Measured) ABG Methemoglobin ABG O2 Capacity Hgb O2 Saturation FiO2 Sodium Potassium Chloride Carbon Dioxide Anion Gap BUN Creatinine Est GFR ( Amer) Est GFR (Non-Af Amer) POC Glucose (mg/dL) 65 133 H Random Glucose Uric Acid Calcium Total Bilirubin AST ALT Alkaline Phosphatase Ammonia Total Protein Albumin Globulin Albumin/Globulin Ratio Procalcitonin Blood Type Antibody Screen Crossmatch BBK History Checked 01/17/17 01/18/17 01/18/17 21:05 00:20 06:18 WBC 13.9 H RBC 2.05 L Hgb 6.9 L* Hct 20.4 L* MCV 99.5 MCH 33.7 MCHC 33.8 RDW 25.1 H Plt Count 56 L Gran % 54.3 Lymph % (Auto) 31.2 Sharp % (Auto) 13.7 H Eos % (Auto) 0.0 L Baso % (Auto) 0.8 Gran # 7.54 H Lymph # 4.3 H Sharp # 1.9 H Eos # 0.0 Baso # 0.11 Corrected WBC (Man) Neutrophils % (Manual) Band Neutrophils % Lymphocytes % (Manual) Atypical Lymphs % Monocytes % (Manual) Nucleated RBC % Platelet Evaluation Anisocytosis (manual) PT 47.7 H* INR 4.42 H* APTT 119.2 H* pCO2 pO2 HCO3 ABG pH ABG Total CO2 ABG O2 Saturation ABG O2 Content ABG Base Excess ABG Hemoglobin ABG Carboxyhemoglobin POC ABG HHb (Measured) ABG Methemoglobin ABG O2 Capacity Hgb O2 Saturation FiO2 Sodium Potassium Chloride Carbon Dioxide Anion Gap BUN Creatinine Est GFR ( Amer) Est GFR (Non-Af Amer) POC Glucose (mg/dL) 142 H Random Glucose Uric Acid Calcium Total Bilirubin AST ALT Alkaline Phosphatase Ammonia Total Protein Albumin Globulin Albumin/Globulin Ratio Procalcitonin Blood Type Antibody Screen Crossmatch BBK History Checked 01/18/17 01/18/17 01/18/17 07:00 07:00 07:00 WBC 13.2 H RBC 2.76 L Hgb 8.8 L Hct 26.3 L MCV 95.3 MCH 31.9 MCHC 33.5 RDW 24.8 H Plt Count 47 L* Gran % Lymph % (Auto) Sharp % (Auto) Eos % (Auto) Baso % (Auto) Gran # Lymph # Sharp # Eos # Baso # Corrected WBC (Man) Neutrophils % (Manual) Band Neutrophils % Lymphocytes % (Manual) Atypical Lymphs % Monocytes % (Manual) Nucleated RBC % Platelet Evaluation Anisocytosis (manual) PT 43.0 H* INR 3.98 H* APTT pCO2 pO2 HCO3 ABG pH ABG Total CO2 ABG O2 Saturation ABG O2 Content ABG Base Excess ABG Hemoglobin ABG Carboxyhemoglobin POC ABG HHb (Measured) ABG Methemoglobin ABG O2 Capacity Hgb O2 Saturation FiO2 Sodium 131 L Potassium 4.1 Chloride 94 L Carbon Dioxide 28 Anion Gap 13 BUN 50 H Creatinine 2.2 H Est GFR ( Amer) 28 Est GFR (Non-Af Amer) 23 POC Glucose (mg/dL) Random Glucose 140 H Uric Acid Calcium 5.7 L* Total Bilirubin 11.8 H AST 519 H ALT 113 H Alkaline Phosphatase 264 H Ammonia Total Protein 5.9 Albumin 3.1 Globulin 2.7 Albumin/Globulin Ratio 1.1 Procalcitonin Blood Type Antibody Screen Crossmatch BBK History Checked 01/18/17 01/18/17 07:00 08:00 WBC RBC Hgb Hct MCV MCH MCHC RDW Plt Count Gran % Lymph % (Auto) Sharp % (Auto) Eos % (Auto) Baso % (Auto) Gran # Lymph # Sharp # Eos # Baso # Corrected WBC (Man) Neutrophils % (Manual) Band Neutrophils % Lymphocytes % (Manual) Atypical Lymphs % Monocytes % (Manual) Nucleated RBC % Platelet Evaluation Anisocytosis (manual) PT INR APTT pCO2 38 pO2 58.0 L HCO3 27.0 ABG pH 7.46 H ABG Total CO2 28.2 H ABG O2 Saturation 95.3 ABG O2 Content 11.8 L ABG Base Excess 3.0 ABG Hemoglobin 9.1 L ABG Carboxyhemoglobin 2.4 H POC ABG HHb (Measured) 4.5 ABG Methemoglobin 1.2 ABG O2 Capacity 12.4 L Hgb O2 Saturation 91.9 L FiO2 21.0 Sodium Potassium Chloride Carbon Dioxide Anion Gap BUN Creatinine Est GFR ( Amer) Est GFR (Non-Af Amer) POC Glucose (mg/dL) Random Glucose Uric Acid Calcium Total Bilirubin AST ALT Alkaline Phosphatase Ammonia 80 H Total Protein Albumin Globulin Albumin/Globulin Ratio Procalcitonin Blood Type Antibody Screen Crossmatch BBK History Checked Assessment & Plan - Assessment and Plan (Free Text) Assessment: 56 year old female with history of metastatic breast cancer admitted with hepatorenal failure secondary to sepsis, malignant ascites, hepatic encephalopathy,hypoglycemia. Patient is obtunded, non verbal, relentless. Patient's daughter and sister Kenzie at bedside. Patient and family known to me from previous admission. During our last discussion both Lea and her sister indicated that they wanted full aggressive measures. Ramifications of CPR/ intubation explained. Lea maintained that she wanted to be a full code and that her sister Kenzie would decide when it was time to withhold/withdraw medical treatment. The patient stated she did not want to be kept alive if she were to remain in a vegetative state or permanently dependent on life support. Kenzie who is an RN, is aware of patient's worsening condition and poor prognosis.Ramifications of aggressive resuscitation discussed again. Kenzie states she wants her sister to remain a full code at this time. Goals of care,advance care planning,discussion with family, 30 minutes Plan: Will continue palliative family support
[2017-01-18] MEDS ORDERED: Dextrose 5%/0.45% NS 1,000 ML IV SCH (11:15)
--- NOTE | 2017-01-18 11:30 | CP.PCM.PN ---
Subjective - Date & Time of Evaluation Date of Evaluation: 01/18/17 Time of Evaluation: 11:00 - Subjective Subjective: Patient more somnolent today per family and staff; unable to place NG tube due to patient resistance; scant BM; given blood overnight, no overt source of bleeding; Objective - Vital Signs/Intake and Output Vital Signs (last 24 hours): Temp Pulse Resp BP Pulse Ox 97.8 F 85 16 115/73 96 01/18/17 08:00 01/18/17 08:00 01/18/17 07:00 01/18/17 08:00 01/18/17 08:26 Intake and Output: 01/18/17 01/18/17 06:59 18:59 Intake Total 1320 Output Total 425 Balance 895 - Medications Medications: Current Medications Albumin Human (Albumin Human 25% (25 Gm/100 Ml)) 25 gm IV Q4H [facility] Last Admin: 01/18/17 06:30 Dose: Not Given Alprazolam (Xanax) 0.25 mg PO Q6 PRN; Protocol PRN Reason: Anxiety Stop: 01/23/17 18:01 Famotidine (Pepcid) 40 mg PO HS [facility] Last Admin: 01/16/17 22:22 Dose: 40 mg Piperacillin Sod/Tazobactam Sod (Zosyn 2.25 Gm In 0.9% 100 Ml) 2.25 gm in 100 mls @ 100 mls/hr IVPB Q6 [facility] PRN Reason: Protocol Stop: 01/23/17 18:01 Last Admin: 01/18/17 06:24 Dose: 100 mls/hr Dextrose/Sodium Chloride (Dextrose 5%/0.45% Ns 1000 Ml) 1,000 mls @ 75 mls/hr IV .[id number] [facility] Calcium Gluconate 1,000 mg/ (Sodium Chloride) 110 mls @ 110 mls/hr IVPB ONCE ONE Stop: 01/18/17 12:12 Lactulose (Generlac) 200 gm [place] ONCE [facility] Morphine Sulfate (Morphine) 1 mg IVP Q4H PRN PRN Reason: Pain, severe (8-10) Last Admin: 01/17/17 22:40 Dose: 1 mg Oxycodone HCl (Oxycodone Immediate Release Tab) 5 mg PO Q6H PRN PRN Reason: Pain, Mild (1-3) Phytonadione (Vitamin K Tab) 10 mg PO DAILY [facility] Stop: 01/19/17 22:00 Last Admin: 01/17/17 13:12 Dose: 10 mg Rifaximin (Xifaxan) 550 mg PO BID [facility] PRN Reason: Protocol Ursodiol (Actigall) 600 mg PO BID [facility] - Labs Labs: 01/18/17 07:00 01/18/17 07:00 PT 43.0 Seconds (9.9-11.8) H* 01/18/17 07:00 INR 3.98 (0.93-1.08) H* 01/18/17 07:00 APTT 119.2 Seconds (23.7-30.8) H* 01/17/17 21:05 - Constitutional Appears: No Acute Distress - Head Exam Head Exam: NORMOCEPHALIC - Eye Exam Eye Exam: Scleral icterus - ENT Exam Additional comments: Unable to adequately examine as patient resisting; - Respiratory Exam Respiratory Exam: Clear to Ausculation Bilateral, NORMAL BREATHING PATTERN. absent: Rales, Rhonchi, Wheezes, Respiratory Distress - Cardiovascular Exam Cardiovascular Exam: REGULAR RHYTHM, +S1, +S2 - GI/Abdominal Exam GI & Abdominal Exam: Soft. absent: Distended - Exam Exam: absent: Bladder Distension - Extremities Exam Extremities Exam: Normal Capillary Refill Additional comments: Minimal leg edema; - Neurological Exam Neurological Exam: Altered - Skin Skin Exam: Normal Color, Warm. absent: Cyanosis Assessment and Plan (1) Acute renal failure (ARF) Assessment & Plan: LTIO in the setting of likely sepsis, lactic acidosis and hepatic dysfunction, also remote suspicion for tumor lysis syndrome (high uric acid level); non- oliguric with renal function stable since past 2 days; has gotten sufficient intravascular volume expansion over past 36 hrs with IV albumin, isotonic IVF and blood; Relatively stable electrolyte and volume status; -continue isotonic fluids with goal of maintaining UO as close to 100 cc/hr as possible without compromising respiratory status; -repeat Ur Na and creat (elevated Ur Na mostly rules out hepatorenal syndrome); -repeat uric acid level; Status: Acute (2) Lactic acidosis Assessment & Plan: Appears to have resolved as anion gap has normalized; has been on bicarb drip and now getting alkalotic; -stop bicarb drip; switch to D5NS at 125 cc/hr; Status: Acute (3) Dyspnea Assessment & Plan: Intermittent since past admissions; respiratory status otherwise is stable on low FIO2 requirement; monitor for volume overload; Status: Acute (4) SIRS (systemic inflammatory response syndrome) Assessment & Plan: Blood and urine cultures negative but suspicion for sepsis with suggestive clinical presentation and elevated procalcitonin level; on zosyn, received dose of vanco yesterday; -repeat random vanco level before redosing today; Status: Acute (5) Hypocalcemia Assessment & Plan: Multiple possible etiologies (see previous note); should improve somewhat with stopping bicarb drip; -continue to replenish with IV calcium gluconate Status: Acute - Assessment and Plan (Free Text) Assessment: Liver Dysfunction - Etiology still unclear; for liver biopsy tomorrow; can give dose of desmopressin just before procedure (0.3 mcg/kg) in setting of possible uremic platelet dysfunction;
[2017-01-18] MEDS: Lactulose 10 gm/15 ml (Rectal Use) PR SCH (11:42)
[2017-01-18] MEDS: Dextrose 5%/0.9% NS 1,000 ML IV SCH (11:58)
--- NOTE | 2017-01-18 13:03 | CP.PCM.PN ---
<GISEL WILBURN - Last Filed: 01/18/17 13:00> Subjective - Date & Time of Evaluation Date of Evaluation: 01/18/17 Time of Evaluation: 10:10 - Subjective Subjective: Medicine Progress Note: Pt seen and examined at bedside. Pt appears to be more lethargic and restless today. Pt was awake, but not oriented and not responsive to questioning. ROS limited due to patient status. Objective - Vital Signs/Intake and Output Vital Signs (last 24 hours): Temp Pulse Resp BP Pulse Ox 97.6 F 94 H 22 111/68 97 01/18/17 12:49 01/18/17 12:14 01/18/17 12:14 01/18/17 12:14 01/18/17 12:14 Intake and Output: 01/18/17 01/18/17 06:59 18:59 Intake Total 1320 Output Total 425 Balance 895 - Medications Medications: Current Medications Albumin Human (Albumin Human 25% (25 Gm/100 Ml)) 25 gm IV Q4H [facility] Last Admin: 01/18/17 06:30 Dose: Not Given Alprazolam (Xanax) 0.25 mg PO Q6 PRN; Protocol PRN Reason: Anxiety Stop: 01/23/17 18:01 Famotidine (Pepcid) 40 mg PO HS [facility] Last Admin: 01/16/17 22:22 Dose: 40 mg Piperacillin Sod/Tazobactam Sod (Zosyn 2.25 Gm In 0.9% 100 Ml) 2.25 gm in 100 mls @ 100 mls/hr IVPB Q6 [facility] PRN Reason: Protocol Stop: 01/23/17 18:01 Last Admin: 01/18/17 12:35 Dose: 100 mls/hr Dextrose/Sodium Chloride (Dextrose 5%/0.9% Ns 1000 Ml) 1,000 mls @ 125 mls/hr IV .Q8H [facility] Last Admin: 01/18/17 11:58 Dose: 125 mls/hr Lactulose (Generlac) 200 gm HI ONCE [facility] Last Admin: 01/18/17 11:42 Dose: 200 gm Morphine Sulfate (Morphine) 1 mg IVP Q4H PRN PRN Reason: Pain, severe (8-10) Last Admin: 01/17/17 22:40 Dose: 1 mg Oxycodone HCl (Oxycodone Immediate Release Tab) 5 mg PO Q6H PRN PRN Reason: Pain, Mild (1-3) Phytonadione (Vitamin K Tab) 10 mg PO DAILY [facility] Stop: 01/19/17 22:00 Last Admin: 01/18/17 12:25 Dose: Not Given Rifaximin (Xifaxan) 550 mg PO BID [facility] PRN Reason: Protocol Last Admin: 01/18/17 12:25 Dose: Not Given Ursodiol (Actigall) 600 mg PO BID [facility] Last Admin: 01/18/17 12:25 Dose: Not Given - Labs Labs: 01/18/17 07:00 01/18/17 07:00 PT 43.0 Seconds (9.9-11.8) H* 01/18/17 07:00 INR 3.98 (0.93-1.08) H* 01/18/17 07:00 APTT 119.2 Seconds (23.7-30.8) H* 01/17/17 21:05 - Constitutional Appears: Confused, Other (lethargic) - Head Exam Head Exam: ATRAUMATIC, NORMOCEPHALIC - Eye Exam Eye Exam: Normal appearance - ENT Exam ENT Exam: Mucous Membranes Moist - Neck Exam Neck Exam: Full ROM - Respiratory Exam Respiratory Exam: Clear to Ausculation Bilateral, Rales, Rhonchi, Wheezes - Cardiovascular Exam Cardiovascular Exam: RRR, +S1, +S2. absent: Gallop, Rubs, Murmur - GI/Abdominal Exam GI & Abdominal Exam: Distended, Soft. absent: Guarding, Tenderness, Rebound - Extremities Exam Extremities Exam: Full ROM. absent: Joint Swelling, Pedal Edema - Neurological Exam Neurological Exam: Altered, Awake - Psychiatric Exam Psychiatric exam: Normal Affect - Skin Skin Exam: Dry, Intact Assessment and Plan - Assessment and Plan (Free Text) Assessment: 56 yo F with h/o metastatic breast cancer with gastric, peritoneal, and bone metastases was admitted for evaluation and treatment of progressively worsening sob, jaundice, and ascites. 1. Liver metastasis, Hepatic encephalopathy -Ammonia 61 --> 80, Lactulose administered, r/o hepatic encephalopathy vs brain mets/neurlogic disorder -F/u MRI -Platelet count low likely due to liver etiology, monitor INR -GI consulted, likely 2/2 to abdominal wall carcinomatosis, SAAG > 1.1, recommends palliative care/hospice consideration -GI recommended Rifaximin and Ursodiol -CT abdomen and pelvis shows persistent ascites, enterocolitis, gastric wall thickening and bone metastasis -LFT's remain consistently elevated -Morphine and oxycodone for pain control -Palliative care consulted 2. Acute Renal Failure -Fluid resuscitation -Albumin 3.1, currently on Albumin drip -Nephrology consulted -Mild hyperkalemia should correct with bicarb, kayexalate questionable due to enterocolitis on imaging, use lactulose to induce diarrhea -Hold diuretics -Creatinine 2.2, if Cr continues to worsen consider hepatorenal syndrome -[employer]JECT [employer]INATOR not likely an option due to poor prognosis 3. Lactic Acidosis - Gap closed -Anion gap 9 -Bicarb drip DC -Per nephrology, likely due to tumor and sepsis -Lactic acidosis with respiratory compensation 4. SIRS -Possible UTI etiology -ID consulted, IV vancomycin and zosyn -Blood cultures pending 5. Hypocalcemia -Calcium 5.7, Albumin 3.1 -Corrected Calcium 6.4 -IV Calcium Gluconate administered 5. Dyspnea - etiology unclear - pulm vs, cardiac vs ascities vs abdominal pressure -Lactic acidosis with respiratory compensation -CXR showed no active pulmonary disease -Lung perfusion and ventilation scan showed low probability ventilation perfusion scan for PE -Ativan for acute anxiety 6. Breast Cancer/Metastatic -Onc recommended out pt chemotherapy -Was on HER2 chemo regimen, stopped during most recent admission -Will continue to hold for now, pending assessment by GI -If regiment needs to be restarted will consult heme-onc 7. Anemia -Hemoglobin 7.4 -Continue to monitor 8. GI/DVT PPx -Pepcid & SCDs Case and plan was seen, reviewed and discussed in detail with Dr Matamoros. <Deyanira Matamoros - Last Filed: 01/18/17 16:46> Objective - Vital Signs/Intake and Output Vital Signs (last 24 hours): Temp Pulse Resp BP Pulse Ox 97.8 F 91 H 20 141/82 94 L 01/18/17 14:38 01/18/17 16:00 01/18/17 16:00 01/18/17 16:00 01/18/17 16:00 Intake and Output: 01/18/17 01/18/17 06:59 18:59 Intake Total 1320 Output Total 425 Balance 895 - Medications Medications: Current Medications Albumin Human (Albumin Human 25% (25 Gm/100 Ml)) 25 gm IV Q4H [facility] Last Admin: 01/18/17 06:30 Dose: Not Given Alprazolam (Xanax) 0.25 mg PO Q6 PRN; Protocol PRN Reason: Anxiety Stop: 01/23/17 18:01 Famotidine (Pepcid) 40 mg PO HS [facility] Last Admin: 01/16/17 22:22 Dose: 40 mg Piperacillin Sod/Tazobactam Sod (Zosyn 2.25 Gm In 0.9% 100 Ml) 2.25 gm in 100 mls @ 100 mls/hr IVPB Q6 [facility] PRN Reason: Protocol Stop: 01/23/17 18:01 Last Admin: 01/18/17 12:35 Dose: 100 mls/hr Dextrose/Sodium Chloride (Dextrose 5%/0.9% Ns 1000 Ml) 1,000 mls @ 125 mls/hr IV .Q8H [facility] Last Admin: 01/18/17 11:58 Dose: 125 mls/hr Lactulose (Generlac) 200 gm HI ONCE [facility] Last Admin: 01/18/17 11:42 Dose: 200 gm Morphine Sulfate (Morphine) 1 mg IVP Q4H PRN PRN Reason: Pain, severe (8-10) Last Admin: 01/17/17 22:40 Dose: 1 mg Oxycodone HCl (Oxycodone Immediate Release Tab) 5 mg PO Q6H PRN PRN Reason: Pain, Mild (1-3) Phytonadione (Vitamin K Tab) 10 mg PO DAILY [facility] Stop: 01/19/17 22:00 Last Admin: 01/18/17 12:25 Dose: Not Given Rifaximin (Xifaxan) 550 mg PO BID [facility] PRN Reason: Protocol Last Admin: 01/18/17 12:25 Dose: Not Given Ursodiol (Actigall) 600 mg PO BID [facility] Last Admin: 01/18/17 12:25 Dose: Not Given - Labs Labs: 01/18/17 07:00 01/18/17 07:00 PT 43.0 Seconds (9.9-11.8) H* 01/18/17 07:00 INR 3.98 (0.93-1.08) H* 01/18/17 07:00 APTT 119.2 Seconds (23.7-30.8) H* 01/17/17 21:05 Attending/Attestation - Attestation I have personally seen and examined this patient.: Yes I have fully participated in the care of the patient.: Yes I have reviewed all pertinent clinical information, including history, physical exam and plan: Yes Notes (Text): 01/18/17 16:33 attending note; Patient seen and examined with resident. Patient is a 56-year-old female with a history of metastatic breast cancer to the bones is admitted with abdominal discomfort And shortness of breath. Patient was discharged From the hospital after paracentesis. Currently with liver and renal failure. Altered mental status; secondary to hepatic encephalopathy. Started on lactulose and rifaxin. Lactic acidosis : resolved. acute renal failure; pre renal vs hepatorenal. still with Elevated creatinine of 2.2. Nephrology evaluation appreciated. anemia; no active bleeding. 3 unit PRBC transfusion given yesterday. FFP and platelet transfusion ordered today. Coagulopathy; monitor for bleeding. Started on vitamin K. GI evaluation appreciated. CT abdomen and Pelvis showed ascites and enterocolitis. s/p PICC line placement. Leukocytosis; rule out sepsis. Blood culture, urine culture is negative so far. Currently on IV Zosyn dose adjusted. ID evaluation appreciated. case discussed with Dr. Sarthak Hernandez. plan for liver biopsy tomorrow. We will transfuse 1 unit of platelet and 2 FFP's on tomorrow morning before biopsy. Case discussed with patient, patient's sister Kenzie and patient's daughter in detail. Poor prognosis explained. patient with multiorgan failure. Palliative care evaluation appreciated. patient is full code for now.
[2017-01-18 14:57] LABS: PH,URINE 5.5 (4.7-8.0); URINE BILIRUBIN MODERATE (NEGATIVE); URINE BLOOD LARGE (NEGATIVE); URINE GLUCOSE (UA) NEGATIVE (NEGATIVE); URINE LEUKOCYTE ESTERASE TRACE Leu/uL (NEGATIVE); URINE NITRATE NEGATIVE (NEGATIVE); URINE PROTEIN 100 mg/dL (<30 mg/dL); URINE UROBILINOGEN 0.2 E.U./dL (<1 E.U./dL)
[2017-01-18 14:59] LABS: URINE APPEARANCE SL CLOUDY (CLEAR); URINE COLOR DARK YELLOW (YELLOW)
[2017-01-18 15:13] LABS: URINE BACTERIA FEW (NEG); URINE EPITHELIAL CELLS 0 - 2 /hpf (0-5); URINE RBC TNTC /hpf (0-2); URINE WBC 0 - 2 /hpf (0-6)
[2017-01-18] MEDS ORDERED: Lactulose 10 gm/15 ml (Rectal Use) PR ONE (16:46)
[2017-01-18] MEDS ORDERED: Phytonadione 10 MG in Sodium Chloride 0.9% 50 ML IV ONE (17:32)
--- NOTE | 2017-01-18 20:53 | CP.PCM.PN ---
Subjective - Date & Time of Evaluation Date of Evaluation: 01/18/17 Time of Evaluation: 17:46 - Subjective Subjective: She is more sleepy today. She is arousable though not making conversation. She appear little agitated but not in pain. Her daughter is present bedside. NO fevers. She received one dose of lactulose enema earlier today. Could not tolerate NG tube. Objective - Vital Signs/Intake and Output Vital Signs (last 24 hours): Temp Pulse Resp BP Pulse Ox 98.4 F 105 H 22 155/101 H 98 01/18/17 20:40 01/18/17 20:40 01/18/17 20:40 01/18/17 20:40 01/18/17 18:00 Intake and Output: 01/18/17 01/19/17 18:59 06:59 Intake Total 3805 414 Output Total 725 Balance 3080 414 - Medications Medications: Current Medications Albumin Human (Albumin Human 25% (25 Gm/100 Ml)) 25 gm IV Q4H [facility] Last Admin: 01/18/17 06:30 Dose: Not Given Alprazolam (Xanax) 0.25 mg PO Q6 PRN; Protocol PRN Reason: Anxiety Stop: 01/23/17 18:01 Famotidine (Pepcid) 40 mg PO HS [facility] Last Admin: 01/16/17 22:22 Dose: 40 mg Piperacillin Sod/Tazobactam Sod (Zosyn 2.25 Gm In 0.9% 100 Ml) 2.25 gm in 100 mls @ 100 mls/hr IVPB Q6 [facility] PRN Reason: Protocol Stop: 01/23/17 18:01 Last Admin: 01/18/17 19:16 Dose: 100 mls/hr Dextrose/Sodium Chloride (Dextrose 5%/0.9% Ns 1000 Ml) 1,000 mls @ 125 mls/hr IV .Q8H [facility] Last Admin: 01/18/17 11:58 Dose: 125 mls/hr Lactulose (Generlac) 200 gm ID ONCE [facility] Last Admin: 01/18/17 11:42 Dose: 200 gm Morphine Sulfate (Morphine) 1 mg IVP Q4H PRN PRN Reason: Pain, severe (8-10) Last Admin: 01/17/17 22:40 Dose: 1 mg Oxycodone HCl (Oxycodone Immediate Release Tab) 5 mg PO Q6H PRN PRN Reason: Pain, Mild (1-3) Rifaximin (Xifaxan) 550 mg PO BID [facility] PRN Reason: Protocol Last Admin: 01/18/17 17:39 Dose: Not Given Ursodiol (Actigall) 600 mg PO BID [facility] Last Admin: 01/18/17 17:39 Dose: Not Given - Labs Labs: 01/18/17 07:00 01/18/17 07:00 PT 43.0 Seconds (9.9-11.8) H* 01/18/17 07:00 INR 3.98 (0.93-1.08) H* 01/18/17 07:00 APTT 119.2 Seconds (23.7-30.8) H* 01/17/17 21:05 - Head Exam Head Exam: ATRAUMATIC, NORMAL INSPECTION - Eye Exam Eye Exam: PERRL - Respiratory Exam Respiratory Exam: Clear to Ausculation Bilateral - Cardiovascular Exam Cardiovascular Exam: REGULAR RHYTHM - GI/Abdominal Exam GI & Abdominal Exam: Distended, Soft. absent: Tenderness - Extremities Exam Extremities Exam: absent: Pedal Edema - Neurological Exam Additional comments: as above Assessment and Plan - Assessment and Plan (Free Text) Assessment: Metastatic Breast cancer, ER/ID +, Her-2 negative Progressed now on second line Ibrance and Letrozole. Her clinical condition has deteriorated now, could be a combination of hepatic/ uremic encephalopathy or metabolic encephalopathy, sepsis or malignancy. Appreciate GI and palliative care. Continue with lactulose. Also started on Ursadiol. Awaiting head imaging to rule out mets/ bleeding. Agree with platelet transfusion. Hb is better after PRBC. WIll give her one dose of IV VitK 10 mg today. Prognosis is poor. Tushar Aceves
[2017-01-19] MEDS: Piperacillin/Tazobact 2.25gm 2.25 GM/100 ML BAG IVPB SCH ×3 (00:05→13:07)
[2017-01-19] MEDS: Dextrose 5%/0.9% NS 1,000 ML IV SCH (03:59)
[2017-01-19 06:27] LABS: INR 1.86 (0.93-1.08); PARTIAL THROMBOPLASTIN TIME 63.2 Seconds (23.7-30.8); PROTHROMBIN TIME 20.1 Seconds (9.9-11.8)
[2017-01-19 06:31] LABS: HEMOGLOBIN 8.1 gm/dL (12.0-16.0); MEAN CELL VOLUME 96.5 fL (80.0-105.0); MEAN CORPUSCULAR HEMOGLOBIN 31.4 pg (25.0-35.0); MEAN CORPUSCULAR HGB CONC 32.5 g/dl (31.0-37.0); PLATELET COUNT 53 10^3/uL (120.0-450.0); RBC 2.58 10^6/uL (3.5-6.1); RED CELL DISTRIBUTION WIDTH 25.9 % (11.5-14.5); WHITE BLOOD COUNT 12.3 10^3/ul (4.5-11.0)
[2017-01-19 06:32] LABS: ALBUMIN 3.1 g/dL (3.0-4.8)
[2017-01-19] MEDS: Lactulose 10 gm/15 ml (Rectal Use) PR SCH (08:49)
--- NOTE | 2017-01-19 08:55 | CP.PCM.PN ---
<Lawrence Rankin - Last Filed: 01/19/17 11:39> Subjective - Date & Time of Evaluation Date of Evaluation: 01/19/17 Time of Evaluation: 07:00 - Subjective Subjective: PGY5 GI Fellow Progress Note Patient seen and examined at bedside this morning. Patient's family present during examination. She remains obtunded and unable to participate in history/ physical examination. Had NGT placed but became agitated and removed it herself yesterday; therefore, unable to give PO medications. No events overnight. 12 system ROS cannot be performed given clinical condition. Objective - Vital Signs/Intake and Output Vital Signs (last 24 hours): Temp Pulse Resp BP Pulse Ox 98.2 F 90 18 128/82 93 L 01/19/17 08:41 01/19/17 08:41 01/19/17 08:41 01/19/17 08:41 01/19/17 06:00 Intake and Output: 01/19/17 01/19/17 06:59 18:59 Intake Total 3631 0 Output Total 700 Balance 2931 0 - Medications Medications: Current Medications Albumin Human (Albumin Human 25% (25 Gm/100 Ml)) 25 gm IV Q4H [facility] Last Admin: 01/18/17 06:30 Dose: Not Given Alprazolam (Xanax) 0.25 mg PO Q6 PRN; Protocol PRN Reason: Anxiety Stop: 01/23/17 18:01 Famotidine (Pepcid) [address] [facility] Last Admin: 01/18/17 22:00 Dose: Not Given Piperacillin Sod/Tazobactam Sod (Zosyn 2.25 Gm In 0.9% 100 Ml) 2.25 gm in 100 mls @ 100 mls/hr IVPB Q6 [facility] PRN Reason: Protocol Stop: 01/23/17 18:01 Last Admin: 01/19/17 05:33 Dose: 100 mls/hr Dextrose/Sodium Chloride (Dextrose 5%/0.9% Ns 1000 Ml) 1,000 mls @ 125 mls/hr IV .Q8H [facility] Last Admin: 01/19/17 03:59 Dose: 125 mls/hr Calcium Gluconate 1,000 mg/ (Sodium Chloride) 110 mls @ 110 mls/hr IVPB ONCE ONE Stop: 01/19/17 09:06 Lactulose (Generlac) 200 gm [place] ONCE [facility] Last Admin: 01/19/17 08:49 Dose: 200 gm Lorazepam (Ativan) 1 mg IVP Q4 PRN; Protocol PRN Reason: Anxiety Morphine Sulfate (Morphine) 1 mg IVP Q4H PRN PRN Reason: Pain, severe (8-10) Last Admin: 01/17/17 22:40 Dose: 1 mg Oxycodone HCl (Oxycodone Immediate Release Tab) 5 mg PO Q6H PRN PRN Reason: Pain, Mild (1-3) Rifaximin (Xifaxan) 550 mg PO BID [facility] PRN Reason: Protocol Last Admin: 01/18/17 17:39 Dose: Not Given Ursodiol (Actigall) 600 mg PO BID [facility] Last Admin: 01/18/17 17:39 Dose: Not Given - Labs Labs: 01/19/17 05:30 01/19/17 05:30 PT 20.1 Seconds (9.9-11.8) H 01/19/17 05:30 INR 1.86 (0.93-1.08) H 01/19/17 05:30 APTT 63.2 Seconds (23.7-30.8) H 01/19/17 05:30 - Constitutional Appears: Agitated, Confused - Eye Exam Eye Exam: PERRL - ENT Exam ENT Exam: Mucous Membranes Dry - Respiratory Exam Respiratory Exam: Decreased Breath Sounds. absent: Rales, Rhonchi, Wheezes - Cardiovascular Exam Cardiovascular Exam: RRR, +S1, +S2 - GI/Abdominal Exam GI & Abdominal Exam: Soft, Normal Bowel Sounds. absent: Distended, Firm, Guarding, Rigid, Tenderness, Organomegaly - Extremities Exam Additional comments: B/L LE edema - Neurological Exam Neurological Exam: Altered. absent: Oriented x3 - Psychiatric Exam Psychiatric exam: Agitated, Anxious - Skin Skin Exam: Dry, Warm Assessment and Plan - Assessment and Plan (Free Text) Assessment: Patient is a 56yo female with PMHx significant for breast cancer with metastases to stomach, peritoneum, bone and liver who was readmitted for worsening shortness of breath. -Metastatic breast cancer (liver, bone, stomach, peritoneum) -Acute hepatitis, mixed picture LFTs (cholestatic, hepatocellular) - possibly progressing to acute liver failure -Altered mental status -Coagulopathy -Acute kidney injury Plan: -AMS persists despite lactulose therapy; can use up to Q1H to attempt to improve mentation if related to HE -Recommend brain imaging to r/o infarct, mass, edema -If patient can tolerate NGT or PO medication; can empirically begin Ursodiol for question of PBC -Would also add Xifaxin 550mg PO BID if tolerating PO -Pt planned for liver biopsy at 1300 - Per GI standpoint, the risks of this procedure outweigh potential benefits, especially given coagulopathy. Procedure may help elucidate diagnosis and differential may include metastatic disease, NAFLD/LAGOS, PBC, autoimmune hepatitis, cryptogenic cirrhosis. While an underlying condition such as autoimmune hepatitis may be treated with steroid therapy, ultimately, patient is not a candidate for liver transplant and overall prognosis remains poor given extensive metastatic disease. In the setting of PBC, the same remains true. We can empirically treat with Ursodiol if PO can be administered but, even with this, 35% of patients have sub-optimal response and suffer disease progression. I don't believe patient will be a candidate for chemotherapy given her deteriorating state in either case, but will defer that decision to the oncology service to discuss with family. -Closely monitor CBC, CMP, INR -Patient is not a candidate for liver transplant <Joey Archibald Y - Last Filed: 01/19/17 14:13> Objective - Vital Signs/Intake and Output Vital Signs (last 24 hours): Temp Pulse Resp BP Pulse Ox 98.3 F 93 H 20 143/91 H 99 01/19/17 10:30 01/19/17 12:30 01/19/17 12:30 01/19/17 12:30 01/19/17 12:30 Intake and Output: 01/19/17 01/19/17 06:59 18:59 Intake Total 3631 251 Output Total 700 Balance 2931 251 - Medications Medications: Current Medications Albumin Human (Albumin Human 25% (25 Gm/100 Ml)) 25 gm IV Q4H [facility] Last Admin: 01/18/17 06:30 Dose: Not Given Alprazolam (Xanax) 0.25 mg PO Q6 PRN; Protocol PRN Reason: Anxiety Stop: 01/23/17 18:01 Famotidine (Pepcid) 40 mg PO HS [facility] Last Admin: 01/18/17 22:00 Dose: Not Given Piperacillin Sod/Tazobactam Sod (Zosyn 2.25 Gm In 0.9% 100 Ml) 2.25 gm in 100 mls @ 100 mls/hr IVPB Q6 [facility] PRN Reason: Protocol Stop: 01/23/17 18:01 Last Admin: 01/19/17 13:07 Dose: 100 mls/hr Dextrose/Sodium Chloride (Dextrose 5%/0.9% Ns 1000 Ml) 1,000 mls @ 125 mls/hr IV .Q8H [facility] Last Admin: 01/19/17 03:59 Dose: 125 mls/hr Lactulose (Generlac) 200 gm [place] ONCE [facility] Last Admin: 01/19/17 08:49 Dose: 200 gm Lorazepam (Ativan) 1 mg IVP Q4 PRN; Protocol PRN Reason: Anxiety Morphine Sulfate (Morphine) 1 mg IVP Q4H PRN PRN Reason: Pain, severe (8-10) Last Admin: 01/17/17 22:40 Dose: 1 mg Oxycodone HCl (Oxycodone Immediate Release Tab) 5 mg PO Q6H PRN PRN Reason: Pain, Mild (1-3) Rifaximin (Xifaxan) 550 mg PO BID [facility] PRN Reason: Protocol Last Admin: 01/19/17 09:11 Dose: Not Given Ursodiol (Actigall) 600 mg PO BID [facility] Last Admin: 01/19/17 09:10 Dose: Not Given - Labs Labs: 01/19/17 05:30 01/19/17 05:30 PT 20.1 Seconds (9.9-11.8) H 01/19/17 05:30 INR 1.86 (0.93-1.08) H 01/19/17 05:30 APTT 63.2 Seconds (23.7-30.8) H 01/19/17 05:30 Attending/Attestation - Attestation I have personally seen and examined this patient.: Yes I have fully participated in the care of the patient.: Yes I have reviewed all pertinent clinical information, including history, physical exam and plan: Yes Notes (Text): 01/19/17 14:06 I have seen and examined patient with GI fellow. No acute events overnight, she remains obtunded and not able to participate in meaningful conversation in critical care unit. Discussion had with family members at bedside. There is no reported abdominal pain, vomiting, fever/chills. Review of vitals from today are normal. Metastatic breast cancer Malignant ascites Transaminitis, hyperbilirubinemia in setting of metastatic hepatic disease. Positive AMA noted. Acute renal insufficiency AMS in setting of progressive liver disease - Patient scheduled for liver biopsy by medical team today, will follow up results - Continue with lactulose therapy - Would suggest replacement of NGT in order to provide PO medications - Patient currently not a candidate for additional chemotherapy or liver transplantation given advanced disease state, therefore despite liver biopsy being performed, it is unlikely to significantly alter management in this situation. If autoimmune hepatitis is identified, there may be some potential short term benefit with steroid use, however the overall custodial prognosis for this patient is quite poor and I would therefore suggest hospice consideration with the focus being on optimizing patient comfort. - Follow up oncology recommendations - Continue to monitor liver and kidney function
--- NOTE | 2017-01-19 09:23 | PN ---
DATE OF SERVICE: 01/18/2017 SUBJECTIVE: The patient was seen earlier today in the ICU bed #2. She is weak. No events overnight. No fever and no chills reported. PHYSICAL EXAMINATION: VITAL SIGNS: Temperature is 97.8, blood pressure is 115/73, respiratory rate of 18, and heart rate of 85. HEENT: Unremarkable. NECK: Supple. LUNGS: Decreased breath sounds. HEART: Normal S1 and S2. ABDOMEN: Soft, nontender. LABORATORY DATA: Laboratory examination reveals white count of 13,200, hemoglobin of 8, and platelets of 47. Chemistries reveal the patient's BUN of 50, creatinine of 2.2, AST is 519, ALT of 130, and alkaline phosphatase of 264. Urinalysis is noted. Microbiology reveals the blood culture of no growth and urine culture with multiple species, probable contamination. Review of the orders reveals the patient to have repeat urine cultures pending and the patient is on IV Zosyn. An MRI of the head has been ordered. ASSESSMENT AND PLAN: This is a 56-year-old female with history of breast cancer, history of partial small-bowel obstruction, chronic anemia, obesity, body mass index of 38, admitted with abdominal distention, found to have ascites, and underwent paracentesis, with systemic inflammatory response syndrome with acute on chronic renal failure, spontaneous bacterial peritonitis, probable metastatic cancer from breast cancer with metastasis to the liver, currently with dose of vancomycin given, on Zosyn, waiting for urine culture and possible paracentesis, and urinalysis is unremarkable. Overall prognosis is quite poor. The patient had a chest x-ray yesterday which shows no active pulmonary disease. Jerad Acosta MD
--- NOTE | 2017-01-19 09:31 | PN ---
DATE: 01/18/2017 SUBJECTIVE: The patient was seen and examined in bedside. She is somnolent; however, responding to touch stimuli. She appears to be confused. PHYSICAL EXAMINATION: VITAL SIGNS: Temperature 97.6, heart rate 94, blood pressure 111/68, respiratory rate 22, oxygen saturation 97% on 2 L nasal cannula. HEAD AND NECK: Atraumatic. LUNGS: Clear to auscultation bilaterally. HEART: Regular rate and rhythm. S1 and S2 are distant. ABDOMEN: Soft, mildly tender, but no peritoneal signs. SKIN: Moist. PSYCH: The patient is somnolent. NEURO: The patient moves all extremities spontaneously. LABORATORY DATA: WBC 13.2, hemoglobin 8.8, platelet count 47 (2 bags of platelets were ordered). INR 3.98 down from 4.42. Sodium 131, potassium 4.1, chloride 94, carbon dioxide 28, BUN 50, creatinine 2.2, calcium 5.7 (supplemented), ammonia level 80. ABG shows 7.46/38/58/O2 sat of 91%. MEDICATIONS: Xanax p.r.n., D5 normal saline 125 mL/hour, Pepcid, lactulose p.r., morphine, vitamin K, rifaximine, Actigall, Zosyn. ASSESSMENT AND PLAN: This is a 56-year-old lady with acute exacerbation of chronic liver insufficiency/failure secondary to either metastatic disease (primary is a breast cancer) versus primary biliary cirrhosis, complicated by multiorgan system failure including progression of kidney disease, hepatic encephalopathy. The patient's renal function did not improve with fluid and albumin supplementation/resuscitation. The patient continued to be on antibiotics. ID service is following her as well. Case was discussed with GI service as well. At the present time, the plan is to proceed with liver biopsy tomorrow to determine whether the patient has metastatic disease or liver cirrhosis. Both of these scenarios would be sign of irreversible disease. I spoke about the plan with the family and they agreed with the plan. If any irreversible process would be found, they would consider DNR/DNI and reversal to comfort care. At the present time, we will try to establish oral or nasogastric route for lactulose, rifaximin as well as Actigall. We will reverse coagulopathy and 2 bags of platelets as well as 3 FFP were ordered after which a repeated attempt at Dobhoff tube will be undertaken. Also overnight, the patient will receive additional plasma to correct coagulopathy before liver biopsy. We will continue to target euvolemia. We will continue with DVT and GI prophylaxis. ccm time 40 min Son Spears MD [facility]
[2017-01-19 09:50] VITALS: TEMP 98.3
[2017-01-19 10:09] LABS: BAND 2 % (0-2); CORRECTED WBC 10.8 K/mm3 (4.5-11.0); EOSINOPHIL 1 % (0.0-3.0); LYMPHOCYTE 17 % (22.0-35.0); MONOCYTE 6 % (1.0-6.0); NEUTROPHIL 74 % (50.0-70.0); NUCLEATED RED BLOOD CELL 14 %
[2017-01-19 10:10] LABS: ANISOCYTOSIS 2+; PLATELET ESTIMATE LOW (NORMAL); POIKILOCYTOSIS 1+
[2017-01-19 10:11] LABS: OVALOCYTES SLIGHT; TARGET CELLS SLIGHT
--- NOTE | 2017-01-19 12:54 | CP.PCM.PN ---
<GISEL WILBURN - Last Filed: 01/19/17 12:51> Subjective - Date & Time of Evaluation Date of Evaluation: 01/19/17 Time of Evaluation: 09:00 - Subjective Subjective: Medicine Progress Note: Pt seen and examined at bedside. Minimal change in pt mental status. Pt is awake but does respond to questioning and is restless. Pt family is at bedside and denied any acute changes overnight. Objective - Vital Signs/Intake and Output Vital Signs (last 24 hours): Temp Pulse Resp BP Pulse Ox 98.3 F 93 H 22 129/97 H 95 01/19/17 10:30 01/19/17 11:38 01/19/17 11:38 01/19/17 11:30 01/19/17 11:30 Intake and Output: 01/19/17 01/19/17 06:59 18:59 Intake Total 3631 201 Output Total 700 Balance 2931 201 - Medications Medications: Current Medications Albumin Human (Albumin Human 25% (25 Gm/100 Ml)) 25 gm IV Q4H [facility] Last Admin: 01/18/17 06:30 Dose: Not Given Alprazolam (Xanax) 0.25 mg PO Q6 PRN; Protocol PRN Reason: Anxiety Stop: 01/23/17 18:01 Famotidine (Pepcid) 40 mg PO HS [facility] Last Admin: 01/18/17 22:00 Dose: Not Given Piperacillin Sod/Tazobactam Sod (Zosyn 2.25 Gm In 0.9% 100 Ml) 2.25 gm in 100 mls @ 100 mls/hr IVPB Q6 [facility] PRN Reason: Protocol Stop: 01/23/17 18:01 Last Admin: 01/19/17 05:33 Dose: 100 mls/hr Dextrose/Sodium Chloride (Dextrose 5%/0.9% Ns 1000 Ml) 1,000 mls @ 125 mls/hr IV .Q8H [facility] Last Admin: 01/19/17 03:59 Dose: 125 mls/hr Lactulose (Generlac) 200 gm [place] ONCE [facility] Last Admin: 01/19/17 08:49 Dose: 200 gm Lorazepam (Ativan) 1 mg IVP Q4 PRN; Protocol PRN Reason: Anxiety Morphine Sulfate (Morphine) 1 mg IVP Q4H PRN PRN Reason: Pain, severe (8-10) Last Admin: 01/17/17 22:40 Dose: 1 mg Oxycodone HCl (Oxycodone Immediate Release Tab) 5 mg PO Q6H PRN PRN Reason: Pain, Mild (1-3) Rifaximin (Xifaxan) 550 mg PO BID [facility] PRN Reason: Protocol Last Admin: 01/19/17 09:11 Dose: Not Given Ursodiol (Actigall) 600 mg PO BID [facility] Last Admin: 01/19/17 09:10 Dose: Not Given - Labs Labs: 01/19/17 05:30 01/19/17 05:30 PT 20.1 Seconds (9.9-11.8) H 01/19/17 05:30 INR 1.86 (0.93-1.08) H 01/19/17 05:30 APTT 63.2 Seconds (23.7-30.8) H 01/19/17 05:30 - Head Exam Head Exam: ATRAUMATIC, NORMOCEPHALIC - Neck Exam Neck Exam: Full ROM - Respiratory Exam Respiratory Exam: Clear to Ausculation Bilateral. absent: Rales, Rhonchi, Wheezes - Cardiovascular Exam Cardiovascular Exam: RRR, +S1, +S2. absent: Gallop, Rubs, Murmur - GI/Abdominal Exam GI & Abdominal Exam: Soft. absent: Distended, Guarding, Tenderness, Rebound - Extremities Exam Extremities Exam: Full ROM - Neurological Exam Neurological Exam: Altered, Awake - Psychiatric Exam Psychiatric exam: Agitated - Skin Skin Exam: Dry, Intact, Normal Color, Warm Assessment and Plan - Assessment and Plan (Free Text) Assessment: 56 yo F with h/o metastatic breast cancer with gastric, peritoneal, and bone metastases was admitted for evaluation and treatment of progressively worsening sob, jaundice, and ascites. 1. Liver metastasis, Hepatic encephalopathy -F/u with liver biopsy -Ammonia level relatively unchanged, GI recommends Lactulose q1h and Rifaximin, r/o hepatic encephalopathy vs brain mets/neurlogic disorder -Platelet count low likely due to liver etiology, monitor INR -GI consulted, likely 2/2 to abdominal wall carcinomatosis, recommends palliative care/hospice consideration -GI recommended Ursodiol -CT abdomen and pelvis shows persistent ascites, enterocolitis, gastric wall thickening and bone metastasis -LFT's remain consistently elevated -Morphine and oxycodone for pain control -Palliative care consulted 2. Acute Renal Failure -Fluid resuscitation -Albumin drip -Nephrology consulted -Mild hyperkalemia should correct with bicarb, kayexalate questionable due to enterocolitis on imaging, use lactulose to induce diarrhea -Hold diuretics -Creatinine 1.8, if Cr continues to worsen consider hepatorenal syndrome -CONTR[employer]ER not likely an option due to poor prognosis 3. Lactic Acidosis - Gap closed -Bicarb drip DC -Per nephrology, likely due to tumor and sepsis -Lactic acidosis with respiratory compensation 4. SIRS -Possible UTI etiology -ID consulted, IV vancomycin and zosyn -Blood cultures pending 5. Hypocalcemia -Corrected Calcium 6.4 --> 6.7 after IV Calcium Gluconate -Consider repleting 5. Dyspnea - etiology unclear - pulm vs, cardiac vs ascities vs abdominal pressure -Lactic acidosis with respiratory compensation -CXR showed no active pulmonary disease -Lung perfusion and ventilation scan showed low probability ventilation perfusion scan for PE -Ativan for acute anxiety 6. Breast Cancer/Metastatic -Onc recommended out pt chemotherapy -Was on HER2 chemo regimen, stopped during most recent admission -Will continue to hold for now, pending assessment by GI -If regiment needs to be restarted will consult heme-onc 7. Anemia -Hemoglobin 8.1 -Continue to monitor 8. GI/DVT PPx -Pepcid & SCDs Case and plan was seen, reviewed and discussed in detail with Dr Matamoros. <Deyanira Matamoros - Last Filed: 01/19/17 17:17> Objective - Vital Signs/Intake and Output Vital Signs (last 24 hours): Temp Pulse Resp BP Pulse Ox 98.3 F 100 H 24 152/89 H 97 01/19/17 10:30 01/19/17 15:15 01/19/17 15:15 01/19/17 15:15 01/19/17 15:15 Intake and Output: 01/19/17 01/19/17 06:59 18:59 Intake Total 3631 251 Output Total 700 Balance 2931 251 - Labs Labs: 01/19/17 05:30 01/19/17 05:30 PT 20.1 Seconds (9.9-11.8) H 01/19/17 05:30 INR 1.86 (0.93-1.08) H 01/19/17 05:30 APTT 63.2 Seconds (23.7-30.8) H 01/19/17 05:30 Attending/Attestation - Attestation I have personally seen and examined this patient.: Yes I have fully participated in the care of the patient.: Yes I have reviewed all pertinent clinical information, including history, physical exam and plan: Yes Notes (Text): 01/19/17 17:14 attending note; Patient seen and examined with resident. Patient is a 56-year-old female with a history of metastatic breast cancer to the bones is admitted with abdominal discomfort And shortness of breath. Patient was discharged From the hospital after paracentesis. Currently with liver and renal failure. Altered mental status; secondary to hepatic encephalopathy. Started on lactulose and rifaxin. not tolerating po meds. Lactic acidosis : resolved. acute renal failure; pre renal vs hepatorenal. still with Elevated creatinine of 2.2. Nephrology evaluation appreciated. anemia; no active bleeding. 3 unit PRBC transfusion given yesterday. FFP and platelet transfusion given. Coagulopathy; monitor for bleeding. Started on vitamin K. GI evaluation appreciated. CT abdomen and Pelvis showed ascites and enterocolitis. s/p PICC line placement. Leukocytosis; rule out sepsis. Blood culture, urine culture is negative so far. Currently on IV Zosyn dose adjusted. ID evaluation appreciated. case discussed with Dr. Sarthak Hernandez. plan for liver biopsy today. We will transfuse 1 unit of platelet and 2 FFP's before biopsy. Case discussed with patient, patient's sister Kenzie and patient's daughter in detail. Poor prognosis explained. patient with multiorgan failure. Palliative care evaluation appreciated. patient is full code for now.
--- NOTE | 2017-01-19 13:39 | CP.PCM.PN ---
<Kian Echevarria - Last Filed: 01/19/17 17:04> Subjective - Date & Time of Evaluation Date of Evaluation: 01/19/17 Time of Evaluation: 14:11 - Subjective Subjective: Patient is obtunded, no change in Mental Status. Patient seen and examined at bedside, had 3 BM overnight. Objective - Vital Signs/Intake and Output Vital Signs (last 24 hours): Temp Pulse Resp BP Pulse Ox 98.3 F 93 H 20 143/91 H 99 01/19/17 10:30 01/19/17 12:30 01/19/17 12:30 01/19/17 12:30 01/19/17 12:30 Intake and Output: 01/19/17 01/19/17 06:59 18:59 Intake Total 3631 251 Output Total 700 Balance 2931 251 - Medications Medications: Current Medications Albumin Human (Albumin Human 25% (25 Gm/100 Ml)) 25 gm IV Q4H [facility] Last Admin: 01/18/17 06:30 Dose: Not Given Alprazolam (Xanax) 0.25 mg PO Q6 PRN; Protocol PRN Reason: Anxiety Stop: 01/23/17 18:01 Famotidine (Pepcid) 40 mg PO HS [facility] Last Admin: 01/18/17 22:00 Dose: Not Given Piperacillin Sod/Tazobactam Sod (Zosyn 2.25 Gm In 0.9% 100 Ml) 2.25 gm in 100 mls @ 100 mls/hr IVPB Q6 [facility] PRN Reason: Protocol Stop: 01/23/17 18:01 Last Admin: 01/19/17 13:07 Dose: 100 mls/hr Dextrose/Sodium Chloride (Dextrose 5%/0.9% Ns 1000 Ml) 1,000 mls @ 125 mls/hr IV .Q8H [facility] Last Admin: 01/19/17 03:59 Dose: 125 mls/hr Lactulose (Generlac) 200 gm DE ONCE [facility] Last Admin: 01/19/17 08:49 Dose: 200 gm Lorazepam (Ativan) 1 mg IVP Q4 PRN; Protocol PRN Reason: Anxiety Morphine Sulfate (Morphine) 1 mg IVP Q4H PRN PRN Reason: Pain, severe (8-10) Last Admin: 01/17/17 22:40 Dose: 1 mg Oxycodone HCl (Oxycodone Immediate Release Tab) 5 mg PO Q6H PRN PRN Reason: Pain, Mild (1-3) Rifaximin (Xifaxan) 550 mg PO BID [facility] PRN Reason: Protocol Last Admin: 01/19/17 09:11 Dose: Not Given Ursodiol (Actigall) 600 mg PO BID [facility] Last Admin: 01/19/17 09:10 Dose: Not Given - Labs Labs: 01/19/17 05:30 01/19/17 05:30 PT 20.1 Seconds (9.9-11.8) H 01/19/17 05:30 INR 1.86 (0.93-1.08) H 01/19/17 05:30 APTT 63.2 Seconds (23.7-30.8) H 01/19/17 05:30 - Constitutional Appears: Confused, Other (obtunded) - Head Exam Head Exam: ATRAUMATIC, NORMOCEPHALIC - Eye Exam Pupil Exam: Fixed, Miosis - GI/Abdominal Exam GI & Abdominal Exam: Distended, Soft. absent: Organomegaly, Rebound - Rectal Exam Rectal Exam: Deferred - Neurological Exam Neurological Exam: Altered. absent: Alert Additional comments: somnolent, Assessment and Plan - Assessment and Plan (Free Text) Assessment: Assessment: 56 yo female with metastatic breast cancer admitted to the ICU for SOB and AMS in the setting of decompensated liver failure and hepatic encephalopathy. Plan: Neurologic: AMS most likely Hepatic Encephalopathy. Patient received multiple lactulose enemas, passed 3 BM overnight. Ammonia never quite fell. Rifaximin and Ursodiol, unable to be given, considering Dobhoff. MRI of the brain was ordered, patient unable to tolerate the procedure (despite mild sedation). Respiratory: Patient on 2L NC. oxygen saturations in the low 90s. Continue supplemental oxygen to maintain SaO2 above 90%. Cardiovascular: Patient is hemodynamically stable; patient has history of diastolic failure, maintain MAP greater than 65 mmHg. Oncology: Liver biopsy performed, tissue sample confirmed by pathology, results pending. GI: Lactulose enemas administered, 3 BM overnight. Considering Dobhoff for Rifaximin and empiric ursodiol (PBC). Patient is NPO, GI following. Heme: Platelets and FFP were administered to temporarily reverse coagulopathy. INR was below 2.0 pre-procedure. Endocrine: Glucose maintained between 140-180 per NICE trial. Renal: Volume repleted, bicarbonate discontinued, nephrology following. ID: Zosyn per Infectious Disease DVT prophylaxis: SCD DNR/DNI status now. Comfort/Palliative care initiated <Giancarlo Greer MD H - Last Filed: 01/19/17 17:37> Objective - Vital Signs/Intake and Output Vital Signs (last 24 hours): Temp Pulse Resp BP Pulse Ox 98.3 F 100 H 24 152/89 H 97 01/19/17 10:30 01/19/17 15:15 01/19/17 15:15 01/19/17 15:15 01/19/17 15:15 Intake and Output: 01/19/17 01/19/17 06:59 18:59 Intake Total 3631 251 Output Total 700 Balance 2931 251 - Labs Labs: 01/19/17 05:30 01/19/17 05:30 PT 20.1 Seconds (9.9-11.8) H 01/19/17 05:30 INR 1.86 (0.93-1.08) H 01/19/17 05:30 APTT 63.2 Seconds (23.7-30.8) H 01/19/17 05:30 Attending/Attestation - Attestation I have personally seen and examined this patient.: Yes I have fully participated in the care of the patient.: Yes I have reviewed all pertinent clinical information, including history, physical exam and plan: Yes Notes (Text): 01/19/17 17:33 56 y/o F w/ Metastatic Breast Cancer Admitted to the ICU due to ams, Hepatic encephalopathy and worsening renal failure. Likely secondary to tumor infiltration of the liver. S/P IR biopsy of Liver . Pt refused NGT placement and Lactulose/ rifaximine. Rectal lactulose being given to help. Continued on HRS treatment empirically. Poor prognosis. Family aware. If there is increased Tumor burden in the liver the family would likely choose Comfort care. cc time 55 min
--- NOTE | 2017-01-19 14:41 | CP.PCM.PN ---
Subjective - Date & Time of Evaluation Date of Evaluation: 01/19/17 Time of Evaluation: 14:00 - Subjective Subjective: Obtunded, moans when touched Objective - Vital Signs/Intake and Output Vital Signs (last 24 hours): Temp Pulse Resp BP Pulse Ox 98.3 F 98 H 17 147/109 H 98 01/19/17 10:30 01/19/17 14:30 01/19/17 14:15 01/19/17 14:30 01/19/17 14:30 Intake and Output: 01/19/17 01/19/17 06:59 18:59 Intake Total 3631 251 Output Total 700 Balance 2931 251 - Medications Medications: Current Medications Albumin Human (Albumin Human 25% (25 Gm/100 Ml)) 25 gm IV Q4H [facility] Last Admin: 01/18/17 06:30 Dose: Not Given Alprazolam (Xanax) 0.25 mg PO Q6 PRN; Protocol PRN Reason: Anxiety Stop: 01/23/17 18:01 Famotidine (Pepcid) 40 mg PO HS [facility] Last Admin: 01/18/17 22:00 Dose: Not Given Piperacillin Sod/Tazobactam Sod (Zosyn 2.25 Gm In 0.9% 100 Ml) 2.25 gm in 100 mls @ 100 mls/hr IVPB Q6 [facility] PRN Reason: Protocol Stop: 01/23/17 18:01 Last Admin: 01/19/17 13:07 Dose: 100 mls/hr Dextrose/Sodium Chloride (Dextrose 5%/0.9% Ns 1000 Ml) 1,000 mls @ 125 mls/hr IV .Q8H [facility] Last Admin: 01/19/17 03:59 Dose: 125 mls/hr Lactulose (Generlac) 200 gm HI ONCE [facility] Last Admin: 01/19/17 08:49 Dose: 200 gm Lorazepam (Ativan) 1 mg IVP Q4 PRN; Protocol PRN Reason: Anxiety Morphine Sulfate (Morphine) 1 mg IVP Q4H PRN PRN Reason: Pain, severe (8-10) Last Admin: 01/17/17 22:40 Dose: 1 mg Oxycodone HCl (Oxycodone Immediate Release Tab) 5 mg PO Q6H PRN PRN Reason: Pain, Mild (1-3) Rifaximin (Xifaxan) 550 mg PO BID [facility] PRN Reason: Protocol Last Admin: 01/19/17 09:11 Dose: Not Given Ursodiol (Actigall) 600 mg PO BID [facility] Last Admin: 01/19/17 09:10 Dose: Not Given - Labs Labs: 01/19/17 05:30 01/19/17 05:30 PT 20.1 Seconds (9.9-11.8) H 01/19/17 05:30 INR 1.86 (0.93-1.08) H 01/19/17 05:30 APTT 63.2 Seconds (23.7-30.8) H 01/19/17 05:30 - Constitutional Appears: No Acute Distress, Chronically Ill - Head Exam Head Exam: NORMOCEPHALIC - Eye Exam Eye Exam: Scleral icterus - ENT Exam ENT Exam: Mucous Membranes Moist - Respiratory Exam Respiratory Exam: Decreased Breath Sounds - Cardiovascular Exam Cardiovascular Exam: REGULAR RHYTHM, +S1, +S2 - GI/Abdominal Exam GI & Abdominal Exam: Distended, Diminished Bowel Sounds - Extremities Exam Additional comments: bilateral lower extremity edema - Neurological Exam Neurological Exam: Altered - Skin Skin Exam: Dry Additional comments: jaundice Assessment and Plan - Assessment and Plan (Free Text) Assessment: 56 year old female with history of metastatic breast cancer admitted with sepsis, hepatorenal failure,hepatic encephalopathy, SIRS. Family and I have been in previous discussion about patient's medical condition and poor prognosis. Patient had liver biopsy today which confirmed widespread metastatic disease. Patient's sister, Kenzie (POA) and her daughter understand that the patient is terminally ill and approaching end of life. Family and have decided to make her DNR/DNI and is requesting she receive comfort care. Hospice services explained. Family has agreed to meet with hospice consultant for GIP services. Plan: Hospice referral for GIP services
--- NOTE | 2017-01-19 16:01 | CP.PCM.PN ---
Subjective - Date & Time of Evaluation Date of Evaluation: 01/19/17 Time of Evaluation: 12:00 - Subjective Subjective: Patient still feels weak, no fevers overnight. Objective - Vital Signs/Intake and Output Vital Signs (last 24 hours): Temp Pulse Resp BP Pulse Ox 98.4 F 85 19 118/65 96 01/18/17 05:18 01/18/17 05:18 01/18/17 05:18 01/18/17 05:18 01/18/17 04:32 Intake and Output: 01/17/17 01/18/17 18:59 06:59 Intake Total 2420 308 Output Total 475 Balance 1945 308 - Medications Medications: Current Medications Albumin Human (Albumin Human 25% (25 Gm/100 Ml)) 25 gm IV Q4H [facility] Last Admin: 01/17/17 22:43 Dose: 25 gm Alprazolam (Xanax) 0.25 mg PO Q6 PRN; Protocol PRN Reason: Anxiety Stop: 01/23/17 18:01 Famotidine (Pepcid) 40 mg PO HS [facility] Last Admin: 01/16/17 22:22 Dose: 40 mg Piperacillin Sod/Tazobactam Sod (Zosyn 2.25 Gm In 0.9% 100 Ml) 2.25 gm in 100 mls @ 100 mls/hr IVPB Q6 [facility] PRN Reason: Protocol Stop: 01/23/17 18:01 Last Admin: 01/18/17 00:12 Dose: 100 mls/hr Sodium Bicarbonate 150 meq/ (Dextrose) 1,150 mls @ 125 mls/hr IV .Q9H12M [facility] Last Admin: 01/17/17 18:54 Dose: 125 mls/hr Morphine Sulfate (Morphine) 1 mg IVP Q4H PRN PRN Reason: Pain, severe (8-10) Last Admin: 01/17/17 22:40 Dose: 1 mg Oxycodone HCl (Oxycodone Immediate Release Tab) 5 mg PO Q6H PRN PRN Reason: Pain, Mild (1-3) Phytonadione (Vitamin K Tab) 10 mg PO DAILY [facility] Stop: 01/19/17 22:00 Last Admin: 01/17/17 13:12 Dose: 10 mg - Labs Labs: 01/18/17 00:20 01/17/17 05:30 PT 47.7 Seconds (9.9-11.8) H* 01/17/17 21:05 INR 4.42 (0.93-1.08) H* 01/17/17 21:05 APTT 119.2 Seconds (23.7-30.8) H* 01/17/17 21:05 - Constitutional Appears: Chronically Ill - Head Exam Head Exam: NORMAL INSPECTION - Respiratory Exam Respiratory Exam: Decreased Breath Sounds - Cardiovascular Exam Cardiovascular Exam: +S1, +S2 - GI/Abdominal Exam GI & Abdominal Exam: Soft. absent: Tenderness Assessment and Plan - Assessment and Plan (Free Text) Plan: Assessment Systemic Inflammatory Response Syndrome, R/O severe sepsis with acute on chronic renal failure from spontaneous bacterial peritonitis in a patient with probable hepatic metastases from breast cancer and ascites breast cancer history of partial small bowel obstruction chronic anemia obesity with BMI 38 Plan continue Zosyn pending blood cx; awaiting plan for possible repeat paracentesis will continue to monitor clinically overall prognosis is poor
--- NOTE | 2017-01-19 16:30 | CT ---
PROCEDURE: CT guided liver biopsy. HISTORY: Metastatic breast CA. Acute hepatic failure. Evaluate for metastatic disease versus hepatocellular dysfunction. PHYSICIAN(S): Sarthak Hernandez MD. TECHNIQUE: The relative risks and indications of the procedure were explained to the patient's family and consent obtained. The patient was placed supine on the CT scanner and preliminary images through the liver obtained. Conscious sedation and monitoring were provided throughout the procedure by a nurse. There is a trace amount of ascites in the upper abdomen.. A subxyphoid approach was selected and the area prepped and draped in the usual sterile fashion. 1% Xylocaine was used to anesthetize the skin and soft tissues. A 17-gauge guiding needle was advanced into the lateral segment of the left lobe of the liver. Its position was confirmed with CT. Using coaxial technique, multiple core biopsies were obtained. The postprocedure images show no evidence of significant hemorrhage. IMPRESSION: 1. CT-guided liver biopsy as described above.
[2017-01-19] MEDS ORDERED: Morphine 2 mg/ml ISec IVP STA (16:36)
[2017-01-19] MEDS: Morphine 2 mg/ml ISec IVP PRN (16:40)
--- NOTE | 2017-01-19 17:39 | CP.PCM.PN ---
Subjective - Date & Time of Evaluation Date of Evaluation: 01/19/17 Time of Evaluation: 17:00 - Subjective Subjective: Patient underwent IR liver biopsy today; still obtunded; Objective - Vital Signs/Intake and Output Vital Signs (last 24 hours): Temp Pulse Resp BP Pulse Ox 98.3 F 100 H 24 152/89 H 97 01/19/17 10:30 01/19/17 15:15 01/19/17 15:15 01/19/17 15:15 01/19/17 15:15 Intake and Output: 01/19/17 01/19/17 06:59 18:59 Intake Total 3631 251 Output Total 700 Balance 2931 251 - Labs Labs: 01/19/17 05:30 01/19/17 05:30 PT 20.1 Seconds (9.9-11.8) H 01/19/17 05:30 INR 1.86 (0.93-1.08) H 01/19/17 05:30 APTT 63.2 Seconds (23.7-30.8) H 01/19/17 05:30 - Constitutional Appears: No Acute Distress - Head Exam Head Exam: NORMAL INSPECTION - Respiratory Exam Respiratory Exam: Clear to Ausculation Bilateral, NORMAL BREATHING PATTERN. absent: Rales, Rhonchi, Wheezes, Respiratory Distress - Cardiovascular Exam Cardiovascular Exam: REGULAR RHYTHM, +S1, +S2 - GI/Abdominal Exam GI & Abdominal Exam: Soft. absent: Distended, Tenderness - Extremities Exam Additional comments: Mild lower leg edema; - Neurological Exam Additional comments: Not responding verbally; - Skin Skin Exam: Warm Assessment and Plan (1) Acute renal failure (ARF) Assessment & Plan: Unclear etiology but in the setting of metastatic breast CA w/ acute liver failure, severe lactic acidosis, mild hypotension and markedly elevated uric acid level; doesn't appear hepatorenal as patient is non-oliguric and renal function actually improving today; repeat urine lytes after volume expansion showed some increase in Ur Na but still low; -continue NS at 125 cc/hr; Status: Acute (2) Lactic acidosis Assessment & Plan: Resolved; unclear etiology; monitor as chance of occurring again spontaneously; Status: Acute (3) Dyspnea Assessment & Plan: Stable resp status on stable FIO2 requirement; monitor; Status: Acute (4) SIRS (systemic inflammatory response syndrome) Assessment & Plan: Cultures all negative despite suspicion for sepsis; if continuing zosyn, should adjust for improving renal function; Status: Acute (5) Hypocalcemia Assessment & Plan: Persistent, in the setting of metastatic breast CA; high PTH level likely indicates hypocalcemia due to osteoblastic Ca deposition and that hypocalcemia will continue to persist and needs regular replenishment; Status: Acute - Assessment and Plan (Free Text) Assessment: Metastatic Breast CA - Now s/p liver biopsy, final path report pending;
--- NOTE | 2017-01-19 20:36 | CP.PCM.DIS ---
<GISEL WILBURN - Last Filed: 01/19/17 20:32> Provider - Provider Date of Admission: 01/16/17 16:03 Attending physician: Deyanira Matamoros MD Consults: Palliative care, Nephrology, Gastroenterology, Infectious Disease, Oncology Time Spent in preparation of Discharge (in minutes): 45 Hospital Course - Lab Results Lab Results: Micro Results 01/16/17 22:20 Blood-Venous Blood Culture - Preliminary NO GROWTH AFTER 48 HOURS 01/16/17 22:00 Blood-Venous Blood Culture - Preliminary NO GROWTH AFTER 48 HOURS 01/16/17 22:50 Urine,Clean Catch Urine Culture - Final No Growth (<1,000 CFU/ML) 01/16/17 20:45 Naris MRSA Culture (Admit) - Final MRSA NOT DETECTED Most Recent Lab Values WBC 12.3 10^3/ul (4.5-11.0) H 01/19/17 05:30 RBC 2.58 10^6/uL (3.5-6.1) L 01/19/17 05:30 Hgb 8.1 gm/dL (12.0-16.0) L 01/19/17 05:30 Hct 24.9 % (36.0-48.0) L 01/19/17 05:30 MCV 96.5 fL (80.0-105.0) 01/19/17 05:30 MCH 31.4 pg (25.0-35.0) 01/19/17 05:30 MCHC 32.5 g/dl (31.0-37.0) 01/19/17 05:30 RDW 25.9 % (11.5-14.5) H 01/19/17 05:30 Plt Count 53 10^3/uL (120.0-450.0) L 01/19/17 05:30 Gran % 54.3 % (50.0-68.0) 01/18/17 00:20 Lymph % (Auto) 31.2 % (22.0-35.0) 01/18/17 00:20 [place] % (Auto) 13.7 % (1.0-6.0) H 01/18/17 00:20 Eos % (Auto) 0.0 % (1.5-5.0) L 01/18/17 00:20 Baso % (Auto) 0.8 % (0.0-3.0) 01/18/17 00:20 Gran # 7.54 (1.4-6.5) H 01/18/17 00:20 Lymph # 4.3 (1.2-3.4) H 01/18/17 00:20 [place] # 1.9 (0.1-0.6) H 01/18/17 00:20 Eos # 0.0 (0.0-0.7) 01/18/17 00:20 Baso # 0.11 K/mm3 (0.0-2.0) 01/18/17 00:20 Corrected WBC (Man) 10.8 K/mm3 (4.5-11.0) 01/19/17 05:30 Neutrophils % (Manual) 74 % (50.0-70.0) H 01/19/17 05:30 Band Neutrophils % 2 % (0-2) 01/19/17 05:30 Lymphocytes % (Manual) 17 % (22.0-35.0) L 01/19/17 05:30 Atypical Lymphs % 0 % (0.0-0.0) 01/17/17 18:56 Monocytes % (Manual) 6 % (1.0-6.0) 01/19/17 05:30 Eosinophils % (Manual) 1 % (0.0-3.0) 01/19/17 05:30 Nucleated RBC % 14 % 01/19/17 05:30 Platelet Evaluation Low (NORMAL) 01/19/17 05:30 Poikilocytosis (manual 1+ 01/19/17 05:30 Anisocytosis (manual) 2+ 01/19/17 05:30 Target Cells Slight 01/19/17 05:30 Ovalocytes Slight 01/19/17 05:30 PT 20.1 Seconds (9.9-11.8) H 01/19/17 05:30 INR 1.86 (0.93-1.08) H 01/19/17 05:30 APTT 63.2 Seconds (23.7-30.8) H 01/19/17 05:30 D-Dimer, Quantitative 35.20 mg/L FEU (0-0.50) H 01/16/17 10:22 pCO2 38 mm/Hg (35-45) 01/18/17 08:00 pO2 58.0 mm/Hg (80-100) L 01/18/17 08:00 HCO3 27.0 mmol/L (21-28) 01/18/17 08:00 ABG pH 7.46 (7.35-7.45) H 01/18/17 08:00 ABG Total CO2 28.2 mmol.L (22-28) H 01/18/17 08:00 ABG O2 Saturation 95.3 % (95-98) 01/18/17 08:00 ABG O2 Content 11.8 ML/dl (15-23) L 01/18/17 08:00 ABG Base Excess 3.0 mmol/L (-2.0-3.0) 01/18/17 08:00 ABG Hemoglobin 9.1 g/dL (11.7-17.4) L 01/18/17 08:00 ABG Carboxyhemoglobin 2.4 % (0.5-1.5) H 01/18/17 08:00 POC ABG HHb (Measured) 4.5 % (0-5) 01/18/17 08:00 ABG Methemoglobin 1.2 % (0.0-3.0) 01/18/17 08:00 ABG O2 Capacity 12.4 mL/dl (16-24) L 01/18/17 08:00 VBG pH 7.38 (7.32-7.43) 01/17/17 01:40 VBG pCO2 24.0 (40-60) L 01/17/17 01:40 VBG HCO3 14.2 mmol/l (21-28) L 01/17/17 01:40 VBG Total CO2 14.9 mmol.L (22-28) L 01/17/17 01:40 VBG O2 Sat (Calc) 98.1 % (40-65) H 01/17/17 01:40 VBG Base Excess -9.0 mmol/L (0.0-2.0) L 01/17/17 01:40 VBG Potassium 5.2 mmol/L (3.6-5.2) 01/17/17 01:40 Hgb O2 Saturation 91.9 % (95.0-98.0) L 01/18/17 08:00 Sodium 128.0 mmol/L (132-148) L 01/17/17 01:40 Chloride 98.0 mmol/L (98-107) 01/17/17 01:40 Glucose 50 mg/dl (65-105) L 01/17/17 01:40 Lactate 11.8 mmol/L (0.7-2.1) H* 01/17/17 01:40 FiO2 21.0 % 01/18/17 08:00 Sodium 140 mmol/L (132-148) 01/19/17 05:30 Potassium 3.7 mmol/L (3.6-5.0) 01/19/17 05:30 Chloride 98 mmol/L (98-107) 01/19/17 05:30 Carbon Dioxide 31 mmol/L (21-33) 01/19/17 05:30 Anion Gap 15 (10-20) 01/19/17 05:30 BUN 56 mg/dL (7-21) H 01/19/17 05:30 Creatinine 1.8 mg/dL (0.5-1.4) H 01/19/17 05:30 Est GFR ( Amer) 35 01/19/17 05:30 Est GFR (Non-Af Amer) 29 01/19/17 05:30 POC Glucose (mg/dL) 155 mg/dL (65-110) H 01/18/17 21:52 Random Glucose 163 mg/dL (70-110) H 01/19/17 05:30 Lactic Acid 13.5 mmol/L (0.7-2.1) H* 01/16/17 22:25 Uric Acid 13.3 mg/dL (2.5-6.2) H 01/17/17 06:00 Calcium 6.0 mg/dL (8.4-10.5) L* 01/19/17 05:30 Ionized Calcium 3.2 mg/dL (4.80-5.60) L 01/16/17 22:25 Phosphorus 4.3 mg/dL (2.5-4.5) 01/16/17 22:25 Total Bilirubin 13.5 mg/dL (0.2-1.3) H 01/19/17 05:30 AST 447 U/L (15-39) H 01/19/17 05:30 ALT 102 U/L (7-56) H 01/19/17 05:30 Alkaline Phosphatase 273 U/L (38-133) H 01/19/17 05:30 Ammonia 79 umol/L (9-33) H 01/19/17 07:00 Lactate Dehydrogenase 3654 U/L (333-699) H 01/16/17 10:22 Total Creatine Kinase 556 U/L (35-230) H 01/16/17 10:22 CK-MB (CK-2) 1.0 ng/mL (0.0-3.6) 01/16/17 10:22 CK-MB (CK-2) % Cancelled 01/16/17 10:22 Troponin I 0.02 ng/mL D 01/16/17 10:22 NT-Pro-B Natriuret Pep 945 pg/mL (0-450) H 01/16/17 10:22 Total Protein 6.2 g/dL (5.8-8.3) 01/19/17 05:30 Albumin 3.1 g/dL (3.0-4.8) 01/19/17 05:30 Globulin 3.2 gm/dL 01/19/17 05:30 Albumin/Globulin Ratio 1.0 (1.1-1.8) L 01/19/17 05:30 Procalcitonin 6.22 NG/ML (0.19-0.49) H 01/16/17 22:25 Calcium (PTH Intact) 6.3 mg/dL (8.6-10.4) L 01/17/17 10:01 PTH w/Ion &Tot Calcium 1260 pg/mL (14-64) H 01/17/17 10:01 Venous Blood Potassium 5.2 mmol/L (3.6-5.2) 01/17/17 01:40 Urine Color Dark yellow (YELLOW) 01/18/17 14:52 Urine Appearance Sl cloudy (CLEAR) 01/18/17 14:52 Urine pH 5.5 (4.7-8.0) 01/18/17 14:52 Ur Specific Martin 1.015 (1.005-1.035) 01/18/17 14:52 Urine Protein 100 mg/dL (<30 mg/dL) H 01/18/17 14:52 Urine Glucose (UA) Negative mg/dL (NEGATIVE) 01/18/17 14:52 Urine Ketones Trace mg/dL (NEGATIVE) H 01/18/17 14:52 Urine Blood Large (NEGATIVE) H 01/18/17 14:52 Urine Nitrate Negative (NEGATIVE) 01/18/17 14:52 Urine Bilirubin Moderate (NEGATIVE) H 01/18/17 14:52 Urine Urobilinogen 0.2 E.U./dL (<1 E.U./dL) 01/18/17 14:52 Ur Leukocyte Esterase Trace Evelyne/uL (NEGATIVE) H 01/18/17 14:52 Urine RBC Tntc /hpf (0-2) 01/18/17 14:52 Urine WBC 0 - 2 /hpf (0-6) 01/18/17 14:52 Ur Epithelial Cells 0 - 2 /hpf (0-5) 01/18/17 14:52 Urine Bacteria Few (NEG) 01/18/17 14:52 Urine Osmolality 293 mosm/kg (50-645) 01/16/17 15:33 Ur Random Creatinine 113 mg/dL 01/18/17 14:52 Ur Random Sodium 8 meq/L 01/18/17 14:52 Ur Random Potassium 78.8 meq/L 01/16/17 15:33 Ur Random Uric Acid 24.0 mg/dL 01/18/17 14:52 Random Vancomycin 7.0 ug/mL (20.0-40.0) L 01/18/17 12:30 Blood Type O POSITIVE 01/17/17 13:07 Antibody Screen Negative 01/17/17 13:07 Crossmatch See Detail 01/17/17 13:07 BBK History Checked Patient has bt 01/17/17 13:07 - Hospital Course Hospital Course: 56 yo F with PMH of anemia, colitis, partial SBO, breast cancer presented today with complaints of SOB with exertion. She was discharged yesterday after being admitted for dyspnea, ascites and jaundice. On her last admission, GI, cardiology, oncology and palliative care were consulted and their recommendations were appreciated. Recent CT angio which was negative for PE and echocardiogram which showed preserved EF with diastolic dysfunction. She has chronic anemia, thrombocytopenia and elevated LFTs likely secondary to metastatic disease. She ahd a CT showing worsening ascites and metastatic disease. She received a therapeutic paracentesis of the ascitic fluid, which yielded 2L of fluid. She had improved dyspnea on discharge without abdominal pain or distension. She was given an Rx for Lasix 40 mg PO daily. But soon after arriving home, she had SOB when walking up the stairs to her home around 4pm. Pt states that she needed help ambulating as her SOB worsened with ambulation. Pt also states that she vomited once yesterday and has not had an appetite since. Pt states that her SOB has worsened over the last day and decided to come to the ED she has had SOB on exertion. Pt was admitted to the ICU for metstatic disease, acute renal failure, lactic acidosis, and septic workup. Labs were performed in the ED and pt was found to have an INR 3.94, Lactate 14, and hypoalbunemia. ID was consulted and antibiotic recommendations appreciated. Nephrology was consulted for acute renal failure, recommendations were appreciated. Overnight on 01/18/17, pt became hypotensive and was transfused 3 pRBC for Hb 6.9, currently 8.8. Pt mental status became altered likely due to hepatic encephalopathy as her Ammonia level was found to be 61 and worsened to 80. GI was consulted and recommended lactulose and Rifaximin. Oncology was consulted and recommended liver biopsy and was transfused FFP and platelets. From a multidisciplinary perspective, pt prognosis was poor. Palliative care was consulted and the decision was made with the pt's family to transfer the pt to Hospice as DNR/DNI. Discharge Exam - Head Exam Head Exam: NORMAL INSPECTION - Eye Exam Eye Exam: Normal appearance - ENT Exam ENT Exam: Mucous Membranes Dry - Neck Exam Neck exam: Full Rom - Respiratory Exam Respiratory Exam: Accessory Muscle Use, Clear to PA & Lateral. absent: Rales, Rhonchi, Wheezes - Cardiovascular Exam Cardiovascular Exam: RRR, +S1, +S2. absent: Diastolic murmur, Gallop, Rubs, Systolic Murmur - GI/Abdominal Exam GI & Abdominal Exam: Distended, Soft. absent: Guarding, Rebound, Tenderness - Extremities Exam Extremities exam: full ROM - Neurological Exam Neurological exam: Altered - Psychiatric Exam Psychiatric exam: Agitated - Skin Skin Exam: Dry, Intact, Warm Discharge Plan - Follow Up Plan Condition: STABLE Disposition: HOSPICE - MEDICAL FACILITY Instructions: Acute Kidney Injury (DC), Hospice Care (GEN), Dyspnea (GEN), Mouth Care (GEN) Additional Instructions: patient discharge to inpatient Hospice <Deyanira Matamoros - Last Filed: 01/21/17 13:10> Provider - Provider Date of Admission: 01/16/17 16:03 Attending physician: Deyanira Matamoros MD Hospital Course - Lab Results Lab Results: Micro Results 01/16/17 22:20 Blood-Venous Blood Culture - Preliminary NO GROWTH AFTER 4 DAYS 01/16/17 22:00 Blood-Venous Blood Culture - Preliminary NO GROWTH AFTER 4 DAYS 01/16/17 22:50 Urine,Clean Catch Urine Culture - Final No Growth (<1,000 CFU/ML) 01/16/17 20:45 Naris MRSA Culture (Admit) - Final MRSA NOT DETECTED Most Recent Lab Values WBC 12.3 10^3/ul (4.5-11.0) H 01/19/17 05:30 RBC 2.58 10^6/uL (3.5-6.1) L 01/19/17 05:30 Hgb 8.1 gm/dL (12.0-16.0) L 01/19/17 05:30 Hct 24.9 % (36.0-48.0) L 01/19/17 05:30 MCV 96.5 fL (80.0-105.0) 01/19/17 05:30 MCH 31.4 pg (25.0-35.0) 01/19/17 05:30 MCHC 32.5 g/dl (31.0-37.0) 01/19/17 05:30 RDW 25.9 % (11.5-14.5) H 01/19/17 05:30 Plt Count 53 10^3/uL (120.0-450.0) L 01/19/17 05:30 Gran % 54.3 % (50.0-68.0) 01/18/17 00:20 Lymph % (Auto) 31.2 % (22.0-35.0) 01/18/17 00:20 [place] % (Auto) 13.7 % (1.0-6.0) H 01/18/17 00:20 Eos % (Auto) 0.0 % (1.5-5.0) L 01/18/17 00:20 Baso % (Auto) 0.8 % (0.0-3.0) 01/18/17 00:20 Gran # 7.54 (1.4-6.5) H 01/18/17 00:20 Lymph # 4.3 (1.2-3.4) H 01/18/17 00:20 [place] # 1.9 (0.1-0.6) H 01/18/17 00:20 Eos # 0.0 (0.0-0.7) 01/18/17 00:20 Baso # 0.11 K/mm3 (0.0-2.0) 01/18/17 00:20 Corrected WBC (Man) 10.8 K/mm3 (4.5-11.0) 01/19/17 05:30 Neutrophils % (Manual) 74 % (50.0-70.0) H 01/19/17 05:30 Band Neutrophils % 2 % (0-2) 01/19/17 05:30 Lymphocytes % (Manual) 17 % (22.0-35.0) L 01/19/17 05:30 Atypical Lymphs % 0 % (0.0-0.0) 01/17/17 18:56 Monocytes % (Manual) 6 % (1.0-6.0) 01/19/17 05:30 Eosinophils % (Manual) 1 % (0.0-3.0) 01/19/17 05:30 Nucleated RBC % 14 % 01/19/17 05:30 Platelet Evaluation Low (NORMAL) 01/19/17 05:30 Poikilocytosis (manual 1+ 01/19/17 05:30 Anisocytosis (manual) 2+ 01/19/17 05:30 Target Cells Slight 01/19/17 05:30 Ovalocytes Slight 01/19/17 05:30 PT 20.1 Seconds (9.9-11.8) H 01/19/17 05:30 INR 1.86 (0.93-1.08) H 01/19/17 05:30 APTT 63.2 Seconds (23.7-30.8) H 01/19/17 05:30 D-Dimer, Quantitative 35.20 mg/L FEU (0-0.50) H 01/16/17 10:22 pCO2 38 mm/Hg (35-45) 01/18/17 08:00 pO2 58.0 mm/Hg (80-100) L 01/18/17 08:00 HCO3 27.0 mmol/L (21-28) 01/18/17 08:00 ABG pH 7.46 (7.35-7.45) H 01/18/17 08:00 ABG Total CO2 28.2 mmol.L (22-28) H 01/18/17 08:00 ABG O2 Saturation 95.3 % (95-98) 01/18/17 08:00 ABG O2 Content 11.8 ML/dl (15-23) L 01/18/17 08:00 ABG Base Excess 3.0 mmol/L (-2.0-3.0) 01/18/17 08:00 ABG Hemoglobin 9.1 g/dL (11.7-17.4) L 01/18/17 08:00 ABG Carboxyhemoglobin 2.4 % (0.5-1.5) H 01/18/17 08:00 POC ABG HHb (Measured) 4.5 % (0-5) 01/18/17 08:00 ABG Methemoglobin 1.2 % (0.0-3.0) 01/18/17 08:00 ABG O2 Capacity 12.4 mL/dl (16-24) L 01/18/17 08:00 VBG pH 7.38 (7.32-7.43) 01/17/17 01:40 VBG pCO2 24.0 (40-60) L 01/17/17 01:40 VBG HCO3 14.2 mmol/l (21-28) L 01/17/17 01:40 VBG Total CO2 14.9 mmol.L (22-28) L 01/17/17 01:40 VBG O2 Sat (Calc) 98.1 % (40-65) H 01/17/17 01:40 VBG Base Excess -9.0 mmol/L (0.0-2.0) L 01/17/17 01:40 VBG Potassium 5.2 mmol/L (3.6-5.2) 01/17/17 01:40 Hgb O2 Saturation 91.9 % (95.0-98.0) L 01/18/17 08:00 Sodium 128.0 mmol/L (132-148) L 01/17/17 01:40 Chloride 98.0 mmol/L (98-107) 01/17/17 01:40 Glucose 50 mg/dl (65-105) L 01/17/17 01:40 Lactate 11.8 mmol/L (0.7-2.1) H* 01/17/17 01:40 FiO2 21.0 % 01/18/17 08:00 Sodium 140 mmol/L (132-148) 01/19/17 05:30 Potassium 3.7 mmol/L (3.6-5.0) 01/19/17 05:30 Chloride 98 mmol/L (98-107) 01/19/17 05:30 Carbon Dioxide 31 mmol/L (21-33) 01/19/17 05:30 Anion Gap 15 (10-20) 01/19/17 05:30 BUN 56 mg/dL (7-21) H 01/19/17 05:30 Creatinine 1.8 mg/dL (0.5-1.4) H 01/19/17 05:30 Est GFR ( Amer) 35 01/19/17 05:30 Est GFR (Non-Af Amer) 29 01/19/17 05:30 POC Glucose (mg/dL) 155 mg/dL (65-110) H 01/18/17 21:52 Random Glucose 163 mg/dL (70-110) H 01/19/17 05:30 Lactic Acid 13.5 mmol/L (0.7-2.1) H* 01/16/17 22:25 Uric Acid 13.3 mg/dL (2.5-6.2) H 01/17/17 06:00 Calcium 6.0 mg/dL (8.4-10.5) L* 01/19/17 05:30 Ionized Calcium 3.2 mg/dL (4.80-5.60) L 01/16/17 22:25 Phosphorus 4.3 mg/dL (2.5-4.5) 01/16/17 22:25 Total Bilirubin 13.5 mg/dL (0.2-1.3) H 01/19/17 05:30 AST 447 U/L (15-39) H 01/19/17 05:30 ALT 102 U/L (7-56) H 01/19/17 05:30 Alkaline Phosphatase 273 U/L (38-133) H 01/19/17 05:30 Ammonia 79 umol/L (9-33) H 01/19/17 07:00 Lactate Dehydrogenase 3654 U/L (333-699) H 01/16/17 10:22 Total Creatine Kinase 556 U/L (35-230) H 01/16/17 10:22 CK-MB (CK-2) 1.0 ng/mL (0.0-3.6) 01/16/17 10:22 CK-MB (CK-2) % Cancelled 01/16/17 10:22 Troponin I 0.02 ng/mL D 01/16/17 10:22 NT-Pro-B Natriuret Pep 945 pg/mL (0-450) H 01/16/17 10:22 Total Protein 6.2 g/dL (5.8-8.3) 01/19/17 05:30 Albumin 3.1 g/dL (3.0-4.8) 01/19/17 05:30 Globulin 3.2 gm/dL 01/19/17 05:30 Albumin/Globulin Ratio 1.0 (1.1-1.8) L 01/19/17 05:30 Procalcitonin 6.22 NG/ML (0.19-0.49) H 01/16/17 22:25 Calcium (PTH Intact) 6.3 mg/dL (8.6-10.4) L 01/17/17 10:01 PTH w/Ion &Tot Calcium 1260 pg/mL (14-64) H 01/17/17 10:01 Venous Blood Potassium 5.2 mmol/L (3.6-5.2) 01/17/17 01:40 Urine Color Dark yellow (YELLOW) 01/18/17 14:52 Urine Appearance Sl cloudy (CLEAR) 01/18/17 14:52 Urine pH 5.5 (4.7-8.0) 01/18/17 14:52 Ur Specific Martin 1.015 (1.005-1.035) 01/18/17 14:52 Urine Protein 100 mg/dL (<30 mg/dL) H 01/18/17 14:52 Urine Glucose (UA) Negative mg/dL (NEGATIVE) 01/18/17 14:52 Urine Ketones Trace mg/dL (NEGATIVE) H 01/18/17 14:52 Urine Blood Large (NEGATIVE) H 01/18/17 14:52 Urine Nitrate Negative (NEGATIVE) 01/18/17 14:52 Urine Bilirubin Moderate (NEGATIVE) H 01/18/17 14:52 Urine Urobilinogen 0.2 E.U./dL (<1 E.U./dL) 01/18/17 14:52 Ur Leukocyte Esterase Trace Evelyne/uL (NEGATIVE) H 01/18/17 14:52 Urine RBC Tntc /hpf (0-2) 01/18/17 14:52 Urine WBC 0 - 2 /hpf (0-6) 01/18/17 14:52 Ur Epithelial Cells 0 - 2 /hpf (0-5) 01/18/17 14:52 Urine Bacteria Few (NEG) 01/18/17 14:52 Urine Osmolality 293 mosm/kg (50-645) 01/16/17 15:33 Ur Random Creatinine 113 mg/dL 01/18/17 14:52 Ur Random Sodium 8 meq/L 01/18/17 14:52 Ur Random Potassium 78.8 meq/L 01/16/17 15:33 Ur Random Uric Acid 24.0 mg/dL 01/18/17 14:52 Random Vancomycin 7.0 ug/mL (20.0-40.0) L 01/18/17 12:30 Blood Type O POSITIVE 01/17/17 13:07 Antibody Screen Negative 01/17/17 13:07 Crossmatch See Detail 01/17/17 13:07 BBK History Checked Patient has bt 01/17/17 13:07 Attending/Attestation - Attestation I have personally seen and examined this patient.: Yes I have fully participated in the care of the patient.: Yes I have reviewed all pertinent clinical information, including history, physical exam and plan: Yes Notes (Text): 01/21/17 13:08 attending note; Patient seen and examined with resident. Patient is a 56-year-old female with a history of metastatic breast cancer to the bones is admitted with abdominal discomfort Currently with multiorgan failure. status post liver biopsyby Dr. Sarthak roman. multiple liver nodules/ Metastatic disease seen during this procedure. Patient's family explained about significant extensive metastatic disease. Palliative care evaluation appreciated. currently family agreed for hospice care. DNI/DNR. Discharged to inpatient hospice care.
[2017-01-20 11:51] VITALS: BP 152/89; PULSE 100; RESP 24; O2SAT 97
== END 2017-01-19 16:24 | disposition hospice, inpatient (51) | DRG 568 ==
LOC: ED 08:45 → ERH 13:50 → OBSVTOIN 16:03 → ERH 16:59 → CCU 20:15 → 5RSO 01-19 16:18
PROVIDERS: ADMIT Internal Medicine; ATTEND Internal Medicine
PROC: 02HV33Z Insertion of Infusion Device into Superior Vena Cava, Percutaneous Approach (ICD-10-PCS; 2017-01-17)
PROC: B518ZZA Fluoroscopy of Superior Vena Cava, Guidance (ICD-10-PCS; 2017-01-17)
PROC: B54MZZA Ultrasonography of Right Upper Extremity Veins, Guidance (ICD-10-PCS; 2017-01-17)
PROC: 30233K1 Transfusion of Nonautologous Frozen Plasma into Peripheral Vein, Percutaneous Approach (ICD-10-PCS; principal; 2017-01-18)
PROC: 30233N1 Transfusion of Nonautologous Red Blood Cells into Peripheral Vein, Percutaneous Approach (ICD-10-PCS; 2017-01-18)
PROC: 30233R1 Transfusion of Nonautologous Platelets into Peripheral Vein, Percutaneous Approach (ICD-10-PCS; 2017-01-18)
DX: N17.0 Acute kidney failure with tubular necrosis (principal); A41.9 Sepsis, unspecified organism; R65.21 Severe sepsis with septic shock; K72.00 Acute and subacute hepatic failure without coma; K76.7 Hepatorenal syndrome; R40.20 Unspecified coma; R18.0 Malignant ascites; K83.1 Obstruction of bile duct; K65.2 Spontaneous bacterial peritonitis; R65.10 Systemic inflammatory response syndrome (SIRS) of non-infectious origin without acute organ dysfunction; I47.2 Ventricular tachycardia; E87.2 Acidosis; C78.7 Secondary malignant neoplasm of liver and intrahepatic bile duct; C78.6 Secondary malignant neoplasm of retroperitoneum and peritoneum; C79.51 Secondary malignant neoplasm of bone; E87.5 Hyperkalemia; N39.0 Urinary tract infection, site not specified; B17.9 Acute viral hepatitis, unspecified; D69.6 Thrombocytopenia, unspecified; E56.1 Deficiency of vitamin K; N18.9 Chronic kidney disease, unspecified; D68.9 Coagulation defect, unspecified; K76.6 Portal hypertension; E83.51 Hypocalcemia; C50.919 Malignant neoplasm of unspecified site of unspecified female breast; D64.9 Anemia, unspecified; E66.9 Obesity, unspecified; Z68.38 Body mass index [BMI] 38.0-38.9, adult; F41.9 Anxiety disorder, unspecified; K52.9 Noninfective gastroenteritis and colitis, unspecified; Z66 Do not resuscitate; Z79.811 Long term (current) use of aromatase inhibitors; Z80.3 Family history of malignant neoplasm of breast; Z90.49 Acquired absence of other specified parts of digestive tract; Z87.19 Personal history of other diseases of the digestive system; R27.8 Other lack of coordination; R53.81 Other malaise; E16.2 Hypoglycemia, unspecified

== ENCOUNTER 2017-01-19 17:05 | Inpatient (IN) | payer OTHER ==
[2017-01-19] MEDS ORDERED: Morphine PCA 1 mg/ml (25ml) 25 ML IV PRN (17:12)
[2017-01-19] MEDS ORDERED: Scopolamine 1.5 mg/24 hr Patch TD SCH (17:15)
[2017-01-20 11:55] VITALS: BP 145/80; PULSE 85; RESP 32; O2SAT 95; BMI 38.0
[2017-01-20] MEDS: Morphine PCA 1 mg/ml (25ml) 25 ML IV PRN ×2 (12:40→16:09)
[2017-01-20] MEDS: Albuterol-Ipratrop 3 mg / 0.5 (3 ml) UD IH SCH ×2 (13:33→19:14)
[2017-01-20 15:37] VITALS: TEMP 102.4
--- NOTE | 2017-01-20 20:52 | CP.PCM.HP ---
<ANGEL SPAULDING - Last Filed: 01/20/17 20:40> History of Present Illness - History of Present Illness History of Present Illness: Mrs. Montanez is a 56 year old AAF with a PMH of anemia, colitis, partial SBO, breast cancer recently discharged from medicine team service presents today for hospice care. She was discharged yesterday after being admitted for worsening dyspnea, ascites and jaundice. On her previous admissions, GI, nephrology, cardiology, ID, oncology and palliative care were all consulted. Recent CT angio which was negative for PE and echocardiogram which showed preserved EF with diastolic dysfunction. She has chronic anemia, thrombocytopenia and elevated LFTs likely secondary to metastatic disease. She had a CT showing worsening ascites and metastatic disease. She received a therapeutic paracentesis of the ascitic fluid, which yielded 2L of fluid. Patient was admitted to the ICU on 01/16 for metastatic disease, acute renal failure, lactic acidosis, and septic workup one day after being initially discharged on 01/15. Labs were performed in the ED and patient was found to have an INR 3.94, Lactate 14, and hypoalbunemia. ID was consulted and provided antibiotic recommendations. Nephrology was consulted for acute renal failure. Overnight on 01/18/17, she became hypotensive and was transfused 3 pRBC for hemoglobin 6.9, which corrected to 8.8. Patients mental status became altered, likely due to hepatic encephalopathy with an ammonia level of 61 which then worsened to 80. GI was consulted and recommended lactulose and rifaximin. Oncology was consulted and recommended liver biopsy and was transfused FFP and platelets. From a multidisciplinary perspective, patient was given a poor prognosis. Palliative care was consulted and the decision was made with the patient's family to transfer her to hospice care as DNR/DNI. She is currently resting comfortably with daughter at bedside. ROS was negative for increased pain, cough, nausea, vomiting, or diarrhea per family members. PMH: see above ROS: See above FHx: mother cardiac. Father unknown/natural causes. Surgical hx: cholecystectomy Social: never smoker, no illicit drug use, used to drink alcohol but not anymore All: NKDA Present on Admission - Present on Admission Any Indicators Present on Admission: No Review of Systems - Review of Systems Review of Systems: Please refer to HPI Past Patient History - Infectious Disease Hx of Infectious Diseases: None - Tetanus Immunizations Tetanus Immunization: Unknown - Past Medical History & Family History Past Medical History?: Yes - Past Social History Smoking Status: Never Smoked - CARDIAC Hx Cardiac Disorders: No - PULMONARY Hx Respiratory Disorders: No - NEUROLOGICAL Hx Neurological Disorder: No - HEENT Hx HEENT Problems: Yes Other/Comment: wears glasses - RENAL Hx Chronic Kidney Disease: No Other/Comment: Fluid on liver - ENDOCRINE/METABOLIC Hx Endocrine Disorders: No - HEMATOLOGICAL/ONCOLOGICAL Hx Anemia: Yes Hx Cancer: Yes (Rt Breast cancer) - INTEGUMENTARY Hx Dermatological Problems: No - MUSCULOSKELETAL/RHEUMATOLOGICAL Hx Musculoskeletal Disorders: No Hx Falls: No - GASTROINTESTINAL Hx Gastrointestinal Disorders: No - GENITOURINARY/GYNECOLOGICAL Hx Genitourinary Disorders: No - PSYCHIATRIC Hx Psychophysiologic Disorder: No Hx Substance Use: No - SURGICAL HISTORY Hx Cholecystectomy: Yes - ANESTHESIA Hx Anesthesia: Yes Hx Anesthesia Reactions: No Hx Malignant Hyperthermia: No Meds Allergies/Adverse Reactions: Allergies Allergy/AdvReac Type Severity Reaction Status Date / Time No Known Allergies Allergy Verified 01/11/17 11:35 Physical Exam - Constitutional Appears: No Acute Distress - Head Exam Head Exam: NORMAL INSPECTION, NORMOCEPHALIC - Eye Exam Eye Exam: Normal appearance - ENT Exam ENT Exam: Mucous Membranes Moist, Normal Exam - Neck Exam Neck exam: Positive for: Full Rom - Respiratory Exam Respiratory Exam: NORMAL BREATHING PATTERN. absent: Rales, Rhonchi, Wheezes, Respiratory Distress - Cardiovascular Exam Cardiovascular Exam: REGULAR RHYTHM, RRR, +S1, +S2 - GI/Abdominal Exam GI & Abdominal Exam: Normal Bowel Sounds. absent: Distended - Extremities Exam Extremities exam: Negative for: calf tenderness, pedal edema - Psychiatric Exam Additional comments: Resting comfortably during exam - Skin Skin Exam: Dry, Intact, Normal Color, Warm Results - Vital Signs Recent Vital Signs: Last Vital Signs Temp 102.4 F H 01/20/17 15:37 Pulse 85 01/20/17 07:56 Resp 32 H 01/20/17 10:00 BP 145/80 01/20/17 07:56 Pulse Ox 95 01/20/17 07:56 Assessment & Plan - Assessment and Plan (Free Text) Assessment: Patient is a 56 year old female with h/o metastatic breast cancer with gastric, peritoneal, and bone metastases was admitted for hospice care. Plan: 1. Supportive Care for h/o metastatic breast cancer - morphine CHANGE MANAGEMENT ADMINISTRATOR 1mg/ml (25mls @ 1.5 mls/hr) PRN for pain control - ativan PRN - transdermal scopolamine for nausea - Duoneb PRN Patient seen and case discussed in detail with attending, Dr. Vargas. - Date & Time Date: 01/20/17 Time: 20:54 <Robyn Vargas MD - Last Filed: 01/30/17 11:45> Results - Vital Signs Recent Vital Signs: Last Vital Signs Temp 102.4 F H 01/20/17 15:37 Pulse 85 01/20/17 07:56 Resp 32 H 01/20/17 10:00 BP 145/80 01/20/17 07:56 Pulse Ox 95 01/20/17 07:56 Attending/Attestation - Attestation I have personally seen and examined this patient.: Yes I have fully participated in the care of the patient.: Yes I have reviewed all pertinent clinical information: Yes Notes (Text): Patient was seen and examined with medical payment poster. Family is at bed side. 56 F with metastatic breast cancer, on hospice and comfort measures.We will continue supportive care. Management plan was discussed in detail with patient Education was provided.
[2017-01-21] MEDS: Albuterol-Ipratrop 3 mg / 0.5 (3 ml) UD IH SCH ×3 (02:01→13:33)
[2017-01-21] MEDS: Morphine PCA 1 mg/ml (25ml) 25 ML IV PRN (08:37)
[2017-01-21] MEDS ORDERED: Morphine PCA 1 mg/ml (25ml) 25 ML IV PRN (09:32)
--- NOTE | 2017-01-21 15:53 | CP.PCM.PN ---
<ANGEL SPAULDING - Last Filed: 01/21/17 15:47> Subjective - Date & Time of Evaluation Date of Evaluation: 01/21/17 Time of Evaluation: 10:00 - Subjective Subjective: Medicine Progress Note: Pt was seen and assessed at bedside. Pt resting comfortably with two family members at bedside. Family members reported that pt's pain was not as well controlled as she would like it to be and requested that we restrict her visitors to immediate family only. No other issues or acute events have arose. Family members denied pt reporting any N/V. Objective - Vital Signs/Intake and Output Vital Signs (last 24 hours): Temp Pulse Resp BP Pulse Ox 102.4 F H 85 32 H 145/80 95 01/20/17 15:37 01/20/17 07:56 01/20/17 10:00 01/20/17 07:56 01/20/17 07:56 Intake and Output: 01/21/17 01/21/17 06:59 18:59 Intake Total 25 Output Total 400 0 Balance -400 25 - Medications Medications: Current Medications Acetaminophen (Tylenol 650 Mg Supp) 650 mg RC Q4H [facility] Last Admin: 01/21/17 09:02 Dose: 650 mg Albuterol/Ipratropium (Duoneb 3 Mg/0.5 Mg (3 Ml) Ud) 3 ml IH [id number] [facility] Last Admin: 01/21/17 13:33 Dose: 3 ml Morphine Sulfate (Morphine Jewelry Model Maker 1 Mg/Ml) 25 mls @ 3 mls/hr IV PRN PRN; Protocol ; 3 MG/HR PRN 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 absent: Rales, Rhonchi, Wheezes - Cardiovascular Exam Cardiovascular Exam: REGULAR RHYTHM, RRR, +S1, +S2 - Extremities Exam Extremities Exam: absent: Calf Tenderness, Pedal Edema - Skin Skin Exam: Dry, Intact, Normal Color, Warm Assessment and Plan - Assessment and Plan (Free Text) Assessment: Mrs. Montanez is a 56 year old female with h/o metastatic breast cancer with gastric, peritoneal, and bone metastases was admitted for hospice care. Plan: 1. Supportive Care for h/o metastatic breast cancer - morphine S[employer] CROSSING GUARD increased to 3.0 mls/hr PRN for more adequate pain control - ativan PRN - transdermal scopolamine for nausea - Duoneb PRN Patient seen and case discussed in detail with attending, Dr. Matamoros. <Deyanira Matamoros - Last Filed: 01/22/17 07:47> Objective - Vital Signs/Intake and Output Vital Signs (last 24 hours): Temp Pulse Resp BP Pulse Ox 102.4 F H 85 32 H 145/80 95 01/20/17 15:37 01/20/17 07:56 01/20/17 10:00 01/20/17 07:56 01/20/17 07:56 Attending/Attestation - Attestation I have personally seen and examined this patient.: Yes I have fully participated in the care of the patient.: Yes I have reviewed all pertinent clinical information, including history, physical exam and plan: Yes Notes (Text): 01/22/17 07:46 Attending note; Patient seen with resident. Patient is currently on inpatient hospice. On morphine drip. Ativan when necessary. Agonal breathing. Family by the bedside. Morphine drip dosage increased as per family's request for comfort care. Family aware of poor prognosis.
--- NOTE | 2017-01-21 17:53 | CP.PCM.PRO ---
Pronouncement of Note - Clinical Findings Physical Exam: No Response Verbal/Painful Stimuli (Time spent for evaluating pt: 25 mins), Absent Peripheral Pulses{Carotid & Femoral}, Absent Heart & Breath Sounds, No Pupillary Light Reflex, No Corneal Reflex, Pupils Fixed & Dilated ( Pupils unequal,non reactive) - Pronouncement Time Time of Pronouncement of : 17:35 - Notifications Pronouncement Notifications: Family Notified (Family is by bedside,they are aware of patient's expiration), Atending Notified Recreation Facility Manager Notified: No - Autopsy Autopsy Requested: No - [place] [id number] Additional Comments: Pt was on Hospice care
--- NOTE | 2017-01-28 10:39 | CP.PCM.DIS ---
<ANGEL SPAULDING - Last Filed: 01/28/17 10:36> Provider - Provider Date of Admission: 01/19/17 17:05 Attending physician: Deyanira Matamoros MD Primary care physician: None Consults: None Time Spent in preparation of Discharge (in minutes): 51 Hospital Course - Hospital Course Hospital Course: Mrs. Montanez is a 56 year old AAF with a PMH of anemia, colitis, partial SBO, breast cancer recently discharged from medicine team service presents today for hospice care. 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 Her family reported that she was in pain and her morphine dose was increased on her first night. The next day patient and was pronounced to be by Dr. Song - Date & Time of H&P Date of H&P: 01/20/17 Time of H&P: 20:40 Discharge Exam - Eye Exam Additional comments: No Pupillary Light Reflex, No Corneal Reflex, Pupils Fixed & Dilated (Pupils unequal,non reactive) - Respiratory Exam Additional comments: No breath sounds or chest wall movement - Cardiovascular Exam Additional comments: Absent heart sounds and absent peripheral pulses - Additional Findings Additional findings: No Response Verbal/Painful Stimuli Discharge Plan - Follow Up Plan Condition: Disposition: WITH WITHOUT AUTOPSY <Deyanira Matamoros - Last Filed: 01/28/17 11:08> Provider - Provider Date of Admission: 01/19/17 17:05 Attending physician: Deyanira Matamoros MD Attending/Attestation - Attestation I have personally seen and examined this patient.: Yes I have fully participated in the care of the patient.: Yes I have reviewed all pertinent clinical information, including history, physical exam and plan: Yes Notes (Text): 01/28/17 11:04 Attending note; The patient on01/21/17. The patient was on hospice. certificate Signed. diagnosis; metastatic breast cancer liver mets Hepatic encephalopathy Acute renal failure Coagulopathy
== END 2017-01-21 17:35 | DRG 375 ==
LOC: 5RSO 17:05
PROVIDERS: ADMIT Internal Medicine; ATTEND Internal Medicine
DX: C78.6 Secondary malignant neoplasm of retroperitoneum and peritoneum (principal); C79.51 Secondary malignant neoplasm of bone; Z51.5 Encounter for palliative care; N17.9 Acute kidney failure, unspecified; D69.6 Thrombocytopenia, unspecified; K72.90 Hepatic failure, unspecified without coma; C78.89 Secondary malignant neoplasm of other digestive organs; Z66 Do not resuscitate; D64.9 Anemia, unspecified; Z85.3 Personal history of malignant neoplasm of breast